=== PATIENT | female | born 1960 | race Caucasian/White ===

== ENCOUNTER 2018-08-16 07:10 | Emergency (ER) | payer MEDICAID, SELFPAY ==
[2018-08-16 07:16] VITALS: BP 141/80; PULSE 85; RESP 14; TEMP 36.6; O2SAT 95
--- NOTE | 2018-08-16 07:31 | W.ED.GENAD ---
Discharge Plan Disposition Patient Disposition: HOME Condition: Good Discharge Details Chief Complaint: GenMedical Clinical Impression: Bug bite with infection Primary Care Provider: Carol Barrett ED Provider: Bernardo Mock Meds and New Rx's Prescriptions: New cephalexin 500 mg tablet 500 mg PO TID Qty: 20 RF: 0 Discharge Instructions Additional Instructions: Antibiotic as prescribed. Motrin or Tylenol as needed for discomfort or fever. Follow-up with primary care in 1 week as planned. Return to ED for increasing pain swelling, high fever, worsening headaches, other concerns. Medical Decision Making These appear to be infected bug bites at this point. No fluctuance or evidence of abscess at this point in time. We will start patient on Keflex 500 mg p.o. 3 times daily for 1 week. She has a scheduled follow-up appointment with primary care in 1 week. She can be evaluated at that time for resolution of symptoms. Return to ED for fever, worsening lesions, neurologic changes, other concerns. HPI General Mode of arrival: ambulatory. Date/Time Provider Initiated Documentation: 08/16/18 07:22. Limitations to Documentation: no limitations. Information obtained by: patient and RN notes reviewed. HPI Narrative: Patient presents to ED for evaluation of bug bites behind the right ear and along the right occipital hairline. Patient reports original bug bites were about a week ago. These ones are now painful and swollen. They are not itchy. She is not sure what actually bit her but assumes given their distribution either mosquito or black flies. She states that they never really itched. She has not been digging at them. However, a couple of them have become hard, tender, swollen. She does not feel ill otherwise. Denies fevers, chills, myalgias. Reports that the two behind her right ear drained the other day. No further drainage since then. Related Data Home Medications Medication Instructions Recorded Confirmed cephalexin 500 mg PO TID #20 tab 08/16/18 Previous Rx's Medication Instructions Recorded cephalexin 500 mg PO TID #20 tab 08/16/18 Allergies Allergy/AdvReac Type Severity Reaction Status Date / Time Sulfa (Sulfonamide Allergy Intermediate Skin Rash Unverified 04/15/18 09:55 Antibiotics) General Stated Complaint: GenMedical FLORINA: 4 Review of Systems Constitutional Denies chills, Denies fever(s), Denies headache(s) and Denies malaise ENT Denies headache(s) Musculoskeletal Denies myalgias and Denies arthralgias Neurologic Denies headache(s) [facility] Medical History Heart block (Chronic 10/07/13) Pacemaker (Chronic 09/11/13) Type 2 diabetes mellitus, uncontrolled (Chronic) Hypothyroidism (Chronic) Surgical History Pacemaker (~09/2013) Family History Mother Diabetes Heart disease Hyperlipidemia Father No problems noted. Sister No problems noted. Brother No problems noted. maternal/paternal grandparents No problems noted. Son No problems noted. Son No problems noted. Son No problems noted. Son No problems noted. Social History Smoking/Tobacco Use Status: Current-Occasional Tobacco Type: cigarettes Alcohol Intake: never Drug use: Never Substance use type: does not use Do you feel safe in your relationship?: Yes Exam Const General: cooperative, comfortable and no acute distress Orientation: alert and oriented x3 HENPA Head: normocephalic, atraumatic and other (areas of tender, indurated, erythematous lesions along hairline/behind ear) Ears: external ears normal Face and sinus: normal facial exam Neck Neck: full ROM, supple and no lymphadenopathy noted Neuro General: alert, oriented x3, no focal motor deficits and CN's II-XI intact bilaterally Cognition: normal cognition Speech: speech normal Gait: normal gait Course Vital Signs Temperature 97.9 F 08/16/18 07:16 Pulse 85 08/16/18 07:16 Respiratory Rate 14 08/16/18 07:16 Blood Pressure 141/80 H 08/16/18 07:16 Pulse Oximetry 95 08/16/18 07:16 Temperature 97.9 F 08/16/18 07:16 Temperature Source Oral 08/16/18 07:16 Pulse 85 08/16/18 07:16 Respiratory Rate 14 08/16/18 07:16 Respiratory Effort Non-Labored 08/16/18 07:22 Respiratory Depth Normal 08/16/18 07:22 Respiratory Pattern Normal 08/16/18 07:22 Blood Pressure 141/80 H 08/16/18 07:16 Pulse Oximetry 95 08/16/18 07:16 Oxygen Delivery Method Room Air 08/16/18 07:16 Oxygen Flow Rate 0 08/16/18 07:16
--- NOTE | 2018-08-16 07:39 | ED.GENADUL_ITS ---
Discharge Plan Disposition Patient Disposition: HOME Condition: Good Discharge Details Chief Complaint: GenMedical Clinical Impression: Bug bite with infection Primary Care Provider: Carol Barrett ED Provider: Bernardo Mock Meds and New Rx's Prescriptions: New cephalexin 500 mg tablet 500 mg PO TID Qty: 20 RF: 0 Discharge Instructions Additional Instructions: Antibiotic as prescribed. Motrin or Tylenol as needed for discomfort or fever. Follow-up with primary care in 1 week as planned. Return to ED for increasing pain swelling, high fever, worsening headaches, other concerns. Medical Decision Making These appear to be infected bug bites at this point. No fluctuance or evidence of abscess at this point in time. We will start patient on Keflex 500 mg p.o. 3 times daily for 1 week. She has a scheduled follow-up appointment with primary care in 1 week. She can be evaluated at that time for resolution of symptoms. Return to ED for fever, worsening lesions, neurologic changes, other concerns. HPI General Mode of arrival: ambulatory . Date/Time Provider Initiated Documentation: 08/16/18 07:22 . Limitations to Documentation: no limitations . Information obtained by: patient and RN notes reviewed . HPI Narrative: Patient presents to ED for evaluation of bug bites behind the right ear and along the right occipital hairline. Patient reports original bug bites were about a week ago. These ones are now painful and swollen. They are not itchy. She is not sure what actually bit her but assumes given their distribution either mosquito or black flies. She states that they never really itched. She has not been digging at them. However, a couple of them have become hard, tender, swollen. She does not feel ill otherwise. Denies fevers, chills, myalgias. Reports that the two behind her right ear drained the other day. No further drainage since then. Related Data Home Medications Medication Instructions Recorded Confirmed cephalexin 500 mg PO TID #20 tab 08/16/18 Previous Rx's Medication Instructions Recorded cephalexin 500 mg PO TID #20 tab 08/16/18 Allergies Allergy/AdvReac Type Severity Reaction Status Date / Time Sulfa (Sulfonamide Allergy Intermediate Skin Rash Unverified 04/15/18 09:55 Antibiotics) General Stated Complaint: GenMedical FLORINA: 4 Review of Systems Constitutional Denies chills, Denies fever(s), Denies headache(s) and Denies malaise ENT Denies headache(s) Musculoskeletal Denies myalgias and Denies arthralgias Neurologic Denies headache(s) [facility] Medical History Heart block (Chronic 10/07/13) Pacemaker (Chronic 09/11/13) Type 2 diabetes mellitus, uncontrolled (Chronic) Hypothyroidism (Chronic) Surgical History Pacemaker (~09/2013) Family History Mother Diabetes Heart disease Hyperlipidemia Father No problems noted. Sister No problems noted. Brother No problems noted. maternal/paternal grandparents No problems noted. Son No problems noted. Son No problems noted. Son No problems noted. Son No problems noted. Social History Smoking/Tobacco Use Status: Current-Occasional Tobacco Type: cigarettes Alcohol Intake: never Drug use: Never Substance use type: does not use Do you feel safe in your relationship?: Yes Exam Const General: cooperative, comfortable and no acute distress Orientation: alert and oriented x3 HENPR Head: normocephalic, atraumatic and other (areas of tender, indurated, erythematous lesions along hairline/behind ear) Ears: external ears normal Face and sinus: normal facial exam Neck Neck: full ROM, supple and no lymphadenopathy noted Neuro General: alert, oriented x3, no focal motor deficits and CN's II-XI intact bilaterally Cognition: normal cognition Speech: speech normal Gait: normal gait Course Vital Signs Temperature 97.9 F 08/16/18 07:16 Pulse 85 08/16/18 07:16 Respiratory Rate 14 08/16/18 07:16 Blood Pressure 141/80 H 08/16/18 07:16 Pulse Oximetry 95 08/16/18 07:16 Temperature 97.9 F 08/16/18 07:16 Temperature Source Oral 08/16/18 07:16 Pulse 85 08/16/18 07:16 Respiratory Rate 14 08/16/18 07:16 Respiratory Effort Non-Labored 08/16/18 07:22 Respiratory Depth Normal 08/16/18 07:22 Respiratory Pattern Normal 08/16/18 07:22 Blood Pressure 141/80 H 08/16/18 07:16 Pulse Oximetry 95 08/16/18 07:16 Oxygen Delivery Method Room Air 08/16/18 07:16 Oxygen Flow Rate 0 08/16/18 07:16
[2018-08-16] MEDS: Cephalexin 500 MG CAP PO (07:41)
== END 2018-08-16 07:43 | disposition home or self-care (01) ==
PROVIDERS: Emergency Provider Emergency Medicine; PCP Internal Medicine
DX: S00.86XA Insect bite (nonvenomous) of other part of head, initial encounter (principal); W57.XXXA Bitten or stung by nonvenomous insect and other nonvenomous arthropods, initial encounter
CPT/HCPCS: 99283

== ENCOUNTER 2018-09-11 09:25 | Outpatient (CLI) | payer MEDICAID, SELFPAY ==
[2018-09-11 10:32] LABS: HCT 43.9 % (36.0-46.0); HGB 14.9 g/dL (12.0-15.5); Mean Corp. HGB Concentration 33.9 g/dL (32.0-36.0); Mean Corpuscular Hemoglobin 28.2 pg (27.0-33.0); Mean Platelet Volume 9.3 fL (8.0-11.0); Platelet Count 199 x1000/uL (130-400); RBC 5.29 m/cumm (4.00-5.20); RBC Distribution Width 13.1 % (11.7-14.6)
[2018-09-11 11:27] LABS: BUN 8 mg/dL (7-18); CREATININE 0.61 mg/dL (0.55-1.02); Calcium 9.1 mg/dL (8.5-10.1); Calculated LDL 129 mg/dL; Chloride 103 mmol/L (98-107); Cholesterol 197 mg/dL (50-200); Glucose 141 mg/dL (70-100); HDL Cholesterol 44 mg/dL (40-60); Potassium 4.6 mmol/L (3.5-5.1); Sodium 138 mmol/L (136-145); Triglyceride 121 mg/dL (30-150)
== END 2018-09-11 09:45 ==
PROVIDERS: PCP Nurse Practitioner Family; Visit Provider Nurse Practitioner Family
DX: I10 Essential (primary) hypertension (principal); E11.9 Type 2 diabetes mellitus without complications; Z00.00 Encounter for general adult medical examination without abnormal findings; F32.9 Major depressive disorder, single episode, unspecified
CPT/HCPCS: 36415; 80048; 80061; 83721; 85027

== ENCOUNTER 2018-11-10 00:59 | Outpatient (CLI) | payer MEDICAID, SELFPAY ==
--- NOTE | 2018-11-10 12:42 | DI.MAMMO_ITS ---
EXAM: MG MAMMO SCREENING CLINICAL HISTORY: SCREENING Z12.31. TECHNIQUE: Bilateral full field digital CC and MLO mammographic images were obtained with 3D tomosyn thesis and utilizing computer aided detection (CAD). COMPARISON: Priors available for comparison. FINDINGS: Masses/Architectural Distortion: None seen. Microcalcifications: No suspicious pleomorphic-type are seen. Breast Density - Category A - Almost entirely fatty IMPRESSION: 1. No significant interval change with no specific features of malignancy noted. 2. Unless there is more urgent need, screening mammography is recommended, as per [employer] guidelines. ACR BI-RAD Category- 1 Negative A negative radiographic report should not delay biopsy if a dominant or clinically suspicious mass is present. Up to ten percent of cancers are not identified on mammography. A negative report may reinforce clinical impression. Adenosis and dense breasts may obscure an underlying neoplasm. False positive reports average 6 to 10%.
== END 2018-11-10 01:19 ==
PROVIDERS: PCP Nurse Practitioner Family; Visit Provider Nurse Practitioner Family
DX: Z12.31 Encounter for screening mammogram for malignant neoplasm of breast (principal)
CPT/HCPCS: 77063; 77067

== ENCOUNTER 2019-12-01 00:13 | Outpatient (CLI) | payer MEDICAID, SELFPAY ==
--- NOTE | 2019-12-01 | DI.MAMMO_ITS ---
EXAM: MAMMO SCREENING CLINICAL HISTORY: SCREENING,Z12.31 TECHNIQUE: Mammograms were interpreted according to the usual protocol including computer analysis w [employer] CAD system, tomosynthesis and C-view imaging. COMPARISON: 2010 through 2018 FINDINGS: The breasts are composed of mainly fatty density , Breast Density category A. A pacemaker is again noted overlying the left pectoral muscle. No suspicious masses or suspicious microcalcifications are seen. No skin thickening or abnormal axillary lymph nodes are seen. There has been no significant change from prior exams. IMPRESSION: BI-RADS Category 1, Negative mammogram Yearly screening mammography is recommended. Breast Density - Category A, fatty density. A negative radiographic report should not delay biopsy if a dominant or clinically suspicious mass is present. Up to ten percent of cancers are not identified on mammography. A negative report may reinforce clinical impression. Adenosis and dense breasts may obscure an underlying neoplasm. False positive reports average 6 to 10%. Patient will receive a letter notifying them of these results.
== END 2019-12-01 00:33 ==
PROVIDERS: PCP Nurse Practitioner Family; Visit Provider Nurse Practitioner Family
DX: Z12.31 Encounter for screening mammogram for malignant neoplasm of breast (principal); Z95.0 Presence of cardiac pacemaker
CPT/HCPCS: 77063; 77067

== ENCOUNTER 2020-06-15 09:57 | Outpatient (REF) | payer MEDICAID, SELFPAY ==
[2020-06-15 13:50] LABS: ALT 144 U/L (14-59); AST 99 U/L (15-37); Anion Gap 11.2 mmol/L (3-11); BUN 13 mg/dL (7-18); CO2 26.8 mmol/L (21.0-32.0); CREATININE 0.7 mg/dL (0.55-1.02); Calcium 9.6 mg/dL (8.5-10.1); Chloride 102 mmol/L (98-107); Glucose 126 mg/dL (74-106); Potassium 4.5 mmol/L (3.5-5.1); Sodium 140 mmol/L (136-145)
[2020-06-15 14:08] LABS: Calculated LDL 53 mg/dL (<100); Cholesterol 122 mg/dL (<200); HDL Cholesterol 51 mg/dL (40-60); Triglyceride 93 mg/dL (<150)
== END 2020-06-15 09:58 | disposition home or self-care (01) ==
LOC: NCHCN 09:57
PROVIDERS: PCP Nurse Practitioner Family; Visit Provider Nurse Practitioner Family
DX: E11.9 Type 2 diabetes mellitus without complications (principal)
CPT/HCPCS: 80048; 80061; 84450; 84460

== ENCOUNTER 2020-06-22 15:38 | Outpatient (REF) | payer MEDICAID, SELFPAY ==
[2020-06-22 22:08] LABS: Iron 86 ug/dL (50-170); Total Iron Binding Capacity 349 ug/dL (250-450); Transferrin Sat 25 % (15-50)
[2020-06-24 09:37] LABS: HBs Antibody, Quant <3.1 mIU/mL (See Note); Hepatitis B Surface Ab Negative (See Note)
[2020-06-24 10:11] LABS: Hepatitis C Ab w Rflx HCV PCR Negative (Negative)
== END 2020-06-22 15:39 | disposition home or self-care (01) ==
LOC: NCHCN 15:38
PROVIDERS: PCP Nurse Practitioner Family; Visit Provider Nurse Practitioner Family
DX: R94.5 Abnormal results of liver function studies (principal); E11.9 Type 2 diabetes mellitus without complications
CPT/HCPCS: 86706; 86803; 83540; 83550

== ENCOUNTER 2020-07-01 04:13 | Outpatient (CLI) | payer MEDICAID, SELFPAY ==
--- NOTE | 2020-07-01 | DI.US_ITS ---
Exam(s) US ABDOMEN EXAM: US ABDOMEN INDICATION: ELEVATED LFT'S,R94.5 COMPARISON: US RIGHT EXTREMITY US from 01/12/2011 TECHNIQUE: Ultrasound abdomen performed using standard protocol FINDINGS: Abdominal ultrasound was performed according to the usual protocol. There appears to be mild hepatomegaly. Mildly echogenic appearance of the liver presumably represent s hepatic steatosis.. No focal hepatic lesion seen. There is no evidence of cholelithiasis or biliary dilatation. No gallbladder wall thickening or peric holecystic fluid collection. Pancreas appears intact as visualized. Spleen is unremarkable in appearance with no focal lesion. Kidneys are normal in size and shape. No renal mass, hydronephrosis, or nephrolithiasis. Multiple sm all simple cysts of the left kidney are noted. Abdominal aorta and IVC are of normal diameter. IMPRESSION: Mild hepatomegaly and hepatic steatosis. Otherwise unremarkable examination.
== END 2020-07-01 04:33 ==
PROVIDERS: PCP Nurse Practitioner Family; Visit Provider Nurse Practitioner Family
DX: R94.5 Abnormal results of liver function studies (principal); K76.0 Fatty (change of) liver, not elsewhere classified
CPT/HCPCS: 76700

== ENCOUNTER 2021-01-27 02:09 | Outpatient (CLI) | payer MEDICAID, SELFPAY ==
--- NOTE | 2021-01-27 13:52 | DI.US_ITS ---
APPROVED REPORT EXAM: Comprehensive 2D, Doppler, and color-flow Echocardiogram Patient Location: [facility] [employer] Salesperson: Tere Carias RDCS (AE) Indications: Heart Murmur Other Information Study Quality: Adequate. Technically limited study due to body habitus. Conclusion Normal left ventricular wall thickness and chamber size. Estimated ejection fraction is 55 to 60% Wa ll motion is normal Normal right ventricular size and systolic function Both atria are normal in size Pacemaker wire noted in the right heart Aortic valve is trileaflet and very mildly sclerotic without stenosis or regurgitation There is no additional structural or hemodynamically significant valvular disease Wall motion Left Ventricle The left ventricle is normal size. The left ventricular systolic function is normal. The left ventric ular ejection fraction is within the normal range. There is normal left ventricular wall thickness. T here is normal LV segmental wall motion. There is no ventricular septal defect visualized. LVEF is 55 %. Right Ventricle The right ventricle is normal size. The right ventricular systolic function is normal. The RVSP is 15 .6mmHg. Pacemaker lead is present in the right ventricle. Atria The left atrium size is normal. The right atrium size is normal. The interatrial septum is intact wit h no evidence for an atrial septal defect. Aortic Valve The aortic valve is very mildly sclerotic. Aortic valve is trileaflet. No hemodynamically significant valvular aortic stenosis. No aortic regurgitation is present. Mitral Valve The mitral valve is normal in structure. No evidence of mitral valve stenosis. Trace mitral regurgita tion. Tricuspid Valve The tricuspid valve is normal in structure. There is no tricuspid valve stenosis. Trace tricuspid reg urgitation. Pulmonic Valve The pulmonary valve is normal in structure. There is no pulmonic valvular stenosis. There is no pulmo sriram valvular regurgitation. Great Vessels The aortic root is normal in size. The ascending aorta is normal in size. Aortic arch is normal in ca liber. IVC is normal in size and collapses >50% with inspiration. Pericardium There is no pericardial effusion. 2D Dimensions IVSD d PLAX 0.81 cm F: 0.6-1.0 LV Vol A2C d MOD 48.0 mL LVPW d PLAX 0.88 cm F: 0.6 - 1.0 LV Vol A4C d MOD 80.1 mL LVID d PLAX 4.27 cm F: 3.8 - 5.2 LA vol/ BSA A4C s A-L 18.4 mL/m2 LVDs 3.00 cm F: 2.2 - 3.5 LA Area A4C s MOD 13.09 cm2 Ao Root d 2.07 cm F: 2.7 - 3.3 LV EF A4C MOD 55.7 % RA Area A4C 13.14 cm2 LV EF A2C MOD 46.6 % RA Vol/ BSA A4C s A-L 20.7 mL/m2 LV EF Biplane MOD 51.7 % Ao Asc Diam d 3.15 cm F: 2.3 - 3.1 SV 33.13 mL LV EF Teichholz 56.3 % SV Index 19.26 mL/m2 LVEF (Moralez's) 51.74 % F: 54 - 74 LV Volume 50.63 mL F: 46 - 106 LV Volume Index 29.43 mL/m2 F: 29 - 61 LV Vol Biplane MOD 64.0 mL FS 29.15 % M-Mode TAPSE 1.90 cm (M/F) >1.7 LV Diastology MV E' medial 0.066 (>0.07 m/s) E/A Ratio 0.8 LV E/e MED 13.30 (<14) MV E Vmax 0.88 (0.4-1.3 m/s) MV E' lateral 0.075 (>0.1 m/s) MV A Vmax 1.15 (0.4-1.3 m/s) LV E/e LAT 11.70 (<14) MV E/A Ratio 0.75 MV E/E' medial 13.33 MV E/E' lateral 11.74 Aortic Valve LVOT Area 2.88 cm2 AoV Area Vmax 1.57 cm2 LVOT Vmax 1.24 m/s AoV Area/ BSA (Vmax) 0.91 cm2/m2 LVOT Mean Naeem. 0.87 m/s LUANNE Mean Naeem. 1.62 cm2 LVOT Peak Grad 6.2 mmHg LUANNE Mean Naeem. Index 0.94 cm2/m2 LVOT Mean Grad 3.5 mmHg LVOT VTI 0.253 m LVOT Diam s 1.90 cm AoV Vmax 2.29 m/s Velocity Ratio 0.54 AoV Mean Naeem. 1.56 m/s AoV Peak Grad 20.9 mmHg LVOT SV 73.04 mL AoV Mean Grad 11.0 mmHg AoV VTI 0.382 m AoV Area VTI 1.91 cm2 AoV Area/ BSA (VTI) 1.11 cm/m2 Mitral Valve MV DT 307 (160-240 msec) MV PHT 89 msec MV Area PHT 2.47 cm2 MV VTI 0.356 m MV Area VTI 2.05 (4.0-6.0 cm2) Pulmonary Valve PV Vmax 1.23 (0.5-1.5 m/s) RVOT Peak Gr. 4.16 mmHg PV Peak Grad 6.0 mmHg RVOT Mean Gr. 2.05 mmHg PV Mean Grad 3.1 mmHg RVOT VTI 0.190 m PV VTI 0.255 m RVOT Vmax 1.02 m/s Tricuspid Valve TR Peak Grad 12.5 mmHg TR Vmax 1.77 m/s RA Pressure 3.00 mmHg RVSP (TR) 15.6 mmHg
== END 2021-01-27 02:29 ==
PROVIDERS: PCP Nurse Practitioner Family; Visit Provider Nurse Practitioner Family
DX: R01.1 Cardiac murmur, unspecified (principal); Z95.0 Presence of cardiac pacemaker; I35.8 Other nonrheumatic aortic valve disorders
CPT/HCPCS: 93306

== ENCOUNTER 2021-03-24 13:33 | Outpatient (REF) | payer MEDICAID, SELFPAY ==
[2021-03-24 17:14] LABS: ALT 70 U/L (14-59); AST 43 U/L (15-37); Anion Gap 7.7 mmol/L (3-11); BUN 9 mg/dL (7-18); CO2 26.3 mmol/L (21.0-32.0); CREATININE 0.6 mg/dL (0.55-1.02); Calcium 8.9 mg/dL (8.5-10.1); Chloride 106 mmol/L (98-107); Glucose 122 mg/dL (74-106); Potassium 4.1 mmol/L (3.5-5.1); Sodium 140 mmol/L (136-145)
[2021-03-24 19:29] LABS: HCT 43.1 % (36.0-46.0); HGB 14.1 g/dL (11.2-15.7); MCH 29.1 pg (27.0-33.0); MCHC 32.7 % (32.0-36.0); MCV 88.9 fL (80-95); MPV 10.5 fL (8.0-11.0); Platelet Count 185 10^3/uL (130-400); RBC 4.85 10^6/uL (3.93-5.22); RDW 12.4 % (11.7-14.6); RDW-SD 40.9 fL; WBC 8.95 10^3/uL (4.4-10.8)
== END 2021-03-24 13:34 | disposition home or self-care (01) ==
LOC: NCHCN 13:33
PROVIDERS: PCP Nurse Practitioner Family; Visit Provider Nurse Practitioner Family
DX: I10 Essential (primary) hypertension (principal); E11.9 Type 2 diabetes mellitus without complications; R94.5 Abnormal results of liver function studies
CPT/HCPCS: 80048; 85027; 84450; 84460

== ENCOUNTER 2021-09-05 03:20 | Outpatient (CLI) | payer MEDICAID, SELFPAY ==
[2021-09-05 12:09] LABS: Source Nasal/Nares
[2021-09-05 16:22] LABS: COVID-19 PCR Negative (Negative)
== END 2021-09-05 03:21 | disposition home or self-care (01) ==
LOC: LBO 03:21
PROVIDERS: PCP Nurse Practitioner Family; Visit Provider Student in an Organized Health Care Education/Training Program
DX: Z20.822 Contact with and (suspected) exposure to COVID-19 (principal); Z01.818 Encounter for other preprocedural examination
CPT/HCPCS: 87635

== ENCOUNTER 2021-09-07 08:46 | Day surgery (SDC) | payer MEDICAID, SELFPAY ==
[2021-09-07] VITALS (9 sets, daily range): BP systolic 114–176; BP diastolic 55–83; PULSE 73–82; RESP 18–34; TEMP 36–36.6; O2SAT 92–100; BMI 31.2
--- NOTE | 2021-09-07 08:13 | W.ANESPRE ---
General Info Date of Service Date Performed: 09/07/21 Height: 5 ft Weight: 72.575 kg Body Mass Index (BMI): 31.2 Surgical Procedure: Operation Date: 09/07/21 11:40 Proposed Procedure Side Surgeon p Shoulder Manipulation Under Anesthesia Chaim Flores MD Meds Allergies and Home Medications Allergies Allergy/AdvReac Type Severity Reaction Status Date / Time Sulfa (Sulfonamide Allergy Intermediate Skin Rash Verified 09/07/21 09:15 Antibiotics) Home Medication Medication Instructions Recorded albuterol sulfate 90 mcg/actuation 2 puff inhalation Q6H PRN 11/07/18 aerosol inhaler (Ventolin HFA) sitagliptin 100 mg tablet (Januvia) 100 mg PO DAILY 04/15/19 atorvastatin 40 mg tablet 40 mg PO DAILY 05/18/20 fluticasone propionate 110 1 puff inhalation BID 07/04/21 mcg/actuation HFA aerosol inhaler (Flovent HFA) lisinopril 10 mg tablet 10 mg PO DAILY 07/04/21 metformin 500 mg tablet 500 mg PO BID 07/04/21 Current Visit Medications: Current Medications Generic Name Dose Route Start Last Admin Trade Name Freq PRN Reason Stop Dose Admin Ringer's Solution 1,000 mls @ 30 mls/hr 09/07/21 06:00 IV 10/06/21 23:59 INFUSION [facility] IV Miscellaneous Supplies 1 each 09/07/21 06:00 Iv Access IV 10/06/21 23:59 DIRECTED ROSY Naproxen 250 - 500 mg 09/07/21 07:23 Naproxen 500 Mg Tab PO BID PRN PRN Oxycodone HCl 5 - 10 mg 09/07/21 07:23 Oxycodone 5 Mg Tab PO Q4H PRN PRN Sodium Chloride 0 ml 09/07/21 06:00 Normal Saline Flush 10 Ml Syr IV 10/06/21 23:59 PRN PRN Sodium Chloride 0 ml 09/07/21 06:00 Normal Saline 10 Ml Vial IJ 10/06/21 23:59 DIRECTED PRN Sterile Water 0 ml 09/07/21 06:00 Water,Injection,Sterile 10 Ml Vial IJ 10/06/21 23:59 DIRECTED PRN PFSH Active Problems Active Problems: Problem Status Onset Code Adhesive capsulitis of right shoulder M75.01 Steatosis, liver K76.0 Elevated LFTs R79.89 Heart murmur R01.1 No-show for appointment Z53.29 Mixed incontinence N39.46 Depression F32.9 Lumbar pain M54.5 Medical History Medical History (Updated 09/07/21 @ 07:24 by Chaim Flores MD) Bursitis of right shoulder COPD (chronic obstructive pulmonary disease) Diabetes A) Diagnosed 09/19/13 admission Dyspnea on exertion Heart block AV second degree medtronic dual lead pacemaker Hypertension Hypothyroidism a) diagnosed 09/19/13 admission Obesity (10/07/13) Psoriasis Right rotator cuff tendonitis Tobacco abuse Type 2 diabetes mellitus, uncontrolled Urge incontinence Surgical History Surgical History History of Surgical Procedure a. Pregnancies: 4, Para 4 with four children. Pacemaker (~09/2013) Tobacco Smoking/Tobacco Use Status: Current-Occasional Tobacco Type: cigarettes Smoking cigarettes per day: 10 Years smoked: 25 Counseling given: patient declined Alcohol Alcohol Intake: never Substance Use Substance use: Never Substance use type: does not use Prental History History 4 Para 4 Hx # Term Pregnancies Multiple births Hx # Pregnancies Ectopic pregnancies AB induced Hx Number of Living Children AB spontaneous Vital Signs and Lab Results Lab Results Blood Type / Crossmatch: No Data to Display Complete Blood Count: No Data to Display Complete Metabolic Panel: No Data to Display Liver Function Panel: No Data to Display Coagulation Panel: No Data to Display Cardiac Panel: No Data to Display Arterial Blood Gas: No Data to Display Venous Blood Gas: No Data to Display Pancreas Panel: No Data to Display Thyroid Panel: No Data to Display Infectious Disease: Coronavirus (COVID-19)(PCR) Negative (Negative) 09/05/21 09:58 Coronavirus 2019 Source Nasal/Nares 09/05/21 09:58 Blood Cultures: No Data to Display Toxicology Panel: No Data to Display Imaging and Studies Imaging and Studies Study information below may be from another EMR and interpreted by another provider. Please see original notes in EMR for more complete details. Echocardiogram Summary: Conclusion Normal left ventricular wall thickness and chamber size. Estimated ejection fraction is 55 to 60% Wall motion is normal Normal right ventricular size and systolic function Both atria are normal in size Pacemaker wire noted in the right heart Aortic valve is trileaflet and very mildly sclerotic without stenosis or regurgitation There is no additional structural or hemodynamically significant valvular disease Anesthesia Assessment and Plan Anesthesia History Personal History: No History of Anesthesia Complications Family History: No Family History of Anesthesia Complications Exercise Tolerance Exercise Tolerance: Metabolic Equivalents>4 Pertinent Negatives Pertinent Negatives: No Symptoms of GERD and No History of CVA/TIA Cardiac & Pulmonary Exam Cardiac Exam: Normal S1/S2 Heart Sounds Pulmonary Exam: Clear Bilateral Breath Sounds Implantable Cardiac Device Does patient have a Pacemaker or an ICD?: Yes Device Briquette Machine Operator:: Perfect Earthtronic Dual lead Adapta [id number] Reason for Placement:: 2nd degree HB Date of Last Device Interrogation:: 06/14/21 Airway Exam Known Difficult Airway: No Mallampati Class: 2 Mouth Opening: Normal (> 3cm) Thyromental Distance: Greater than 3 cm Neck Range of Motion: Full ROM Neck Circumference: Normal Teeth Condition: Generalized Poor Dentition and Loose or Chipped (Patient describes two right molars (1 upper and 1 lower) and one lower left molar being sharp. Many missing teeth. ) ASA Classification ASA Score: ASA 2 Emergency Case?: No NPO Status NPO Status: NPO Clears >2 hours, Solids >8 hours Anesthesia Plan Resuscitation Status: Full Code Anesthesia Technique: General Anesthesia Airway Planned: Natural Airway Pain Management: Surgeon and patient request nerve block Monitors Used: Standard Monitors Preoperative Comments:: PPM: recently interrogated.
[2021-09-07] MEDS: Lactated Ringers 1,000 ML 30 ML IV (09:33)
--- NOTE | 2021-09-07 10:00 | W.PM.OP ---
Operative Note Operative Note DATE OF PROCEDURE: 09/07/21 PRE-OP DIAGNOSIS: Right shoulder adhesive capsulitis POST-OP DIAGNOSIS: same PROCEDURE: Right shoulder manipulation under anesthesia, CPT# 65390 SURGEON: Chaim Flores ANESTHESIA TYPE: General LMA/ETT and Primary Nerve Block Refer to Anesthesia Record COMPLICATIONS: None Patient was transported to: PACU Patient's condition: stable Indications: Please see complete medical record for details. Procedure Description: In the operating room, general anesthesia was induced. The patient was positioned supine on the stretcher. All bony prominences were well-padded. Preoperative antibiotics were omitted. The correct patient, procedure, and side of the procedure were all verified prior to beginning. The patient's right shoulder range of motion was assessed in about 15 degrees external rotation 90 degrees forward elevation while under anesthesia with rather stiff endpoints. Using a short lever arm and steady guided pressure, the shoulder was manipulated in all directions alternating initially through forward elevation, abduction, and external rotation with readily palpable release of adhesions restoring excellent range of motion. Terminal motion was compared against the contralateral side and additional stretching done in all directions until full range of motion was restored. While the patient was still under anesthesia waking up various positions were reinforced especially external rotation forward elevation and abduction. There was no instability or significant mechanical symptoms post?manipulation. The patient awoke from anesthesia without complication and was transferred to the recovery room in a stable condition.
--- NOTE | 2021-09-07 11:21 | W.ANESNERVE ---
Nerve Block Single Injection Procedure Date and Time Date Performed: 09/07/21 Procedure Start: : Location Where Procedure Performed Procedure Location: Day Surgery Unit Reason Performed: Postoperative Analgesia Requesting Provider: Chaim Flores Timeout Performed Timeout Performed: Yes Monitoring Used ECG, Blood Pressure, SpO2 and See EMR for corresponding vital signs Sterility Sterility: Hand Hygiene, Surgical Cap, Surgical Mask, Sterile Gloves and Chlorhexidine Sedation Given During Procedure Sedation Given (Indicate Dose Given): Versed IV Dose:: 2mg Patient Mental Status Patient Mental Status: Sedate with meaningful communication Nerve Block 1st Nerve Block: Laterality: Right Block Type: Supraclavicular Needle / Catheter Used: 100mm SonoPlex II Local Anesthetic Bolus (Indicate Dose Given): Lidocaine used for local infiltration of skin, Injected in 3-5ml increments after negative blood aspiration and Bupivacaine 0.5% Dose:: 20 mL Additives (Indicate Dose Given): Precedex Dose:: 70mcg Ultrasound: Sterile probe cover and gel used Ultrasound Image Saved?: Yes Nerve Stimulator: Not Used Paresthesia: None Post Procedure Pain score (0-10): 0 Procedure Tolerated: No Complications and Patient tolerated well Procedure Outcome: Successful Performed By: Rosamaria Herring Supervised By: Jose Lema
--- NOTE | 2021-09-07 12:11 | PDOC.DSDIS_ITS ---
Discharge Plan Disposition Patient Disposition: HOME Condition: Stable Discharge Details Reason For Visit: Right shoulder stiffness Attending Provider: Chaim Flores Primary Care Provider: Anna Bonds Home Meds and New Rx's Prescriptions: New naproxen 250 mg tablet 250 - 500 mg PO BID PRNQty: 40 0RF Rx Instructions: take with a meal oxycodone 5 mg tablet 5 - 10 mg PO Q4H MDD 30 mg PRN (Reason: moderate to severe pain) Qty: 12 0RF Continued Januvia 100 mg tablet 100 mg PO DAILY atorvastatin 40 mg tablet 40 mg PO DAILY albuterol sulfate [Ventolin HFA] 90 mcg/actuation HFA aerosol inhaler 2 puff IH Q6H PRN fluticasone propionate [Flovent HFA] 110 mcg/actuation HFA aerosol inhaler 1 puff inhalation BID lisinopril 10 mg tablet 10 mg PO DAILY metformin 500 mg tablet 500 mg PO BID Discharge Instructions Additional Instructions: Surgery: Right shoulder manipulation under anesthesia Activity: Light gentle use of the shoulder and right upper extremity as soon as ready. Gently stretch shoulder in all directions every day. Resume physical therapy tomorrow as previously arranged. You may return to [employer] work as soon as you feel ready sometime in the next 1-2 weeks. Prescriptions: Naproxen 250 mg take 1-2 every 12 hours with a meal as needed for moderate pain Oxycodone 5 mg take 1-2 every 4-6 hours as needed for severe pain You may use qmsc-bca-pnzxapi Tylenol (acetaminophen) as needed for mild pain. These pain medications may be taken all at once or in different combinations as needed. Also, recommend Colace (docusate) as a stool softener as surgery and pain medicine cause constipation. You may try etad-jsf-kehqscn diphenhydramine (Benadryl) 25-50 mg nightly as a sleep aid Dressings: None Follow-up: 10-[address] Flores. Let us know right away if you develop any redness, drainage, fevers, chest pain, or trouble breathing. Do not drink alcohol or drive for at least 24 hours after anesthesia. Please call the office during business hours with any questions or concerns. Discharge Orders Discharge Orders: Discharge Order (Routine); Ordered 09/07/21 Ordered By: Chaim Flores DS: Diagnosis Discharge Diagnosis (1) Adhesive capsulitis of right shoulder: Status: Acute
--- NOTE | 2021-09-07 12:31 | W.ANESPOSTOP ---
Postoperative Evaluation Date, Time and Location Date Performed: 09/07/21 Time Performed: 14:21 Patient Location: Day Surgery Unit Vital Signs Most Recent Imported Vital Signs: Most Recent Vital Signs Temp Pulse Resp BP Pulse Ox 36.4 C L 74 24 122/77 93 09/07/21 12:18 09/07/21 12:18 09/07/21 12:18 09/07/21 12:18 09/07/21 12:18 Pain Score Most Recent Pain Score: Most Recent Pain Score Pain Level 0 09/07/21 12:18 Assessment Mental Status: Awake (Alert & Oriented to Patient Baseline) Airway and Respiratory Function: Patent airway with normal (patient baseline) respiratory exam Cardiovascular Function: Hemodynamically Stable Hydration Status: Adequately Hydrated Nausea & Vomiting: No Nausea or Vomiting Pain: Pt. Denies Any Pain Peripheral Nerve Block: Regional nerve block not resolved at time of post operative discharge Postoperative Comments:: Patient seen earlier. All questions answered. Block set up appropriately.
== END 2021-09-07 13:15 | disposition home or self-care (01) ==
PROVIDERS: PCP Nurse Practitioner Family; Visit Provider Student in an Organized Health Care Education/Training Program
PROC: (CPT 23700; principal; 2021-09-07 11:30)
DX: M75.01 Adhesive capsulitis of right shoulder (principal); E11.65 Type 2 diabetes mellitus with hyperglycemia; J44.9 Chronic obstructive pulmonary disease, unspecified; I10 Essential (primary) hypertension; E78.5 Hyperlipidemia, unspecified; K76.0 Fatty (change of) liver, not elsewhere classified
CPT/HCPCS: 23700; 76942; 97110; 97140; 97530; J2250; J2704

== ENCOUNTER 2022-06-13 15:26 | Outpatient (REF) | payer MEDICAID, SELFPAY ==
--- NOTE | 2022-06-13 14:45 | PAPFT_PTH ---
PATIENT: Mady Medellin LOC: [facility]#:[id number] AGE/SX: 62/F ROOM: RE06/13/[address]: Anna Bonds : 1960 BED: DIS: 06/13/2022 SPEC #: [id number] RECD: 06/14/22 13:07 STATUS: LORRAINE JONES #: [id number] DAVID: 06/13/22 14:[address]: Anna Bonds DEPT: [facility] Cytology RECD BY: Cheryl Adams Tissues: 1 - CX/ENDOCX FOR PAP SMEARS Procedures: PAP THIN PREP/UVM Screening HPV DNA PROBE Comments: [id number]
[2022-06-13 22:11] LABS: HCT 44.7 % (36.0-46.0); HGB 14.7 g/dL (11.2-15.7); MCH 28.7 pg (27.0-33.0); MCHC 32.9 % (32.0-36.0); MCV 87 fL (80-95); MPV 10.9 fL (8.0-11.0); Platelet Count 211 10^3/uL (130-400); RBC 5.13 10^6/uL (3.93-5.22); RDW 12.4 % (11.7-14.6); RDW-SD 39.8 fL; WBC 11.34 10^3/uL (4.4-10.8)
[2022-06-13 22:26] LABS: ALT 99 U/L (14-59); AST 59 U/L (15-37); Alkaline Phosphatase 102 U/L (46-116); BUN 17 mg/dL (7-18); Bilirubin, Total 0.4 mg/dL (0.2-1.0); CREATININE 0.8 mg/dL (0.55-1.02); Calcium 9.4 mg/dL (8.5-10.1); Chloride 103 mmol/L (98-107); Estimated GFR 83.26 (mL/min/1.73m2); Glucose 125 mg/dL (74-106); Potassium 4.9 mmol/L (3.5-5.1); Sodium 140 mmol/L (136-145); Total Protein 7.9 g/dL (6.4-8.2)
== END 2022-06-13 15:27 | disposition home or self-care (01) ==
LOC: NCHCN 15:26
PROVIDERS: PCP Nurse Practitioner Family; Visit Provider Nurse Practitioner Family
DX: Z13.0 Encounter for screening for diseases of the blood and blood-forming organs and certain disorders involving the immune mechanism (principal); Z13.228 Encounter for screening for other metabolic disorders; Z12.4 Encounter for screening for malignant neoplasm of cervix; Z01.419 Encounter for gynecological examination (general) (routine) without abnormal findings; Z11.51 Encounter for screening for human papillomavirus (HPV)
CPT/HCPCS: 80053; 85027; 88142; 87624

== ENCOUNTER 2023-05-10 13:33 | Outpatient (REF) | payer MEDICAID, SELFPAY ==
[2023-05-10 21:30] LABS: Bilirubin Negative (Negative); Blood Negative (Negative); Clarity Clear (Clear); Glucose Negative (Negative); Ketones Negative (Negative); Leukocyte Esterase Trace (Negative); Nitrite Negative (Negative); Urobilinogen 0.2 mg/dL (Up to 0.2)
[2023-05-10 21:51] LABS: Bacteria Rare HPF (Negative); Crystals Negative HPF (Negative); Epithelial Cells Rare HPF (Negative); Mucus Negative (Negative); RBC Negative HPF (0-2)
[2023-05-10 21:52] LABS: C & S Indicated? Yes; Casts Negative LPF (Negative)
== END 2023-05-10 13:34 | disposition home or self-care (01) ==
LOC: NCHCN 13:33
PROVIDERS: PCP Nurse Practitioner Family; Visit Provider Nurse Practitioner Family
DX: R35.0 Frequency of micturition (principal)
CPT/HCPCS: 87077; 81003; 81015; 87086; 87186

== ENCOUNTER 2023-12-06 17:12 | Outpatient (REF) | payer MEDICAID, SELFPAY ==
--- OUTSIDE RECORDS SUMMARY | 2023-12-06 17:14 | XMS_ITS | Encounter Summary ---
Author Organization [facility] Address [address] [place] [address] Care Team Providers Care Agile Project Manager Name Role Phone Unavailable Primary Care Provider Unavailabl e Encounter Details Date Type Department Care Team (Late st Contact Info) Description 06/22/2010 8:24 EDT - 06/22/2010 8:25 EDT Hospital Encounter [address] [address] Najma Valladares, DEVIN [address] [place] [id number] Discharge Disposition: Home or Self Care Social History Tobacco Use Types Packs/Day Years Used Date Smoking Tobacco: Never Assessed Sex and Gender Information Value Date Recorded Sex Assigned at Not on file Gender Identity Not on file Sexual Orientation Not on file documented as of this encounter Discharge Disposition Disposition Code Departure Means Destination Home or Self Care documented in this encounter Plan of Treatment Not on file documented as of this encounter Visit Diagnoses Not on filedocumented in this encounter
--- OUTSIDE RECORDS SUMMARY | 2023-12-06 17:14 | XMS_ITS | Clinical Summary ---
Author Organization [facility] Address [facility] [place] [address] Care Team Providers Care Advertiser Name Role Phone Anna Bonds APRN Primary Care Provider [phone] Allergies Active Allergy Reactions Criticality Noted Date Comments Penicillins 05/15/2010 Sulfa (Sulfonamide Antibiotics) Rash High 08/12 Sulfur Medium 09/21/2022 Medications Medication Sig Dispensed Refills Start Date End Date Status atorvastatin (Lipitor) 40 mg Tablet Take 40 mg by mouth daily. Active SITagliptin (Januvia) 100 mg Tablet Take 100 mg by mouth daily. Active albuteroL 90 mcg/actuation HFA Aerosol Inhaler Inhale 2 puffs into the lungs every 4 hours as needed for Wheezing. Use with spacer Active fluticasone propionate (Flovent HFA) 110 mcg/actuation HFA Aerosol Inhaler Inhale 1 puff into the lungs 2 times daily. Active metFORMIN (Glucophage) 500 mg Tablet Take 1,000 mg by mouth 2 times daily (with meals). Take 1 tablet in am and 2 tablets at night. 07/25/2021 Active aspirin 81 mg chewable tablet Take 81 mg by mouth daily. Active naproxen (Naprosyn) 250 mg tablet Take 250 mg by mouth 2 times daily (with meals). 09/07/2021 Active lisinopriL (Zestril) 10 mg tablet Take 10 mg by mouth daily. Active oxybutynin (Ditropan-XL) 15 mg ER 24 hr tablet Take 1 tablet by mouth Daily at Noon. 02/12/2023 Active nitrofurantoin (Macrobid) 100 mg capsule Take 1 capsule by mouth 2 times daily. 6 capsule 03/15/2023 Active Additional Information Patient not taking.Reported on 06/14/2023 Active Problems Problem Noted Date Diagnosed Date UTI (urinary tract infection) 03/15/2023 Heart block AV second degree 02/24/2023 Elevated LFTs 02/24/2023 Dyspnea on exertion 02/24/2023 Depression 02/24/2023 COPD (chronic obstructive pulmonary disease) Bursitis of right shoulder 02/24/2023 Bradycardia 02/24/2023 Adhesive capsulitis of right shoulder 02/24/2023 Heart murmur 02/24/2023 Hypertension 02/24/2023 Hypothyroidism 02/24/2023 Lumbar pain 02/24/2023 Mixed incontinence 02/24/2023 Psoriasis 02/24/2023 Right rotator cuff tendonitis 02/24/2023 Steatosis, liver 02/24/2023 Diabetes 10/24/2021 Onychomycosis 10/24/2021 Onychocryptosis 10/24/2021 Onychauxis 10/24/2021 Obesity 10/07/2013 Tobacco abuse 10/07/2013 Pacemaker 09/11/2013 Encounters Date Type Department Care Team Description 10/07/2023 10:00 AM EDT - 10/07/2023 11:59 PM EDT Hospital Encounter Non-In[place] [address] Discharge Disposition: Home from Last 3 Months Family History Medical History Relation Comments Type 1 Diabetes Maternal Grandfather passed at a ge 57 heart attack Heart Disease Maternal Grandmother Hypertension Maternal Grandmother Type 2 Diabetes Maternal Grandmother Heart Disease Mother Relation Status Comments Maternal Grandfather Maternal Grandmother Mother Social History Tobacco Use Types Packs/Day Years Used Date Smoking Tobacco: Every Day Cigarettes 0.3 21 Smokeless Tobacco: Never Tobacco Cessation:Ready to Q uit: Not Asked; Counseling Given: Not Answered Comments:A couple packs a week. Alcohol Use Standard Drinks/Week Comments Never 0 (1 standard drink = 0.6 oz pur e alcohol) DH IPV Inpatient Questions Answer Date Recorded Does Anyone Try to Keep You From Having Contact with Others or Doing Things Outside Your Home? no 03/15/2023 Feels Threatened by Someone no 03/2023 Feels Unsafe at Home or Work/School no 03/15/2023 Physical Signs of Abuse Present no 03/15/2023 Sex and Gender Information Value Date Recorded Sex Assigned at Female 06/14/2023 1:27 PM EDT Gender Identity Female 06/14/2023 1:27 PM EDT Sexual Orientation Straight 06/14/2023 1: 27 PM EDT Last Filed Vital Signs Vital Sign Reading Time Taken Comments Blood Pressure 122/70 06/14/2023 1:52 PM EDT Pulse 100 06/14/2023 1:52 PM EDT Temperature 36.9 ??C (98.4 ??F) 03/15/2023 4:17 PM ES T Respiratory Rate 15 03/15/2023 4:17 PM EST Oxygen Saturation 97% 06/14/2023 1:52 PM EDT Inhaled Oxygen Concentration - - Weight 65.3 kg (144 lb) 06/14/2023 1:52 PM EDT Height 152.4 cm (5') 06/14/2023 1:52 PM EDT Body Mass Index 28.12 06/14/2023 1:52 PM EDT Plan of Treatment Upcoming Encounters Date Type Department Care Team (Late st Contact Info) Description 01/05/2024 10:00 AM EST Hospital Encounter Non-In[place] [address] Arrived Health Maintenance Due Date Last Done Comments CT Colonography 1960 Colonoscopy 1960 Colorectal Cancer Screening 1960 FIT DNA 1960 FIT 1960 Sigmoidoscopy (10 year) with FIT yearly 1960 Sigmoidoscopy 1960 Pneumococcal Vaccine: At-Ris k 5-64yrs (1 of 2 - PCV) 1966 DM Opthalmology Exam 1970 DM Urine Microalbumin yearly 1970 HIV screen 1978 Hepatitis C Screening 1978 Tetanus/Diphtheria/Pertussis Vaccines (1 - Tdap) 1979 HPV test 1990 PAP Smear 1990 Breast Cancer Share Decision Needed 2000 Zoster vaccine (1 of 2) 2010 Advance Directive 2015 DM Hemoglobin A1c 6 month 09/13/2023 03/15/2023 Covid-19 Vaccine ( season) 2023 Influenza (Flu) vaccine (1 o f 1 - Influenza standard series) 10/13/2023 Breast Cancer screening 10/26/2023 10/25/2021 DM Creatinine yearly 05/23/2024 05/24/2023, 03/15/2023, 03/14/2023 Medical Devices Implanted Type Area Grinder Set Up Operator Universal Device Identifier Shelf Expiration Date Model / Serial / Lot Mdt 5076-52 Lead- 4 Implanted:Qty : 1 on 09/22/2013 Lead Heart Medtronic - [id number] / [id number] / Description:RA Lead See Pacemaker for MR Status: Humberto Escalante RT(R)(CT)(MR)(ARRT), MRI Safety Technologist, 04/04/2021 Maged [id number] Lead- 4 Implanted:Qty : 1 on 09/22/2013 Lead Heart Medtronic - [id number] / [id number] / Description:RV Lead See Pacemaker for MR Status: Humberto CAPELLAN(R)(CT)(MR)(ARRT), MRI Safety Technologist, 04/04/2021 Mdt: [id number]: [id number]/ 18/2023 Implanted: by Kathy Avelar MD (Quantity not on file) Pacemaker Chest Wall Medtronic - [id number] / [id number] / Explanted Type Area Grinder Set Up Operator Universal Device Identifier Shelf Expiration Date Model / Serial / Lot Mdt Adapta [id number]/12/20 14 Implanted:Qty: 1 on 09/22/2013 Explanted:09/11 by Kathy Avelar MD (Quantity not on file) Pacemaker Chest Wall [employer] [id number] / [id number] / Description:The above implan t (ADDR01) is considered MR UNSAFE and therefore cannot be scanned here at [facility] Humberto CAPELLAN(R)(CT)(MR)(ARRT), MRI Safety Technologist, 04/04/2021 Procedures Procedure Name Priority Date/Time Associated Diagnosis Comments CREATININE Routine 05/24/2023 8:06 AM EDT Pelvic pain syndrome HEMOGLOBIN A1C STAT 03/15/2023 2:40 AM EST MAMMO SCREENING CAD AND ROSANA BILATERAL Routine 10/25/2021 2:10 PM EDT Visit for screening mammogram from Last 3 Months or Most Recently Relevant to Health Maintenance Results * (ABNORMAL) Creatinine (05/24/2023 8:06 AM EDT) Creatinine 0.61(L) 0.70 - 1.20 mg/dL [facility] Est Glomerular Filtration Rate 100 >=60 mL/min/1. 73 m?? [facility] Comment: This patient's estimated GFR was calculated using the 2020 CKD-EPI equation. The estimated GFR can vary from the measured GFR by up to 30% in the absence of rapidly changing kidney function. Assessment of the estimated GFR is not appropriate when creatinine concentrations are rapidly changing. For clinical situations in which a more precise estimate of GFR is necessary, consider alternative methods of GFR estimation such as a 24-hour urine creatinine clearance. Assignment of CKD stage 1-5 for patients with an eGFR near the transition point between stages may be based on clinical assessment of muscle mass and symptoms in addition to eGFR. Blood 05/24/2023 8:06 AM EDT 05/24/2023 8:23 AM EDT Narrative Resulting Agency Comment Spec In Lab Anna Bonds APRN CHEMISTRY ORDERABLES [facility] [address] [place] [address] * (ABNORMAL) Hemoglobin A1c (03/15/2023 2:40 AM EST) Hemoglobin A1c 6.2(H) 4.3 - 5.6 % [facility] Comment: Reference Range: 4.3 - 5.6% 5.7 - 6.4% - Increased Risk of Developing Diabetes Mellitus >= 6.5% - Consistent with diagnosis of Diabetes Mellitus In the absence of hyperglycemia (i.e. plasma glucose > 200 mg/dL) or classic symptoms of hyperglycemia a repeat measurement of HbA1c should be performed on a separate sample to confirm the diagnosis. Diagnosis and Classification of Diabetes Mellitus, Diabetes Care 2013; 36: Suppl. 1, V16-33 Estimated Average Glucose 130 mg/dL [facility] Blood 03/15/2023 2:40 AM EST 03/15/2023 2:46 AM EST Narrative Resulting Agency Comment Spec In Lab Tj Barboza MD CHEMISTRY ORDERABLES [facility] [address] [place] [address] * Mammo Screening Cad and Rosana Bilateral (10/25/2021 2:10 PM EDT) Anatomical Region Laterality Modality Breast Bilateral Mammography Narrative 10/26/2021 9:17 AM EDT BILATERAL MAMMOGRAPHY REASON FOR EXAM: Screening TECHNIQUE: CC and MLO views were obtained of each breast using standard 2-D mammography as well as 3-D tomosynthesis. Computer aided detection was used. This is compared with prior images. FINDINGS: There are scattered areas of fibroglandular density. There are no suspicious microcalcifications, masses, or areas of distortion. The pattern is stable. CONCLUSION: No mammographic evidence of malignancy. RECOMMENDATION: Regular screening mammograms starting between age 40 and 50 reduces the risk of from breast cancer. All screening tests have both risks and benefits. These risks and benefits should be assessed for each individual patient through discussion with their provider to determine their preferred breast cancer screening schedule. Women should report any breast changes to a health care provider right away. Some women, because of their family history, a genetic tendency, or other factors, should be screened with annual breast MRI as well as with mammograms. (The number of women who fall into this category is very small). Patients and health care providers should discuss each patient? s history to decide if earlier screening and/or breast MRI are appropriate. Screening should continue as long as a woman is in good health and is expected to live 10 years or longer. Screening mammography may not detect 10-15% of breast cancers. A result letter has been sent to this patient by the [facility]. BIRADS CATEGORY 1: NEGATIVE Electronically signed by: Linh Garcia MD Anna Bonds APRN IMG MAMMO ORDERABLES from Last 3 Months or Most Recently Relevant to Health Maintenance Advance Directives * Attempt Cardiopulmonary Resuscitation - Inpatient (Latest Code Status on File) Date Activated Date Inactivated Comments 03/15/2023 1:05 AM 03/15/2023 9:12 PM Question Answer Comments Code Status decision made by: Patient Care Teams Advertiser Relationship Specialty Start Date End Date Anna Bonds APRN [address] [place] [address] PCP - General Family Medicine 11/21/18
--- OUTSIDE RECORDS SUMMARY | 2023-12-06 17:14 | XMS_ITS | Referral Summary ---
Author Organization [facility] Address [address] [place] [address] Care Team Providers Care Consulting Practice Director Name Role Phone Unavailable Primary Care Provider Unavailabl e Social History Tobacco Use Types Packs/Day Years Used Date Smoking Tobacco: Never Assessed Sex and Gender Information Value Date Recorded Sex Assigned at Not on file Gender Identity Not on file Sexual Orientation Not on file Plan of Treatment Not on file Procedures Procedure Name Priority Date/Time Associated Diagnosis Comments HEPATITIS C AB W REFLEX TO HCV RNA BY PCR Routine 06/22/2020 13:05 EDT from Last 3 Months or Most Recently Relevant to Health Maintenance Results * HEPATITIS C AB W REFLEX TO HCV RNA BY PCR (06/22/2020 13:05 EDT) Hep C Antibody Negative Negative 06/24/2020 10:05 EDT [facility] Blood VENOUS BLOOD / Unknown 06/22/2020 13:05 EDT 06/23/2020 15:54 EDT Provider Outr Resulting Lab CHEMISTRY & BLOOD GAS ORDERABLES [facility] [address] [place] [address] from Last 3 Months or Most Recently Relevant to Health Maintenance
--- OUTSIDE RECORDS SUMMARY | 2023-12-06 17:14 | XMS_ITS | Encounter Summary ---
[facility] [place] [address] Care Team Providers Care Machine Brush Maker Name Role Phone Anna Bonds APRN Primary Care Provider [phone] Encounter Details Date Type Department Care Team (Latest Contact Info) Description 05/24/2023 9:25 AM EDT Laboratory Appointment Laboratory at [facility] [place] [id number] Pelvic pain syndrome Social History Tobacco Use Types Packs/Day Years Used Date Smoking Tobacco: Every Day Cigarettes 0.3 21 Smokeless Tobacco: Never Comments:A couple packs a we ek. Alcohol Use Standard Drinks/Week Comments Never 0 [...] Orientation Straight 06/14/2023 1: 27 PM EDT documented as of this encounter Plan of Treatment Upcoming Encounters Date Type Department Care Team (Late st Contact Info) Description 01/05/2024 10:00 AM EST Hospital Encounter Non[place] [phone] Arrived documented as of this encounter Procedures Procedure Name Priority Date/Time Associated Diagnosis Comments CREATININE Routine 05/24/2023 8:06 AM EDT Pelvic pain syndrome documented in this encounter Results * (ABNORMAL) Creatinine (05/24/2023 8:06 AM EDT) Creatinine 0.61(L) 0.70 - 1.20 mg/dL [facility] Est Glomerular Filtration Rate 100 >=60 mL/min/1. 73 m?? [facility] Comment: This patient's estimated GFR [...] In Lab Anna Bonds APRN CHEMISTRY ORDERABLES [facility] [address] [place] [address] documented in this encounter Visit Diagnoses Diagnosis Pelvic pain syndrome Pelvic congestion syndrome documented in this encounter Care Teams Machine Brush Maker Relationship Specialty Start Date End Date Anna Bonds APRN [address] [place] [address] PCP - General Family Medicine 11/21/18 documented as of this encounter
--- OUTSIDE RECORDS SUMMARY | 2023-12-06 17:14 | XMS_ITS | Encounter Summary ---
Author Organization [facility] Address [address] [place] [address] Care Team Providers Care Percussion Welding Machine Operator Name Role Phone Unavailable Primary Care Provider Unavailabl e Encounter Details Date Type Department Care Team (Late st Contact Info) Description 06/22/2010 Results Only [facility] Non-Invasive Cardiology - [facility] [address], [place] [address] Najma Valladares, DEVIN [address] [place] [address] Social History Tobacco Use Types Packs/Day Years Used Date Smoking Tobacco: Never Assessed Sex and Gender Information Value Date Recorded Sex Assigned at Not on file Gender Identity Not on file Sexual Orientation Not on file documented as of this encounter Plan of Treatment Not on file documented as of this encounter Procedures Procedure Name Priority Date/Time Associated Diagnosis Comments PAP TEST- RESULT ONLY Routine 06/22/2010 0:00 EDT documented in this encounter Results * PAP TEST- RESULT ONLY (06/22/2010 0:00 EDT) Pathology Report: CYTOPATHOLOGY REPORT ? Reports generated via electronic interface contain original data; ? however they are lacking the format of the original report. ? Caution should be taken when reading/interpreti ng unformatted reports. ? Name: ? SISI MARTINES ? Accession #: ? [id number] ? : ? 1960 (Age: 50) ??F ?Collect Date: ? 06/22/2010 ? Location: ? [facility] ? Receive Date: ? 06/27/2010 ? Provider: ?NAJMA BELTRAN ? Copy to: ? Specimen/Source: ?Pap Test, Endocervix, ThinPrep Imaging System with ? manual evaluation ? Last Menstrual Period: ? Menstrual/Pregnanc y Status: ? Post Menopausal ? Other: ? Additional clinical information: A0 ? SPECIMEN ADEQUACY ? Satisfactory for Evaluation ? - transformation zone component present ? GENERAL CATEGORIZATION ? Negative for Intraepithelial Lesion or Malignancy ? Document reviewed and electronically signed by: ? Carol Garrett, SCT(ASCP) ? Report Date: ??07/03/2010 10:19 ? End of Report ? DEJA DELA CRUZ 06/22/2010 06/27/2010 Najma BELTRAN PATHOLOGY ORDERABLES [facility] [address] [place] [address] documented in this encounter Visit Diagnoses Not on filedocumented in this encounter
--- OUTSIDE RECORDS SUMMARY | 2023-12-06 17:14 | XMS_ITS | Encounter Summary ---
Author Organization [facility] [place] [place] [address] Care Team Providers Care Pari Mutuel Ticket Seller Name Role Phone Anna Bonds APRN Primary Care Provider [phone] Encounter Details Date Type Department Care Team (Latest Contact Info) Description 05/24/2023 Travel Social History Tobacco Use Types Packs/Day Years [...] AM EST Hospital Encounter Non-[place] [address] Arrived documented as of this encounter Visit Diagnoses Not on filedocumented in this encounter Care Teams Pari Mutuel Ticket Seller Relationship Specialty Start Date End Date Anna Bonds APRN [address] [place] [address] PCP - General Family Medicine 11/21/18 documented as of this encounter
--- OUTSIDE RECORDS SUMMARY | 2023-12-06 17:14 | XMS_ITS | Clinical Summary ---
Author Organization [facility] Address [address] [place] [address] Care Team Providers Care Transportation Supervisor Name Role Phone Unavailable Primary Care Provider Unavailabl e Social History Tobacco Use Types Packs/Day Years Used Date Smoking Tobacco: Never Assessed Sex and Gender Information Value Date Recorded Sex Assigned at Not on file Gender Identity Not on file Sexual Orientation Not on file Plan of Treatment Health Maintenance Due Date Last Done Comments RSV Immunization ( o r 60+ Years) (1 - 1-dose 60+ series) 2020 COVID-19 Vaccine (2022-24 season) 2022 Hepatitis C Screen Completed 06/22/2020 Procedures Procedure Name Priority Date/Time Associated Diagnosis Comments HEPATITIS C AB W REFLEX TO HCV RNA BY PCR Routine 06/22/2020 13:05 EDT from Last 3 Months or Most Recently Relevant to Health Maintenance Results * HEPATITIS C AB W REFLEX TO HCV RNA BY PCR (06/22/2020 13:05 EDT) Hep C Antibody Negative Negative 06/24/2020 10:05 EDT [facility] Blood VENOUS BLOOD / Unknown 06/22/2020 13:05 EDT 06/23/2020 15:54 EDT Provider Outr Resulting Lab CHEMISTRY & BLOOD GAS ORDERABLES [facility] [address] [place] [address] from Last 3 Months or Most Recently Relevant to Health Maintenance
--- OUTSIDE RECORDS SUMMARY | 2023-12-06 17:14 | XMS_ITS | Encounter Summary ---
Author Organization [facility] [place] [address] Care Team Providers Care Phlebotomist Supervisor/Instructor Name Role Phone Anna Bonds APRN Primary Care Provider [phone] Encounter Details Date Type Department Care Team (Latest Contact Info) Description 07/09/2023 10:00 AM EDT - 07/09/2023 11:59 PM EDT Hospital Encounter [place] [phone] Discharge Disposition: Home Social History Tobacco Use Types Packs/Day Years [...] PM EDT documented as of this encounter Medications at Time of Discharge Medication Sig Dispensed Refills Start Date End Date nitrofurantoin (Macrobid) 100 mg capsule Take 1 capsule by mouth 2 times daily. 6 capsule 03/15/2023 naproxen (Naprosyn) 250 mg tablet Take 250 mg by mouth 2 times daily (with meals). 09/07/2021 lisinopriL (Zestril) 10 mg tablet Take 10 mg by mouth daily. oxybutynin (Ditropan-XL) 15 mg ER 24 hr tablet Take 1 tablet by mouth Daily at Noon. 02/12/2023 aspirin 81 mg chewable tablet Take 81 mg by mouth daily. metFORMIN (Glucophage) 500 mg Tablet Take 1,000 mg by mouth 2 times daily (with meals). Take 1 tablet in am and 2 tablets at night. 07/25/2021 fluticasone propionate (Flovent HFA) 110 mcg/actuation HFA Aerosol Inhaler Inhale 1 puff into the lungs 2 times daily. atorvastatin (Lipitor) 40 mg Tablet Take 40 mg by mouth daily. SITagliptin (Januvia) 100 mg Tablet Take 100 mg by mouth daily. albuteroL 90 mcg/actuation HFA Aerosol Inhaler Inhale 2 puffs into the lungs every 4 hours as needed for Wheezing. Use with spacer documented as of this encounter Plan of Treatment Upcoming Encounters Date Type Department Care Team (Late st Contact Info) Description 01/05/2024 10:00 AM [facility] Hospital Encounter [place] [address] Arrived documented as of this encounter Procedures Procedure Name Priority Date/Time Associated Diagnosis Comments PRO PM INTERROGATION REMOTE UP TO 90 DAYS Routine 05/11/2023 8:46 AM EDT documented in this encounter Results * Cardiac Device Check - Remote (05/11/2023 8:46 AM EDT) Anatomical Region Laterality Modality Other 05/11/2023 8:46 AM EDT Taz Galan MD IMPLANTABLE CARDIAC DEVICE documented in this encounter Visit Diagnoses Not on filedocumented in this encounter Care Teams Phlebotomist Supervisor/Instructor Relationship Specialty Start Date End Date Anna Bonds APRN [address] [place] [address] PCP - General Family Medicine 11/21/18 documented as of this encounter
--- OUTSIDE RECORDS SUMMARY | 2023-12-06 17:14 | XMS_ITS | Encounter Summary ---
Author Organization [facility] [place] [address] Care Team Providers Care Knife Grinder Name Role Phone Anna Bonds APRN Primary Care Provider [phone] Encounter Details Date Type Department Care Team (Latest Contact Info) Description 10/07/2023 10:00 AM EDT - 10/07/2023 11:59 PM EDT Hospital Encounter [place] [id number] Discharge Disposition: Home Social History Tobacco Use [...] st Contact Info) Description 01/05/2024 10:00 AM [facility] Hospital Encounter [place] [address] Arrived documented as of this encounter Procedures Procedure Name Priority Date/Time Associated Diagnosis Comments PRO PM INTERROGATION REMOTE UP TO 90 DAYS Routine 08/18/2023 9:37 PM EDT documented in this encounter Results * Cardiac Device Check - Remote (08/18/2023 9:37 PM EDT) Anatomical Region Laterality Modality Other 08/18/2023 9:37 PM EDT Taz Galan MD IMPLANTABLE CARDIAC DEVICE documented in this encounter Visit Diagnoses Not on filedocumented in this encounter Care Teams Knife Grinder Relationship Specialty Start Date End Date Anna Bonds APRN [address] [place] [address] PCP - General Family Medicine 11/21/18 documented as of this encounter
--- OUTSIDE RECORDS SUMMARY | 2023-12-06 17:14 | XMS_ITS | Encounter Summary ---
Author Organization [facility] Address [address] [place] [address] Care Team Providers Care Air Twist Operator Name Role Phone Unavailable Primary Care Provider Unavailabl e Encounter Details Date Type Department Care Team (Late st Contact Info) Description 04/20/2005 Results Only [facility] - Maple conversion [address] [place] [address] Karen Mejia MD [address] [place] [address] [place] [address] Social History Tobacco Use Types Packs/Day Years Used Date Smoking Tobacco: Never Assessed Sex and Gender Information Value Date Recorded Sex Assigned at Not on file Gender Identity Not on file Sexual Orientation Not on file documented as of this encounter Plan of Treatment Not on file documented as of this encounter Procedures Procedure Name Priority Date/Time Associated Diagnosis Comments SURGICAL PATHOLOGY Routine 04/20/2005 0:00 EST documented in this encounter Results * SURGICAL PATHOLOGY (04/20/2005 0:00 EST) Pathology Report: SURGICAL PATHOLOGY REPORT Reports generated via electronic interface contain original data; however they are lacking the format of the original report. Caution should be taken when reading/interpreti ng unformatted reports. Name: ? SISI MARTINES ? Accession #: ? [id number] ? : ? 1960 (Age: 45) ??F ? Collect Date: ? 04/20/2005 ? Location: ? [facility] ? Receive Date: ? 04/21/2005 ? Provider: KAREN MEJIA MD Copy to: ? Final Pathologic Diagnosis: ? Endometrium, biopsy: 1. ?Disordered proliferative endometrium. ? - No cytologic atypia identified. Document reviewed and electronically signed by: CANDY TOLBERT MD Report ??Date: 04/25/2005 08:40 By the signature above, the attending physician certifies that he/she has personally conducted a gross and/or microscopic examination of the described specimens and rendered or confirmed the above diagnosis. Specimen(s) Received: ? Endometrial bx Clinical History: ? PMB Gross Description: ? Received in formalin labelled Pond and endometrium are 1.5 x 1.0 x 0.3 cm of multiple mejía-brown hemorrhagic slightly mucoid soft tissue fragments. ??The specimen is entirely submitted in one cassette following filtration. ??(Salo Sheehan)/[facility] End of Report [facility] 04/20/2005 04/21/2005 8:3 2 EST Karen Mejia MD PATHOLOGY ORDERABLES [facility] [address] [place] [address] documented in this encounter Visit Diagnoses Not on filedocumented in this encounter
--- OUTSIDE RECORDS SUMMARY | 2023-12-06 17:14 | XMS_ITS | Encounter Summary ---
Author Organization [facility] Address [facility] [place] [address] Care Team Providers Care Deportation Officer Name Role Phone Anna Bonds APRN Primary Care Provider Reason for Visit * Reason Comments Pelvic Pain * Consultation (Routine) - Closed Specialty Diagnoses / Procedures Referred By Contac t Referred To Contact Obstetrics and Gynecology Diagnoses Pelvic and perineal pain Anna Bonds APRN [address] [place] [address] [facility] [address] [place] [address] Referral ID Status Reason Start Date Expiration Date V isits Requested Visits Authorized [id number] Closed Consult, Test & Treat 05/15/2023 05/14/2024 1 1 Encounter Details Date Type Department Care Team (Late st Contact Info) Description 06/14/2023 2:00 PM EDT Office Visit [facility] [address] [place] [address] Jeyson Salinas MD [facility] [address] [facility] [address] Acute pelvic pain, female; OAB (overactive bladder) Social History Tobacco Use Types Packs/Day Years [...] PM EDT documented as of this encounter Last Filed Vital Signs Vital Sign Reading Time Taken Comments Blood Pressure 122/70 06/14/2023 1:52 PM EDT Pulse 100 06/14/2023 1:52 PM EDT Temperature - - Respiratory Rate - - Oxygen Saturation 97% 06/14/2023 1:52 PM EDT Inhaled Oxygen Concentration - - Weight 65.3 kg (144 lb) 06/14/2023 1:52 PM EDT Height 152.4 cm (5') 06/14/2023 1:52 PM EDT Body Mass Index 28.12 06/14/2023 1:52 PM EDT documented in this encounter Progress Notes * Jeyson Salinas MD - 06/14/2023 2:00 PM EDT Chief Complaint: Chief Complaint Patient presents with Pelvic Pain Subjective: HPI: Mady Medellin is a 63 y.o. No obstetric history on file. female presenting to the [facility] with the following concerns. Referral for pelvic and perineal pain Patient had abdominal pain in 03/[address] that showed appendicitis, cystitis and ascending pyelitis She was admitted to surgery and treated with IV antibiotics. Her symptoms completely resolved Repeat CT scan on 05/24/2023showed complete resolution of all three issues above and showed normal pelvic organs. Today the patient's only symptoms are chronic leaking of urine and OAB sx's. ROS: Review of Systems No LMP recorded. Patient is postmenopausal. Pertinent Past medical and surgical history: Patient Active Problem List Diagnosis Code Diabetes E11.9 Pacemaker Z95.0 Onychomycosis B35.1 Onychocryptosis L60.0 Onychauxis L60.2 Heart block AV second degree I44.1 Elevated LFTs R79.89 Dyspnea on exertion R06.09 Depression F32.A COPD (chronic obstructive pulmonary disease) J44.9 Bursitis of right shoulder M75.51 Bradycardia R00.1 Adhesive capsulitis of right shoulder M75.01 Heart murmur R01.1 Hypertension I10 Hypothyroidism E03.9 Lumbar pain M54.50 Mixed incontinence N39.46 Obesity E66.9 Psoriasis L40.9 Right rotator cuff tendonitis M75.81 Steatosis, liver K76.0 Tobacco abuse Z72.0 UTI (urinary tract infection) N39.0 Past Medical History: Diagnosis Date Abnormal weight loss COPD (chronic obstructive pulmonary disease) onset - 10/24/18 Dysuria Heart murmur Hepatomegaly History of UTI Hypertension Increased frequency of urination Major depression Obesity Pacemaker Pain in female pelvis Referral of patient pelvic pain - [facility] Steatosis of liver Type 2 diabetes mellitus Urgency of urination Urinary incontinence No past surgical history on file. Current Outpatient Medications on File Prior to Visit Medication Sig Dispense Refill naproxen (Naprosyn) 250 mg tablet Take 250 mg by mouth 2 times daily (with meals). lisinopriL (Zestril) 10 mg tablet Take 10 mg by mouth daily. oxybutynin (Ditropan-XL) 15 mg ER 24 hr tablet Take 1 tablet by mouth Daily at Noon. metFORMIN (Glucophage) 500 mg Tablet Take 1,000 mg by mouth 2 times daily (with meals). Take 1 tablet in am and 2 tablets at night. atorvastatin (Lipitor) 40 mg Tablet Take 40 mg by mouth daily. SITagliptin (Januvia) 100 mg Tablet Take 100 mg by mouth daily. albuteroL 90 mcg/actuation HFA Aerosol Inhaler Inhale 2 puffs into the lungs every 4 hours as needed for Wheezing. Use with spacer nitrofurantoin (Macrobid) 100 mg capsule Take 1 capsule by mouth 2 times daily. (Patient not taking: Reported on 06/14/2023) 6 capsule 0 aspirin 81 mg chewable tablet Take 81 mg by mouth daily. fluticasone propionate (Flovent HFA) 110 mcg/actuation HFA Aerosol Inhaler Inhale 1 puff into the lungs 2 times daily. No current facility-administered medications on file prior to visit. Allergies Allergen Reactions Sulfa (Sulfonamide Antibiotics) Rash Sulfur Penicillins Objective: VS: BP 122/70 Pulse 100 Ht 152.4 cm (5') Wt 65.3 kg (144 lb) SpO2 97% BMI 28.12 kg/m?? Physical Exam Abdomen: soft and NT External genitalia: normal Vagina: pale with good support and no lesions or discharge Cervix: normal appearance without lesions, discharge or CMT Uterus: normal size, mid position, smooth, mobile, NT Adnexa: NT without masses bilaterally Assessment and Plan: Mady Medellin is a 63 y.o. No obstetric history on file. female with the following issues: Mady was seen today for pelvic pain. Diagnoses and all orders for this visit: Acute pelvic pain, female Comments: Resolved after treatment for appendicitis and cystitis and pyelonephritis OAB (overactive bladder) A/P: This is a 63-year-old woman 4 para 4-0-0-4 with a history of appendicitis, cystitis, and left pyelitis diagnosed on 03/14/2023. She was admitted to the hospital on the surgical service andwas treated with IV antibiotics. She has had complete resolution of the symptoms that triggered this evaluation. She had a repeat CT scan on 05/24/2023. This CAT scan showed complete resolution of allof the finding from 03/14/2023. It also showed normal pelvic organs. She presented to her primary care provider reporting increased frequency of urination and pressure with urination. UA at the time was negative. Her oxybutynin was increased to 15 g daily. She reports that this did not improve her. She denies any pelvic pain, abnormal vaginal discharge, vaginal bleeding, or bowel symptoms. She had a normal pelvic examination today. We reviewed both of her CAT scan reports together today as well as the images. I have advised that if she continues to have poor response to her oxybutynin she should consider seeing a urologist or urogynecologist for further evaluation and treatment. FOLLOW UP: Return if symptoms worsen or fail to improve. There are no Patient Instructions on file for this visit. Jeyson Salinas MD 06/14/23 2:47 PM documented in this encounter Plan of Treatment Upcoming Encounters Date Type Department Care Team (Late st Contact Info) Description 01/05/2024 10:00 AM EST Hospital Encounter Non-Invasive [place] [address] Arrived documented as of this encounter Visit Diagnoses Diagnosis Acute pelvic pain, female Unspecified symptom associated with female genital organs OAB (overactive bladder) Hypertonicity of bladder documented in this encounter Care Teams Deportation Officer Relationship Specialty Start Date End Date Anna Bonds APRN [address] [place] [address] PCP - General Family Medicine 11/21/18 documented as of this encounter
--- OUTSIDE RECORDS SUMMARY | 2023-12-06 17:14 | XMS_ITS | Encounter Summary ---
Author Organization [facility] Address [address] [place] [address] Care Team Providers Care Online Communications Manager Name Role Phone Unavailable Primary Care Provider Unavailabl e Encounter Details Date Type Department Care Team (Late st Contact Info) Description 01/21/2017 Results Only [facility] [phone] Carol Phillips MD [address] [place] [address] Social History Tobacco Use Types Packs/Day Years [...] Diagnosis Comments PAP TEST- RESULT ONLY Routine 01/21/2017 0:00 EST documented in this encounter Results * PAP TEST- RESULT ONLY (01/21/2017 0:00 EST) Pathology Report: CYTOPATHOLOGY REPORT Reports generated via electronic interface contain original data; however they are lacking the format of the original report. Caution should be taken when reading/interpreti ng unformatted reports. Name: ? SISI MARTINES ? Accession #: ? [id number] ? : ? 1960 (Age: 56) ??F ?Collect Date: ? 01/21/2017 ? Location: ? [facility] ? Receive Date: ? 01/22/2017 ? Provider: CAROL PHILLIPS MD Copy to: ? Final Report SPECIMEN ADEQUACY ? Satisfactory for Evaluation - transformation zone component present - scant squamous epithelial component secondary to excessive blood GENERAL CATEGORIZATION ? Negative for Intraepithelial Lesion or Malignancy EDUCATIONAL NOTES/RECOMMENDATI ONS ? An additional slide was prepared and evaluated. Menstrual/Pregnanc y Status: ??Post Menopausal Treatment History: Miscellaneous treatment: Endo BX 04/11/2004 Specimen/Source: ??Pap Test, Cervix, ThinPrep Imaging System with manual evaluation Document reviewed and electronically signed by: ? Linh Glaser, [facility](ASCP) ? Report ??Date: 02/01/2017 08:19 HPV with Pap Test ? Date Ordered: ? 02/01/2017 ? Status: ?? Signed Out ?Date Complete: ? 02/05/2017 ? By: ??System Interface ? Date Reported: ? 02/05/2017 ? Interpretation RESULT: Negative for HPV. No E6 or E7 mRNA is detected from HPV types 16,18,31,33,35, 39,45,51,52,56,58, 59,66, and 68 by pleat taper mediated amplification. Comments Document reviewed and electronically signed by: ? System Interface ? Report date: 02/05/2017 By the signature above, the attending physician certifies that he/she has personally conducted a gross and/or microscopic examination of the described specimens and rendered or confirmed the above diagnosis. End of Report [facility] 01/21/2017 01/22/2017 Carol Phillips MD PATHOLOGY ORDER JORDANA [facility] [address] [place] [address] documented in this encounter Visit Diagnoses Not on filedocumented in this encounter
--- OUTSIDE RECORDS SUMMARY | 2023-12-06 17:14 | XMS_ITS | Encounter Summary ---
Author Organization [facility] Address [address] [place] [address] Care Team Providers Care Electric Track Switch Maintainer Name Role Phone Unavailable Primary Care Provider Unavailabl e Encounter Details Date Type Department Care Team (Late st Contact Info) Description 09/12/2007 Before PRISM Converted Visit (Maple) [facility] - Maple conversion [address] [place] [address] Maxi Leon NP [address] [place], [place] [id number] Social History Tobacco Use Types Packs/Day Years Used Date Smoking Tobacco: Never Assessed Sex and Gender Information Value Date Recorded Sex Assigned at Not on file Gender Identity Not on file Sexual Orientation Not on file documented as of this encounter Plan of Treatment Not on file documented as of this encounter Procedures Procedure Name Priority Date/Time Associated Diagnosis Comments CYTOPATHOLOGY Routine 09/12/2007 0:00 EDT documented in this encounter Results * CYTOPATHOLOGY (09/12/2007 0:00 EDT) Pathology Report: CYTOPATHOLOGY REPORT ? Reports generated via electronic interface contain original data; ? however they are lacking the format of the original report. ? Caution should be taken when reading/interpreti ng unformatted reports. ? Name: ? CONRAD, SISI M ? Accession #: ? [id number] ? : ? 1960 (Age: 47) ??F ?Collect Date: ? 09/12/2007 ? Location: ? [facility] ? Receive Date: ? 09/16/2007 ? Provider: ?MAXI HALLLAAMANDA FIREWALL ADMINISTRATOR ? Copy to: ? Specimen/Source: ?ThinPrep Pap Test, Cervix/Endocervix, processed on Cytyc ThinPrep Imaging System, with manual evaluation ? Last Menstrual Period: ? Menstrual/Pregnanc y Status: ? Post Menopausal ? Other: ? HPVA - HPV testing requested if ASC-US on the current ThinPrep Pap test. ? SPECIMEN ADEQUACY ? Satisfactory for Evaluation ? - transformation zone component present ? GENERAL CATEGORIZATION ? Negative for Intraepithelial Lesion or Malignancy ? Document reviewed and electronically signed by: ? Lacey Newton, [place](ASCP) ? Report Date: ??09/17/2007 13:35 ? End of Report ? [facility] 09/12/2007 09/16/2007 Maxi Leon NP PATHOLOGY [facility] [address] [place] [address] documented in this encounter Visit Diagnoses Not on filedocumented in this encounter
--- OUTSIDE RECORDS SUMMARY | 2023-12-06 17:14 | XMS_ITS | Encounter Summary ---
Author Organization [facility] Address [address] [place] [address] Care Team Providers Care Yard Coupler Name Role Phone Unavailable Primary Care Provider Unavailabl e Encounter Details Date Type Department Care Team (Late st Contact Info) Description 04/30/2008 Before PRISM Converted Visit (Maple) [facility] - Maple conversion [address] [place] [address] Karen Mejia MD [address] [place] [address] [place] [address] Social History Tobacco Use Types Packs/Day Years Used Date Smoking Tobacco: Never Assessed Sex and Gender Information Value Date Recorded Sex Assigned at Not on file Gender Identity Not on file Sexual Orientation Not on file documented as of this encounter Plan of Treatment Not on file documented as of this encounter Procedures Procedure Name Priority Date/Time Associated Diagnosis Comments SURGICAL PATHOLOGY Routine 04/30/2008 0:00 EDT documented in this encounter Results * SURGICAL PATHOLOGY (04/30/2008 0:00 EDT) Pathology Report: SURGICAL PATHOLOGY REPORT ? Reports generated via electronic interface contain original data; ? however they are lacking the format of the original report. ? Caution should be taken when reading/interpreti ng unformatted reports. ? Name: ? CELIAD, SISI Oro ? Accession #: ? [id number] ? : ? 1960 (Age: 48) ??F ? Collect Date: ? 04/30/2008 ? Location: ? [facility] ? Receive Date: ? 05/01/2008 ? Provider: KAREN MEJIA MD ? Copy to: MOLLIE D CHAMBERLAIN CROP DUSTER HELPER ? Final Pathologic Diagnosis: ? Endometrium, biopsy: ? 1. ?Superficial strips of inactive to weakly proliferative endometrium ?? with tubal metaplasia. ? 2. ? Fragments of benign endocervical tissue. ? Document reviewed and electronically signed by: ? Amina Strong MD ? Report ??Date: 05/05/2008 15:39 ? By the signature above, the attending physician certifies that he/she has ? personally conducted a gross and/or microscopic examination of the described ? specimens and rendered or confirmed the above diagnosis. ? Specimen(s) Received: ? Endometrial bx ? Clinical History: ? LMP 4 years ago then had a period lasting 5 days. ??LMP 02/19/09. ? Gross Description: ? Received in formalin labelled Pond, Sisi and endometrial bx are ?? 1.0 x 1.0 x 0.3 cm of red-brown, hemorrhagic, mucinous material. ??The specimen ?? is entirely submitted in one cassette following filtration. ? (Salo Sheehan)/lgk ? End of Report ? [facility] 04/30/2008 05/01/2008 8:4 9 EDT Karen Mejia MD PATHOLOGY ORDERABLES [facility] [address] [place] [address] documented in this encounter Visit Diagnoses Not on filedocumented in this encounter
--- OUTSIDE RECORDS SUMMARY | 2023-12-06 17:14 | XMS_ITS | Encounter Summary ---
Author Organization [facility] Address [address] [place] [address] Care Team Providers Care Elementary Assistant Teacher Name Role Phone Unavailable Primary Care Provider Unavailabl e Encounter Details Date Type Department Care Team (Latest Contact Info) Description 06/15/2022 Lab Requisition [facility] Pathology & Laboratory Medicine - [facility] [address] [place] [address] Anna Bonds FNP [address] [place] [address] [address] [place] [phone] Encounter for general adult medical examination without abnormal findings; Encounter for gynecological examination (general) (routine) without abnormal findings; Encounter for screening for malignant neoplasm of cervix Social History Tobacco Use Types Packs/Day Years Used Date Smoking Tobacco: Never Assessed Sex and Gender Information Value Date Recorded Sex Assigned at Not on file Gender Identity Not on file Sexual Orientation Not on file documented as of this encounter Plan of Treatment Not on file documented as of this encounter Procedures Procedure Name Priority Date/Time Associated Diagnosis Comments PAP TEST Today 06/13/2022 14:45 EDT Encounter for general adult medical examination without abnormal findings Encounter for gynecological examination (general) (routine) without abnormal findings Encounter for screening for malignant neoplasm of cervix HPV DNA DETECTION WITH GENOTYPING, PCR Today 06/13/2022 14:45 EDT Encounter for general adult medical examination without abnormal findings Encounter for gynecological examination (general) (routine) without abnormal findings Encounter for screening for malignant neoplasm of cervix documented in this encounter Results * HUMAN PAPILLOMAVIRUS (HPV) DETECTION-HIGH RISK TYPES (06/13/2022 14:45 EDT) HPV other High Risk types, PCR Negative Negative 06/26/2022 15:42 EDT [facility] Comment:No E6 or E7 mRNA is detected from HPV types 16,18,31,33,35,39,45,51,52,56,58,59,66, and 68 by aircraft assembler mediated amplification. Papanicolaou smear specimen (specimen) CERVIX UTERI STRUCTURE / Unknown 06/13/2022 14:45 EDT 06/25/2022 13:02 EDT Anna Bonds GEOPHYSICAL OBSERVER MICROBIOLOGY - GENER AL ORDERABLES [facility] [address] [place] [address] * PAP TEST (06/13/2022 14:45 EDT) Specimens A. Cervix and/or Endocervix , ThinPrep Imaging System with Manual Evaluation 06/26/2022 15:42 T [facility] Specimen Adequacy Satisfactory for Evaluation - transformation zone component present Scant due to excessive blood 06/26/2022 15:42 [facility] General Categorization Negative for intraepithelial lesion or malignancy 06/26/2022 15:42 [facility] Attestation . 06/26/2022 15:42 [facility] at 1542 Clinical History SEE BELOW 06/27/19 23 15:42 [facility] HPV The result for the Human Papillomavirus (HPV) Detection-High Risk Types is Negative. No E6 or E7 mRNA is detected from HPV types 16,18,31,33,35,39 ,45,51,52,56,58,5 9,66, and 68 by aircraft assembler mediated amplification.Gisele ting was performed on specimen [id number] and was resulted on 06/26/2022 1542 EDT by REYES, LAB INSTRUMENT RESULTS IN 06/26/2022 15:42 T [facility] Performing Lab [facility] 06/26/2022 15:42 EDT [facility] Scanned Images 06/26/2022 15:42 EDT [facility] Papanicolaou smear specimen (specimen) CERVIX UTERI STRUCTURE / Unknown 06/13/2022 14:45 EDT 06/15/2022 14:17 EDT Anna Bonds GEOPHYSICAL OBSERVER PATHOLOGY ORDERABLES Performing Organization Address City/State/[facility] Co de Phone Number [facility] [address] [place] [address] documented in this encounter Visit Diagnoses Diagnosis Encounter for general adult medical examination without abnormal findings Unspecified general medical examination Encounter for gynecological examination (general) (routine) without abnormal findings Encounter for screening for malignant neoplasm of cervix Screening for malignant neoplasm of the cervix documented in this encounter
--- OUTSIDE RECORDS SUMMARY | 2023-12-06 17:14 | XMS_ITS | Encounter Summary ---
Author Organization [facility] [place] [place] [address] Care Team Providers Care Ocean Export Coordinator Name Role Phone Anna Bonds APRN Primary Care Provider [phone] Encounter Details Date Type Department Care Team (Latest Contact Info) Description 06/14/2023 Travel Social History Tobacco Use Types Packs/Day [...] AM EST Hospital Encounter [place] [address] Arrived documented as of this encounter Visit Diagnoses Not on filedocumented in this encounter Care Teams Ocean Export Coordinator Relationship Specialty Start Date End Date Anna Bonds APRN [address] [place] [address] PCP - General Family Medicine 11/21/18 documented as of this encounter
--- OUTSIDE RECORDS SUMMARY | 2023-12-06 17:14 | XMS_ITS | Encounter Summary ---
Author Organization [facility] Address [address] [place] [address] Care Team Providers Care Day Light Relief Operator Name Role Phone Unavailable Primary Care Provider Unavailabl e Encounter Details Date Type Department Care Team (Late st Contact Info) Description 06/23/2020 Lab Requisition [facility] Pathology & Laboratory Medicine - [facility] [address] [place] [address] Outr Resulting Lab, Provider Social History Tobacco Use Types Packs/Day Years [...] RNA BY PCR Routine 06/22/2020 13:05 EDT HEPATITIS B SURFACE ANTIBODY Routine 06/22/2020 13:05 EDT documented in this encounter Results * HEPATITIS B SURFACE ANTIBODY (06/22/2020 13:05 EDT) Hep B Surface Ab, Quantitative <3.1 See Note mIU/mL 06/24/2020 9:[address] [facility] Comment: Reference Range for Hep B Surface Ab, Quant: Positive: >= 10.0 mIU/mL Negative: ??< 10.0 mIU/mL Patient is presumed to not be immune to infection with Hepatitis B Virus. Hep B Surface Ab, Qualitative Negative See Note 06/24/2020 9:[address] [facility] Comment: Reference Range for Hep B Surface Ab, Qual: Unvaccinated: ??Negative Vaccinated: ??Positive Blood VENOUS BLOOD / Unknown 06/22/2020 13:05 EDT 06/23/2020 15:54 EDT Provider Outr Resulting Lab CHEMISTRY & BLOOD GAS ORDERABLES Performing Organization Address [facility]/ZIP Co de Phone Number [facility] [address] [place] [address] * HEPATITIS C AB W REFLEX TO HCV RNA BY PCR (06/22/2020 13:05 EDT) Hep C Antibody Negative Negative 06/24/2020 10:[address] [facility] Blood VENOUS BLOOD / Unknown 06/22/2020 13:05 EDT 06/23/2020 15:54 EDT Provider Outr Resulting Lab CHEMISTRY & BLOOD GAS ORDERABLES Performing Organization Address City/[facility]/ZIP Co de Phone Number [facility] [address] [place] [address] documented in this encounter Visit Diagnoses Not on filedocumented in this encounter
--- OUTSIDE RECORDS SUMMARY | 2023-12-06 17:14 | XMS_ITS | Encounter Summary ---
[facility] [place] [address] Care Team Providers Care Communication Equipment Mechanic Name Role Phone Anna Bonds APRN Primary Care Provider [phone] Encounter Details Date Type Department Care Team (Late st Contact Info) Description 06/18/[address] [facility] [place] [address] Shu Ching, [facility] Social History Tobacco Use Types Packs/Day Years [...] AM EST Hospital Encounter [place] [address] Arrived documented as of this encounter Visit Diagnoses Not on filedocumented in this encounter Care Teams Communication Equipment Mechanic Relationship Specialty Start Date End Date Anna Bonds APRN [address] [place] [address] PCP - General Family Medicine 11/21/18 documented as of this encounter
--- OUTSIDE RECORDS SUMMARY | 2023-12-06 17:15 | XMS_ITS | Encounter Summary ---
Author Organization [facility] Address [facility] [place] [address] Care Team Providers Care Pick Up Attendant Name Role Phone Anna Bonds APRN Primary Care Provider [phone] Encounter Details Date Type Department Care Team (Latest Contact Info) Description 03/14/2023 12:58 AM EST - 03/14/2023 6:13 PM [facility] Hospital Encounter Ambulance Service at [address] [phone] Jailene Lawrence MD [facility] [place] [address] Discharge Disposition: Home Social History Tobacco Use Types Packs/Day Years Used Date Smoking Tobacco: Every Day Cigarettes 0.3 21 Smokeless Tobacco: Never Comments:A couple packs a we ek. Alcohol Use Standard Drinks/Week Comments Never 0 (1 standard drink = 0.6 oz pur e alcohol) IPV Inpatient Questions Answer Date Recorded Does [...] st Contact Info) Description 01/05/2024 10:00 AM [facility] Hospital Encounter Non-[place] [address] Arrived documented as of this encounter Visit Diagnoses Not on filedocumented in this encounter Care Teams Pick Up Attendant Relationship Specialty Start Date End Date Anna Bonds APRN [address] [place] [address] PCP - General Family Medicine 11/21/18 documented as of this encounter
--- OUTSIDE RECORDS SUMMARY | 2023-12-06 17:15 | XMS_ITS | Encounter Summary ---
Author Organization [facility] [place] [address] Care Team Providers Care Senior Partner Name Role Phone Anna Bonds APRN Primary Care Provider [phone] Encounter Details Date Type Department Care Team (Latest Contact Info) Description 03/15/2023 Travel Social History Tobacco Use Types Packs/Day [...] AM EST Hospital Encounter Non-Invasive [place] [address] Arrived documented as of this encounter Visit Diagnoses Not on filedocumented in this encounter Care Teams Senior Partner Relationship Specialty Start Date End Date Anna Bonds APRN [address] [place] [address] PCP - General Family Medicine 11/21/18 documented as of this encounter
--- OUTSIDE RECORDS SUMMARY | 2023-12-06 17:15 | XMS_ITS | Encounter Summary ---
[facility] [place] [address] Care Team Providers Care Sewer Pipe Layer Name Role Phone Anna Bonds APRN Primary Care Provider Encounter Details Date Type Department Care Team (Latest Contact Info) Description 02/24/2023 Travel Social History Tobacco Use Types Packs/Day Years Used Date Smoking Tobacco: Every Day Cigarettes 0.3 21 Smokeless Tobacco: Never Comments:A couple packs a we ek. Alcohol Use Standard Drinks/Week Comments Never 0 (1 standard drink = 0.6 oz pur e alcohol) Sex and Gender Information Value Date Recorded Sex Assigned at Female 06/14/2023 1:27 PM EDT Gender Identity Female 06/14/2023 1:27 PM EDT Sexual Orientation Straight 06/14/2023 1: 27 PM EDT documented as of this encounter Plan of Treatment Upcoming Encounters Date Type Department Care Team (Late st Contact Info) Description 01/05/2024 10:00 AM EST Hospital Encounter Non-Invasive [place] [address] Arrived documented as of this encounter Visit Diagnoses Not on filedocumented in this encounter Additional Health Concerns Infection Onset Date Last Indicated Resolved Time Rule Out COVID-19 02/24/2023 02/24/2023 02/24/2023 8:32 PM EST INFLUENZA 02/24/2023 02/24/2023 03/06/2023 8:10 PM EST documented as of this encounter Care Teams Sewer Pipe Layer Relationship Specialty Start Date End Date Anna Bonds APRN [address] [place] [address] PCP - General Family Medicine 11/21/18 documented as of this encounter
--- OUTSIDE RECORDS SUMMARY | 2023-12-06 17:15 | XMS_ITS | Encounter Summary ---
Author Organization [facility] [place] [address] Care Team Providers Care Pega Developer Name Role Phone Anna Bonds APRN Primary Care Provider [phone] Encounter Details Date Type Department Care Team (Latest Contact Info) Description 01/29/2022 Travel Social History Tobacco Use Types Packs/Day Years Used Date Smoking Tobacco: Every Day Smokeless Tobacco: Never Sex and Gender Information Value Date Recorded Sex Assigned at Female 06/14/2023 1:27 PM EDT Gender Identity Female 06/14/2023 1:27 PM EDT Sexual Orientation Straight 06/14/2023 1: 27 PM EDT documented as of this encounter Plan of Treatment Upcoming Encounters Date Type Department Care Team (Late st Contact Info) Description 01/05/2024 10:00 AM EST Hospital Encounter Non-[place] [address] Arrived documented as of this encounter Visit Diagnoses Not on filedocumented in this encounter Care Teams Pega Developer Relationship Specialty Start Date End Date Anna Bonds APRN [address] [place] [address] PCP - General Family Medicine 11/21/18 documented as of this encounter
--- OUTSIDE RECORDS SUMMARY | 2023-12-06 17:15 | XMS_ITS | Encounter Summary ---
Author Organization [facility] [place] [address] Care Team Providers Care High School Coordinator Name Role Phone Anna Bonds APRN Primary Care Provider [phone] Encounter Details Date Type Department Care Team (Latest Contact Info) Description 05/24/2023 7:00 AM EDT - 05/24/2023 8:34 AM EDT Hospital Encounter Radiology Cat Scan at [facility] [place] [address] Anna Bonds APRN [address] [place], [place] [id number] Discharge Disposition: Home Social History Tobacco Use [...] st Contact Info) Description 01/05/2024 10:00 AM [facility] Hospital Encounter Non[place] [phone] Arrived documented as of this encounter Visit Diagnoses Not on filedocumented in this encounter Care Teams High School Coordinator Relationship Specialty Start Date End Date Anna Bonds APRN [address] [place] [address] PCP - General Family Medicine 11/21/18 documented as of this encounter
--- OUTSIDE RECORDS SUMMARY | 2023-12-06 17:15 | XMS_ITS | Encounter Summary ---
Author Organization [facility] Address [facility] [place] [address] Care Team Providers Care Computerized Mill Mill Recorder Name Role Phone Anna Bonds APRN Primary Care Provider [phone] Reason for Referral * Diagnostic Test (Routine) - Closed Specialty Diagnoses / Procedures Referred By Contac t Referred To Contact Cardiology Diagnoses Pacemaker CHB (complete heart block) Procedures Echocardiogram Transthoracic Deniz Woods PA [facility] [place] [address] [facility] [place] [address] Referral ID Status Reason Start Date Expiration Date V isits Requested Visits Authorized [id number] Closed Specialty Service Requested 09/21/2022 09/21/2023 1 1 Encounter Details Date Type Department Care Team (Late st Contact Info) Description 09/21/2022 2:00 PM EDT Office Visit Cardiology at [address] [address] Bindu Vang RN Pacemaker; CHB (complete heart block) Social History Tobacco Use Types Packs/Day Years Used Date Smoking Tobacco: Every Day Cigarettes 1 21 Smokeless Tobacco: Never Sex and Gender Information Value Date Recorded Sex Assigned at Female 06/14/2023 1:27 PM EDT Gender Identity Female 06/14/2023 1:27 PM EDT Sexual Orientation Straight 06/14/2023 1: 27 PM EDT documented as of this encounter Last Filed Vital Signs Vital Sign Reading Time Taken Comments Blood Pressure 134/66 09/21/2022 1:51 PM EDT Pulse 65 09/21/2022 1:51 PM EDT Temperature - - Respiratory Rate - - Oxygen Saturation 99% 09/21/2022 1:51 PM EDT Inhaled Oxygen Concentration - - Weight 70.8 kg (156 lb) 09/21/2022 1:51 PM EDT Height 152.4 cm (5') 09/21/2022 1:51 PM EDT Body Mass Index 30.47 09/21/2022 1:51 PM EDT documented in this encounter Patient Instructions * Patient Instructions* Deniz Woods PA - 09/21/2022 2:00 PM EDT Procedure Information 1. You will be scheduled for a pacemaker generator replacement procedure on Wednesday September 28, 2022.You will need to arrive at 7 AM. Please check in at the Same Day Program at [facility] (park in parking garage and enter through garage entrace on level 4 into the main building and proceed staightahead down the long open corridor and you will run into 4W). 2. Please do not eat or drink anything after midnight the night prior to your procedure. 3. You may take your morning medications with just a sip of water. Please make the following changes to your medications: - HOLD LISINOPRIL AND METFORMIN IN THE AM OF PROCEDURE 4. Please use HIBICLENS soap the night before and the morning of the surgery. 5. If you need to change the date or time of your surgery or you become ill, please call schedulingat [phone]. documented in this encounter Progress Notes * Bindu Vang RN - 09/21/2022 2:00 PM EDT Images from the original note were not included. Clinical Electrophysiology Device Change Evaluation Sisi Oro Lacie [id number] 09/21/2022 History: 62 yr old female with hx of CHB s/p Medtronic dual lead pacemaker implant 09/22/2013 by at [facility]. She is pacemaker dependent. RV pacing threshold is historically elevated at 2.25V @ 0.4ms. MD Galan followed pt at [facility]. Moved to [place] in 2021 and currently being followed by [facility] Device clinic. Difficulty setting up remote monitoring. Last seen in clinic 02/01. Presents today for Device evaluation. Found to have hit ALY 05/14/2022. Unable to test/unable to program. MD Avelar notified and requested workup for generator change for next week. NICKY Woods evaluated for generator change. Scheduled for 09/28/22 with GA. Patient is an active smoker and reports having high anxiety. Pre procedure teaching completed today. Patient Active Problem List Diagnosis DM type 2 with diabetic peripheral neuropathy Pacemaker Onychomycosis Onychocryptosis Onychauxis Current Outpatient Medications on File Prior to Visit Medication Sig Dispense Refill oxybutynin (Ditropan-XL) 10 mg ER 24 hr tablet Take 10 mg by mouth daily. Indications: overactive bladder metFORMIN (Glucophage) 500 mg Tablet Take 1 tablet in am and 2 tablets at night. fluticasone propionate (Flovent HFA) 110 mcg/actuation HFA Aerosol Inhaler Inhale 1 puff into the lungs 2 times daily. atorvastatin (Lipitor) 40 mg Tablet Take 40 mg by mouth daily. SITagliptin (Januvia) 100 mg Tablet Take 100 mg by mouth daily. lisinopriL (Zestril) 5 mg Tablet Take 10 mg by mouth daily. albuteroL 90 mcg/actuation HFA Aerosol Inhaler Inhale 2 puffs into the lungs every 4 hours as needed for Wheezing. Use with spacer No current facility-administered medications on file prior to visit. Allergies Allergen Reactions Sulfur Penicillins Review of Systems Constitutional: Negative for fever, weight loss and chills. Respiratory: Negative for cough, shortness of breath and chest discomfort. Gastrointestinal: Negative for abdominal discomfort, vomiting and nausea. Psychiatric/Behavioral: Positive for physiological symptoms of anxiety. Cardiovascular: Negative for palpitations, syncope and leg edema. Social History Socioeconomic History Marital status: Spouse name: Not on file Number of children: Not on file Years of education: Not on file Highest education level: Not on file Occupational History Not on file Tobacco Use Smoking status: Every Day Packs/day: 1.00 Years: 21.00 Pack years: 21.00 Types: Cigarettes Smokeless tobacco: Never Vaping Use Vaping Use: Never used Substance and Sexual Activity Alcohol use: Not on file Drug use: Not on file Sexual activity: Not on file Other Topics Concern Not on file Social History Narrative Not on file Social Determinants of Health Financial Resource Strain: Not on file Food Insecurity: Not on file Transportation Needs: Not on file Physical Activity: Not on file Housing Stability: Not on file Vitals: Patient Vitals for the past 24 hrs: Pulse BP SpO2 09/21/22 1351 65 134/66 99 % Physical Exam: Physical Exam Constitutional: She appears healthy. No distress. Pulmonary/Chest: Effort normal. She has no rales. She has scattered wheezes. Musculoskeletal: General: No edema. Neurological: She is alert and oriented to person, place, and time. Skin: Skin is warm and dry. No rash noted. Device Interrogation: Data Pacemaker Model: Adapta ADDR01 [id number] Implanted: 09/22/13 4:23 PM Atrial Lead: Medtronic [id number] Implanted: 09/22/13 Ventricular Lead: Medtronic [id number] Implanted: 09/22/13 Alerts ALY 05/14/22 Diagnostics Pacing Mode: VVI @ 65bpm Presenting EGMs: unable to test or program Atrial Episodes: none Ventricular Episodes: one HR episode at 213bmp lasted 6 seconds on 02/02/22 Ventricular Pacin% Battery and Leads Voltage: 2.45V Status: ALY Magnet Rate: 65bpm Charge Time: ---sec Impedances (ohms) Sensing (mV) Thresholds HV RA RV LV RA RV LV RA RV LV --- --- 739 --- --- 2.8 --- ---V @ ----ms ---V @ ---ms ---V @ ---ms Comments: - Pocket incision is well healed without signs or symptoms of infection - Device is programmed to VVI 65 secondary to ALY - Programming changes None - Follow up: Generator change scheduled for 09/28. Patient understands to be NPO after midnight on next week. Sedation evaluation: Mallampati class: IV: none of the structures can be seen ASA: 3: Patient with severe systemic disease Assessment and Plan: 62 yo female hx of CHB s/p Medtronic dual lead pacemaker implant 09/22/[address] Dinero at [facility]. She is pacemaker dependent. RV pacing threshold is historically elevated at 2.25V @ 0.4ms. She triggered ALY on 05/14/2022 and has preferred not to be remotely monitored and has been non-compliant with follow- up. She has severe anxiety and claustrophobia and likely some degree of COPD (wheezing, active smoker). Recommend quit smoking and offered support (declined). We discussed setting a goal of quitting which she will try to adhere (stop smoking at time of generator change). Plan: 1. Schedule for left-sided pacemaker device replacement. 2. Antibiotic therapy: Vancomycin 3. Sedation: General 4. Anticoagulation plan: N/A 5. Temporary pacing: Pacemaker dependent 6. Medication instructions: See below 7. Patient instructions as below 8. Benefits and risks of device replacement discussed, including but not limited to infection requiring explantation of all hardware, bleeding requiring blood transfusion, damage to any existing leads, hemothorax, pneumothorax requiring chest tube placement, vascular or myocardial damage/perforation requiring endovascular or surgical repair, tamponade, lead dislodgment, DVT requiring coumadin anticoagulation, device recall, post-device syncope and the possible need for an early surgical revision. Post-procedure limitations were discussed with the patient. The patient's questions were answeredand written consent was obtained. Patient Instructions Procedure Information 1. You will be scheduled for a pacemaker generator replacement procedure on Wednesday September 28, 2022.You will need to arrive at 7 AM. Please check in at the Same Day Program at [facility] (park in parking garage and enter through garage entrace on level 4 into the main building and proceed staightahead down the long open corridor and you will run into 4W). 2. Please do not eat or drink anything after midnight the night prior to your procedure. 3. You may take your morning medications with just a sip of water. Please make the following changes to your medications: - HOLD LISINOPRIL AND METFORMIN IN THE AM OF PROCEDURE 4. Please use HIBICLENS soap the night before and the morning of the surgery. 5. If you need to change the date or time of your surgery or you become ill, please call schedulingat [phone]. BABAR Bagley PA-C Attending MD: Rosio 09/21/2022 documented in this encounter Plan of Treatment Upcoming Encounters Date Type Department Care Team (Late st Contact Info) Description 01/05/2024 10:00 AM EST Hospital Encounter [place] [address] Arrived documented as of this encounter Results * ECHO COMPLETE (09/26/2022 2:53 PM EDT) EF 60 HEARTLAB SYSTEM Anatomical Region Laterality Modality Cardiac Other 09/26/2022 11:1 3 AM EDT Narrative 09/26/2022 3:28 PM EDT ? Echocardiogram Report Name: SISI MEDELLIN ? Study Date: 09/26/2022 11:13 AMBP: 136/107 mmHg ? Patient Location: 4A : 1960 ? Height: 152 cm ? Account: [id number] Age: 62 yrs ? Weight: 71 kg Gender: Female ?BSA: 1.7 m2 Ordering Physician: KATHY AVELAR Referring Physician: DENIZ WOODS Performed By: DAVIDE Hewitt RCS Reason For Study: Pacemaker; Complete heart block Exam Location: [facility]. Interpretation Summary 1. The left ventricle is normal in size and function. The LVEF is 60% by visual estimation. There is abnormal septal motion due to ventricular pacing. 2. The right ventricle appears normal in size with mildly reduced appearing function. 3. There is no hemodynamically significant valve disease. 4. No prior study available for comparison. See body of report for complete findings. Procedure Complete-[id number]. Satisfactory quality. There is a pacemaker rhythm. Left Ventricle Left ventricle is of normal size. Wall thickness is normal. There is no ventricular septal defect. Left ventricular systolic function is normal. Left ventricular ejection fraction is estimated visually at 60%. There is abnormal septal motion associated with pacemaker activity. Right Ventricle There is a CIED lead in the right ventricle. Right ventricular systolic function is mildly decreased. Left Atrium The left atrium is probably normal. There is no evidence for a patent foramen ovale. Right Atrium The right atrium is normal. A pacemaker lead is present in the right atrium. Aortic Valve The aortic valve is not well visualized. The aortic valve is probably trileaflet. There is no aortic stenosis. There is no aortic regurgitation. Mitral Valve The mitral valve is structurally normal. There is no mitral stenosis. There is trace mitral regurgitation. Tricuspid Valve The tricuspid valve is structurally normal. There is no tricuspid stenosis. There is trace tricuspid regurgitation. Pulmonic Valve The pulmonic valve appears to be structurally normal. There is no valvular pulmonic stenosis. There is trace pulmonic valve regurgitation. Venous Inferior vena cava is normal in size. Inferior vena cava collapse greater than 50% with respiration. Pericardium/Pleural There is no pericardial effusion. Hemodynamics The peak right ventricular systolic pressure is 22.0 mmHg . The estimated right atrial pressure is 3mmHg. Unable to assess diastolic function. ? 2D Measurements ? Volumes ?IVSd: 1.1 cm ? RA A4Cs_phl: 12.5 cm2 ?LVIDd: 4.2 cm ?LVPWd: 0.75 cm ? SV(LVOT): 70.7 ml ?LV mass(C)d: 122.8 grams ? SI(LVOT): 42.1 ml/m2 ?LV mass(C)dI: 73.2 grams/m2 ?Ao root diam: 2.6 cm ?Ao root diam index: 1.6 ?asc Aorta Diam: 3.2 cm ?LVOT diam: 1.8 cm ?TAPSE_phl: 1.3 cm Doppler TR max stephanie: 217.8 cm/sec RVSP(TR): 22.0 mmHg LV V1 VTI: 27.1 cm Ao V2 VTI: 44.6 cm Ao Max: 235.2 cm/sec Ao valve max: 22.2 mmHg Ao valve mean: 11.5 mmHg LUANNE(I,D): 1.6 cm2 Dimensionless index Aov: 0.61 I ?WMSI = 1.00 ? % Normal = 100 ?Segments ??Size X - Cannot ?2 - ?4 - ?1-2 ? small Interpret ?1 - Normal ?? Hypokinetic 3 - Akinetic Dyskinetic ?? 3-5 ? moderate 5 - ? 6-14 ?large Aneurysmal ?15-16 ?? diffuse Procedure Note Serena Perkins MD - 09/26/2022 Echocardiogram Report Name: SISI MEDELLIN Study Date: 1:13 AMBP: 136/107 mmHg Patient Location: : 1960 Height: 152 cm Account: [id number] Age: 62 yrs Weight: 71 kg Gender: Female BSA: 1.7 m2 Ordering Physician: KATHY AVELAR Referring Physician: DENIZ WOODS Performed By: Ilda Giordano [facility], [facility] Reason For Study: Pacemaker; Complete heart block Exam Location: [facility]. Interpretation Summary 1. The left ventricle is normal in size and function. The LVEF is 60% byvisual estimation. There is abnormal septal motion due to ventricular pacing. 2. The right ventricle appears normal in size with mildly reducedappearing function. 3. There is no hemodynamically significant valve disease. 4. No prior study available for comparison. See body of report forcomplete findings. Procedure Complete-[id number]. Satisfactory quality. There is a pacemaker rhythm. Left Ventricle Left ventricle is of normal size. Wall thickness is normal. There is no ventricular septal defect. Left ventricular systolic function is normal.Left ventricular ejection fraction is estimated visually at 60%. There isabnormal septal motion associated with pacemaker activity. Right Ventricle There is a CIED lead in the right ventricle. Right ventricular systolicfunction is mildly decreased. Left Atrium The left atrium is probably normal. There is no evidence for a patentforamen ovale. Right Atrium The right atrium is normal. A pacemaker lead is present in the rightatrium. Aortic Valve The aortic valve is not well visualized. The aortic valve is probablytrileaflet. There is no aortic stenosis. There is no aortic regurgitation. Mitral Valve The mitral valve is structurally normal. There is no mitral stenosis.There is trace mitral regurgitation. Tricuspid Valve The tricuspid valve is structurally normal. There is no tricuspidstenosis. There is trace tricuspid regurgitation. Pulmonic Valve The pulmonic valve appears to be structurally normal. There is novalvular pulmonic stenosis. There is trace pulmonic valve regurgitation. Venous Inferior vena cava is normal in size. Inferior vena cava collapse greaterthan 50% with respiration. Pericardium/Pleural There is no pericardial effusion. Hemodynamics The peak right ventricular systolic pressure is 22.0 mmHg . The estimatedright atrial pressure is 3mmHg. Unable to assess diastolic function. 2D Measurements Volumes IVSd: 1.1 cm RA A4Cs_phl: 12.5cm2 LVIDd: 4.2 cm LVPWd: 0.75 cm SV(LVOT): 70.7ml LV mass(C)d: 122.8 grams SI(LVOT): 42.1ml/m2 LV mass(C)dI: 73.2 grams/m2 Ao root diam: 2.6 cm Ao root diam index: 1.6 asc Aorta Diam: 3.2 cm LVOT diam: 1.8 cm TAPSE_phl: 1.3 cm Doppler TR max stephanie: 217.8 cm/sec RVSP(TR): 22.0 mmHg LV V1 VTI: 27.1 cm Ao V2 VTI: 44.6 cm Ao Max: 235.2 cm/sec Ao valve max: 22.2 mmHg Ao valve mean: 11.5 mmHg LUANNE(I,D): 1.6 cm2 Dimensionless index Aov: 0.61 I WMSI = 1.00 % Normal = 100 SegmentsSize X - Cannot 2 - 4 - 1-2small Interpret 1 - Normal Hypokinetic 3 - Akinetic Dyskinetic 3-5moderate 5 - 6-14large Aneurysmal 15-16diffuse Kathy Avelar MD ECHO ORDERABLES documented in this encounter Visit Diagnoses Diagnosis Pacemaker Cardiac pacemaker in situ CHB (complete heart block) Atrioventricular block, complete Pacemaker Cardiac pacemaker in situ CHB (complete heart block) Atrioventricular block, complete documented in this encounter Care Teams Computerized Mill Mill Recorder Relationship Specialty Start Date End Date Anna Bonds APRN [address] [place] [address] PCP - General Family Medicine 11/21/18 documented as of this encounter
--- OUTSIDE RECORDS SUMMARY | 2023-12-06 17:15 | XMS_ITS | Encounter Summary ---
Author [facility] [place] [address] Care Team Providers Care Loss Prevention Consultant Name Role Phone Anna Bonds APRN Primary Care Provider [phone] Encounter Details Date Type Department Care Team (Latest Contact Info) Description 01/10/2023 10:00 AM EST - 01/10/2023 11:59 PM [facility] Hospital Encounter Non-[place] [id number] Discharge Disposition: Home Social History Tobacco Use [...] Sig Dispensed Refills Start Date End Date naproxen (Naprosyn) 250 mg tablet Take 250 mg by mouth 2 times daily (with meals). 09/07/2021 aspirin 81 mg chewable tablet Take 81 [...] as needed for Wheezing. Use with spacer oxybutynin (Ditropan-XL) 10 mg ER 24 hr tabletIndications:bladde r hyperactivity Take 10 mg by mouth daily. Indications: overactive bladder 02/24/2023 lisinopriL (Zestril) 5 mg Tablet Take 5 mg by mouth daily. 02/24/2023 documented as of this encounter Plan of Treatment Upcoming Encounters Date Type Department Care Team (Late st Contact Info) Description 01/05/2024 10:00 AM [facility] Hospital Encounter Non-[place] [address] Arrived documented as of this encounter Procedures Procedure Name Priority Date/Time Associated Diagnosis Comments PRO PM INTERROGATION REMOTE UP TO 90 DAYS Routine 11/13/2022 4:09 AM EDT documented in this encounter Results * Cardiac Device Check - Remote (11/13/2022 4:09 AM EDT) Anatomical Region Laterality Modality Other 11/13/2022 4:09 AM EDT Tyrese Rivas MD IMPLANTABLE CARDIAC DEVICE documented in this encounter Visit Diagnoses Not on filedocumented in this encounter Care Teams Loss Prevention Consultant Relationship Specialty Start Date End Date Anna Bonds APRN [address] [place] [address] PCP - General Family Medicine 11/21/18 documented as of this encounter
--- OUTSIDE RECORDS SUMMARY | 2023-12-06 17:15 | XMS_ITS | Encounter Summary ---
Author Organization [facility] [place] [address] Care Team Providers Care Slice Plug Cutter Operator Helper Name Role Phone Anna Bonds APRN Primary Care Provider [phone] Encounter Details Date Type Department Care Team (Latest Contact Info) Description 01/02/2023 Travel Social History Tobacco Use Types Packs/Day [...] st Contact Info) Description 01/05/2024 10:00 AM [facility] Hospital Encounter [place] [address] Arrived documented as of this encounter Visit Diagnoses Not on filedocumented in this encounter Care Teams Slice Plug Cutter Operator Helper Relationship Specialty Start Date End Date Anna Bonds APRN [address] [place] [address] PCP - General Family Medicine 11/21/18 documented as of this encounter
--- OUTSIDE RECORDS SUMMARY | 2023-12-06 17:15 | XMS_ITS | Encounter Summary ---
Author Organization [facility] [address] Care Team Providers Care Die Maker Electronic Name Role Phone Anna Bonds APRN Primary Care Provider [phone] Encounter Details Date Type Department Care Team (Latest Contact Info) Description 03/14/2023 Travel Social History Tobacco Use Types Packs/Day [...] AM EST Hospital Encounter Non-Invasive [place] [address] Arrived documented as of this encounter Visit Diagnoses Not on filedocumented in this encounter Care Teams Die Maker Electronic Relationship Specialty Start Date End Date Anna Bonds APRN [address] [place] [address] PCP - General Family Medicine 11/21/18 documented as of this encounter
--- OUTSIDE RECORDS SUMMARY | 2023-12-06 17:15 | XMS_ITS | Encounter Summary ---
Author Organization Formerly [facility], 1928–1983 Address [facility] [place] [address] Care Team Providers Care Forest Pathology Teacher Name Role Phone Vamshi Anna ELISE Primary Care Provider [phone] Reason for Visit * Reason Comments Cough Encounter Details Date Type Department Care Team ([facility] Contact Info) Description 02/24/2023 7:44 PM EST - 02/24/2023 8:44 PM EST Emergency Emergency Services at [address] [address] Miguelina Barrera MD [address] [place] [address] [place] [address] Influenza A Discharge Disposition: Home Social History Tobacco Use [...] Sign Reading Time Taken Comments Blood Pressure 163/81 02/24/2023 7:48 PM EST Pulse 99 02/24/2023 8:09 PM EST Temperature 37 ??C (98.6 ??F) 02/24/2023 7:48 PM EST Respiratory Rate 18 02/24/2023 8:09 PM EST Oxygen Saturation 97% 02/24/2023 8:09 PM EST Inhaled Oxygen Concentration - - Weight 68 kg (150 lb) 02/24/2023 7:48 PM EST Height - - Body Mass Index 29.29 10/09/2022 10:10 AM EDT documented in this encounter Discharge Instructions * Discharge Instructions* Miguelina Barrera MD - 02/24/2023 8:35 PM EST You have influenza. You received your first dose of Tamiflu in the emergency department. You shouldtake it twice a day for 5 days. I sent a prescription to [facility] pharmacy. For cough, you should use your albuterol inhaler with spacer 2 puffs every 4 hours as needed. I also recommend tea with lots of honey and sleeping propped up on pillows. Please call your primary care provider tomorrow to set up an appointment later this week for re-evaluation. Return to the emergency department if you have chest pain, trouble breathing, you pass out, or any other concerns. documented in this encounter Medications at Time of Discharge [...] as needed for Wheezing. Use with spacer oseltamivir (Tamiflu) 75 mg capsule Take 1 capsule by mouth 2 times daily for 5 days. 10 capsule 02/24/2023 03/01/2023 documented as of this encounter ED Notes * Miguelina Barrera MD - 02/24/2023 7:49 PM EST ED Attending Note HPI: Mady Medellin is a 62 y.o. female with history of COPD, smoking, pacemaker, who presents to the Emergency Department with cough. She felt fine yesterday. Last night she developed a cough. It is much worse when lying down. Sometimes she has coughing spells where she feels like she might vomit at the end, but she has not vomited. She has decreased appetite and fatigue. She has no nausea or vomiting. She has no peripheral edema. She has no episodes of chest pain. She has no dyspnea at all unless she is actively having a coughing fit. She has no sick contacts. Because her coughing is worse lying down she has been sleeping propped up last night. This is quite helpful. She did try her albuterol inhaler at home about 5 hours ago and did not think it helped much. She does not have a spacer anddoes not know how to use it. She has never had a COPD exacerbation. She smokes less than half a pack of cigarettes per day. She has had 4 COVID vaccines. She also had COVID in November 2022. This does not feel like COVID. She took a COVID antigen test earlier today that was negative. ROS as per HPI Vitals: ED Triage Vitals [02/24/231947] BP: 163/81 Heart Rate: 94 Resp: 18 Temp: 37 ??C (98.6 ??F) Temp src: Oral SpO2: 94 % O2 Device: RA Physical Exam Vitals and nursing note reviewed. Constitutional: General: She is not in acute distress. Appearance: Normal appearance. She is well-developed. She is not diaphoretic. HENT: Head: Normocephalic and atraumatic. Right Ear: External ear normal. Left Ear: External ear normal. Nose: Nose normal. No congestion or rhinorrhea. Mouth/Throat: Mouth: Mucous membranes are moist. Pharynx: Oropharynx is clear. No oropharyngeal exudate or posterior oropharyngeal erythema. Eyes: General: No scleral icterus. Extraocular Movements: Extraocular movements intact. Conjunctiva/sclera: Conjunctivae normal. Pupils: Pupils are equal, round, and reactive to light. Neck: Vascular: No JVD. Cardiovascular: Rate and Rhythm: Normal rate and regular rhythm. Pulses: Normal pulses. Heart sounds: Murmur (systolic at LUSB) heard. No friction rub. No gallop. Pulmonary: Effort: Pulmonary effort is normal. No respiratory distress. Breath sounds: Normal breath sounds. No stridor. No wheezing, rhonchi or rales. Comments: No cough or wheezing even with deep inspiration Chest: Chest wall: No tenderness. Abdominal: General: There is no distension. Palpations: Abdomen is soft. Tenderness: There is no abdominal tenderness. There is no guarding or rebound. Musculoskeletal: General: No tenderness. Normal range of motion. Cervical back: Normal range of motion and neck supple. No rigidity. Right lower leg: No edema. Left lower leg: No edema. Lymphadenopathy: Cervical: No cervical adenopathy. Skin: General: Skin is warm and dry. Capillary Refill: Capillary refill takes less than 2 seconds. Findings: No rash. Neurological: Mental Status: She is alert and oriented to person, place, and time. Cranial Nerves: No cranial nerve deficit. Coordination: Coordination normal. Psychiatric: Mood and Affect: Mood normal. Assessment and Plan: 62 y.o. female with history of smoking, COPD, pacemaker, diabetes, presents to the emergency department with less than 24 hours of cough with near posttussive emesis. She also has generalized fatigueand decreased appetite. Her exam is significant for normal heart rate, normal pulse ox, normal respiratory rate, and no wheezing. She also has no peripheral edema. She did have 1 coughing fit shortlyafter I left the room. This is not consistent with CHF, pulmonary embolism, aortic dissection, esophageal perforation. She is most consistent with her viral upper respiratory infection with cough leatha person with reactive airways. Given she has no wheezing at rest, normal pulse ox, I did not ordera chest x-ray and I would not treat this like a COPD exacerbation with systemic steroids. I will have respiratory administer albuterol inhaler with spacer and teaching. I will also test her for influenza and COVID as she would be a candidate for Tamiflu or Paxlovid. ED Course: I have reviewed labs and imaging, images and available reports, and they are significant for: No orders to display ED Course as of 02/24/232039 Sun Feb 24, 20232018 Heart Rate: 99 Increased after albuterol, as expected. 2032 Influenza A PCR(!): Detected Given she is less than 24 hours into this illness, has multiple comorbidities, I will start her on Tamiflu. 2038 She is feeling a little better after the albuterol inhaler. On reexamination she has no wheezing. I reviewed her diagnosis of influenza and a prescription for Tamiflu. She will be discharged home. Did this case involve critical care? No The visit findings, diagnosis, and care plan were discussed with the patient. The diagnosis and care plans discussions were outlined in the discharge instructions. The patient expressed understanding of the details of the visit, the return precautions and that she should return to the ER at any time for worsening symptoms, new symptoms, or other concerns. she agrees with thefollow- up plan. Discharge instructions: You have influenza. You received your first dose of Tamiflu in the emergency department. You shouldtake it twice a day for 5 days. I sent a prescription to [facility] pharmacy. For cough, you should use your albuterol inhaler with spacer 2 puffs every 4 hours as needed. I also recommend tea with lots of honey and sleeping propped up on pillows. Please call your primary care provider tomorrow to set up an appointment later this week for re-evaluation. Return to the emergency department if you have chest pain, trouble breathing, you pass out, or any other concerns. Miguelina Barrera MD 02/24/232039 documented in this encounter Miscellaneous Notes * ED Triage - Jailene Butts RN - 02/24/2023 7:53 PM EST Pt presents to the ED with c./o cough that started last night. Pt states that her cough is non-productive, but she does feel phlegm in the back of her throat. Pt has not tried any OTC medications, but has taken her inhalers. Pt still smoking, but has not today. Pt CAOx3. Pt denies any LAMBERT, chest pain, or shortness of breath Denies N&V. Able to converse in full sentences. Skin pink, warm, and dry. Cough noted. Ambulating without assistance. HPI (Adult) Stated Reason for Visit: Cough that started last night, non productive. History Obtained From: patient Precipitating Event(s): unknown Onset of Symptoms: sudden Duration (Days): 1 documented in this encounter Plan of Treatment Upcoming Encounters Date Type Department Care Team (Late st Contact Info) Description 01/05/2024 10:00 AM EST Hospital Encounter [place] [address] Arrived documented as of this encounter Procedures Procedure Name Priority Date/Time Associated Diagnosis Comments RAPID INFLUENZA A/B AND COVID-19 BY PCR (APD/[facility]/NL/CGP) STAT 02/24/2023 7:58 PM EST documented in this encounter Results * (ABNORMAL) Rapid Influenza A/B and COVID-19 by PCR (APD/[facility]/NLH/CGP) (02/24/2023 7:58 PM EST) Influenza A PCR Detected(A) Not Detected [facility] Influenza B PCR Not Detected Not Detected [facility] SARS-CoV-2 PCR Not Detected Not Detected [facility] Comment: Testing for SARS-CoV-2 (Severe acute respiratory syndrome coronavirus 2) to aid in the diagnosis of COVID-19 is performed using the Robin SARS-CoV-2 and Influenza A/B assay on the Hannah test system ([employer]) as authorized by the FDA-issued Emergency Use Authorization (EUA). ??This assay is intended for in vitro Diagnostic (IVD) use with nasopharyngeal swabs collected from individuals with clinical signs and symptoms of respiratory viral infection. The assay is performed based on the instructions for use and additional guidance provided by the FDA. Testing is performed in laboratories within the [facility], certified under the Clinical Laboratory Improvement Amendments of 1988 (CLIA), 42 U.S.C. section 263a, to perform high-complexity tests. Assay performance has been verified according to clinical laboratory regulatory requirements. The test result for SARS-CoV-2 provided above should be interpreted in combination with clinical observations, patient history and epidemiological information. Assay performance characteristics have not been evaluated for asymptomatic patients. A result of Not Detected indicates that the viral RNA target is not present but does not preclude SARS-CoV-2 infection. False negative results may occur if a specimen is improperly collected, transported or handled; if amplification inhibitors are present; or if inadequate numbers of viral particles are present in the specimen. A result of Detected suggests a current or recent infection and the patient is presumed to be infected. Positive and negative predictive values for this test are highly dependent on disease prevalence. ??A result of Invalid indicates the inability to conclusively determine the presence or absence of SARS-CoV-2 or Influenza RNA in the sample which can be due to a variety of factors. ??Recollection is recommended in the case of an invalid result. CDC COVID-19 criteria for testing on human specimens and clinical management guidance information are available at the CDC COVID-19 webpage under Information for Healthcare Professionals (https://www.cdc.gov/coronavirus/2019-ncov/hcp/index.html). Additional information about this and other EUA tests can be found in provider and patient fact sheets at the following FDA website: https://www.fda.gov/medical-devices/teeehvfwrsk-nqmootv-1632-atgnq-46-mypbsbztq- use-a tgllpkfeuqmrk-kiwutvq-ievfouq/lxlri-yfrwrphdjxe-qpdk Resp PCR Source [employer] [facility] Nasopharyngeal Swab 02/24/19 7:58 PM EST 02/24/2023 8:09 PM EST Comment:Symptoms->Fever / Re spiratory Symptoms Narrative Resulting Agency Comment Spec In Lab Miguelina Barrera MD MICROBIOLOGY - GENER AL ORDERABLES [facility] [address] [place] [address] documented in this encounter Visit Diagnoses Diagnosis Influenza A Influenza with other respiratory manifestations documented in this encounter Administered Medications Inactive Administered Medications - up to 3 most recent administrations Medication Order MAR Action Action Date Dose Rate Site albuteroL 90 mcg/actuation inhaler 2 puff 2 puff, Inhalation, ONCE, 1 dose, On 02/24/23 at 2000, With spacer, STAT, Is there a contraindication to the patient receiving this medication as a nebulizer? Yes Given 02/24/2023 8:09 PM EST 2 puffs oseltamivir (Tamiflu) capsule 75 mg 75 mg, Oral, ONCE, 1 dose, On 02/24/23 at 2036, STAT, Indication for (Active or Suspected): Pneumonia (Community) Given 02/24/2023 8:41 PM EST 75 mg documented in this encounter Active and Recently Administered Medications Times are shown in EST. Scheduled Medication Order 02/22/2023 02/23/2023 02/24/2023 albuteroL 90 mcg/actuation inhaler 2 puff (COMPLETED) 2 puff, Inhalation, ONCE, 1 dose, On 02/24/23 at 2000, With spacer, STAT, Is there a contraindication to the patient receiving this medication as a nebulizer? Yes 2008 (Given - Provid er: RT Steph) oseltamivir (Tamiflu) capsule 75 mg (COMPLETED) 75 mg, Oral, ONCE, 1 dose, On 02/24/23 at 2036, STAT, Indication for (Active or Suspected): Pneumonia (Community) 2040 (Given - Provid er: Jailene Quinonez RN) documented in this encounter Additional Health Concerns Infection Onset Date Last Indicated Resolved Time Rule Out COVID-19 02/24/2023 02/24/2023 02/24/2023 8:32 PM EST INFLUENZA 02/24/2023 02/24/2023 03/06/2023 8:10 PM EST documented as of this encounter Care Teams Forest Pathology Teacher Relationship Specialty Start Date End Date Anna Bonds APRN [address] [place] [address] PCP - General Family Medicine 11/21/18 documented as of this encounter
--- OUTSIDE RECORDS SUMMARY | 2023-12-06 17:15 | XMS_ITS | Encounter Summary ---
Author Organization [facility] [place] [address] Care Team Providers Care Curator Name Role Phone Anna Bonds APRN Primary Care Provider [phone] Encounter Details Date Type Department Care Team (Late st Contact Info) Description 01/29/2022 9:30 AM EST Office Visit Cardiology at [address] [phone] Katerin Yo RN Pacemaker Social History Tobacco Use Types Packs/Day Years Used Date Smoking Tobacco: Every Day Smokeless Tobacco: Never Sex and Gender Information Value Date Recorded Sex Assigned at Female 06/14/2023 1:27 PM EDT Gender Identity Female 06/14/2023 1:27 PM EDT Sexual Orientation Straight 06/14/2023 1: 27 PM EDT documented as of this encounter Last Filed Vital Signs Vital Sign Reading Time Taken Comments Blood Pressure 158/86 01/29/2022 9:35 AM EST Pulse 80 01/29/2022 9:35 AM EST Temperature - - Respiratory Rate - - Oxygen Saturation 98% 01/29/2022 9:35 AM EST Inhaled Oxygen Concentration - - Weight 71.1 kg (156 lb 12.8 oz) 01/29/2022 9:35 AM EST Height 152.4 cm (5') 01/29/2022 9:35 AM EST Body Mass Index 30.62 01/29/2022 9:35 AM EST documented in this encounter Progress Notes * Katerin Yo RN - 01/29/2022 9:30 AM EST Images from the original note were not included. Clinical Electrophysiology Device Service Note Mady Medellin is a 61 y.o. female who presents today for a pacemaker programming evaluation, sheis transferring [facility] after moving to [place], [place]. She has beeen [employer], but is willing to do remote monitoring. She will be enrolled in [employer] and mailed a 23120. PCP: Anna Bonds APRN Final Parameters at implant: Settings: Underlying rhythm: SR with high grade AV block and V escape in 30's Presenting: /CHAIN PERSON Atrial Lead: P wave: 4-5.6 mV Impedance: 501 ohms Threshold: 1.0V@0.4 ms Ventricular Lead: R wave: 8-11.20 mV Impedance: 814 ohms Threshold: 1.75V@0.4 ms Since 06/14/21 Heart rate histograms: reasonable distribution Pacing percentages: AP 0.3 %; CHAIN PERSON 100 % Mode switch episodes: 2 >>for <0.1% burden no atrial events VHR: none Battery voltage: 2.67V/4,449 ohms est 10 months remaining Wound assessment: Well approximated and healed left subclavicular pocket with no signs of erosion Reprogramming: Iterative changes to assess device function Plan: Remote monitor being mailed. monitor being mailed RTC in 6 mos. Provider: Katerin Yo RN Attending: Dr Rivas documented in this encounter Plan of Treatment Upcoming Encounters Date Type Department Care Team (Late st Contact Info) Description 01/05/2024 10:00 AM EST Hospital Encounter Non-Invasive [place] [address] Arrived documented as of this encounter Visit Diagnoses Diagnosis Pacemaker Cardiac pacemaker in situ documented in this encounter Care Teams Curator Relationship Specialty Start Date End Date Anna Bonds APRN [address] [place] [address] PCP - General Family Medicine 11/21/18 documented as of this encounter
--- OUTSIDE RECORDS SUMMARY | 2023-12-06 17:15 | XMS_ITS | Encounter Summary ---
Author Organization [facility] Address [facility] [place] [place] [address] Care Team Providers Care Granular Operator Name Role Phone Vamshi Anna ARIK Primary Care Provider [phone] Encounter Details Date Type Department Care Team (Late st Contact Info) Description 05/15/2023 [place] [phone] Xiomara Joiner MD [facility] [place] [address] Social History Tobacco Use Types Packs/Day Years [...] AM EST Hospital Encounter Non-[place] [address] Arrived documented as of this encounter Visit Diagnoses Not on filedocumented in this encounter Care Teams Granular Operator Relationship Specialty Start Date End Date Anna Bonds APRN [address] [place] [address] PCP - General Family Medicine 11/21/18 documented as of this encounter
--- OUTSIDE RECORDS SUMMARY | 2023-12-06 17:15 | XMS_ITS | Encounter Summary ---
Author Organization [facility] [place] [address] Care Team Providers Care Dural Mechanic Name Role Phone Anna Bonds APRN Primary Care Provider [phone] Encounter Details Date Type Department Care Team (Latest Contact Info) Description 10/09/2022 Travel Social History Tobacco Use Types Packs/Day [...] st Contact Info) Description 01/05/2024 10:00 AM [facility] Hospital Encounter Non[place] [address] Arrived documented as of this encounter Visit Diagnoses Not on filedocumented in this encounter Care Teams Dural Mechanic Relationship Specialty Start Date End Date Anna Bonds APRN [address] [place] [address] PCP - General Family Medicine 11/21/18 documented as of this encounter
--- OUTSIDE RECORDS SUMMARY | 2023-12-06 17:15 | XMS_ITS | Encounter Summary ---
Author Organization [facility] Address [facility] [place] [place] [address] Care Team Providers Care Contract Implementation Analyst Name Role Phone Anna Bonds APRN Primary Care Provider [phone] Reason for Referral * Diagnostic Test (Routine) - Closed Specialty Diagnoses / Procedures Referred By Contac t Referred To Contact Cardiology Diagnoses Pacemaker CHB (complete heart block) Procedures Echocardiogram Transthoracic Deniz Woods PA [facility] [place] [address] [facility] [place] [address] Referral ID Status Reason Start Date Expiration Date V isits Requested Visits Authorized [id number] Closed Specialty Service Requested 09/21/2022 09/21/2023 1 1 Reason for Visit * Diagnostic Test (Routine) - Closed Specialty Diagnoses / Procedures Referred By Contac t Referred To Contact Cardiology Diagnoses Pacemaker CHB (complete heart block) Procedures Echocardiogram Transthoracic Deniz Woods PA [facility] [place] [address] [facility] [place] [address] Referral ID Status Reason Start Date Expiration Date V isits Requested Visits Authorized [id number] Closed Specialty Service Requested 09/21/2022 09/21/2023 1 1 Encounter Details Date Type Department Care Team (Latest Contact Info) Description 09/26/2022 10:44 AM EDT - 09/26/2022 11:59 PM EDT Hospital Encounter Non-Invasive Cardiology Lab [facility] [place] [address] Kathy Avelar MD [facility] [place] [address] Pacemaker; CHB (complete heart block) Discharge Disposition: Home Social History Tobacco Use [...] mouth 2 times daily (with meals). 09/07/2021 metFORMIN (Glucophage) 500 mg Tablet Take 1,000 [...] AM EST Hospital Encounter Non-[place] [address] Arrived documented as of this encounter Procedures Procedure Name Priority Date/Time Associated Diagnosis Comments ECHO COMPLETE Routine 09/26/2022 2:53 PM EDT Pacemaker CHB (complete heart block) documented in this encounter Results * ECHO COMPLETE (09/26/2022 2:53 PM EDT) EF 60 HEARTZuu Onlnine SYSTEM Anatomical Region Laterality Modality Cardiac Other 09/26/2022 11:1 3 AM EDT Narrative 09/26/2022 3:28 PM EDT ? Echocardiogram Report Name: SISI MARTINES ? Study Date: 09/26/2022 11:13 AMBP: 136/107 mmHg ? Patient Location: 4A : 1960 ? Height: 152 cm ? Account: [id number] Age: 62 yrs ? Weight: 71 kg Gender: Female ?BSA: 1.7 m2 Ordering Physician: KATHY AVELAR Referring Physician: DENIZ WOODS Performed By: DAVIDE Hewitt RCS Reason For Study: Pacemaker; Complete heart block Exam Location: [facility]. Interpretation Summary 1. The left ventricle is [...] body of report for complete findings. Procedure [id number]. Satisfactory quality. There is a pacemaker rhythm. [...] MD - 09/26/2022 Echocardiogram Report Name: SISI MARTINES Study Date: :13 AMBP: 136/107 mmHg Patient Location: : 1960 Height: 152 cm Account: [id number] Age: 62 yrs Weight: 71 kg Gender: Female BSA: 1.7 m2 Ordering Physician: KATHY AVELAR Referring Physician: DENIZ WOODS Performed By: DAVIDE Hewitt RCS Reason For Study: Pacemaker; Complete heart block Exam Location: [facility]. Interpretation Summary 1. The left ventricle is normal in size and function. The LVEF is 60% byvisual estimation. There is abnormal septal motion due to ventricular pacing. 2. The right ventricle appears normal in size with mildly reducedappearing function. 3. There is no hemodynamically significant valve disease. 4. No prior study available for comparison. See body of report forcomplete findings. Procedure [id number]. Satisfactory quality. There is a pacemaker rhythm. [...] complete documented in this encounter Care Teams Contract Implementation Analyst Relationship Specialty Start Date End Date Anna Bonds APRN [address] [place] [address] PCP - General Family Medicine 11/21/18 documented as of this encounter
--- OUTSIDE RECORDS SUMMARY | 2023-12-06 17:15 | XMS_ITS | Encounter Summary ---
Author Organization [facility] Address [facility] [place] [address] Care Team Providers Care Industrial Real Estate Agent Name Role Phone Anna Bonds APRN Primary Care Provider [phone] Reason for Visit * Reason Onset Date Comments Post Procedure Call 10/03/2022 Encounter Details Date Type Department Care Team (Late st Contact Info) Description 10/03/2022 Notes Only Cardiology at [address] [address] Giuliana Ramos, RN Post Procedure Call Social History Tobacco Use Types Packs/Day Years Used Date Smoking Tobacco: Every Day Cigarettes 1 21 Smokeless Tobacco: Never Alcohol Use Standard Drinks/Week Comments Never 0 (1 standard drink = 0.6 oz pur e alcohol) Sex and Gender Information Value Date Recorded Sex Assigned at Female 06/14/2023 1:27 PM EDT Gender Identity Female 06/14/2023 1:27 PM EDT Sexual Orientation Straight 06/14/2023 1: 27 PM EDT documented as of this encounter Progress Notes * Giuliana Ramos, RN - 10/03/2022 9:13 AM EDTSummary: Post Procedure Call: Generator replacement EP RN Post-Procedure Note: Date of Follow Up Call: 10/03/2022 Spoke With: Patient Unavailable Type: Not Available Procedure Type (choose all that apply): Device Generator Replacement Performing MD: Rosio Date of Procedure: 09/28/2022 Date of Discharge: 09/28/2022 Follow Up EP Visit Scheduled?: Yes Date of EP Visit: 10/08/2022 Intra or Post Procedure Event: Did any Intra or Post Procedure Events Occur?: No Medications at Hospital Discharge: Aspirin: No P2Y12 Inhibitor: No Other Antiplatelet: No Warfarin: No DOAC: No Other Anticoagulant: No Beta Nallely (any): No Digoxin: No Diltiazem/Verapamil: No Amiodarone: No Dofetilide: No Dronedarone: No Flecainide: No Propafenone: No Sotalol: No PPI: No Other Antiarrhythmic: No Assessment: Free Text Note: Follow Up Instruction: Wound Care: -Wound will heal in approx 7-10 days.It may be tender, it may appear slightly red and bumpy and there may -be dry, crusty scabbing. These are all normal. -Inspect the wound for signs of infection which can be drainage, swelling, warmth or increased painor redness. - Do not scratch or rub the wound or apply any creams, lotions or ointments on the wound until it is completely healed. - You may cover the wound with gauze if it rubs on clothing and causes you discomfort. - Avoid direct water pressure on the wound - continue this for 7 - 10 days. Do not submerge wound for 14 days - Do not scrub or wash would if Dermabond is used - You may remove your dressing on: Arm Restrictions: - Do not raise your elbow on the operated side above the shoulder for 6 weeks - Do not lift greater than 7 pounds (equal to a gallon of milk) on the operated side for 6 weeks. - Do not fully extend this arm in any direction away from the torso for 6 weeks - You may use your arm on the operated side, but do not make extreme movement (such as stretching or reaching for a heavy object) for 6 weeks - No driving for maximum of 1 week documented in this encounter Plan of Treatment Upcoming Encounters Date Type Department Care Team (Late st Contact Info) Description 01/05/2024 10:00 AM [facility] Hospital Encounter Non-Invasive [place] [address] Arrived documented as of this encounter Visit Diagnoses Not on filedocumented in this encounter Care Teams Industrial Real Estate Agent Relationship Specialty Start Date End Date Anna Bonds APRN [address] [place] [address] PCP - General Family Medicine 11/21/18 documented as of this encounter
--- OUTSIDE RECORDS SUMMARY | 2023-12-06 17:15 | XMS_ITS | Encounter Summary ---
Author Organization [facility] Address [facility] [place] [address] Care Team Providers Care Auto Body Shop Manager Name Role Phone Anna Bonds APRN Primary Care Provider [phone] Encounter Details Date Type Department Care Team (Late st Contact Info) Description 09/24/2022 Orders [place] [address] Deniz Woods PA [facility] [place] [address] Pacemaker generator end of life (Primary Dx); CHB (complete heart block); Pacemaker Social History Tobacco Use Types Packs/Day [...] AM EST Hospital Encounter Non-[place]vasive [place] [address] Arrived documented as of this encounter Visit Diagnoses Diagnosis Pacemaker generator end of life- Primary Fitting and adjustment of cardiac pacemaker CHB (complete heart block) Atrioventricular block, complete Pacemaker Cardiac pacemaker in situ documented in this encounter Care Teams Auto Body Shop Manager Relationship Specialty Start Date End Date Anna Bonds APRN [address] [place] [address] PCP - General Family Medicine 11/21/18 documented as of this encounter
--- OUTSIDE RECORDS SUMMARY | 2023-12-06 17:15 | XMS_ITS | Encounter Summary ---
Author Organization [facility] [place] [address] Care Team Providers Care Engraving Operator Name Role Phone Anna Bonds APRN Primary Care Provider [phone] Encounter Details Date Type Department Care Team (Latest Contact Info) Description 02/01/2022 Travel Social History Tobacco Use Types Packs/Day [...] AM EST Hospital Encounter Non-Invasive [place] [address] Arrived documented as of this encounter Visit Diagnoses Not on filedocumented in this encounter Care Teams Engraving Operator Relationship Specialty Start Date End Date Anna Bonds APRN [address] [place] [address] PCP - General Family Medicine 11/21/18 documented as of this encounter
--- OUTSIDE RECORDS SUMMARY | 2023-12-06 17:15 | XMS_ITS | Encounter Summary ---
Author Organization [facility] Address [facility] [place] [address] Care Team Providers Care Health And Physical Education Teacher Name Role Phone Anna Bonds APRN Primary Care Provider [phone] Reason for Visit * Reason Comments Hospital Transfer Abdominal Pain * Auth/Cert (Routine) Specialty Diagnoses / Procedures Referred By Contac t Referred To Contact Diagnoses UTI (urinary tract infection) ruptured appy Procedures EMERGENCY IPI TO EMERGENCY OBSVO Tj Barboza MD [facility] [place] [address] [facility] Referral ID Status Reason Start Date Expiration Date Visits Re quested Visits Authorized [id number] 1 1 Encounter Details Date Type Department Care Team (Late st Contact Info) Description 03/15/2023 12:14 AM EST - 03/15/2023 7:00 PM EST Emergency Surgical Unit Level 3 [place] [id number] Jossie Melara MD [facility] [place] [address] Tj Barboza MD [facility] [place] [address] Appendicitis, unspecified appendicitis type Discharge Disposition: Home Social History Tobacco Use [...] Sign Reading Time Taken Comments Blood Pressure 152/78 03/15/2023 4:17 PM EST Pulse 77 03/15/2023 12:22 AM EST Temperature 36.9 ??C (98.4 ??F) 03/15/2023 4:17 PM ES T Respiratory Rate 15 03/15/2023 4:17 PM EST Oxygen Saturation 97% 03/15/2023 4:17 PM EST Inhaled Oxygen Concentration - - Weight 70.3 kg (155 lb) 03/15/2023 12:22 AM EST Height 152.4 cm (5') 03/15/2023 12:22 AM EST Body Mass Index 30.27 03/15/2023 12:22 AM EST documented in this encounter Discharge Summaries * Horace Acosta MD - 03/15/2023 2:42 PM EST Acute Care Surgery Discharge Summary Patient Name: Mady Medellin Patient Age: 63 y.o. : 1960 Attending Physician: Tj Barboza MD Date of Admission: 03/15/2023 Date of Discharge: ID: 63 y.o.yo pt admitted on 03/15/2023 for abdominal pain with questionable acute appendicitis. Other In-hospital Issues: - Acute cystitis - Acute Pain Secondary Diagnosis: No past medical history on file. Allergies: Allergies Allergen Reactions Sulfa (Sulfonamide Antibiotics) Rash Sulfur Penicillins Operations/Procedures: HPI: Obtained from Dr. Aadms on 03/14/23 Mady Medellin is a 63 y.o. female with history significant for DM2, COPD, hypertension, hyperlipidemia, and complete heart block s/p pacemaker implant in 2013 who presents with abdominal pain. General surgery was consulted given concern for appendicitis on imaging. However, her clinical exam is not consistent with appendicitis. She has no pain on deep palpation of the right lower quadrant and reports left-sided pain and urinary symptoms. This may represent a gastroenteritis. She also does have a urinary tract infection which may account for the leukocytosis. She is hemodynamically stable with a benign abdominal exam, so we will plan to treat with antibiotics and monitor at this time. Hospital Course: She was admitted to ACS for observation, IV Zosyn, and pain control. She had a benign abdominal exam as detailed above and remained noninfectious throughout her course. On HD2 she was given a regulardiet, which she tolerated well. We discussed that her imaging findings were likely not related to acute appendicitis but she did have evidence of acute cystitis on UA and CT imaging. She otherwise had tolerable levels of pain control and was ambulatory and voiding spontaneously. At this time, she was deemed amenable for discharge with the following plan. Plan: - follow up with PCP recommended within 1-2 weeks - no follow up with ACS recommended - transitioned to PO Macrobid 100mg BID for 3 day course Active issues to be addressed at discharge: acute cystitis Incidental Radiographic Findings: None Pending Lab Data at Discharge: none Pertinent Lab Data: Recent Labs 03/15/23 0240 03/14/23 1840 WBC 10.4* 14.2* HGB 12.3 13.9 HCT 36.1 42.5 PLATELET 152 172 Recent Labs 03/15/23 0240 03/14/23 1840 NA 141 138 K 3.8 4.0 CL 105 101 CO2 24 23 BUN 11 11 CREATININE 0.73 0.70 GLUCOSE 124 146 CALCIUM 8.6 9.4 MAGNESIUM 0.61* -- PHOS 3.2 -- Microbiology Data: Microbiology Results (last 7 days) No results found for the last 168 hours. Pertinent Imaging: No results found for this visit on 03/15/23. (insert name of study/date/findings/impression) Discharge Physical Examination: Vital Signs: Last value Range last 24hrs Temperature Temp: 36.4 ??C (97.5 ??F) Temp: [36.4 ??C (97.5 ??F)-36.8 ??C (98.2 ??F)] Heart Rate Heart Rate: 77 Heart Rate: [77] Blood Pressure BP: 157/78 BP: (129-157)/(63-90) Respiratory Rate Resp: 16 Resp: [16-18] SpO2 SpO2: 97 % SpO2: [95 %-98 %] Physical Exam: General: alert, no acute distress Cardiac: Regular rate Pulmonary: no increased work of breathing on room air Abdominal: soft, non distended, minimally tender to palpation in the LLQ, no pain on deep palpationin the RLQ Neuro: grossly intact, follows commands, AAO x3. Extremities: Warm and well-perfused Current Medications: The following medications have been prescribed for you. If you notice any adverse reactions to yourmedications, please contact your primary care physician immediately or go to the nearest Emergency Department. Your Medications New Medications Dose Details nitrofurantoin 100 mg capsule Commonly known as: Macrobid Take 1 capsule by mouth 2 times daily. 100 mg Quantity: 6 capsule Refills: 0 Continued medications, unchanged Dose Details albuteroL 90 mcg/actuation HFA Aerosol Inhaler Inhale 2 puffs into the lungs every 4 hours as needed for Wheezing. Use with spacer 2 puff Refills: 0 aspirin 81 mg chewable tablet Take 81 mg by mouth daily. 81 mg Refills: 0 atorvastatin 40 mg tablet Commonly known as: Lipitor Take 40 mg by mouth daily. 40 mg Refills: 0 Flovent HFA 110 mcg/actuation HFA Aerosol Inhaler Inhale 1 puff into the lungs 2 times daily. Generic drug: fluticasone propionate 1 puff Refills: 0 lisinopriL 10 mg tablet Commonly known as: Zestril Take 10 mg by mouth daily. 10 mg Refills: 0 metFORMIN 500 mg tablet Commonly known as: Glucophage Take 1,000 mg by mouth 2 times daily (with meals). Take 1 tablet in am and 2 tablets at night. 1,000 mg Refills: 0 naproxen 250 mg tablet Commonly known as: Naprosyn Take 250 mg by mouth 2 times daily (with meals). 250 mg Refills: 0 oxybutynin 15 mg ER 24 hr tablet Commonly known as: Ditropan-XL Take 1 tablet by mouth Daily at Noon. 1 tablet Refills: 0 SITagliptin phosphate 100 mg tablet Commonly known as: Devyn Take 100 mg by mouth daily. 100 mg Refills: 0 Disposition: home Scheduled Appointments: The following appointments have been scheduled on your behalf: No future appointments. Outpatient Services/Studies: No discharge procedures on file. Special Instructions Given to Patient at Discharge:. An After Visit Summary was printed and given to the patient. Patient Instructions Discharge Instructions You were were admitted and treated for the following diagnosis: Abdominal Pain and acute cystitis CALL YOUR PHYSICIAN IF: You have a fever greater than 101F You have diarrhea or vomiting for >24 hours, or stop having bowel movements and passing flatus You have worsening pain, not controlled with your pain medication. You develop redness, swelling, or new drainage from your wounds Follow up: No future appointments. Driving Restrictions: - No driving if you are too sore to enter or exit your vehicle comfortably, or if you are too sore to easily check your blind spot. No driving while using prescription pain medications Activities: - Discuss return to work or school with your provide at your follow up appointment in the trauma clinic. - Increase your activity slowly. If it hurts don't do it, but try again the following day. - You may tire easily, so frequent naps may be necessary.. - Talk with your doctor about when you can return to work or school. - You may take a shower but have someone nearby in case you need help. Diet: Eat a well-balanced diet. Fresh fruits, vegetables and fiber-containing foods are recommended. Thiswill assist in wound healing. Recommendations: - Take it easy for two weeks. Remember, If it hurts, don't do it. - Take several slow, short walks each day for the first two weeks, and gradually increase your distance. We recommend at least 4 times a day. Comfort: - Some soreness can be expected. - Take your pain medication as needed and prescribed. - Taper use of pain medication as pain lessens. Follow up appointments: - There is no recommended follow up with Acute Care Surgery, however you may call to arrange followup as needed. - You are recommended to follow up with your PCP within 1-2 weeks of discharge to review your hospitalization. Your care was managed by the Trauma and Acute Care Surgery Team at [facility]. If you have any questions or concerns, please feel free to contact us. Provider Contact Information: General Surgery: [facility] (after business hours): Primary Care Physician: Anna Bonds APRN General Instructions None Your care was managed by the Trauma and Acute Care Surgery Team at [facility]. If you have any questions or concerns, please feel free to contact us. Provider Contact Information: General Surgery Scheduling: Nurses line for questions: [facility] (after business hours): CC: Anna Bonds APRN [facility] Radha Balderas APRN Signed: Horace Acosta MD Department of Surgery 03/15/2023 Acute Care Surgery Pager [phone] documented in this encounter Discharge Instructions * Patient Instructions* Horace Acosta MD - 03/15/2023 2:40 PM EST Discharge Instructions You were were admitted and treated for the following diagnosis: Abdominal Pain and acute cystitis CALL YOUR PHYSICIAN IF: You have a fever greater than 101F You have diarrhea or vomiting for >24 hours, or stop having bowel movements and passing flatus You have worsening pain, not controlled with your pain medication. You develop redness, swelling, or new drainage from your wounds Follow up: No future appointments. Driving Restrictions: - No driving if you are too sore to enter or exit your vehicle comfortably, or if you are too sore to easily check your blind spot. No driving while using prescription pain medications Activities: - Discuss return to work or school with your provide at your follow up appointment in the trauma clinic. - Increase your activity slowly. If it hurts don't do it, but try again the following day. - You may tire easily, so frequent naps may be necessary.. - Talk with your doctor about when you can return to work or school. - You may take a shower but have someone nearby in case you need help. Diet: Eat a well-balanced diet. Fresh fruits, vegetables and fiber-containing foods are recommended. Thiswill assist in wound healing. Recommendations: - Take it easy for two weeks. Remember, If it hurts, don't do it. - Take several slow, short walks each day for the first two weeks, and gradually increase your distance. We recommend at least 4 times a day. Comfort: - Some soreness can be expected. - Take your pain medication as needed and prescribed. - Taper use of pain medication as pain lessens. Follow up appointments: - There is no recommended follow up with Acute Care Surgery, however you may call to arrange followup as needed. - You are recommended to follow up with your PCP within 1-2 weeks of discharge to review your hospitalization. Your care was managed by the Trauma and Acute Care Surgery Team at [facility]. If you have any questions or concerns, please feel free to contact us. Provider Contact Information: General Surgery: [facility] (after business hours): Primary Care Physician: Anna Bonds APRN documented in this encounter Medications at Time [...] with spacer documented as of this encounter Progress Notes * Will Olivera RN - 03/15/2023 7:00 PM EST VSS, A-Ox4,denies SOB, denies any pain, ambulates independently, on RA. Lungs diminished with inspiroty wheeze, heart regular, bowel sound normative, skin intact. Pt can make needs known, D/C at 1900, D/C instruction given, safety ensured * Horace Acosta MD - 03/15/2023 2:41 PM EST ID/MECHANISM OF INJURY: Mady Medellin is a 63 y.o. female s/p Admission for abdominal pain with CT imaging questionable for acute appendicitis. OR CASE INFORMATION: FOLLOW-UP NEEDED: Does pt need to f-u with surgeon or HYDRAULIC [employer]ER BLASTING (please indicate reason if attending provider): None How soon should ACS f/u be? None Does patient need imaging prior to ACS f/u? None Are CT/MRI Safety questions complete (if needed)? No Does patient have keisha/sutures? What do they have? When should they be removed? What service is responsible? None Does patient need labs with TACS f/u? No Follow-up with other services? No Advise of Service and needs. Imaging orders entered: No Radiology Safety questions done for MRI/CT? No New or current ostomy? Ostomy nurse shared visit No Mobility concerns: Fully ambulatory Wound vac (requires 60min clinic visit) No On vent? If Yes - Needs to have someone from facility and supplies. No On Dialysis: No (SCHEDULE?) INCIDENTAL FINDINGS Incidental Findings (yes/no): No OPIOID CONSENT/NARCOTIC AGREEMENTS Current Month Narcotic Consent? No Isolation No Isolation D/c to: Home If Rehab - Rehab Name: PCP Name: ARIK Goldman MD 03/15/2023 documented in this encounter H&P Notes * Tray Adams MD - 03/15/2023 1:06 AM EST [facility] Department of Surgery Admission History and Physical HPI: Mady Medellin is a 63 y.o. female with medical history significant for DM2, COPD, hypertension, hyperlipidemia, and complete heart block s/p pacemaker implant in 2013 who presents with abdominal pain. She reports that she started having mild abdominal pain on the left side earlier today. 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 She states that she often has diarrhea which she attributes to metformin, and had multiple episodes of diarrhea today. She denies any nausea and has tolerated some p.o. intake. She also reports urinary symptoms including urgency and frequency. She reported to [facility] ED for evaluation of the symptoms this evening. Workup to this point has been notable for a leukocytosis of 14.2, urinalysis consistent with a UTI, and CT findings consistent with acute cystitis with concern for appendicitis on imaging. She was transferred to [facility] for further evaluation. PMH: No past medical history on file. PSH: No past surgical history on file. HOME MEDICATIONS: Current Facility-Administered Medications on File Prior to Encounter Medication Dose Route Frequency Provider Last Rate Last Admin [COMPLETED] ketorolac (Toradol) (15 mg/mL) injection 15 mg 15 mg Intravenous Once Rory Whyte MD 15 mg at 03/14/23 185 [COMPLETED] ondansetron (pf) (Zofran) (2 mg/mL) injection 4 mg 4 mg Intravenous Once Rory Whyte MD 4 mg at 03/14/23 184 [COMPLETED] sodium chloride 0.9% 500 mL IV bolus Intravenous Once Rory Whyte MD Stopped at03/14/231952 [COMPLETED] cefTRIAXone (Rocephin) 2 g vial attach to sodium chloride 0.9% 50 mL Mini-Bag Plus 2 g Intravenous Once Rory Whyte MD Stopped at 03/14/231941 [COMPLETED] iohexoL (Omnipaque) (350 mg/mL) solution 0-200 mL 0-200 mL Intravenous Once PRN Gerard Reyes MD 80 mL at 03/14/231935 [COMPLETED] piperacillin-tazobactam (Zosyn) 4.5 g vial attach to sodium chloride 0.9% 100 mL Mini-Bag Plus 4.5 g Intravenous Once Rory Whyte MD Stopped at 03/14/23 4489 Current Outpatient Medications on File Prior to Encounter Medication Sig Dispense Refill naproxen (Naprosyn) 250 mg tablet Take 250 mg by mouth 2 times daily (with meals). lisinopriL (Zestril) 10 mg tablet Take 10 mg by mouth daily. oxybutynin (Ditropan-XL) 15 mg ER 24 hr tablet Take 1 tablet by mouth Daily at Noon. aspirin 81 mg chewable tablet Take 81 [...] as needed for Wheezing. Use with spacer ALLERGIES: Allergies Allergen Reactions Sulfa (Sulfonamide Antibiotics) Rash Sulfur Penicillins FAMILY HISTORY: non-contributory in any family member SOCIAL HISTORY: Social History Socioeconomic History Marital status: Spouse name: Not on file Number of children: Not on file Years of education: Not on file Highest education level: Not on file Occupational History Not on file Tobacco Use Smoking status: Every Day Packs/day: 0.25 Years: 21.00 Additional pack years: 0.00 Total pack years: 5.25 Types: Cigarettes Smokeless tobacco: Never Tobacco comments: A couple packs a week. Vaping Use Vaping Use: Never used Substance and Sexual Activity Alcohol use: Never Drug use: Not Currently Sexual activity: Not on file Other Topics Concern Not on file Social History Narrative Not on file Social Determinants of Health Financial Resource Strain: Not on file Food Insecurity: Not on file Transportation Needs: Not on file Physical Activity: Not on file Intimate Partner Violence: Not on file Housing Stability: Not on file ROS: As stated above, otherwise 10 systems negative Pertinent items are noted in HPI. PHYSICAL EXAM Temp: [36.8 ??C (98.2 ??F)] Heart Rate: [77] Resp: [18] BP: (150-155)/(74-90) SpO2: [95 %-96 %] Heart Rate from SpO2: [71 bpm-74 bpm] General: alert, no acute distress Cardiac: Regular rate Pulmonary: no increased work of breathing on room air Abdominal: soft, non distended, minimally tender to palpation in the LLQ, no pain on deep palpationin the RLQ Neuro: grossly intact, follows commands, AAO x3. Extremities: Warm and well-perfused LABORATORY DATA Recent Labs 03/14/23 1840 WBC 14.2* HGB 13.9 PLATELET 172 NA 138 K 4.0 CL 101 CO2 23 BUN 11 CREATININE 0.70 GLUCOSE 146 LFT's No results found for: ALKPHOS, AST, ALBUMIN, BILIDIR, BILITOT, ALT, PROT Coags No results found for: INR, PT, PTT IMAGING: CT A/P 1. Acute cystitis with associated acute left ascending pyelitis. 2. Focal inflammation in the right lower quadrant involving the terminal ileum cecum and base of the appendix, with small loculated pericecal collection, suspicious for a ruptured base of the appendix with small abscess and associated reactive terminal ileitis. 3. Diffuse hepatic steatosis with morphologic changes suggestive of hepatic cirrhosis. IMPRESSION: Mady Medellin is a 63 y.o. female with history significant for DM2, COPD, hypertension, hyperlipidemia, and complete heart block s/p pacemaker implant in 2013 who presents with abdominal pain. General surgery was consulted given concern for appendicitis on imaging. However, her clinical exam is not consistent with appendicitis. She has no pain on deep palpation of the right lower quadrant and reports left-sided pain and urinary symptoms. This may represent a gastroenteritis. She also does have a urinary tract infection which may account for the leukocytosis. She is hemodynamically stable with a benign abdominal exam, so we will plan to treat with antibiotics and monitor at this time. PLAN: - Admit to general surgery, Dr. Barboza attending - Clear Liquid - Zosyn - SSI - IVF: LR @ 100ml/hr - Pain control: tylenol - DVT ppx: lovenox ppx - Dispo: floor status Tray Adams MD 03/15/2023 1:06 AM Associated attestation - Tj Barboza MD - 03/15/2023 3:13 AM EST I have seen the patient in person and reviewed the above history and I agree with the details as written. The assessment and plan were formulated in discussion with me and I agree with them as documented. Pt was complaining of left lower abdominal pain with diarrhea. Denies fevers, chills, N/V. Workup at a referring hospital revealed WBC 14.2, UTI by UA, and CT concerning for cystitis and appendicitiswith possible perforation. However, pt denies any pain in RLQ. On exam, no tenderness to deep palpation. She was initially started on abx for UTI/cystitis, and then broadened due to possible perforated appendicitis. Given pt's history and physical exam, there is low suspicion for appendicitis. Planadmit for observation, cont abx. OK for clears. If worsening pain, possible diagnostic laparoscopy. Tj Barboza MD documented in this encounter ED Notes * Xiomara Dia RN - 03/15/2023 9:10 AM EST Transport via bed to [facility]. * Xiomara Dia RN - 03/15/2023 8:57 AM EST Report to Pascual RN. * Xiomara Dia RN - 03/15/2023 8:46 AM EST Attempted to call report, but the phone was not answered. ED banquet bartender aware. * Xiomara Dia RN - 03/15/2023 8:25 AM EST Secure chat note sent to receiving RN to please call ED for report. * Xiomara Dia RN - 03/15/2023 8:15 AM EST Attempted to call report, but noone answered the phone. * Xiomara Dia RN - 03/15/2023 7:32 AM EST No s/s disstress. Respirations even and unlabored. Pending hospital bed. * Xiomara Dia RN - 03/15/2023 6:55 AM EST Care assumed. * Jossie Melara MD - 03/15/2023 12:22 AM EST Brief Attending Note I cared for the patient with the resident physician. Please see his/her/their note associated with the encounter, for more details. I have reviewed all diagnostic studies personally including labs, imaging studies and EKGs. Please see ED course below for details. Assessment/plan: Medical Decision Making: Briefly, Mady Medellin is a 63 y.o. female who presents with appendicitis ED Course: ED Course as of 03/15/23 0141 SatMar 15, 2023 0022 63 F transferred [facility] proven ruptured appendicitis. Zosyn at 20:51 and ceftriaxone given prior to arrival. WBC 14.2 at outside hospital. Last ate over 12 hours ago. 0023 On my independent exam, patient is resting comfortably, has a soft expiratory wheezes in all lung ackerman, has a nontender nonperitoneal abdomen. 0023 Surgery consulted 0126 Admitted to gen surg 0139 MDM: Patient presents with [facility] that is concerning for ruptured appendicitis. Here, her abdominalexam is benign and so have some concern that with the perforation and she might have a falsely reassuring exam at this time. However, she is hemodynamically stable, antibiotics were given prior to arrival, and she had a mild leukocytosis. General surgery was consulted and patient was admitted to their service for further management. Home medications were ordered by surgery team. 1. Appendicitis, unspecified appendicitis type Dispo: Admit Jossie Melara MD 03/15/23 0141 * Lalitha Martell DO - 03/15/2023 12:22 AM EST ED RESIDENT NOTE Patient: Mady Medellin Age (): 63 y.o. (1960) SUBJECTIVE HPI: Mady Medellin is a 63 y.o. female with PMH DM, pacemaker, and COPD who presented to the ED for abdominal pain. Patient was a transfer from OSH after she initially presented for left lower quadrantabdominal pain and flank pain. She had CT findings concerning for ruptured appendicitis with possible abscess. She was transferred for general surgery evaluation. Received ceftriaxone and Zosyn. Lastdose 2251. Upon arrival patient denies any acute complaints. She is pain-free and without any nausea. ROS as per HPI. Past Medical and Surgical Histories, Social History, Medications, Allergies were reviewed in the chart. Pt was seen under the supervision of an attending physician. OBJECTIVE Vital Signs: BP: 150/74, Heart Rate: 77, Temp: 36.8 ??C (98.2 ??F), Temp src: Oral, Resp: 18, Height: 152.4 cm (5'), Weight: 70.3 kg (155 lb), SpO2: 95 %, O2 Device: RA, BMI (Calculated): 30.27 Physical Exam Cardiovascular: Rate and Rhythm: Normal rate and regular rhythm. Pulses: Normal pulses. Pulmonary: Comments: Diminished breath sounds throughout with scattered wheezing Abdominal: General: Abdomen is flat. Bowel sounds are normal. Palpations: Abdomen is soft. Skin: General: Skin is warm. Capillary Refill: Capillary refill takes less than 2 seconds. Neurological: Mental Status: She is alert. ASSESSMENT & PLAN MDM: This is a 63-year-old female presenting as a hospital transfer for general surgery evaluation after CT findings confirmed perforated appendicitis. Initial vitals stable. Patient received antibiotics, and does not need repeat dosing at this time given last dose 22:51. Abdominal exam benign. Diminished breath sounds throughout with scattered wheezing. 95% on room air. We will make sure to kamar nue patient's at home inhalers for her known COPD. Patient evaluated by general surgery team. They will admit to their service for continued monitoring and IV antibiotics. The visit findings, diagnosis, and care plan were discussed with the patient. Lalitha Martell D.O. Emergency Medicine Resident, PGY-2 03/15/23 1:59 AM Lalitha Martell DO Resident 03/15/23 0202 Associated attestation - Jossie Melara MD - 03/15/2023 8:37 PM EST ED ATTENDING ATTESTATION NOTE The patient was seen in conjunction with the resident physician. I have independently performed thekey portions of the history and physical exam. I have reviewed the diagnostic studies including labs, imaging studies and EKGs. I have discussed the details of the case with the resident and agree with the assessment and plan as described in the resident note unless noted below or in my separate note. * Ivanna Haider RN - 03/14/2023 11:05 PM EST [facility]ending [facility] Reason for Transfer: Report: Presented to [facility]SH ED with LLQ pain that radiates to the flank. Patient also presented with urinary symptoms that included frequency, dysuria. Urine was grossly infected and initial diagnosis was cystitis. CT Abd/Pelvis: Ruptured Appendicitis Labs: WBC =14.2 Electrolytes okay per report Kidney function okay report Allergies: Sulfa, PCN Treatment: Toradol + Zofran 500 cc bolus fluid Rocephin IV 2 gm 4.5 gm Zosyn Vital Signs: Pulse: 83, NSR B/P: 143/76 Resp: appears comfortable per report SPO2: high 90's O2 LPM: 0 GCS: 15 BGL: none reported Temp: afebrile Transporting Service: Time of Departure: ETA: documented in this encounter Miscellaneous Notes * Initial Assessments - Tana Garcia RN - 03/15/2023 2:42 PM EST Office of Care Management Initial Assessment Medical record reviewed. Plan of care and patient status discussed with direct care Registered Nurse and/or Care Team in multidisciplinary rounds. Reason for Hospitalization: I have been having abdominal pain Last COVID test: Lab Results Component Value Date [id number] Not Detected 02/24/2023 Present on Admission: UTI (urinary tract infection) Hospitalizations Within the Past 30 Days: 03/14 and 02/24 ED admissions. Patient receiving hospital care under Inpatient status. Admission order reviewed. Health/Prescription Coverage: Primary Insurance: [place] Payor[place] / Plan: [place] PRIMARY CARE PL[place] / Product Type: *No Product type* / Secondary Insurance: N/A ; Prescription Coverage: Preferred Pharmacy: [facility] [address] [place] [address] Advance Care Planning: Attempt Cardiopulmonary Resuscitation - Inpatient <no information> - Current Functional Ability: Functional Status Prior to Admission: Home Environment: . . Accessibility Concerns: . Current DME: [address] [place] [facility] [id number] Social & Family Supports: All names listed below confirmed with patient as current and correct Extended Emergency Contact Information Primary Emergency Contact: Neel Medellin Mobile Relation: Child Secondary Emergency Contact: Alma Delia Medellin Mobile Relation: Son/Eicdtjal-mo-qvc Current Care Provided by: Transportation: Transportation Anticipated: Assessment: Patient with no apparent RNCM/SW needs at this time. No housing, transportation, insurance, resources concerns identified at this time. Supports in place to achieve a safe post-hospital transition. No identified barriers to accessing necessary care and/or follow-up after discharge. Plan: Patient to d/c to home via private car when medically ready. Registered Nurse Battery Plate Remover / Aquatic Facility Manager will continue to follow patient???s progress and remain available if situation changes for coordination of care, psychosocial support and/or discharge planning. Office of Care Management Tana Garcia RN-[facility] Surgery Nurse Director Clinical Data , Pager [phone] * ED Triage - Nanda Stone RN - 03/15/2023 12:20 AM EST BIBEMS for transfer from OSH for surgical consult for a ruptured appendix. Pt reports increased diarrhea, urinary frequency, and dysuria. Pt presented with LLQ abdominal and flank pain. Pt currently reporting 0/10 pain and no pain on palpation. Pt alert and oriented, VSS, NAD, respirations even and unlabored. HPI (Adult) Stated Reason for Visit: [facility] for surgical consult for appy History Obtained From: EMS Associated Signs/Symptoms: abdominal pain, nausea, cough, vomiting, weakness documented in this encounter Plan of Treatment Upcoming Encounters Date Type Department Care Team (Late st Contact Info) Description 01/05/2024 10:00 AM EST Hospital Encounter [place] [id number] Arrived documented as of this encounter Procedures Procedure Name Priority Date/Time Associated Diagnosis Comments POCT GLUCOSE Routine 03/15/2023 4:16 PM EST POCT GLUCOSE Routine 03/15/2023 12:03 PM EST POCT GLUCOSE Routine 03/15/2023 9:56 AM EST HEMOGRAM STAT 03/15/2023 2:40 AM EST PHOSPHORUS STAT 03/15/2023 2:40 AM EST MAGNESIUM STAT 03/15/2023 2:40 AM EST HEMOGLOBIN A1C STAT 03/15/2023 2:40 AM EST BASIC METABOLIC PANEL STAT 03/15/2023 2:40 AM EST POCT GLUCOSE Routine 03/15/2023 2:32 AM EST documented in this encounter Results * POCT Glucose (03/15/2023 4:16 PM EST) Glucose, POC 139 65 - 199 mg/dL [facility] Comment: Supplemental ranges: <140 mg/dL before meals <180 mg/dL all other times of the day Blood 03/15/2023 4:16 PM EST 03/15/2023 4:16 PM EST Tj Barboza MD POINT OF CARE TEST O KATIUSKA Performing Organization Address [facility] Phone Number [facility] [place] [address] * POCT Glucose (03/15/2023 12:03 PM EST) Glucose, POC 129 65 - 199 mg/dL [facility] Comment: Supplemental ranges: <140 mg/dL before meals <180 mg/dL all other times of the day Blood 03/15/2023 12:0 3 PM EST 03/15/2023 12:03 PM EST Tj Barboza MD POINT OF CARE TEST O KATIUSKA Performing Organization Address [facility] de Phone Number [facility] [place] [address] * POCT Glucose (03/15/2023 9:56 AM EST) Glucose, POC 123 65 - 199 mg/dL [facility] Comment: Supplemental ranges: <140 mg/dL before meals <180 mg/dL all other times of the day Blood 03/15/2023 9:56 AM EST 03/15/2023 9:56 AM EST Tj Barboza MD POINT OF CARE TEST O RDERADAVIDA Performing Organization Address [facility]/State/ZIP Co de Phone Number [facility] [place] [address] * Phosphorus (03/15/2023 2:40 AM EST) Phosphorus 3.2 2.5 - 4.5 mg/dL [facility] Blood 03/15/2023 2:40 AM EST 03/15/2023 2:46 AM EST Narrative Resulting Agency Comment Spec In Lab Jossie Melara MD CHEMISTRY ORDERABLE S Performing Organization Address [facility] Co de Phone Number [facility] [place] [address] * (ABNORMAL) Magnesium (03/15/2023 2:40 AM EST) Magnesium 0.61(L) 0.69 - 1.07 mmol/L [facility] Blood 03/15/2023 2:40 AM EST 03/15/2023 2:46 AM EST Narrative Resulting Agency Comment Spec In Lab Jossie Melara MD CHEMISTRY ORDERABLE S Performing Organization Address [facility] Co de Phone Number [facility] [place] [address] * Basic Metabolic Panel (non-fasting) (03/15/2023 2:40 AM EST) Glucose 124 65 - 199 mg/dL [facility] Comment:Diabetes: >=200 mg/d L plus symptoms Blood Urea Nitrogen 11 8 - 18 mg/dL [facility] Creatinine 0.73 0.70 - 1.20 mg/dL [facility] Sodium 141 135 - 145 mmol/L [facility] Potassium 3.8 3.5 - 5.0 mmol/L [facility] Comment: Please note: ??Patients with WBC >100,000 may have falsely elevated Potassium levels. ??For accurate Potassium quantification in these patients send serum separator tube (gold top) for subsequent determinations. ??Contact the Clinical Chemistry Laboratory if there are any questions. Chloride 105 98 - 107 mmol/L [facility] Carbon Dioxide 24 22 - 31 mmol/L [facility] Anion Gap 12 5 - 15 mmol/L [facility] Calcium 8.6 8.5 - 10.5 mg/dL [facility] Est Glomerular Filtration Rate 92 >=60 mL/min/1. 73 m?? [facility] Comment: This patient's estimated GFR was calculated [...] and symptoms in addition to eGFR. Blood 03/15/2023 2:40 AM EST 03/15/2023 2:46 AM EST Narrative Resulting Agency Comment Spec In Lab Jossie Melara MD CHEMISTRY ORDERABLE S Performing Organization Address City/State/[facility] Co de Phone Number [facility] [place] [address] * (ABNORMAL) Hemogram (03/15/2023 2:40 AM EST) White Blood Cell 10.4(H) 4.0 - 9.5 x10(3)/mc L [facility] Red Blood Cell 4.23 4.00 - 5.21 x10(6)/mc L [facility] Hemoglobin 12.3 11.7 - 15.5 g/dL [facility] Hematocrit 36.1 35.7 - 45.8 % [facility] Mean Cell Volume 85.3 82.6 - 94.4 fL [facility] Mean Cell Hemoglobin 29.1 27.1 - 32.0 pg [facility] Mean Cell Hemoglobin Concentration 34.1 31.7 - 35.0 g/dL [facility] Platelet 152 145 - 357 x10(3)/mc L [facility] RDW Standard Deviation 39.1 37.0 - 46.0 fL [facility] RDW coefficient of variation 12.6 11.5 - 14.1 % [facility] Mean Platelet Volume 9.9 7.6 - 12.9 fL [facility] NRBC% auto 0.0 % [facility] NRBC Absolute 0.000 0.000 - 0.000 x10(3)/mc L [facility] Blood 03/15/2023 2:40 AM EST 03/15/2023 2:46 AM EST Narrative Resulting Agency Comment Spec In Lab Jossie Melara MD HEMATOLOGY ORDERABL ES Performing Organization Address [facility] de Phone Number [facility] [place] [address] * (ABNORMAL) Hemoglobin A1c (03/15/2023 2:40 AM EST) Hemoglobin A1c 6.2(H) 4.3 - 5.6 % [facility] Comment: Reference Range: 4.3 - 5.6% [...] Mellitus, Diabetes Care 2013; 36: Suppl. 1, T20-18 Estimated Average Glucose 130 mg/dL [facility] Blood 03/15/2023 2:40 AM EST 03/15/2023 2:46 AM EST Narrative Resulting Agency Comment Spec In Lab Tj Barboza MD CHEMISTRY ORDERABLES Performing Organization Address [facility] Co de Phone Number [facility] [place] [address] * POCT Glucose (03/15/2023 2:32 AM EST) Glucose, POC 121 65 - 199 mg/dL [facility] Comment: Supplemental ranges: <140 mg/dL before meals <180 mg/dL all other times of the day Blood 03/15/2023 2:32 AM EST 03/15/2023 2:32 AM EST Tj Barboza MD POINT OF CARE TEST O RDERABLES [facility] [address] [place] [address] documented in this encounter Visit Diagnoses Diagnosis UTI (urinary tract infection)- Primary Urinary tract infection, site not specified Appendicitis, unspecified appendicitis type documented in this encounter Admitting Diagnoses Diagnosis UTI (urinary tract infection) Urinary tract infection, site not specified documented in this encounter Administered Medications Inactive Administered Medications - up to 3 most recent administrations Medication Order MAR Action Action Date Dose Rate Site acetaminophen (Tylenol) tablet 975 mg 975 mg, Oral, EVERY 6 HOURS SCHEDULED, First dose on Sat03/15/23 at 0113, Until Discontinued, Should be used concomitantly if other analgesics are ordered. Maximum dose of acetaminophen is 4,000 mg from all sources in 24 hours., Routine Given 03/15/2023 6:23 PM EST 975 mg Given 03/15/2023 1:27 PM EST 975 mg aspirin chewable tablet 81 mg 81 mg, Oral, DAILY, First dose on Sat03/15/23 at 0900, Until Discontinued, Routine Given 03/15/2023 9:00 AM EST 81 mg atorvastatin (Lipitor) tablet 40 mg 40 mg, Oral, DAILY, First dose on Sat03/15/23 at 1700, Until Discontinued, Routine Given 03/15/2023 4:18 PM EST 40 mg dextrose 10% infusion 250 mL, at 1,000 mL/hr, Intravenous, EVERY 15 MIN PRN, Starting on Sat03/15/23 at 0111, Until Sat03/15/23 at 2107, For BG 50-70 mg/dL: Oral treatment preferred: If able to drink, give 120 mL juice or regular (not diet) soda OR if NPO, give 15 gram glucose 40% oral gel massaged into buccal mucosa OR if unconscious or uncooperative, give 25 gram (250 mL) dextrose 10% IV over 15 minutes per protocol OR, if no IV access, 1 mg glucagon IM. For BG less than 50 mg/dL: Oral treatment preferred: If able to drink, give 240 mL juice or regular (not diet) soda OR if NPO, give 30 gram glucose 40% oral gel massaged in buccal mucosa OR if unconscious or uncooperative, give 25 gram (250 mL) dextrose 10% IV over 15 minutes per protocol OR, if no IV access, 1 mg glucagon IM. Recheck BG in 15 minutes. May repeat juice/soda, gel, dextrose or glucagon once per episode. Notify provider if hypoglycemia does not resolve after two treatments. Providers should consider the following: administering longer-acting treatments for the duration of active insulin or hypoglycemia agent for persistent hypoglycemia and re-evaluating active insulin orders before administering the next dose. glucagon (Glucagen) (1 mg/mL) injection solution 1 mg 1 mg, Intramuscular, EVERY 15 MIN PRN, Starting on Sat03/15/23 at 0111, Until Sat03/15/23 at 2106, Low blood sugar, For BG 50-70 mg/dL: Oral treatment preferred: If able to drink, give 120 mL juice or regular (not diet) soda OR if NPO, give 15 gram glucose 40% oral gel massaged into buccal mucosa OR if unconscious or uncooperative, give 25 gram (250 mL) dextrose 10% IV over 15 minutes per protocol OR, if no IV access, 1 mg glucagon IM. For BG less than 50 mg/dL: Oral treatment preferred: If able to drink, give 240 mL juice or regular (not diet) soda OR if NPO, give 30 gram glucose 40% oral gel massaged in buccal mucosa OR if unconscious or uncooperative, give 25 gram (250 mL) dextrose 10% IV over 15 minutes per protocol OR, if no IV access, 1 mg glucagon IM. Recheck BG in 15 minutes. May repeat juice/soda, gel, dextrose or glucagon once per episode. Notify provider if hypoglycemia does not resolve after two treatments. Providers should consider the following: administering longer-acting treatments for the duration of active insulin or hypoglycemia agent for persistent hypoglycemia and re-evaluating active insulin orders before administering the next dose. , Routine glucose (Glutose) 40% oral geL 15-30 g of glucose, Buccal, EVERY 15 MIN PRN, Starting on Sat03/15/23 at 0111, Until Sat03/15/23 at 2107, Low blood sugar, For BG 50-70 mg/dL: Oral treatment preferred: If able to drink, give 120 mL juice or regular (not diet) soda OR if NPO, give 15 gram glucose 40% oral gel massaged into buccal mucosa OR if unconscious or uncooperative, give 25 gram (250 mL) dextrose 10% IV over 15 minutes per protocol OR, if no IV access, 1 mg glucagon IM. For BG less than 50 mg/dL: Oral treatment preferred: If able to drink, give 240 mL juice or regular (not diet) soda OR if NPO, give 30 gram glucose 40% oral gel massaged in buccal mucosa OR if unconscious or uncooperative, give 25 gram (250 mL) dextrose 10% IV over 15 minutes per protocol OR, if no IV access, 1 mg glucagon IM. Recheck BG in 15 minutes. May repeat juice/soda, gel, dextrose or glucagon once per episode. Notify provider if hypoglycemia does not resolve after two treatments. Providers should consider the following: administering longer-acting treatments for the duration of active insulin or hypoglycemia agent for persistent hypoglycemia and re-evaluating active insulin orders before administering the next dose. 1 tube of Glutose-15 contains 15 grams of glucose (net weight of tube = 37.5 grams.), Routine insulin lispro (HumaLOG;Admelog) (100 unit/mL) subcutaneous injection vial 0-8 Units 0-8 Units, Subcutaneous, 3 TIMES DAILY WITH MEALS, First dose on Sat03/15/23 at 0800, Until Discontinued, MEAL ASSOCIATED Give 1 unit for every 10 grams carbohydrate. Hold if not eating or if BG less than 70 mg/dL. , Routine Given 03/15/2023 6:24 PM EST 2 Units Given 03/15/2023 1:32 PM EST 1 Units insulin lispro (HumaLOG;Admelog) (100 unit/mL) subcutaneous injection vial 1-4 Units 1-4 Units, Subcutaneous, 3 TIMES DAILY BEFORE MEALS, First dose on Sat03/15/23 at 0730, Until Discontinued, CORRECTION BOLUS [1-4 Units] Sensitive Sliding Scale (BG in mg/dL): Correction factor 40 (1 unit of insulin is expected to drop the glucose 40 mg/dL) ?? BG 160 - 200 Give 1 unit BG 201 - 240 Give 2 units BG 241 - 280 Give 3 units and recheck BG in 2 hours. BG greater than 280, give 4 units and recheck BG in 2 hours. - If recheck BG is LESS than 280, give no insulin and resume schedule - If recheck BG is GREATER than or EQUAL to 280, give 4 units and repeat BG in 2 hours & call for new insulin orders. DO NOT hold if NPO, unless specifically told to do so. ?? Per Inpatient Subcutaneous Insulin Policy, recheck a BG of greater than 240 mg/dL in 2 hours., Routine lactated ringers infusion 100 mL/hr, Intravenous, CONTINUOUS, Starting on Sat03/15/23 at 0102, Until Sat03/15/23 at 1105 New Bag 03/15/2023 10:25 AM EST 100 mL/hr 100 mL/hr New Bag 03/15/2023 2:36 AM EST 100 mL/hr 100 mL/hr magnesium oxide (Mag-Ox) tablet 400 mg 400 mg, Oral, 2 TIMES DAILY, 2 doses, First dose on Sat03/15/23 at 0900, Last dose on Sat03/15/23 at 2100, Routine Given 03/15/2023 10:22 AM EST 400 mg ondansetron (pf) (Zofran) (2 mg/mL) injection 4 mg 4 mg, Intravenous, EVERY 8 HOURS PRN, Starting on Sat03/15/23 at 0111, Until Sat03/15/23 at 2107, Nausea, If multiple antiemetics are ordered, use ondansetron first, prochlorperazine second, and metoclopramide third. PO Preferred. If patient unable to take PO, may give IV if ordered. May repeat times one in 30 minutes if ineffective. Maximum daily dose = 24 mg/24 hours ondansetron (Zofran) tablet 4 mg 4 mg, Oral, EVERY 8 HOURS PRN, Starting on Sat03/15/23 at 0111, Until Sat03/15/23 at 2107, Nausea, Vomiting, If multiple antiemetics are ordered, use ondansetron first, prochlorperazine second, and metoclopramide third. PO Preferred. If patient unable to take PO, may give IV if ordered. May repeat times one in 45 minutes if ineffective. Maximum daily dose = 24 mg/24 hours, Routine piperacillin-tazobactam (Zosyn) 3.375 g vial attach to sodium chloride 0.9% 50 mL Mini-Bag Plus 3.375 g, Intravenous, EVERY 8 HOURS, First dose (after last modification) on Sat03/15/23 at 0600, Until Discontinued, Administer over 4 Hours, Warning Vesicant/Irritant Medication Do not administer or Y-site with lactated ringers., Indication for (Active or Suspected): GI/Intra-abdominal New Bag 03/15/2023 2:35 PM EST 3.375 g 12.5 mL/hr New Bag 03/15/2023 6:10 AM EST 3.375 g 12.5 mL/hr sodium chloride 0.9 % (flush) (BD PosiFlush Normal Saline 0.9) flush 5 mL 5 mL, Intravenous, 2 TIMES DAILY, First dose on Sat03/15/23 at 0113, Until Discontinued, Recovery (Recovery-Hospital Unit), Routine Given 03/15/2023 2:36 AM EST 5 mLs documented in this encounter Active and Recently Administered Medications Times are shown in EST. Scheduled Medication Order 03/13/2023 03/14/2023 03/15/2023 acetaminophen (Tylenol) tablet 975 mg 975 mg, Oral, EVERY 6 HOURS SCHEDULED, First dose on Sat03/15/23 at 0113, Until Discontinued, Should be used concomitantly if other analgesics are ordered. Maximum dose of acetaminophen is 4,000 mg from all sources in 24 hours., Routine 0113 (Hold - Provide r: Nanda Stone RN - Reason: Patient/family refused)0600 (Not Given - Provider: Nanda Stone RN - Reason: Patient/family refused)1327 (Given - Provider: Kirti Forte)1823 (Given - Provider: Kirti Forte) aspirin chewable tablet 81 mg 81 mg, Oral, DAILY, First dose on Sat03/15/23 at 0900, Until Discontinued, Routine 0900 (Given - Provid er: Will Olivera RN) atorvastatin (Lipitor) tablet 40 mg 40 mg, Oral, DAILY, First dose on Sat03/15/23 at 1700, Until Discontinued, Routine 1618 (Given - Provid er: Kirti Forte) enoxaparin (Lovenox) (40 mg/0.4 mL) subcutaneous injection 40 mg 40 mg, Subcutaneous, NIGHTLY, First dose on Sat03/15/23 at 2100, Until Discontinued, Routine insulin lispro (HumaLOG;Admelog) (100 unit/mL) subcutaneous injection vial 0-8 Units 0-8 Units, Subcutaneous, 3 TIMES DAILY WITH MEALS, First dose on Sat03/15/23 at 0800, Until Discontinued, MEAL ASSOCIATED Give 1 unit for every 10 grams carbohydrate. Hold if not eating or if BG less than 70 mg/dL. , Routine 0800 (Not Given - Pr ovider: Xiomara Dia RN - Reason: See comment - Comment: Clears)1332 (Given - Provider: Kirti Forte)1824 (Given - Provider: Kirti Forte) insulin lispro (HumaLOG;Admelog) (100 unit/mL) subcutaneous injection vial 1-4 Units(Linked Group 1) 1-4 Units, Subcutaneous, 3 TIMES DAILY BEFORE MEALS, First dose on Sat03/15/23 at 0730, Until Discontinued, CORRECTION BOLUS [1-4 Units] Sensitive Sliding Scale (BG in mg/dL): Correction factor 40 (1 unit of insulin is expected to drop the glucose 40 mg/dL) ?? BG 160 - 200 Give 1 unit BG 201 - 240 Give 2 units BG 241 - 280 Give 3 units and recheck BG in 2 hours. BG greater than 280, give 4 units and recheck BG in 2 hours. - If recheck BG is LESS than 280, give no insulin and resume schedule - If recheck BG is GREATER than or EQUAL to 280, give 4 units and repeat BG in 2 hours & call for new insulin orders. DO NOT hold if NPO, unless specifically told to do so. ?? Per Inpatient Subcutaneous Insulin Policy, recheck a BG of greater than 240 mg/dL in 2 hours., Routine 0730 (Not Given - Pr ovider: Xiomara Dia RN - Reason: See comment - Comment: clears)1130 (Not Given - Provider: Will Olivera RN - Reason: Order parameters not met)1630 (Not Given - Provider: Kirti Forte - Reason: Order parameters not met) magnesium oxide (Mag-Ox) tablet 400 mg 400 mg, Oral, 2 TIMES DAILY, 2 doses, First dose on Sat03/15/23 at 0900, Last dose on Sat03/15/23 at 2100, Routine 1022 (Given - Provid er: Kirti Forte) piperacillin-tazobactam (Zosyn) 3.375 g vial attach to sodium chloride 0.9% 50 mL Mini-Bag Plus 3.375 g, Intravenous, EVERY 8 HOURS, First dose (after last modification) on Sat03/15/23 at 0600, Until Discontinued, Administer over 4 Hours, Warning Vesicant/Irritant Medication Do not administer or Y-site with lactated ringers., Indication for (Active or Suspected): GI/Intra-abdominal 0610 (New Bag - Prov ider: Nanda Stone RN)1010 (Stopped - Provider: Will Olivera RN)1435 (New Bag - Provider: Kirti Forte)1835 (Stopped - Provider: Will Olivera RN) sodium chloride 0.9 % (flush) (BD PosiFlush Normal Saline 0.9) flush 5 mL 5 mL, Intravenous, 2 TIMES DAILY, First dose on Sat03/15/23 at 0113, Until Discontinued, Recovery (Recovery-Hospital Unit), Routine 0236 (Given - Provid er: Nanda Stone RN)0900 (Not Given - Provider: Xiomara Dia RN - Reason: See comment - Comment: continuous gtt) Continuous Medication Order 03/13/2023 03/14/2023 03/15/2023 lactated ringers infusion (CANCELED) 100 mL/hr, Intravenous, CONTINUOUS, Starting on Sat03/15/23 at 0102, Until Sat03/15/23 at 1105 0236 (New Bag - Prov ider: Nanda Stone RN)1025 (New Bag - Provider: Kirti Forte)1105 (Stopped - Provider: Will Olivera RN) PRN Medication Order 03/13/2023 03/14/2023 03/15/2023 albuteroL (Proventil, Ventolin) (2.5 mg/3 mL) (0.083 %) nebulizer solution 2.5 mg 2.5 mg, Nebulization, EVERY 4 HOURS PRN, Starting on Sat03/15/23 at 0111, Until Sat03/15/23 at 2107, Shortness of Breath, Wheezing, Routine dextrose 10% infusion(Linked Group 2) 250 mL, at 1,000 mL/hr, Intravenous, EVERY 15 MIN PRN, Starting on Sat03/15/23 at 0111, Until Sat03/15/23 at 2107, For BG 50-70 mg/dL: Oral treatment preferred: If able to drink, give 120 mL juice or regular (not diet) soda OR if NPO, give 15 gram glucose 40% oral gel massaged into buccal mucosa OR if unconscious or uncooperative, give 25 gram (250 mL) dextrose 10% IV over 15 minutes per protocol OR, if no IV access, 1 mg glucagon IM. For BG less than 50 mg/dL: Oral treatment preferred: If able to drink, give 240 mL juice or regular (not diet) soda OR if NPO, give 30 gram glucose 40% oral gel massaged in buccal mucosa OR if unconscious or uncooperative, give 25 gram (250 mL) dextrose 10% IV over 15 minutes per protocol OR, if no IV access, 1 mg glucagon IM. Recheck BG in 15 minutes. May repeat juice/soda, gel, dextrose or glucagon once per episode. Notify provider if hypoglycemia does not resolve after two treatments. Providers should consider the following: administering longer-acting treatments for the duration of active insulin or hypoglycemia agent for persistent hypoglycemia and re-evaluating active insulin orders before administering the next dose. glucagon (Glucagen) (1 mg/mL) injection solution 1 mg(Linked Group 2) 1 mg, Intramuscular, EVERY 15 MIN PRN, Starting on Sat03/15/23 at 0111, Until Sat03/15/23 at 2107, Low blood sugar, For BG 50-70 mg/dL: Oral treatment preferred: If able to drink, give 120 mL juice or regular (not diet) soda OR if NPO, give 15 gram glucose 40% oral gel massaged into buccal mucosa OR if unconscious or uncooperative, give 25 gram (250 mL) dextrose 10% IV over 15 minutes per protocol OR, if no IV access, 1 mg glucagon IM. For BG less than 50 mg/dL: Oral treatment preferred: If able to drink, give 240 mL juice or regular (not diet) soda OR if NPO, give 30 gram glucose 40% oral gel massaged in buccal mucosa OR if unconscious or uncooperative, give 25 gram (250 mL) dextrose 10% IV over 15 minutes per protocol OR, if no IV access, 1 mg glucagon IM. Recheck BG in 15 minutes. May repeat juice/soda, gel, dextrose or glucagon once per episode. Notify provider if hypoglycemia does not resolve after two treatments. Providers should consider the following: administering longer-acting treatments for the duration of active insulin or hypoglycemia agent for persistent hypoglycemia and re-evaluating active insulin orders before administering the next dose. , Routine glucose (Glutose) 40% oral geL(Linked Group 2) 15-30 g of glucose, Buccal, EVERY 15 MIN PRN, Starting on Sat03/15/23 at 0111, Until Sat03/15/23 at 2106, Low blood sugar, For BG 50-70 mg/dL: Oral treatment preferred: If able to drink, give 120 mL juice or regular (not diet) soda OR if NPO, give 15 gram glucose 40% oral gel massaged into buccal mucosa OR if unconscious or uncooperative, give 25 gram (250 mL) dextrose 10% IV over 15 minutes per protocol OR, if no IV access, 1 mg glucagon IM. For BG less than 50 mg/dL: Oral treatment preferred: If able to drink, give 240 mL juice or regular (not diet) soda OR if NPO, give 30 gram glucose 40% oral gel massaged in buccal mucosa OR if unconscious or uncooperative, give 25 gram (250 mL) dextrose 10% IV over 15 minutes per protocol OR, if no IV access, 1 mg glucagon IM. Recheck BG in 15 minutes. May repeat juice/soda, gel, dextrose or glucagon once per episode. Notify provider if hypoglycemia does not resolve after two treatments. Providers should consider the following: administering longer-acting treatments for the duration of active insulin or hypoglycemia agent for persistent hypoglycemia and re-evaluating active insulin orders before administering the next dose. 1 tube of Glutose-15 contains 15 grams of glucose (net weight of tube = 37.5 grams.), Routine lidocaine (Xylocaine) 1% (10 mg/mL) injection 3 mg 3 mg (0.3 mL), Subcutaneous, ONCE PRN, 1 dose, Starting on Sat03/15/23 at 0111, Until Sat03/15/23 at 2106, for discomfort with PIV insertion, Recovery (Recovery-Hospital Unit), Routine naloxone (Narcan) (0.4 mg/mL) injection 0.2 mg 0.2 mg, Intravenous, EVERY 1 MIN PRN, 10 doses, Starting on Sat03/15/23 at 011, Until Sat03/15/23 at 2106, Opioid Reversal, If respiratory rate less than 6 OR the patient is unable to arouse OR SpO2 is declining, Give for respiratory rate of less than or equal to 6 and patient is heavily sedated or unarousable. May repeat every 60 seconds to increase respiratory rate. DO NOT exceed 2 mg total dose., Recovery (Recovery-Hospital Unit), Routine ondansetron (pf) (Zofran) (2 mg/mL) injection 4 mg(Linked Group 3) 4 mg, Intravenous, EVERY 8 HOURS PRN, Starting on Sat03/15/23 at 011, Until Sat03/15/23 at 2106, Nausea, If multiple antiemetics are ordered, use ondansetron first, prochlorperazine second, and metoclopramide third. PO Preferred. If patient unable to take PO, may give IV if ordered. May repeat times one in 30 minutes if ineffective. Maximum daily dose = 24 mg/24 hours ondansetron (Zofran) tablet 4 mg(Linked Group 3) 4 mg, Oral, EVERY 8 HOURS PRN, Starting on Sat03/15/23 at 011, Until Sat03/15/23 at 2106, Nausea, Vomiting, If multiple antiemetics are ordered, use ondansetron first, prochlorperazine second, and metoclopramide third. PO Preferred. If patient unable to take PO, may give IV if ordered. May repeat times one in 45 minutes if ineffective. Maximum daily dose = 24 mg/24 hours, Routine sodium chloride 0.9 % (flush) (BD PosiFlush Normal Saline 0.9) flush 5-20 mL 5-20 mL, Intravenous, EVERY 1 MIN PRN, Starting on Sat03/15/23 at 011, Until Sat03/15/23 at 2106, flush, Flush pertains to all indwelling lines. Flush per protocol found in the job aid using the link provided on this medication record., Recovery (Recovery-Hospital Unit), Routine Linked Groups Order Group 1: POCT Fingerstick Glucose (CANCELED) Routine, 4 TIMES DAILY BEFORE MEALS & AT BEDTIME, First occurrence on Sat03/15/23 at 0700, Until Specified, Consider choosing FOUR TIMES A DAY BEFORE MEALS AND AT BEDTIME as frequency for: Patients who have good hypoglycemia awareness: -Patients who are eating meals during the day and sleeping at night -Patients who are otherwise stable And insulin lispro (HumaLOG;Admelog) (100 unit/mL) subcutaneous injection vial 1-4 UnitsJump to med 1-4 Units, Subcutaneous, 3 TIMES DAILY BEFORE MEALS, First dose on Sat03/15/23 at 0730, Until Discontinued, CORRECTION BOLUS [1-4 Units] Sensitive Sliding Scale (BG in mg/dL): Correction factor 40 (1 unit of insulin is expected to drop the glucose 40 mg/dL) ?? BG 160 - 200 Give 1 unit BG 201 - 240 Give 2 units BG 241 - 280 Give 3 units and recheck BG in 2 hours. BG greater than 280, give 4 units and recheck BG in 2 hours. - If recheck BG is LESS than 280, give no insulin and resume schedule - If recheck BG is GREATER than or EQUAL to 280, give 4 units and repeat BG in 2 hours & call for new insulin orders. DO NOT hold if NPO, unless specifically told to do so. ?? Per Inpatient Subcutaneous Insulin Policy, recheck a BG of greater than 240 mg/dL in 2 hours., Routine Group 2: glucose (Glutose) 40% oral geLJump to med 15-30 g of glucose, Buccal, EVERY 15 MIN PRN, Starting on Sat03/15/23 at 0111, Until Sat03/15/23 at 2107, Low blood sugar, For BG 50-70 mg/dL: Oral treatment preferred: If able to drink, give 120 mL juice or regular (not diet) soda OR if NPO, give 15 gram glucose 40% oral gel massaged into buccal mucosa OR if unconscious or uncooperative, give 25 gram (250 mL) dextrose 10% IV over 15 minutes per protocol OR, if no IV access, 1 mg glucagon IM. For BG less than 50 mg/dL: Oral treatment preferred: If able to drink, give 240 mL juice or regular (not diet) soda OR if NPO, give 30 gram glucose 40% oral gel massaged in buccal mucosa OR if unconscious or uncooperative, give 25 gram (250 mL) dextrose 10% IV over 15 minutes per protocol OR, if no IV access, 1 mg glucagon IM. Recheck BG in 15 minutes. May repeat juice/soda, gel, dextrose or glucagon once per episode. Notify provider if hypoglycemia does not resolve after two treatments. Providers should consider the following: administering longer-acting treatments for the duration of active insulin or hypoglycemia agent for persistent hypoglycemia and re-evaluating active insulin orders before administering the next dose. 1 tube of Glutose-15 contains 15 grams of glucose (net weight of tube = 37.5 grams.), Routine Or dextrose 10% infusionJump to med 250 mL, at 1,000 mL/hr, Intravenous, EVERY 15 MIN PRN, Starting on Sat03/15/23 at 0111, Until Sat03/15/23 at 2106, For BG 50-70 mg/dL: Oral treatment preferred: If able to drink, give 120 mL juice or regular (not diet) soda OR if NPO, give 15 gram glucose 40% oral gel massaged into buccal mucosa OR if unconscious or uncooperative, give 25 gram (250 mL) dextrose 10% IV over 15 minutes per protocol OR, if no IV access, 1 mg glucagon IM. For BG less than 50 mg/dL: Oral treatment preferred: If able to drink, give 240 mL juice or regular (not diet) soda OR if NPO, give 30 gram glucose 40% oral gel massaged in buccal mucosa OR if unconscious or uncooperative, give 25 gram (250 mL) dextrose 10% IV over 15 minutes per protocol OR, if no IV access, 1 mg glucagon IM. Recheck BG in 15 minutes. May repeat juice/soda, gel, dextrose or glucagon once per episode. Notify provider if hypoglycemia does not resolve after two treatments. Providers should consider the following: administering longer-acting treatments for the duration of active insulin or hypoglycemia agent for persistent hypoglycemia and re-evaluating active insulin orders before administering the next dose. Or glucagon (Glucagen) (1 mg/mL) injection solution 1 mgJump to med 1 mg, Intramuscular, EVERY 15 MIN PRN, Starting on Sat03/15/23 at 0111, Until Sat03/15/23 at 2107, Low blood sugar, For BG 50-70 mg/dL: Oral treatment preferred: If able to drink, give 120 mL juice or regular (not diet) soda OR if NPO, give 15 gram glucose 40% oral gel massaged into buccal mucosa OR if unconscious or uncooperative, give 25 gram (250 mL) dextrose 10% IV over 15 minutes per protocol OR, if no IV access, 1 mg glucagon IM. For BG less than 50 mg/dL: Oral treatment preferred: If able to drink, give 240 mL juice or regular (not diet) soda OR if NPO, give 30 gram glucose 40% oral gel massaged in buccal mucosa OR if unconscious or uncooperative, give 25 gram (250 mL) dextrose 10% IV over 15 minutes per protocol OR, if no IV access, 1 mg glucagon IM. Recheck BG in 15 minutes. May repeat juice/soda, gel, dextrose or glucagon once per episode. Notify provider if hypoglycemia does not resolve after two treatments. Providers should consider the following: administering longer-acting treatments for the duration of active insulin or hypoglycemia agent for persistent hypoglycemia and re-evaluating active insulin orders before administering the next dose. , Routine Group 3: ondansetron (Zofran) tablet 4 mgJump to med 4 mg, Oral, EVERY 8 HOURS PRN, Starting on Sat03/15/23 at 0111, Until Sat03/15/23 at 2107, Nausea, Vomiting, If multiple antiemetics are ordered, use ondansetron first, prochlorperazine second, and metoclopramide third. PO Preferred. If patient unable to take PO, may give IV if ordered. May repeat times one in 45 minutes if ineffective. Maximum daily dose = 24 mg/24 hours, Routine Or ondansetron (pf) (Zofran) (2 mg/mL) injection 4 mgJump to med 4 mg, Intravenous, EVERY 8 HOURS PRN, Starting on Sat03/15/23 at 0111, Until Sat03/15/23 at 2107, Nausea, If multiple antiemetics are ordered, use ondansetron first, prochlorperazine second, and metoclopramide third. PO Preferred. If patient unable to take PO, may give IV if ordered. May repeat times one in 30 minutes if ineffective. Maximum daily dose = 24 mg/24 hours documented in this encounter Care Teams Health And Physical Education Teacher Relationship Specialty Start Date End Date Anna Bonds APRN [address] [place] [address] PCP - General Family Medicine 11/21/18 documented as of this encounter
--- OUTSIDE RECORDS SUMMARY | 2023-12-06 17:15 | XMS_ITS | Encounter Summary ---
Author Organization [facility] Address [facility] [place] [address] Care Team Providers Care Cone Picker Name Role Phone Anna Bonds APRN Primary Care Provider Encounter Details Date Type Department Care Team (Latest Contact Info) Description 05/15/2023 Transcribe Orders Laboratory at [facility] [address] [place] [id number] Anna Bonds APRN [address] [place] [address] Pelvic pain syndrome Social History Tobacco Use [...] AM EST Hospital Encounter [place] [id number] Arrived documented as of this encounter Results * (ABNORMAL) Creatinine (05/24/2023 8:06 AM EDT) Creatinine 0.61(L) 0.70 - 1.20 mg/dL PENDING SALE TO [facility] Est Glomerular Filtration Rate 100 >=60 mL/min/1. 73 m?? PENDING SALE TO [facility] Comment: This patient's estimated GFR [...] In Lab Anna Bonds APRN CHEMISTRY ORDERABLES PENDING SALE TO [facility] [address] [place] [address] documented in this encounter Visit Diagnoses Diagnosis Pelvic pain syndrome Pelvic congestion syndrome documented in this encounter Care Teams Cone Picker Relationship Specialty Start Date End Date Anna Bonds APRN [address] [place] [address] PCP - General Family Medicine 11/21/18 documented as of this encounter
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
--- OUTSIDE RECORDS SUMMARY | 2023-12-06 17:15 | XMS_ITS | Encounter Summary ---
Author Organization [place] [address] Care Team Providers Care [employer] Name Role Phone Anna Bonds APRN Primary Care Provider [phone] Encounter Details Date Type Department Care Team (Late st Contact Info) Description 05/15/2023 [facility] [place] [address] Shu Ching, [facility] Social History Tobacco Use Types Packs/Day Years [...] AM EST Hospital Encounter Non-Invasive [place] [address] Arrived documented as of this encounter Visit Diagnoses Not on filedocumented in this encounter Care Teams [employer] Relationship Specialty Start Date End Date Anna Bonds APRN [address] [place] [address] PCP - General Family Medicine 11/21/18 documented as of this encounter
--- OUTSIDE RECORDS SUMMARY | 2023-12-06 17:15 | XMS_ITS | Encounter Summary ---
Author Organization [facility] Address [facility] [place] [address] Care Team Providers Care Shoe Dyer Name Role Phone Anna Bonds APRN Primary Care Provider [phone] Reason for Referral * Diagnostic Test (Routine) - Closed Specialty Diagnoses / Procedures Referred By Contac t Referred To Contact Radiology Diagnoses Pain in pelvis Pelvic and perineal pain Procedures CT Abdomen & Pelvis w Contrast CT Abdomen & Pelvis wwo Contrast (Generic) Anna Bonds APRN [address] [place] [address] [facility] Rad [address] Scan [address] [place] [address] Referral ID Status Reason Start Date Expiration Date V isits Requested Visits Authorized [id number] Closed Specialty Service Requested 05/15/2023 11/13/2024 1 1 Reason for Visit * Diagnostic Test (Routine) - Closed Specialty Diagnoses / Procedures Referred By Contac t Referred To Contact Radiology Diagnoses Pain in pelvis Pelvic and perineal pain Procedures CT Abdomen & Pelvis w Contrast CT Abdomen & Pelvis wwo Contrast (Generic) Anna Bonds APRN [address] [place] [address] [facility] Rad [address] Scan [address] [place] [address] Referral ID Status Reason Start Date Expiration Date V isits Requested Visits Authorized [id number] Closed Specialty Service Requested 05/15/2023 11/13/2024 1 1 Encounter Details Date Type Department Care Team (Latest Contact Info) Description 05/24/2023 8:35 AM EDT - 05/24/2023 11:59 PM EDT Hospital Encounter Radiology Cat Scan at [facility] [place] [place] [address] Anna Bonds APRN [address] [place] [address] Pain in pelvis; Pelvic and perineal pain Discharge Disposition: Home Social History Tobacco Use [...] st Contact Info) Description 01/05/2024 10:00 AM [facility] Hospital Encounter Non[place] [address] Arrived documented as of this encounter Procedures Procedure Name Priority Date/Time Associated Diagnosis Comments CT ABDOMEN AND PELVIS W CONTRAST Routine 05/24/2023 9:13 AM EDT Pain in pelvis Pelvic and perineal pain documented in this encounter Results * CT Abdomen & Pelvis w Contrast (05/24/2023 9:13 AM EDT) Anatomical Region Laterality Modality Abdomen, Pelvis Computed Tomogra phy Impressions 05/24/2023 11:02 AM EDT 1. ??Acute cystitis with associated acute left ascending pyelitis. 2. ??Focal inflammation in the right lower quadrant involving the terminal ileum cecum and base of the appendix, with small loculated pericecal collection, suspicious for a ruptured base of the appendix with small abscess and associated reactive terminal ileitis. 3. ??Diffuse hepatic steatosis with morphologic changes suggestive of hepatic cirrhosis. FINDINGS: Lower chest: Partially included cardiac leads created prominent artifacts. No pleural or pericardial effusion. Unchanged cardiac contour. No lung opacities. Liver: Unchanged focal enlargement of LEFT lobe with macronodular changes. No focal hepatic mass. No collateral vessels seen. Bile ducts: Nondilated. Gallbladder: No calcified gallstones. Normal caliber wall. Pancreas: Normal attenuation without ductal dilatation. Spleen: Normal. Adrenals: Normal. Kidneys: Symmetric nephrogram. No collecting system dilatation or filling defects. Bilateral small renal hypodensities. LEFT kidney-largest hypodensity is in posterior upper pole, 13 mm maximal dimension and 4 HU . The previously described ascending pyelitis has completely resolved. No perinephric or periureteral stranding, RIGHT kidney-largest hypodensity is in upper lobe, 11 mm maximal measurement and 16 HU. . Urinary Bladder: Distended bladder without stone or mass.. Previously reported wall thickening and inflammation/cystitis is completely resolved. Vasculature: No abdominal aortic aneurysm. Patent mesenteric vessels. Lymph Nodes: No enlarged lymph nodes. Bowel: Nondilated, no wall thickening. Enteric contrast reaches the distal ileum. Stomach-distended stomach. No wall thickening or filling defect. Duodenum- normal course and caliber. Small bowel- no dilatation Colon- ??complete resolution of inflammatory changes around the cecum, terminal ileum and appendix. Small to moderate stool burden in colon. Peritoneum and retroperitoneum: No free fluid or loculated fluid collection. No pneumoperitoneum. No mesenteric inflammation. The previously described free air and small amount of loculated peritoneal fluid are completely resolved. Abdominal wall: Unchanged small fat-containing umbilical hernia. Reproductive organs: Uterus and adnexal structures identified. Osseous structures: No vertebral body height loss. No subluxation. IMPRESSION: 1. ??Complete resolution of cystitis and LEFT ascending pyelitis 2. ??Complete resolution of inflammation around cecum, appendix and typhlitis . 3. ??No dilated bowel loops or intestinal obstruction. 4. ??Complete resolution of previously described small amount of peritoneal fluid collection and free air. Thank you for letting us participate in the care of this patient. ??If you are a health care provider and have any questions regarding this report, please contact the number below. ??For patients who have questions please contact the health care director rn that requested your imaging first. ? Electronically signed by: Archana Brown MD, [facility] ([phone]), at 05/24/2023 11:02 AM Narrative 05/24/2023 11:02 AM EDT EXAMINATION: CT ABDOMEN AND PELVIS W CONTRAST CLINICAL HISTORY: pelvic and perineal pain R10.2, Pelvic and perineal pain - R10.2, Pelvic and perineal pain TECHNIQUE: Helical CT of the abdomen and pelvis following the intravenous administration of intravenous contrast, Omnipaque 350. Oral contrast: ??was administered. COMPARISON STUDY: March 2023. Procedure Note Archana Brown MD - 05/24/2023 EXAMINATION: CT ABDOMEN AND PELVIS W CONTRAST CLINICAL HISTORY: pelvic and perineal pain R10.2, Pelvic and perineal pain - R10.2, Pelvic and perineal pain TECHNIQUE: Helical CT of the abdomen and pelvis following theintravenous administration of intravenous contrast, Omnipaque 350. Oral contrast: was administered. COMPARISON STUDY: March 2023. IMPRESSION 1. Acute cystitis with associated acute left ascending pyelitis. 2. Focal inflammation in the right lower quadrant involving the terminalileum cecum and base of the appendix, with small loculated pericecalcollection, suspicious for a ruptured base of the appendix with small abscess andassociated reactive terminal ileitis. 3. Diffuse hepatic steatosis with morphologic changes suggestive ofhepatic cirrhosis. FINDINGS: Lower chest: Partially included cardiac leads created prominent artifacts.No pleural or pericardial effusion. Unchanged cardiac contour. No lungopacities. Liver: Unchanged focal enlargement of LEFT lobe with macronodular changes.No focal hepatic mass. No collateral vessels seen. Bile ducts: Nondilated. Gallbladder: No calcified gallstones. Normal caliber wall. Pancreas: Normal attenuation without ductal dilatation. Spleen: Normal. Adrenals: Normal. Kidneys: Symmetric nephrogram. No collecting system dilatation orfilling defects. Bilateral small renal hypodensities. LEFT kidney-largest hypodensity is in posterior upper pole, 13 mmmaximal dimension and 4 HU . The previously described ascending pyelitis hascompletely resolved. No perinephric or periureteral stranding, RIGHT kidney-largest hypodensity is in upper lobe, 11 mm maximalmeasurement and 16 HU. . Urinary Bladder: Distended bladder without stone or mass.. Previouslyreported wall thickening and inflammation/cystitis is completely resolved. Vasculature: No abdominal aortic aneurysm. Patent mesenteric vessels. Lymph Nodes: No enlarged lymph nodes. Bowel: Nondilated, no wall thickening. Enteric contrast reaches thedistal ileum. Stomach-distended stomach. No wall thickening or filling defect. Duodenum- normal course and caliber. Small bowel- no dilatation Colon- complete resolution of inflammatory changes around the cecum,terminal ileum and appendix. Small to moderate stool burden in colon. Peritoneum and retroperitoneum: No free fluid or loculated fluidcollection. No pneumoperitoneum. No mesenteric inflammation. The previously describedfree air and small amount of loculated peritoneal fluid are completely resolved. Abdominal wall: Unchanged small fat-containing umbilical hernia. Reproductive organs: Uterus and adnexal structures identified. Osseous structures: No vertebral body height loss. No subluxation. IMPRESSION: 1. Complete resolution of cystitis and LEFT ascending pyelitis 2. Complete resolution of inflammation around cecum, appendix andtyphlitis . 3. No dilated bowel loops or intestinal obstruction. 4. Complete resolution of previously described small amount of peritonealfluid collection and free air. Thank you for letting us participate in the care of this patient. If youare a health care provider and have any questions regarding this report,please contact the number below. For patients who have questions please contactthe health care director rn that requested your imaging first. Electronically signed by: Archana Brown MD, [facility]([phone]), at 05/24/2023 11:02 AM Anna Bonds APRN [facility] CT ORDERABLES documented in this encounter Visit Diagnoses Diagnosis Pain in pelvis Pelvic and perineal pain Unspecified symptom associated with female genital organs documented in this encounter Administered Medications Inactive Administered Medications - up to 3 most recent administrations Medication Order MAR Action Action Date Dose Rate Site iohexoL (Omnipaque) (350 mg/mL) solution 0-200 mL 0-200 mL, Intravenous, ONCE PRN, 1 dose, Starting on Sat05/24/23 at 0914, Until Sat05/24/23 at 0915, Per Protocol, Warning Vesicant/Irritant Medication , Radiology Contrast, Routine Given 05/24/2023 9:15 AM EDT 100 mLs iohexoL (Omnipaque) (350 mg/mL) solution 0-50 mL 0-50 mL, Oral, ONCE PRN, 1 dose, Starting on Sat05/24/23 at 0914, Until Sat05/24/23 at 0914, Per Protocol, Warning Vesicant/Irritant Medication , Radiology Contrast, Routine Given 05/24/2023 9:14 AM EDT 50 mLs documented in this encounter Care Teams Shoe Dyer Relationship Specialty Start Date End Date Anna Bonds APRN [address] [place] [address] PCP - General Family Medicine 11/21/18 documented as of this encounter
--- OUTSIDE RECORDS SUMMARY | 2023-12-06 17:15 | XMS_ITS | Encounter Summary ---
Author Organization [facility] [place] [address] Care Team Providers Care Inspector Outside Production Name Role Phone Anna Bonds APRN Primary Care Provider [phone] Encounter Details Date Type Department Care Team (Latest Contact Info) Description 09/26/2022 Travel Social History Tobacco Use Types Packs/Day [...] st Contact Info) Description 01/05/2024 10:00 AM [facility] Hospital Encounter Non-[place] [address] Arrived documented as of this encounter Visit Diagnoses Not on filedocumented in this encounter Care Teams Inspector Outside Production Relationship Specialty Start Date End Date Anna Bonds APRN [address] [place] [address] PCP - General Family Medicine 11/21/18 documented as of this encounter
--- OUTSIDE RECORDS SUMMARY | 2023-12-06 17:15 | XMS_ITS | Encounter Summary ---
[place] [address] Care Team Providers Care Purler Name Role Phone August Bonds APRN Primary Care Provider [phone] Reason for Referral * Diagnostic Test (Routine) - Closed Specialty Diagnoses / Procedures Referred By Contac Referred To Contact Radiology Diagnoses Nonspecific abnormal results of liver function study Steatosis of liver Hepatomegaly Procedures US Abdomen Limited August Bonsd APRN [address] [place] [address] [facility] [place] [address] Referral ID Status Reason Start Date Expiration Date V isits Requested Visits Authorized [id number] Closed Specialty Service Requested 12/17/2022 06/16/2024 1 1 Reason for Visit * Diagnostic Test (Routine) - Closed Specialty Diagnoses / Procedures Referred By Contac Referred To Contact Radiology Diagnoses Nonspecific abnormal results of liver function study Steatosis of liver Hepatomegaly Procedures US Abdomen Limited August Bonds APRN [address] [place] [address] [facility] [place] [address] Referral ID Status Reason Start Date Expiration Date V isits Requested Visits Authorized [id number] Closed Specialty Service Requested 12/17/2022 06/16/2024 1 1 Encounter Details Date Type Department Care Team (Latest Contact Info) Description 01/02/2023 10:12 AM EST - 01/02/2023 11:59 PM EST Hospital [place] [address] August Bonds APRN [address] [place] [address] Nonspecific abnormal results of liver function study; Steatosis of liver; Hepatomegaly Discharge Disposition: Home Social History Tobacco Use [...] AM EST Hospital Encounter Non-Invasive [place]iology [place] [address] Arrived documented as of this encounter Procedures Procedure Name Priority Date/Time Associated Diagnosis Comments US ABDOMEN LIMITED Routine 01/02/2023 10 :30 AM EST Nonspecific abnormal results of liver function study Steatosis of liver Hepatomegaly documented in this encounter Results * US Abdomen Limited (01/02/2023 10:30 AM EST) Anatomical Region Laterality Modality Abdomen Ultrasound 01/02/2023 10:1 4 AM EST Impressions 01/02/2023 1:26 PM EST 1. ??Hepatic steatosis with borderline hepatomegaly. 2. ??No sonographically evident focal lesion. 3. ??Normal gallbladder. 4. ??No biliary ductal dilatation. I have personally reviewed the image(s) and the resident's interpretation and agree with the findings, Pam Oro MD at 01/02/2023 1:19 PM Thank you for letting us participate in the care of this patient. If you are a health care provider and have any questions regarding this report, please contact the number above. For patients who have questions, please contact the health hourly caregiver that requested your imaging first. ?Pam Oro, Staff Physician Electronically Signed Final Report ?? 01/02/2023 01:25 pm Narrative 01/02/2023 1:26 PM EST Abdominal ? (Signed Final 01/02/2023 01:25 pm) PATIENT INFO: ID #: ? [id number] ?: ??60 (62 yrs)(F) Name: ? SISI MARTINES ? Visit Date: 01/02/2023 10:14 am PERFORMED BY: Attending: ?Shorty NICHOLS, [facility] Resident: ? Farshad NICHOLS, Jerel Performed By: ? Ora Palma RDMS Referred By: ?AUGUST BONDS Location: ? [place] SERVICE(S) PROVIDED: UABDLIM - Abdominal Limited Survey Single ? [id number] Organ or Quadrant - [id number] INDICATIONS: ELEVATED LIVER FUNCTION TESTS; LIVER STEATOSIS; HEPATOMEGALY. COMPARISON: No prior studies for comparison. ------ LIVER: ------ Right Lobe Length: ?? 18.4 ?? cm Echogenicity/Echotexture: ?? Increased echogenicity Portal Veins: ?Hepatopetal Comment: ?No focal lesion seen. GALLBLADDER: Cholelithiasis: ?No stones visualized Wall Thickness: ?1.7 mm Focal Tenderness: ?Negative sonographic Noel's sign BILIARY TRACT: Intrahepatic Ducts: ?? Normal Extrahepatic Ducts: ?? Normal Common Duct Size: ? 3.4 ? mm --------- PANCREAS: --------- Head: ?Limited visualization due to ?Size: ?overlying bowel Tail: ?Not visualized due to overlying ? Size: ?bowel Body: ?Limited visualization due to ?Size: ?overlying bowel RIGHT KIDNEY: Size (cm) ?L: ??11.7 Cortical Thickness: ?Normal Cortical Echogenicity: ?? Normal Hydronephrosis: ?No sonographic evidence ------ AORTA: ------ Comment: ?Not visualized due to overlying bowel. ---- IVC: ---- Normal in caliber where visualized. FLUID COLLECTIONS: No ascites seen in the imaged RUQ and RLQ. Procedure Note Pam Oro MD - 01/02/2023 Abdominal (Signed Final 01/02/2023 01:25 pm) PATIENT INFO: ID #: [id number] : 60 (62 yrs)(F) Name: SISI MARTINES Visit Date: 01/02/2023 10:14 am PERFORMED BY: Attending: Pam Oro MD Resident: Jerel Yen MD Performed By: Ora Palma RDMS Referred By: AUGUST BONDS Location: [place] SERVICE(S) PROVIDED: UABDLIM - Abdominal Limited Survey Single 19955 Organ or Quadrant - [id number] INDICATIONS: ELEVATED LIVER FUNCTION TESTS; LIVER STEATOSIS; HEPATOMEGALY. COMPARISON: No prior studies for comparison. ------ LIVER: ------ Right Lobe Length: 18.4 cm Echogenicity/Echotexture: Increased echogenicity Portal Veins: Hepatopetal Comment: No focal lesion seen. GALLBLADDER: Cholelithiasis: No stones visualized Wall Thickness: 1.7 mm Focal Tenderness: Negative sonographic Noel's sign BILIARY TRACT: Intrahepatic Ducts: Normal Extrahepatic Ducts: Normal Common Duct Size: 3.4 mm --------- PANCREAS: --------- Head: Limited visualization due to Size: overlying bowel Tail: Not visualized due to overlying Size: bowel Body: Limited visualization due to Size: overlying bowel RIGHT KIDNEY: Size (cm) L: 11.7 Cortical Thickness: Normal Cortical Echogenicity: Normal Hydronephrosis: No sonographic evidence ------ AORTA: ------ Comment: Not visualized due to overlying bowel. ---- IVC: ---- Normal in caliber where visualized. FLUID COLLECTIONS: No ascites seen in the imaged RUQ and RLQ. IMPRESSION 1. Hepatic steatosis with borderline hepatomegaly. 2. No sonographically evident focal lesion. 3. Normal gallbladder. 4. No biliary ductal dilatation. I have personally reviewed the image(s) and the resident's interpretation and agree with the findings, Pam Oro MD at 01/02/2023 1:19 PM Thank you for letting us participate in the care of this patient. If you are a health care provider and have any questions regarding this report, please contact the number above. For patients who have questions, please contact the health hourly caregiver that requested your imaging first. Pam Oro, Staff Physician Electronically Signed Final Report 01/02/2023 01:25 pm August Bonds APRN IMG US GEN ORDERABLE S documented in this encounter Visit Diagnoses Diagnosis Nonspecific abnormal results of liver function study Steatosis of liver Other chronic nonalcoholic liver disease Hepatomegaly documented in this encounter Care Teams Purler Relationship Specialty Start Date End Date August Bonds APRN [address] [place] [address] PCP - General Family Medicine 11/21/18 documented as of this encounter
--- OUTSIDE RECORDS SUMMARY | 2023-12-06 17:15 | XMS_ITS | Encounter Summary ---
Author Organization [facility] [place] [address] Care Team Providers Care Tank Tester Name Role Phone Anna Bonds APRN Primary Care Provider [phone] Encounter Details Date Type Department Care Team (Latest Contact Info) Description 04/10/2023 10:00 AM EST - 04/10/2023 11:59 PM [facility] Hospital Encounter Non-[place] [address] Discharge Disposition: Home Social History Tobacco Use [...] CARE CENTER Hospital Encounter Non-In[place] [address] Arrived documented as of this encounter Visit Diagnoses Not on filedocumented in this encounter Care Teams Tank Tester Relationship Specialty Start Date End Date Anna Bonds APRN [address] [place] [address] PCP - General Family Medicine 11/21/18 documented as of this encounter
--- OUTSIDE RECORDS SUMMARY | 2023-12-06 17:15 | XMS_ITS | Encounter Summary ---
[place] [address] Care Team Providers Care Watch Parts Inspector Name Role Phone Anna Bonds APRN Primary Care Provider [phone] Reason for Visit * Reason Onset Date Comments Pre Procedure Call 09/24/2022 Encounter Details Date Type Department Care Team (Late st Contact Info) Description 09/24/2022 Telephone Cardiology at [address] [phone] Giuliana Ramos, RN Pre Procedure Call Social History Tobacco Use Types Packs/Day Years Used Date Smoking Tobacco: Every Day Cigarettes 1 21 Smokeless Tobacco: Never Sex and Gender Information Value Date Recorded Sex Assigned at Female 06/14/2023 1:27 PM EDT Gender Identity Female 06/14/2023 1:27 PM EDT Sexual Orientation Straight 06/14/2023 1: 27 PM EDT documented as of this encounter Miscellaneous Notes * Telephone Encounter - Giuliana Ramos RN - 09/24/2022 9:23 AM EDTSummary: Pre Procedure Call: Generator replacement EP [employer] COORDINATION CHECKLIST Patient Name: Mady Medellin Patient Performing Surveillance Systems Analyst: Kathy Avelar Referring Provider: Deniz Woods Date of Procedure: 09/28/22 Arrival Time/ Case Time: 7:00 am / 8:30 am Check In Location: Tool Adjuster Desk 4W Date Patient was Called: 09/24/22 Procedure: Generator replacement Company: [employer] Type: DC PCM Orders: Yes Lab Orders: Yes Anesthesia: GA Discharge Plan/Disposition: SAME DAY DISCHARGE Med Instructions: ARMINDA - hold lisinopril the AM of procedure Anticoag Type: N/A DM: Yes Instructions for DM medications: Hold Januvia & metformin the AM of procedure Imaging: echo on 09/26 HIBICLENS?: Yes Contrast Allergy: N/A ABX allergy: Penicillins Coming from an assisted living facility?: No Any recent S/S of infection (fevers, on oral ABX)?: No Other Instructions: Clear liquids (water, apple juice, mouna gogo) OK up until 2 hrs prior to procedure, nothing to eatafter midnight on day of procedure.Same Day will call 09/27. Will be going home same day , understands that they will need pizza driver on day of discharge documented in this encounter Plan of Treatment Upcoming Encounters Date Type Department Care Team (Late st Contact Info) Description 01/05/2024 10:00 AM [facility] Hospital Encounter Non-Invasive [place] [address] Arrived documented as of this encounter Visit Diagnoses Not on filedocumented in this encounter Care Teams Watch Parts Inspector Relationship Specialty Start Date End Date Anna Bonds APRN [address] [place] [address] PCP - General Family Medicine 11/21/18 documented as of this encounter
--- OUTSIDE RECORDS SUMMARY | 2023-12-06 17:15 | XMS_ITS | Encounter Summary ---
Author Organization [facility] [place] [address] Care Team Providers Care Germination Worker Name Role Phone Anna Bonds APRN Primary Care Provider [phone] Encounter Details Date Type Department Care Team (Latest Contact Info) Description 12/25/2021 Travel Social History Tobacco Use Types Packs/Day [...] AM EST Hospital Encounter Non-Invasive [place] [address] Arrived documented as of this encounter Visit Diagnoses Not on filedocumented in this encounter Care Teams Germination Worker Relationship Specialty Start Date End Date Anna Bonds APRN [address] [place] [address] PCP - General Family Medicine 11/21/18 documented as of this encounter
--- OUTSIDE RECORDS SUMMARY | 2023-12-06 17:15 | XMS_ITS | Encounter Summary ---
Author Organization [facility] [place] [address] Care Team Providers Care Analytics Associate Name Role Phone Anna Bonds APRN Primary Care Provider [phone] Encounter Details Date Type Department Care Team (Latest Contact Info) Description 09/21/2022 Travel Social History Tobacco Use Types Packs/Day [...] st Contact Info) Description 01/05/2024 10:00 AM [facility] Hospital Encounter Non-Invasive [place] [address] Arrived documented as of this encounter Visit Diagnoses Not on filedocumented in this encounter Care Teams Analytics Associate Relationship Specialty Start Date End Date Anna Bonds APRN [address] [place] [address] PCP - General Family Medicine 11/21/18 documented as of this encounter
--- OUTSIDE RECORDS SUMMARY | 2023-12-06 17:15 | XMS_ITS | Encounter Summary ---
Author Organization [facility] [place] [address] Care Team Providers Care Door Framer Name Role Phone Anna Bonds APRN Primary Care Provider [phone] Reason for Visit * Auth/Cert (Routine) Specialty Diagnoses / Procedures Referred By Contac t Referred To Contact Diagnoses CHB (complete heart block) [I44.2]Pacemaker [Z95.0]Pacemaker generator end of life [Z45.010] Procedures PRO REMOVAL PACER PLSE GEN W RPLMT PACER PLSE GEN DUAL LEAD ELECTROPHYSIOLOGY PROCEDURE REMOVAL PPM GENERATOR W REPL PPM GEN; DUAL LEAD (WRVU 5.52) Kathy Avelar MD [facility] [place] [address] [facility] Referral ID Status Reason Start Date Expiration Date Visits Re quested Visits Authorized [id number] 1 1 Encounter Details Date Type Department Care Team (Late st Contact Info) Description 09/28/2022 8:30 AM EDT - 09/28/2022 10:00 AM EDT Surgery [place] [id number] Kathy Avelar MD [facility] [place] [address] ELECTROPHYSIOLOGY PROCEDURE Social History Tobacco Use Types Packs/Day Years Used Date Smoking Tobacco: Every Day Cigarettes 1 21 Smokeless Tobacco: Never Tobacco Cessation:Ready to Q uit: Not Asked; Counseling Given: Not Answered Alcohol Use Standard Drinks/Week Comments Never 0 (1 standard drink = 0.6 oz pur e alcohol) Sex and Gender Information Value Date Recorded Sex Assigned at Female 06/14/2023 1:27 PM EDT Gender Identity Female 06/14/2023 1:27 PM EDT Sexual Orientation Straight 06/14/2023 1: 27 PM EDT documented as of this encounter Last Filed Vital Signs Vital Sign Reading Time Taken Comments Blood Pressure 134/74 09/28/2022 10:00 AM EDT Pulse 64 09/28/2022 10:00 AM EDT Temperature 36.5 ??C (97.7 ??F) 09/28/2022 7:36 AM ED T Respiratory Rate 20 09/28/2022 10:00 AM EDT Oxygen Saturation 96% 09/28/2022 10:00 AM EDT Inhaled Oxygen Concentration - - Weight 69.9 kg (154 lb) 09/28/2022 7:36 AM EDT Height 152.4 cm (5') 09/28/2022 7:36 AM EDT Body Mass Index 30.08 09/28/2022 7:36 AM EDT documented in this encounter Discharge Summaries * Aubrey Correa MD - 09/28/2022 10:38 AM EDT Cardiac Electrophysiology Discharge Summary Patient Name: Mady Medellin Patient Age: 62 y.o. Language: Romansh Race: White Ethnicity: Not nor Admit date: 09/28/2022 Discharge date and time: 09/28/22 Attending Physician: Kathy Avelar MD Discharge Physician: Kathy Avelar MD Follow-up Recommendations for Providers: - s/p uneventful pacemaker generator exchange - No changes to medications - See provider instructions for wound care management Inpatient Provider Contact Information: Cardiac Electrophysiology - Weekends and holidays call [phone]; ask for digital imaging technician handyperson. Discharge Diagnoses (Hospital Problems) and Secondary Diagnoses (Chronic Problems): There are no hospital problems to display for this patient. Active Non-Hospital Problems Diagnosis DM type 2 with diabetic peripheral neuropathy Pacemaker Onychomycosis Onychocryptosis Onychauxis Operations/Major Procedures: Operations: Procedure(s): ELECTROPHYSIOLOGY PROCEDURE REMOVAL PPM GENERATOR W REPL PPM GEN; DUAL LEAD (WRVU 5.52) History of Presentation: 62 yr old left-handed female with hx of complete heart block s/p left sided Medtronic dual lead pacemaker implant 09/22/[address] Dinero at [facility]. Her device reached ALY in May and she presents today for routine generator exchange. There is no new or unexplained shortness of breath or chest dis comfort, syncope or presyncope, fever, cough or cold symptoms. Despite being dominant hand ipsilateral to device, this has not posed issues. Despite 100% RV pacing, no indication for device upgrade at this time given normal echocardiogram. Medical comorbid conditions include the following: #Type 2 diabetes mellitus with reasonable control (A1c 7%) #Current smoker with a history of emphysema. #Metabolic syndrome Metformin and lisinopril on hold this morning as requested by scheduling team. Hospital Course: Underwent uneventful generator exchange as planned. See procedural note for details. Vital Signs at Discharge: BP: 130/70, Heart Rate: 67, Temp: 36.5 ??C (97.7 ??F), Resp: 20, BMI (Calculated): 30.07 Height: 152.4 cm (5') (09/28/22 0736) Weight: 69.9 kg (154 lb) (09/28/22 0736) Functional and Cognitive Status: Stable Admission Diagnoses: CHB (complete heart block) [I44.2]Pacemaker [Z95.0]Pacemaker generator end of life [Z45.010] Discharge Diagnoses: CHB (complete heart block) [I44.2]Pacemaker [Z95.0]Pacemaker generator end of life [Z45.010] Discharge Exam: This is a same day discharge. Discharge Conditions/Prognosis: good Discharge to: home Updated Allergies/ADRs: Allergies Allergen Reactions Sulfur Penicillins Immunizations Given this Hospitalization: There is no immunization history on file for this patient. Discharge Medications: Your Medications Continued medications, unchanged Dose Details albuteroL 90 mcg/actuation HFA Aerosol Inhaler Inhale 2 puffs into the lungs every 4 hours as needed for Wheezing. Use with spacer 2 puff Refills: 0 atorvastatin 40 mg tablet Commonly known as: Lipitor Take 40 mg by mouth daily. 40 mg Refills: 0 Flovent HFA 110 mcg/actuation HFA Aerosol Inhaler Inhale 1 puff into the lungs 2 times daily. Generic drug: fluticasone propionate 1 puff Refills: 0 lisinopriL 5 mg tablet Commonly known as: Zestril Take 10 mg by mouth daily. 10 mg Refills: 0 metFORMIN 500 mg tablet Commonly known as: Glucophage Take 1 tablet in am and 2 tablets at night. Refills: 0 oxybutynin 10 mg ER 24 hr tablet Commonly known as: Ditropan-XL Take 10 mg by mouth daily. Indications: overactive bladder 10 mg Refills: 0 SITagliptin phosphate 100 mg tablet Commonly known as: Januvia Take 100 mg by mouth daily. 100 mg Refills: 0 Smoking Status at Discharge: Social History Tobacco Use Smoking Status Every Day Packs/day: 1.00 Years: 21.00 Pack years: 21.00 Types: Cigarettes Smokeless Tobacco Never Instructions Given to Patient at Discharge: Patient Instructions FINAL ICD/PACEMAKER RECOMMENDATIONS: 1. Standard post implant discharge instructions (see below): 2. Medications as listed above. You may use ice packs over the incision. Make sure to use a cloth winder (such as a towel) in between the ice pack and the bare skin and that it stays DRY. 3. Follow up in pacemaker clinic in 10 days for a wound check and device check. DEVICE CLINIC 1. You will be scheduled for a ~10 day wound check in the Device Clinic for: ?? Incision check ?? Device interrogation ?? Review of remote follow up and set up of home monitor 2. Your device will be checked every 3 months (either in clinic or by remote). 3. Prior to discharge, you will be given a home monitor so that your device can send clinical data to the device clinic nurses. If you are unable to set this up at home prior to your wound check, we will review this at the time of your appointment NOTE: The device data we review from your home monitor is comparable to an in- office appointment. Therefore, your insurance company will be billed for review of your data. Depending on your coverage,you may be responsible for a portion of his charge. We recommend that you contact your insurance carrier for more details about your particular coverage. WOUND CARE FOR YOUR INCISION: Your wound will usually heal in 7-10 days. Your wound may be tender, it may appear slightly red andbumpy and there may be dry, crusty scabbing. These are all normal. How to Care for your Incision: - Either you or someone with you needs to look at the wound every day. - Report any signs of infection immediately: Drainage Swelling Warmth Increased pain Fevers/chills - Call if you are concerned about infection or the edges of the wound separate - A needle should not be put into the wound area because this can damage the device. You may need to remind your healthcare provider of this concern - There are sutures inside the incision that will dissolve on their own - Do not scratch or rub the wound - Do not apply creams, lotions, or ointments to the incision until is completely healed. - You may cover the wound with gauze if it rubs on clothing and causes discomfort - Protect your wound from injury until the skin has had sufficient time to heal - Do not shower for 48 hours after implant - While in the shower, turn your back to the water nozzle so you avoid direct water pressure on thewound. Continue this for 7-10 days. - After 48 hours, you may wash the wound gently with soap and water (unless there is DermaBond on the incision - see below) - Do not submerge the incision (bathtubs, hot tubs, or swimming) for at least two weeks Your incision has been covered with a Mepilex dressing. - This dressing will stay on for 7 days. - If the edges pull up substantially or fluid gets underneath the Mepilex dressing, remove it sooner - Once removed, you may notice some grayish discoloration. This is normal. Your incision has been closed with: SteriStrips - These are thin adhesive strips placed over your incision to help it heal. - Leave them in place until they fall off (approximately 10-14 days) - Do not scratch, rub, or pick at them. This may pull at your incision before it is completely healed, which can increase the risk of infection. CALL IMMEDIATELY: If you develop chest pain, shortness of breath, bleeding, discharge from the incision, opening of the incision and/or fever/temperature >100 degrees F. The office scheduling phone number is [phone]. General Instructions None Discharge References/Attachments None documented in this encounter Discharge Instructions * Patient Instructions* Aubrey Correa MD - 09/28/2022 10:38 AM EDT FINAL ICD/PACEMAKER RECOMMENDATIONS: 1. Standard post implant discharge instructions (see below): 2. Medications as listed above. You may use ice packs over the incision. Make sure to use a cloth winder (such as a towel) in between the ice pack and the bare skin and that it stays DRY. 3. Follow up in pacemaker clinic in 10 days for a wound check and device check. DEVICE CLINIC 1. You will be scheduled for a ~10 day wound check in the Device Clinic for: ?? Incision check ?? Device interrogation ?? Review of remote follow up and set up of home monitor 2. Your device will be checked every 3 months (either in clinic or by remote). 3. Prior to discharge, you will be given a home monitor so that your device can send clinical data to the device clinic nurses. If you are unable to set this up at home prior to your wound check, we will review this at the time of your appointment NOTE: The device data we review from your home monitor is comparable to an in- office appointment. Therefore, your insurance company will be billed for review of your data. Depending on your coverage,you may be responsible for a portion of his charge. We recommend that you contact your insurance carrier for more details about your particular coverage. WOUND CARE FOR YOUR INCISION: Your wound will usually heal in 7-10 days. Your wound may be tender, it may appear slightly red andbumpy and there may be dry, crusty scabbing. These are all normal. How to Care for your Incision: - Either you or someone with you needs to look at the wound every day. - Report any signs of infection immediately: Drainage Swelling Warmth Increased pain Fevers/chills - Call if you are concerned about infection or the edges of the wound separate - A needle should not be put into the wound area because this can damage the device. You may need to remind your healthcare provider of this concern - There are sutures inside the incision that will dissolve on their own - Do not scratch or rub the wound - Do not apply creams, lotions, or ointments to the incision until is completely healed. - You may cover the wound with gauze if it rubs on clothing and causes discomfort - Protect your wound from injury until the skin has had sufficient time to heal - Do not shower for 48 hours after implant - While in the shower, turn your back to the water nozzle so you avoid direct water pressure on thewound. Continue this for 7-10 days. - After 48 hours, you may wash the wound gently with soap and water (unless there is DermaBond on the incision - see below) - Do not submerge the incision (bathtubs, hot tubs, or swimming) for at least two weeks Your incision has been covered with a Mepilex dressing. - This dressing will stay on for 7 days. - If the edges pull up substantially or fluid gets underneath the Mepilex dressing, remove it sooner - Once removed, you may notice some grayish discoloration. This is normal. Your incision has been closed with: SteriStrips - These are thin adhesive strips placed over your incision to help it heal. - Leave them in place until they fall off (approximately 10-14 days) - Do not scratch, rub, or pick at them. This may pull at your incision before it is completely healed, which can increase the risk of infection. CALL IMMEDIATELY: If you develop chest pain, shortness of breath, bleeding, discharge from the incision, opening of the incision and/or fever/temperature >100 degrees F. The office scheduling phone number is [phone]. documented in this encounter Medications at Time [...] daily. 02/24/2023 documented as of this encounter Progress Notes * Elissa Ramos RN - 09/28/2022 11:10 AM EDT IV removed, site benign. My assessment remains unchanged from my previous assessment. No complaintsof chest pain or SOB. Discussed pain management. Patient has all belongings and has received discharge summary. Summary reviewed with pt and daughter in law, all questions answered. Patient encouraged to call with any further questions or concerns. Patient discharged to home with daughter in law. Pt demonstrated ability to ambulate to bathroom prior to d/c. VSS. Tolerated PO intake. documented in this encounter H&P Notes * Aubrey Correa MD - 09/28/2022 7:35 AM EDT EP PRE-PROCEDURE H&P Referring Provider: NICKY Sexton Attending Provider: Kathy Avelar MD Planned Procedure: Left sided pacemaker generator exchange Anesthesia: Moderate conscious sedation will be used. No prior issues with sedation. Mallampati Class I ASA Class II Anticoagulation status: Not on chronic anticoagulation Post-op Plan: Discharge home Interval history: 62 yr old left-handed female with hx of complete heart block s/p left sided Medtronic dual lead pacemaker implant 09/22/[address] Dinero at [facility]. Her device reached ALY in May and she presents today for routine generator exchange. There is no new or unexplained shortness of breath or chest dis comfort, syncope or presyncope, fever, cough or cold symptoms. Despite being dominant hand ipsilateral to device, this has not posed issues. Despite 100% RV pacing, no indication for device upgrade at this time given normal echocardiogram. Medical comorbid conditions include the following: #Type 2 diabetes mellitus with reasonable control (A1c 7%) #Current smoker with a history of emphysema. #Metabolic syndrome Metformin and lisinopril on hold this morning as requested by scheduling team. Device interrogation: Data Pacemaker Model: Adapta [id number] Implanted: 09/22/13 4:23 PM Atrial Lead: Medtronic [id number] Implanted: 09/22/13 Ventricular Lead: Medtronic [id number] Implanted: 09/22/13 Alerts ALY 05/14/22 Diagnostics Pacing Mode: VVI @ 65bpm Presenting EGMs: unable to test or program Atrial Episodes: none Ventricular Episodes: one HR episode at 213bmp lasted 6 seconds on 02/02/22 Ventricular Pacin% Echo September 2022 1. The left ventricle is normal in size and function. The LVEF is 60% by visual estimation. There is abnormal septal motion due to ventricular pacing. 2. The right ventricle appears normal in size with mildly reduced appearing function. 3. There is no hemodynamically significant valve disease. 4. No prior study available for comparison. See body of report for complete findings. Physical Exam: Well appearing with no acute symptoms Normal jugular venous pulse Moist mucosae without lesions Regular S1/S2 with no murmur Left subclavicular fossa housing generator which is well situated with well healed scar. Lungs are clear throughout Palpable femoral pulses bilaterally No peripheral edema, no open wounds or ulcers No current facility-administered medications on file prior to encounter. Current Outpatient Medications on File Prior to Encounter Medication Sig Dispense Refill oxybutynin (Ditropan-XL) 10 [...] needed for Wheezing. Use with spacer No results found for: WBC, HGB, HCT, MCV, PLATELET No results found for: MAGNESIUM Background and rationale for the procedure: The risks and benefits of the proposed procedure were reviewed in detail and she would like to proceed. documented in this encounter Plan of Treatment Upcoming Encounters Date Type Department Care Team (Late st Contact Info) Description 01/05/2024 10:00 AM EST Hospital Encounter Non[place] [address] Arrived Scheduled Orders Name Type Priority Associated Diagnoses Orde r Schedule REMOVAL PPM GENERATOR W REPL PPM GEN; DUAL LEAD Procedures Routine CHB (complete heart block) Pacemaker Pacemaker generator end of life One Time for 1 Occurrences starting 09/24/2022 until 09/24/2022 documented as of this encounter Procedures Procedure Name Priority Date/Time Associated Diagnosis Comments ELECTROPHYSIOLOGY PROCEDURE Routine 09/28/2022 8:35 AM EDT CHB (complete heart block) Pacemaker Pacemaker generator end of life HEMOGRAM STAT 09/28/2022 8:20 AM EDT DIFFERENTIAL, AUTOMATED STAT 09/29/19 8:20 AM EDT CBC (WITH DIFF) STAT 09/28/2022 8:20 AM EDT POCT GLUCOSE Routine 09/28/2022 7:40 AM EDT documented in this encounter Results * ELECTROPHYSIOLOGY PROCEDURE (09/28/2022 8:35 AM EDT) Anatomical Region Laterality Modality Other Narrative 10/26/2022 9:24 AM EDT Images from the original result were not included. Pacemaker Generator Change Patient: Mady Medellin Indications: Battery depletion Operators: ??Kathy Avelar MD Fellow: Aubrey Correa MD Procedure: ??The patient was brought to the Electrophysiology Lab in the fasting state and continuous electrocardiographic monitoring was instituted. ??Moderate sedation was performed with incremental doses of midazolam and fentanyl. The left subclavicular fossa was prepped and draped in the usual sterile fashion and a 2:3 mixture of 2% lidocaine and 0.5% bupivicaine was instilled for local anesthesia and postoperative analgesia. An incision was made over the old scar, and the dissection was carried down to the level of the old pocket using sharp and blunt dissection using electrocautery, carefully avoiding the old leads. The old pulse generator was removed, and the electrodes disconnected. ??The previously implanted electrodes were intact (where visible). The pocket was copiously irrigated with antibiotic impregnated saline. The leads were attached to a new pulse generator, which was placed in the old pocket. Remote interrogation confirmed favorable electrical parameters on both leads. The wound was closed with three layers of absorbable sutures. Steri-strips were applied to the incision and covered with Mepilex. Newly implanted pulse generator: NORIS PAT DR MRI #[id number] Retained and used hardware (09/22/13): RA: Medtronic 5076-52 cm Serial #[id number] 2.8 / 398 / 0.75V@0.4ms RV: Medtronic 4074-58 cm Serial #[id number] -- / 627 / 1.5V@1.0ms Hardware removed (09/22/13): Medtronic Adapta [id number] Final device settings: Mode: DDDR Lower rate limit: 60 Upper tracking rate: 130 Antibiotic: Vancomycin, sedation period 8:33-9:35 am, no sedation medicines administered Fluoroscopy time: 0 I, Kathy Avelar MD, was present throughout the procedure as the cloth dye range operator. Kathy Avelar MD EP PROCEDURE ORDERAB LES * (ABNORMAL) Differential, Automated (09/28/2022 8:20 AM EDT) Neutrophil % 56.4 % [facility] Neutrophil Absolute 5.37 1.70 - 6.10 x10(3)/mc L [facility] Lymph % 34.7 % [facility] Lymphocytes Abs 3.3(H) 0.9 - 3.2 x10(3)/mc L [facility] Monocyte % 6.8 % [facility] ITAL [facility] Monocyte Abs 0.6 0.3 - 0.9 x10(3)/[facility] LAB[facility] Eos % 1.5 % [facility] Eosinophils Abs 0.1 0.0 - 0.4 x10(3)/[facility] LABORATORY Basophil % 0.5 % [facility] ITAL [facility]OR[facility] Baso Absolute 0.0 0.0 - 0.1 x10(3)/[facility] LABORATORY Immature Gran % 0.10 % [facility] Comment: Immature granulocytes(IG's)percentage and absolute count will include metamyelocytes, myelocytes, and promyelocytes. Blood smears from CBCs yielding IG's will be scanned manually for concordance. If this scan disagrees with the automated IG or if promyelocytes are noted, a manual differential will be performed. Immature Gran Absolute 0.01 0.00 - 0.04 x10(3)/[facility] LAB[facility]ORY Blood 09/28/2022 8:20 AM EDT 09/28/2022 8:26 AM EDT Narrative Resulting Agency Comment Spec In Lab Deniz [facility] HEMATOLOGY ORDERABLE S Performing Organization Address City/State/[facility] Co de Phone Number [facility] [place] [address] * Hemogram (09/28/2022 8:20 AM EDT) White Blood Cell 9.5 4.0 - 9.5 x10(3)/[facility] LABORATORY Red Blood Cell 4.54 4.00 - 5.21 x10(6)/[facility] LABORATORY Hemoglobin 13.3 11.7 - 15.5 g/dL [facility] Hematocrit 39.2 35.7 - 45.8 % [facility] Mean Cell Volume 86.3 82.6 - 94.4 fL [facility] Mean Cell Hemoglobin 29.3 27.1 - 32.0 pg [facility] Mean Cell Hemoglobin Concentration 33.9 31.7 - 35.0 g/dL [facility] Platelet 153 145 - 357 x10(3)/[facility] LABORATORY RDW Standard Deviation 40.1 37.0 - 46.0 fL [facility] RDW coefficient of variation 12.8 11.5 - 14.1 % [facility] Mean Platelet Volume 10.0 7.6 - 12.9 fL [facility] NRBC% auto 0.0 % [facility] ITAL LABORATORY NRBC Absolute 0.000 0.000 - 0.000 x10(3)/mcL [facility] Blood 09/28/2022 8:20 AM EDT 09/28/2022 8:26 AM EDT Narrative Resulting Agency Comment Spec In Lab Deniz SAUNDERS HEMATOLOGY ORDERABLE S Performing Organization Address City/[facility]/ZIP Co de Phone Number [facility] [place] [address] * POCT Glucose (09/28/2022 7:40 AM EDT) Glucose, POC 145 65 - 199 mg/dL [facility] Comment: Supplemental ranges: <140 mg/dL before meals <180 mg/dL all other times of the day Blood 09/28/2022 7:40 AM EDT 09/28/2022 7:40 AM EDT Kathy Avelar MD POINT OF CARE TEST O RDERABLES Performing Organization Address [facility] Co de Phone Number [facility] [place] [address] documented in this encounter Visit Diagnoses Diagnosis CHB (complete heart block) Atrioventricular block, complete Pacemaker Cardiac pacemaker in situ Pacemaker generator end of life Fitting and adjustment of cardiac pacemaker CHB (complete heart block) Atrioventricular block, complete Pacemaker Cardiac pacemaker in situ Pacemaker generator end of life Fitting and adjustment of cardiac pacemaker documented in this encounter Administered Medications Inactive Administered Medications - up to 3 most recent administrations Medication Order MAR Action Action Date Dose Rate Site acetaminophen (Tylenol) tablet 1,000 mg 1,000 mg, Oral, ONCE, 1 dose, On Sat09/28/22 at 0815, Administer with a SIP of water only. Maximum dose of acetaminophen is 4,000 mg from all sources in 24 hours., Day of Surgery (Day of Procedure), Routine Given 09/28/2022 8:25 AM EDT 1,000 mg sodium chloride 0.9% infusion 1,000 mL, at 100 mL/hr, Intravenous, CONTINUOUS, Starting on Sat09/28/22 at 0815, Until Sat09/28/22 at 1311 vancomycin (Vancocin) 1 gram in sodium chloride 0.9% 250 mL infusion 1 g, Intravenous, at 250 mL/hr, ONCE, 1 dose, On Sat09/28/22 at 0815, Redose every 8 hours if CrCl is greater than 50. Redose every 16 hours if CrCl is between 20-50., Day of Surgery (Day of Procedure), Routine, Indication for (Active or Suspected): Prophylaxis New Bag 09/28/2022 8:25 AM EDT 1 g 250 mL/hr vancomycin (Vancocin) injection 1,000 mg 1,000 mg (1 g), Topical (Top), ONCE, 1 dose, On Sat09/28/22 at 0915, Warning Vesicant/Irritant Medication , EP (Intra-Procedure), Routine, Indication for (Active or Suspected): Prophylaxis Given 09/28/2022 8:59 AM EDT 1,000 mg documented in this encounter Active and Recently Administered Medications Times are shown in EDT. Scheduled Medication Order 09/26/2022 09/27/2022 09/28/2022 acetaminophen (Tylenol) tablet 1,000 mg (COMPLETED) 1,000 mg, Oral, ONCE, 1 dose, On Sat09/28/22 at 0815, Administer with a SIP of water only. Maximum dose of acetaminophen is 4,000 mg from all sources in 24 hours., Day of Surgery (Day of Procedure), Routine 08 (Given - Provid er: Johnna Lux RN) vancomycin (Vancocin) 1 gram in sodium chloride 0.9% 250 mL infusion (COMPLETED) 1 g, Intravenous, at 250 mL/hr, ONCE, 1 dose, On Sat09/28/22 at 0815, Redose every 8 hours if CrCl is greater than 50. Redose every 16 hours if CrCl is between 20-50., Day of Surgery (Day of Procedure), Routine, Indication for (Active or Suspected): Prophylaxis 08 (New Bag - Prov ider: Johnna Lux RN)924 (Due: Stopped - Provider: Johnna Lux RN) vancomycin (Vancocin) injection 1,000 mg (COMPLETED) 1,000 mg (1 g), Topical (Top), ONCE, 1 dose, On Sat09/28/22 at 0915, Warning Vesicant/Irritant Medication , EP (Intra-Procedure), Routine, Indication for (Active or Suspected): Prophylaxis 0859 (Given - Provid er: Laurie Kelley RN) Continuous Medication Order 09/26/2022 09/27/2022 09/28/2022 lactated ringers infusion (CANCELED) 1,000 mL, at 100 mL/hr, Intravenous, CONTINUOUS, Starting on Sat09/28/22 at 0815, Until Sat09/28/22 at 1109, Day of Surgery (Day of Procedure) 0837 (New Bag - Prov ider: Elisa Saldana MD)0915 (Anesthesia Volume Adjustment - Provider: Adonis Campbell CRNA) sodium chloride 0.9% infusion 1,000 mL, at 100 mL/hr, Intravenous, CONTINUOUS, Starting on Sat09/28/22 at 0815, Until Sat09/28/22 at 1311 0815 (Due) No Frequency Medication Order 09/26/2022 09/27/2022 09/28/2022 fentaNYL (PF) (Sublimaze) 50 mcg/mL injection 1 dose, Starting on Sat09/28/22 at 0824, Until Sat09/28/22 at 1311, MIESHA KAPLAN (DYE COLORIST FORMULATOR): cabinet override 0830 (Due) documented in this encounter Care Teams Door Framer Relationship Specialty Start Date End Date Anna Bonds APRN [address] [place] [address] PCP - General Family Medicine 11/21/18 documented as of this encounter
--- OUTSIDE RECORDS SUMMARY | 2023-12-06 17:15 | XMS_ITS | Encounter Summary ---
[place] [address] Care Team Providers Care Creel Selector Name Role Phone Anna Bonds APRN Primary Care Provider [phone] Reason for Referral * Diagnostic Test (Routine) - Closed Specialty Diagnoses / Procedures Referred By Contac t Referred To Contact Radiology Diagnoses Nicotine dependence with nicotine-induced disorder, unspecified nicotine product type Procedures CT Chest Screening Lung Cancer Anna Bonds APRN [address] [place] [address] [facility] [place] [address] Referral ID Status Reason Start Date Expiration Date V isits Requested Visits Authorized [id number] Closed Specialty Service Requested 10/20/2021 04/20/2023 1 1 Reason for Visit * Diagnostic Test (Routine) - Closed Specialty Diagnoses / Procedures Referred By Contac t Referred To Contact Radiology Diagnoses Nicotine dependence with nicotine-induced disorder, unspecified nicotine product type Procedures CT Chest Screening Lung Cancer Anna Bonds APRN [address] [place] [address] [facility] [place] [address] Referral ID Status Reason Start Date Expiration Date V isits Requested Visits Authorized [id number] Closed Specialty Service Requested 10/20/2021 04/20/2023 1 1 Encounter Details Date Type Department Care Team (Latest Contact Info) Description 12/25/2021 3:45 PM EST - 12/25/2021 11:59 PM EST Hospital [place] [id number] Anna Bonds APRN [address] [place] [address] Nicotine dependence with nicotine-induced disorder, unspecified nicotine product type Discharge Disposition: Home Social History Tobacco [...] as needed for Wheezing. Use with spacer lisinopriL (Zestril) 5 mg Tablet Take 5 mg by mouth daily. 02/24/2023 documented as of this encounter Plan of Treatment Upcoming Encounters Date Type Department Care Team (Late st Contact Info) Description 01/05/2024 10:00 AM EST Hospital Encounter Non-Invasive [place] [address] Arrived documented as of this encounter Procedures Procedure Name Priority Date/Time Associated Diagnosis Comments CT CHEST SCREENING LUNG CANCER Routine 12/25/2021 3:54 PM EST Nicotine dependence with nicotine-induced disorder, unspecified nicotine product type documented in this encounter Results * CT Chest Screening Lung Cancer (12/25/2021 3:54 PM EST) Anatomical Region Laterality Modality Computed Tomogra phy Impressions 12/31/2021 2:59 PM EST Lung-RADS 1 (Negative) RECOMMENDATION: Return to CT screening in one year Thank you for letting us participate in the care of this patient. ??If you are a health care provider and have any questions regarding this report, please contact the number below. ??For patients who have questions please contact the health healthcare prof that requested your imaging first. ? Electronically signed by: Rosana Martinez MD, [facility] ([phone]), at 12/31/2021 2:59 PM Narrative 12/31/2021 2:59 PM EST EXAMINATION: CT CHEST SCREENING LUNG CANCER CLINICAL HISTORY: Asymptomatic but at high risk for lung cancer TECHNIQUE: Noncontrast, low-dose chest CT (LDCT) per [facility] lung cancer screening protocol. COMPARISON: None FINDINGS: Lung-RADS Lung screening specific: None Potentially significant incidental findings: None Other incidental findings: Left-sided pulse generator with right atrial and right ventricular lead. Incidentally noted accessory rib at the right apex. Moderate coronary artery atherosclerotic calcification. Procedure Note Rosana Davis MD - 12/31/2021 EXAMINATION: CT CHEST SCREENING LUNG CANCER CLINICAL HISTORY: Asymptomatic but at high risk for lung cancer TECHNIQUE: Noncontrast, low-dose chest CT (LDCT) per [facility] lung cancerscreening protocol. COMPARISON: None FINDINGS: Lung-RADS Lung screening specific: None Potentially significant incidental findings: None Other incidental findings: Left-sided pulse generator with right atrial and right ventricular lead. Incidentally noted accessory rib at the right apex. Moderate coronary artery atherosclerotic calcification. IMPRESSION Lung-RADS 1 (Negative) RECOMMENDATION: Return to CT screening in one year Thank you for letting us participate in the care of this patient. If youare a health care provider and have any questions regarding this report,please contact the number below. For patients who have questions please contactthe health healthcare prof that requested your imaging first. Electronically signed by: Rosana Martinez MD, [facility] ([phone]), at 12/31/2021 2:59 PM Anna Bonds APRN IMVive[facility] CT ORDERABLES documented in this encounter Visit Diagnoses Diagnosis Nicotine dependence with nicotine-induced disorder, unspecified nicotine product type documented in this encounter Care Teams Creel Selector Relationship Specialty Start Date End Date Anna Bonds APRN [address] [place] [address] PCP - General Family Medicine 11/21/18 documented as of this encounter
--- OUTSIDE RECORDS SUMMARY | 2023-12-06 17:15 | XMS_ITS | Encounter Summary ---
Author Organization [facility] Address [facility] [place] [address] Care Team Providers Care Softball Umpire Name Role Phone Anna Bonds APRN Primary Care Provider [phone] Reason for Visit * Auth/Cert (Routine) Specialty Diagnoses / Procedures Referred By Contac t Referred To Contact Diagnoses CHB (complete heart block) [I44.2]Pacemaker [Z95.0]Pacemaker generator end of life [Z45.010] Procedures PRO REMOVAL PACER PLSE GEN W RPLMT PACER PLSE GEN DUAL LEAD ELECTROPHYSIOLOGY PROCEDURE REMOVAL PPM GENERATOR W REPL PPM GEN; DUAL LEAD (WRVU 5.52) Kathy Avelar MD [facility] [place] [address] [facility] Referral ID Status Reason Start Date Expiration Date Visits Re quested Visits Authorized [id number] 1 1 Encounter Details Date Type Department Care Team (Latest Contact Info) Description 09/28/2022 7:13 AM EDT - 09/28/2022 11:11 AM EDT Hospital Encounter [place] [phone] Kathy Avelar MD [facility] [place] [address] CHB (complete heart block); Pacemaker; Pacemaker generator end of life Discharge Disposition: Home Social History Tobacco Use [...] Sign Reading Time Taken Comments Blood Pressure 132/67 09/28/2022 10:30 AM EDT Pulse 68 09/28/2022 10:35 AM EDT Temperature 36.5 ??C (97.7 ??F) 09/28/2022 7:36 AM ED T Respiratory Rate 18 09/28/2022 10:35 AM EDT Oxygen Saturation 95% 09/28/2022 10:35 AM EDT Inhaled Oxygen Concentration - - Weight 69.9 kg (154 lb) 09/28/2022 7:36 AM EDT Height 152.4 cm (5') 09/28/2022 7:36 AM EDT Body Mass Index 30.08 09/28/2022 7:36 AM EDT documented in this encounter Discharge Summaries * Aubrey Correa MD - 09/28/2022 10:38 AM EDT Cardiac Electrophysiology Discharge Summary Patient Name: Mady Medellin Patient Age: 62 y.o. Language: Faroese Race: White Ethnicity: Not nor Admit date: 09/28/2022 Discharge date and time: 09/28/22 Attending Physician: Kathy Avelar MD Discharge Physician: Kathy Avelar MD Follow-up Recommendations for Providers: - s/p uneventful pacemaker generator exchange - No changes to medications - See provider instructions for wound care management Inpatient Provider Contact Information: Cardiac Electrophysiology - Weekends and holidays call [phone]; ask for manager nicu street commissioner. Discharge Diagnoses (Hospital Problems) and Secondary Diagnoses [...] pacemaker implant 09/22/[address] Dinero at [facility]. Her device reached [facility] in May and she presents today for [...] incision. Make sure to use a cloth baler (such as a towel) in between the [...] F. The office scheduling phone number is [phone]. General Instructions None Discharge References/Attachments None documented in this encounter Discharge Instructions * Patient Instructions* Aubrey Correa MD - 09/28/2022 10:38 AM EDT FINAL ICD/PACEMAKER RECOMMENDATIONS: 1. Standard post implant discharge instructions (see below): 2. Medications as listed above. You may use ice packs over the incision. Make sure to use a cloth baler (such as a towel) in between the [...] F. The office scheduling phone number is [phone]. documented in this encounter Medications at Time [...] pacemaker implant 09/22/[address] Dinero at [facility]. Her device reached [facility] in May and [...] Device interrogation: Data Pacemaker Model: Adapta [id number] Implanted: 09/22/13 4:23 PM Atrial Lead: Medtronic [id number] Implanted: 09/22/13 Ventricular Lead: Medtronic [id number] Implanted: 09/22/13 Alerts [facility] 05/14/22 Diagnostics Pacing [...] AM EST Hospital Encounter Non-[place] [address] Arrived Scheduled Orders Name Type [...] implanted pulse generator: NORIS PAT DR MRI #[id number] Retained and used hardware (09/22/13): RA: Medtronic 5076-52 cm Serial #[id number] 2.8 / 398 / 0.75V@0.4ms RV: Medtronic 4074-58 cm Serial #[id number] -- / 627 / 1.5V@1.0ms Hardware removed (09/22/13): Medtronic Adapta [id number] Final device settings: Mode: DDDR Lower rate limit: 60 Upper tracking rate: 130 Antibiotic: Vancomycin, sedation period 8:33-9:35 am, no sedation medicines administered Fluoroscopy time: 0 I, Kathy Avelar MD, was present throughout the procedure as the bulking machine operator. Kathy Avelar MD EP PROCEDURE ORDERAB LES * (ABNORMAL) Differential, Automated (09/28/2022 8:20 AM EDT) Neutrophil % 56.4 % [facility] Neutrophil Absolute 5.37 1.70 - 6.10 x10(3)/mc L [facility] Lymph % 34.7 % [facility] Lymphocytes Abs 3.3(H) 0.9 - 3.2 x10(3)/[facility] Monocyte % 6.8 % [facility] Monocyte Abs 0.6 0.3 - 0.9 x10(3)/[facility] Eos % 1.5 % [facility] Eosinophils Abs 0.1 0.0 - 0.4 x10(3)/[facility] Basophil % 0.5 % [facility] Baso Absolute 0.0 0.0 - 0.1 x10(3)/[facility] Immature Gran % 0.10 % [facility] Comment: Immature granulocytes(IG's)percentage and absolute count will include metamyelocytes, myelocytes, and promyelocytes. Blood smears from CBCs yielding IG's will be scanned manually for concordance. If this scan disagrees with the automated IG or if promyelocytes are noted, a manual differential will be performed. Immature Gran Absolute 0.01 0.00 - 0.04 x10(3)/[facility] Blood 09/28/2022 8:20 AM EDT 09/28/2022 8:26 AM EDT Narrative Resulting Agency Comment Spec In Lab [facility] ORDERABLE S [facility] [place] [address] * Hemogram (09/28/2022 8:20 AM EDT) White Blood Cell 9.5 4.0 - 9.5 x10(3)/[facility] LABORATORY Red Blood Cell 4.54 4.00 - 5.21 x10(6)/[facility] Hemoglobin 13.3 11.7 - 15.5 g/dL [facility] Hematocrit 39.2 35.7 - 45.8 % [facility] Mean Cell Volume 86.3 82.6 - 94.4 fL [facility] Mean Cell Hemoglobin 29.3 27.1 - 32.0 pg [facility] Mean Cell Hemoglobin Concentration 33.9 31.7 - 35.0 g/dL [facility] Platelet 153 145 - 357 x10(3)/[facility] LAB[facility] RDW Standard Deviation 40.1 37.0 - 46.0 fL [facility] RDW coefficient of variation 12.8 11.5 - 14.1 % [facility] Mean Platelet Volume 10.0 7.6 - 12.9 fL [facility] NRBC% auto 0.0 % [facility] NRBC Absolute 0.000 0.000 - 0.000 x10(3)/[facility] Blood 09/28/2022 8:20 AM EDT 09/28/2022 8:26 AM EDT Narrative Resulting Agency Comment Spec In Lab Deniz [facility] ORDERABLE S Performing Organization Address City/[facility]/ZIP Co de Phone Number [facility] [place] [address] * POCT Glucose (09/28/2022 7:40 AM EDT) Glucose, POC 145 65 - 199 mg/dL [facility] Comment: Supplemental ranges: <140 mg/dL before meals <180 mg/dL all other times of the day Blood 09/28/2022 7:40 AM EDT 09/28/2022 7:40 AM EDT Kathy Avelar MD POINT OF CARE TEST O RDERABLES Performing Organization Address City/[facility]/ZIP Co de Phone Number [facility] [place] [address] documented in this encounter Visit Diagnoses Diagnosis [...] Day of Surgery (Day of Procedure), Routine 0825 (Given - Provid er: Johnna Lux RN) [...] (New Bag - Prov ider: Johnna Lux RN)0925 (Due: Stopped - Provider: Johnna Lux RN) [...] 0824, Until Sat09/28/22 at 1311, MIESHA KAPLAN (REBECCA): cabinet override 0830 (Due) documented in this encounter Care Teams Softball Umpire Relationship Specialty Start Date End Date Anna Bonds APRN [address] [place] [address] PCP - General Family Medicine 11/21/18 documented as of this encounter
--- OUTSIDE RECORDS SUMMARY | 2023-12-06 17:15 | XMS_ITS | Encounter Summary ---
Author Organization Formerly [facility], Later [facility] Address [facility] [place] [address] Care Team Providers Care Cobbler Mckay Name Role Phone Anna Bonds APRN Primary Care Provider [phone] Reason for Visit * Auth/Cert (Routine) Specialty Diagnoses / Procedures Referred By Contac t Referred To Contact Diagnoses CHB (complete heart block) [I44.2]Pacemaker [Z95.0]Pacemaker generator end of life [Z45.010] Procedures PRO REMOVAL PACER PLSE GEN W RPLMT PACER PLSE GEN DUAL LEAD ELECTROPHYSIOLOGY PROCEDURE REMOVAL PPM GENERATOR W REPL PPM GEN; DUAL LEAD (WRVU 5.52) Kathy Avelar MD [facility] [place] [address] [facility] Referral ID Status Reason Start Date Expiration Date Visits Re quested Visits Authorized [id number] 1 1 Encounter Details Date Type Department Care Team (Late st Contact Info) Description 09/28/2022 8:36 AM EDT Anesthesia Event [place] [address] Elisa Saldana MD [facility] [place] [address] Anesthesia Record Procedure Summary Procedure Name Responsible Anesthesiologist Anesthesia Start Time Anesthesia Stop Time ELECTROPHYSIOLOGY PROCEDURE (Left) Elisa Saldana MD 09/28/22 0836 09/28/22 0945 Events Date Time Event Comment 09/28/2022 0553 0836 Start 0837 AN Verify 0837 An Start Data 0839 Anesthesia Ready 0852 Quick Note Local by cardio logy 0853 Procedure Start 0904 Handoff Intra-procedure anesthesia care was transferred after review of the patient's history, current anesthetic/surgical status and procedural plan, anticipated issues and expected post-operative course (including disposition.) Jovani Jimenez, REBECCA 0932 an stop data 0945 Stop 1449 an brennon now Meds Name Total fentaNYL 25 mcg IV Lidocaine 40 mg Propofol 100 mg Propofol INF 199.22 mg lactated ringers infusion 500 mL * Agents Name O2 Air N2O O2 Auxiliary Flowmeter 2 * Blood No blood administrations on file. Lines, Drains, and Airways Type Details Placement Removal Incision 09/28/22; 0900; Left ; chest; horizontal 09/28/22 0900 by Laurie Kelley RN (RETIRED) Peripheral IV Line - Single Lumen 09/28/22; metacarpal vein (top of hand), right; 09/28/22; 1109 09/28/22 0000 by Ora Langley RN 09/28/22 1109 by Elissa Ramos RN documented in this encounter Social History Tobacco Use Types Packs/Day Years [...] PM EDT documented as of this encounter OR Notes * Anesthesia Postprocedure Evaluation - Elisa Saldana MD - 09/28/2022 9:51 AM EDT Department of Anesthesiology Post-procedure Note Patient: Mday Medellin Procedure Summary Date: 09/28/22 Room / Location: EP B-LAB ROOM 4 / [facility] EP LABS Anesthesia Start: 836 Anesthesia Stop: Procedures: ELECTROPHYSIOLOGY PROCEDURE (Left) REMOVAL PPM GENERATOR W REPL PPM GEN; DUAL LEAD (WRVU 5.52) (Left: Chest) Diagnosis: CHB (complete heart block) Pacemaker Pacemaker generator end of life (CHB (complete heart block) [I44.2]Pacemaker [Z95.0]Pacemaker generator end of life [Z45.010]) Providers: Kathy Avelar MD Responsible Provider: Elisa Saldana MD Anesthesia Type: general ASA Status: 3 All Anesthesia Providers: Anesthesiologist: Elisa Saldana MD RADIOGRAPHER TECHNOLOGIST: Adonis Campbell CRNA; Jovani Jimenez CRNA Vitals Value Taken Time BP 123/66 09/28/22 0946 Temp Pulse 67 09/28/22 0949 Resp 16 09/28/22 0949 SpO2 96 % 09/28/22 0949 Pain Level 0 09/28/22 0942 Vitals shown include unvalidated device data. Patient Location: PACU/[facility] Level of Consciousness: Awake and Alert Pain Management: Satisfactory Analgesia PONV: None Cardiovascular Status: At Baseline and Hemodynamically Stable Respiratory Status: Supplemental O2 (NC or FM) and Stable Respiratory Status Postoperative Fluid Status: Intravascular EUvolemia Possible Anesthetic Complications: NONE apparent at time of evaluation Final Primary Anesthesia Type: MAC (The anesthetic type performed was the same as planned.) Comments: * Anesthesia Preprocedure Evaluation - Elisa Saldana MD - 09/27/2022 2:32 PM EDT Pre-Anesthesia Evaluation for: Mady Medellin a 62 y.o. female. Procedure(s): ELECTROPHYSIOLOGY PROCEDURE REMOVAL PPM GENERATOR W REPL PPM GEN; DUAL LEAD (WRVU 5.52) Patient Active Problem List Diagnosis Date Noted ??? DM type 2 with diabetic peripheral neuropathy 10/24/2021 ??? Pacemaker 10/24/2021 ??? Onychomycosis 10/24/2021 ??? Onychocryptosis 10/24/2021 ??? 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 No past surgical history on file. Social History Tobacco Use ??? Smoking status: Every Day Packs/day: 1.00 Years: 21.00 Pack years: 21.00 Types: Cigarettes ??? Smokeless tobacco: Never Substance Use Topics ??? Alcohol use: Not on file Social History Substance and Sexual Activity Drug Use Not on file Allergies Allergen Reactions ??? Sulfur ??? Penicillins Medications: MAR and/or home medications have been reviewed. Physical Exam: Preprocedure Vitals Current as of 09/27/22 1432 No BP, pulse, respiration, SpO2, or temperature recorded. Height: Weight: BMI: IBW: Airway Assessment: Mallampati: II TM distance: >3 FB Neck ROM: full Cardiovascular Assessment: Rhythm: regular Pulmonary Assessment: unlabored breathing Dental Assessment: (+) upper dentures Misc Assessment: IV access: Peripheral line Last Filed Perioperative Cognitive Screening None Anesthesia Plan: ASA 3 general, with a(n) intravenous induction 62 y.o.female with complete heart block s/p Medtronic dual lead pacemaker implant in 2013. She is pacemaker dependent. Device has hit ALY. Here for generator replacement. MEDICAL HISTORY is also significant for - ongoing smoking tobacco use, 21 pk yrs - DMII with peripheral neuropathy - frozen shoulder ANESTHESIA HISTORY: - Past sedation for pacemaker placement and shoulder dislocation reduction, without significant complications - Airway: no prior records TTE: 1. The left ventricle is normal in size and function. The LVEF is 60% by visual estimation. There is abnormal septal motion due to ventricular pacing. 2. The right ventricle appears normal in size with mildly reduced appearing function. 3. There is no hemodynamically significant valve disease. BP Readings from Last 3 Encounters: 09/21/22 : 134/66 01/29/22 : 158/86 ANESTHETIC PLAN - Monitored anesthesia care with increasing depth of sedation and airway support as needed up to GAwith ETT - ASA recommended monitors and working venous access Region - Intrathoracic Cardiac Informed Consent: Anesthetic plan and risks discussed with patient. Use of blood products discussed with patient who consented to blood products. Anesthesia Screening documented in this encounter Plan of Treatment Upcoming Encounters Date Type Department Care Team (Late st Contact Info) Description 01/05/2024 10:00 AM EST Hospital Encounter [place] [address] Arrived documented as of this encounter Visit Diagnoses Not on filedocumented in this encounter Administered Medications Inactive Administered Medications - up to 3 most recent administrations Medication Order MAR Action Action Date Dose Rate Site fentaNYL (pf) (50 mcg/mL) multi-dose injection Intravenous, PRN, Starting on Sat09/28/22 at 0842, Until Sat09/28/22 at 1448, Anesthesia Intra-op, Routine Given 09/28/2022 8:42 AM EDT 25 mcg lactated ringers infusion 1,000 mL, at 100 mL/hr, Intravenous, CONTINUOUS, Starting on Sat09/28/22 at 0815, Until Sat09/28/22 at 1109, Day of Surgery (Day of Procedure) New Bag 09/28/2022 8:37 AM EDT lidocaine (pf) (Xylocaine) (20 mg/mL) 2% injection syringe Intravenous, PRN, Starting on Sat09/28/22 at 0852, Until Sat09/28/22 at 1448, Anesthesia Intra-op, Routine Given 09/28/2022 8:52 AM EDT 40 mg propofoL (Diprivan) (10 mg/mL) infusion Intravenous, CONTINUOUS PRN, Starting on Sat09/28/22 at 0846, Until Sat09/28/22 at 1448, Anesthesia Intra-op, Routine New Bag 09/28/2022 8:46 AM EDT 75 mcg/kg/min 31.455 mL/hr propofoL (Diprivan) 10 mg/mL bolus injection (Anesthesia) Intravenous, PRN, Starting on Sat09/28/22 at 0846, Until Sat09/28/22 at 1448, Anesthesia Intra-op Given 09/28/2022 9:12 AM EDT 20 mg Given 09/28/2022 9:00 AM EDT 20 mg Given 09/28/2022 8:50 AM EDT 40 mg documented in this encounter Care Teams Cobbler Mckay Relationship Specialty Start Date End Date Anna Bonds APRN [address] [place] [address] PCP - General Family Medicine 11/21/18 documented as of this encounter
--- OUTSIDE RECORDS SUMMARY | 2023-12-06 17:15 | XMS_ITS | Encounter Summary ---
Author Organization [facility] Address [facility] [place] [address] Care Team Providers Care Blood Bank Manager Name Role Phone Vamshi Anna ELISE Primary Care Provider [phone] Reason for Visit * Reason Comments Abdominal Pain Encounter Details Date Type Department Care Team (Late st Contact Info) Description 03/14/2023 6:14 PM EST - 03/14/2023 11:57 PM EST Emergency Emergency Services at [address] [id number] Rory Whyte MD [facility] [place] [address] Appendicitis, unspecified appendicitis type Discharge Disposition: Another HCF/Not Defined Social History Tobacco Use Types Packs/Day Years [...] Sign Reading Time Taken Comments Blood Pressure 124/66 03/14/2023 11:30 PM EST Pulse 77 03/14/2023 11:30 PM EST Temperature 37 ??C (98.6 ??F) 03/14/2023 6:09 PM EST Respiratory Rate 16 03/14/2023 11:30 PM EST Oxygen Saturation 94% 03/14/2023 11:30 PM EST Inhaled Oxygen Concentration - - Weight 70.3 kg (155 lb) 03/14/2023 6:09 PM EST Height 152.4 cm (5') 03/14/2023 6:09 PM EST Body Mass Index 30.27 03/14/2023 6:09 PM EST documented in this encounter Medications at Time [...] with spacer documented as of this encounter ED Notes * Tammie Gaston RN - 03/14/2023 11:56 PM EST Patient transported to [facility] ED via [facility] Patient in stable condition at time of departure. Report given to BABAR Goncalves at [facility] prior to transfer. * Tammie Gaston RN - 03/14/2023 10:08 PM EST Pt up to bathroom. * Tammie aGston RN - 03/14/2023 8:59 PM EST Report received from off-going RN. Care assumed at this time. * Sasha Fagan RN - 03/14/2023 8:51 PM EST Patient resting with eyes closed, denies needs at this time. Call elena within reach. Awaiting CT result. * Sasha Fagan RN - 03/14/2023 7:17 PM EST Patient off unit for CT * Rory Whyte MD - 03/14/2023 6:29 PM EST ED Attending Note HPI: Mady Medellin is a 63 y.o. female with a history of diabetes, pacemaker, COPD, recent hospitalization for influenza who presents to the Emergency Department approximately 1 day history of left lower quadrant abdominal and flank pain. Patient notes she was in general her otherwise normal state ofhealth until this morning when she developed several episodes of diarrhea without evidence of hematochezia or melena. She has symptoms similar to this not infrequently secondary to her metformin. Today it was associated with predominantly left lower quadrant flank pain. She is also noted urinary reyes quency without yao dysuria or hematuria. Pain is radiated to her left flank. Denies any fevers orchills. She has had some nausea but no associated vomiting. No new chest pain or shortness of breath. She has a cough that is been persistent since her influenza admission and is otherwise unchanged.She did attempt treatment with OTC urinary medication without improvement in symptoms. ROS as per HPI Vitals: ED Triage Vitals [03/14/23 1809] BP: 170/83 Heart Rate: 77 Resp: 18 Temp: 37 ??C (98.6 ??F) Temp src: Temporal SpO2: 99 % O2 Device: RA O2 Flow Rate (L/min): n/a Physical Exam Vitals and nursing note reviewed. Constitutional: General: She is not in acute distress. Appearance: She is well-developed. She is not diaphoretic. HENT: Head: Normocephalic and atraumatic. Eyes: Conjunctiva/sclera: Conjunctivae normal. Cardiovascular: Rate and Rhythm: Normal rate and regular rhythm. Heart sounds: Normal heart sounds. Pulmonary: Effort: Pulmonary effort is normal. No respiratory distress. Breath sounds: Normal breath sounds. No wheezing or rales. Abdominal: General: Bowel sounds are normal. There is no distension. Palpations: Abdomen is soft. Comments: Mild tenderness to left lower quadrant without rebound, guarding or other peritoneal signs. Positive CVA tenderness bilaterally left greater than right. Musculoskeletal: Cervical back: Neck supple. Skin: General: Skin is warm and dry. Neurological: Mental Status: She is alert and oriented to person, place, and time. Cranial Nerves: No cranial nerve deficit. ED Course: Labs Reviewed URINALYSIS WITH REFLEX CULTURE - Abnormal; Notable for the following components: Result Value Protein UA 100 (*) pH UA 8.5 (*) Blood UA Large (*) Ketones UA 15 (*) Nitrite UA Positive (*) Leukocytes UA Moderate (*) All other components within normal limits URINALYSIS MICROSCOPIC EXAM - Abnormal; Notable for the following components: RBC UA 20 (*) WBC UA >182 (*) WBCs Clumping Few (*) Bacteria UA Moderate (*) All other components within normal limits HEMOGRAM - Abnormal; Notable for the following components: WBC 14.2 (*) All other components within normal limits DIFFERENTIAL, AUTOMATED - Abnormal; Notable for the following components: Neutr Abs (ANC) 10.86 (*) All other components within normal limits URINE CULTURE CBC (WITH DIFF) BASIC METABOLIC PANEL (NON-FASTING) BLUE TUBE HOLD GOLD TUBE HOLD No orders to display Assessment and Plan: 63 y.o. female with left lower quadrant abdominal pain as well as diarrhea and urinary frequency. Primary considerations include diverticulitis versus UTI versus less likely nephrolithiasis or other intra-abdominal infection. Patient was initially treated with Toradol, IV fluids and Zofran for symptomatic management. Patient was initially hypertensive but otherwise hemodynamically stable throughout her time in the emergency department. Blood pressure normalized after treatment as noted above. Patient had some mild discomfort after treatment but was otherwise clinically well-appearing throughout remainder of my time with her in the emergency department. Initial UA concerning for UTI as well as ketones suggestive of dehydration. She was started on antibiotics with ceftriaxone. CBC notable for leukocytosis to 14, less consistent with a simple cystitis. BMP all within normal limits. CT notable for expected urinary tract infection findings however discussed imaging with the attending radiologist to was concerned that initial read for terminal ileitis was more consistent with a ruptured appendicitis with possible abscess and surrounding reactive changes. Discussed the case with the general surgery service at [facility] who accepted patient in transfer for further evaluation. Antibiotics were broadened with Zosyn. She continued to be clinically well-appearing. Due to surge status in the emergency department, care was signed out to the oncoming team pending formal timing of transfer. Please see their notes for further clinical course and disposition. Rory Whyte MD 03/14/232149 * Sasha Fagan RN - 03/14/2023 6:15 PM EST Patient placed in gown, given warm blanket. Call elena within reach. documented in this encounter Miscellaneous Notes * ED Triage - Sasha Fagan RN - 03/14/2023 6:10 PM EST Patient presents with pain in LLQ of abdomen that radiates to left flank area. Patient reports urinary frequency and states that urine stream is a trickle. Patient reports one episode of vomiting after work today. HPI (Adult) Stated Reason for Visit: Patient presents with pain in LLQ that radiates to left flank area since this morning. History Obtained From: patient Precipitating Event(s): nonadherence with prescribed medical treatment Duration (Days): 1 documented in this encounter Plan of Treatment Upcoming Encounters Date Type Department Care Team (Late st Contact Info) Description 01/05/2024 10:00 AM EST Hospital Encounter Non-[place] [phone] Arrived documented as of this encounter Procedures Procedure Name Priority Date/Time Associated Diagnosis Comments CT ABDOMEN AND PELVIS W CONTRAST STAT 03/14/2023 7:36 PM EST HEMOGRAM STAT 03/14/2023 6:40 PM EST DIFFERENTIAL, AUTOMATED STAT 03/14/2023 6:40 PM EST GOLD TUBE HOLD STAT 03/14/2023 6:40 PM EST BLUE TUBE HOLD STAT 03/14/2023 6:40 PM EST CBC (WITH DIFF) STAT 03/14/2023 6:40 PM EST BASIC METABOLIC PANEL STAT 03/14/2023 6:40 PM EST URINALYSIS MICROSCOPIC EXAM STAT 03/14/2023 6:32 PM EST URINALYSIS WITH REFLEX CULTURE STAT 03/14/2023 6:32 PM EST URINE CULTURE STAT 03/14/2023 6:32 PM EST documented in this encounter Results * CT Abdomen & Pelvis w Contrast (03/14/2023 7:36 PM EST) Anatomical Region Laterality Modality Abdomen, Pelvis Computed Tomogra phy Impressions 03/14/2023 9:17 PM EST 1. ??Acute cystitis with associated acute left ascending pyelitis. 2. ??Focal inflammation in the right lower quadrant involving the terminal ileum cecum and base of the appendix, with small loculated pericecal collection, suspicious for a ruptured base of the appendix with small abscess and associated reactive terminal ileitis. 3. ??Diffuse hepatic steatosis with morphologic changes suggestive of hepatic cirrhosis. This represents a change from the preliminary report. Changes and final impression discussed with Dr. Whyte by Dr. Mg at 2115 hrs on 03/14/2023. I have personally reviewed the image(s) and the resident's interpretation and agree with the findings, Lyndsay Mg MD at 03/14/2023 9:17 PM Thank you for letting us participate in the care of this patient. ??If you are a health care provider and have any questions regarding this report, please contact the number below. ??For patients who have questions please contact the health childcare teacher that requested your imaging first. ? Narrative 03/14/2023 9:17 PM EST EXAMINATION: CT ABDOMEN AND PELVIS W CONTRAST CLINICAL HISTORY: Abdominal abscess/infection suspected; llq abdominal and flank pain TECHNIQUE: Helical CT of the abdomen and pelvis following the intravenous administration of contrast. 80 mL of Omnipaque 350. COMPARISON: Abdominal ultrasound, January 02, 2023 FINDINGS: Lower chest: Partially imaged cardiac leads. Liver: Hepatic steatosis. Enlarged left hepatic lobe and micronodular contour, suggests hepatic cirrhosis. Bile ducts: Not dilated. Gallbladder: No calcified gallstones. No pericholecystic inflammation Pancreas: Mild fatty infiltration. No duct dilation. No peripancreatic inflammation. Spleen: Normal. Adrenals: Normal. Kidneys: Normal right renal enhancement. Right upper pole exophytic and additional sub-5 mm lower pole hypodensities, incompletely characterized but likely renal cysts. No hydronephrosis or hydroureter. Mild left renal edema with slightly delayed left nephrogram. Left pelviectasis with parapelvic enhancement with periureteral enhancement and fluid extending to the urinary bladder. No left renal or obstructing ureteral calculi. Urinary bladder: Minimally distended. Mucosal hyperenhancement and wall thickening with perivesicular stranding. Vasculature: No significant findings. Lymph Nodes: No lymphadenopathy. Bowel: Stomach and small bowel bowel are grossly normal with exception of ill-defined mucosal enhancement of the terminal ileum. There is focal inflammation and evidence of a small focal abscess at the cecum, with surrounding mesenteric stranding and trace fluid. No loculated collection appears to be at the base of the appendix, with findings suspicious for complications of a contained ruptured appendix with abscess. The mid and distal appendix appears normal. Grossly normal appearance of the rest of the large bowel with moderate fecal load. Peritoneum: No free air. Trace left parapelvic and periureteral fluid, an additional right lower quadrant mesenteric stranding with fluid. Small rim-enhancing loculated fluid collection adjacent to the cecum best seen on coronal images measuring approximately 2.7 x 1.4 cm. Collection appears to be at the base of the appendix, suspicious for a contained ruptured appendix with abscess. Abdominal wall: Small fat-containing umbilical hernia. Reproductive organs: Normal. Osseous structures: No acute osseous findings. Procedure Note Lyndsay Mg MD - 03/14/2023 EXAMINATION: CT ABDOMEN AND PELVIS W CONTRAST CLINICAL HISTORY: Abdominal abscess/infection suspected; llq abdominal andflank pain TECHNIQUE: Helical CT of the abdomen and pelvis following theintravenous administration of contrast. 80 mL of Omnipaque 350. COMPARISON: Abdominal ultrasound, January 02, 2023 FINDINGS: Lower chest: Partially imaged cardiac leads. Liver: Hepatic steatosis. Enlarged left hepatic lobe and micronodularcontour, suggests hepatic cirrhosis. Bile ducts: Not dilated. Gallbladder: No calcified gallstones. No pericholecystic inflammation Pancreas: Mild fatty infiltration. No duct dilation. No peripancreatic inflammation. Spleen: Normal. Adrenals: Normal. Kidneys: Normal right renal enhancement. Right upper pole exophytic and additional sub-5 mm lower pole hypodensities, incompletely characterizedbut likely renal cysts. No hydronephrosis or hydroureter. Mild left renal edema with slightly delayed left nephrogram. Leftpelviectasis with parapelvic enhancement with periureteral enhancement and fluidextending to the urinary bladder. No left renal or obstructing ureteral calculi. Urinary bladder: Minimally distended. Mucosal hyperenhancement and wall thickening with perivesicular stranding. Vasculature: No significant findings. Lymph Nodes: No lymphadenopathy. Bowel: Stomach and small bowel bowel are grossly normal with exceptionof ill-defined mucosal enhancement of the terminal ileum. There is focal inflammation and evidence of a small focal abscess at the cecum, with surrounding mesenteric stranding and trace fluid. No loculatedcollection appears to be at the base of the appendix, with findings suspicious for complications of a contained ruptured appendix with abscess. The mid anddistal appendix appears normal. Grossly normal appearance of the rest of thelarge bowel with moderate fecal load. Peritoneum: No free air. Trace left parapelvic and periureteral fluid,an additional right lower quadrant mesenteric stranding with fluid. Small rim-enhancing loculated fluid collection adjacent to the cecum best seenon coronal images measuring approximately 2.7 x 1.4 cm. Collection appears latoya at the base of the appendix, suspicious for a contained ruptured appendixwith abscess. Abdominal wall: Small fat-containing umbilical hernia. Reproductive organs: Normal. Osseous structures: No acute osseous findings. IMPRESSION 1. Acute cystitis with associated acute left ascending pyelitis. 2. Focal inflammation in the right lower quadrant involving the terminalileum cecum and base of the appendix, with small loculated pericecalcollection, suspicious for a ruptured base of the appendix with small abscess andassociated reactive terminal ileitis. 3. Diffuse hepatic steatosis with morphologic changes suggestive ofhepatic cirrhosis. This represents a change from the preliminary report. Changes and final impression discussed with Dr. Whyte by Dr. Mg [id number] hrs on 03/14/2023. I have personally reviewed the image(s) and the resident's interpretationand agree with the findings, Lyndsay Mg MD at 03/14/2023 9:17 PM Thank you for letting us participate in the care of this patient. If youare a health care provider and have any questions regarding this report,please contact the number below. For patients who have questions please contactthe health childcare teacher that requested your imaging first. Rory Whyte MD IMG CT ORDERABLES * Gold Tube HOLD (03/14/2023 6:40 PM EST) Gold Hold Sample in lab. [facility] Blood Venous Draw / Unknown 03/14/2023 6:40 PM EST 03/14/2023 6:54 PM EST Rory Whyte MD CHEMISTRY ORDERABLE S Performing Organization Address [facility]/ZIP Co de Phone Number [facility] [address] [phone] * Blue Tube HOLD (03/14/2023 6:40 PM EST) Blue Hold Sample in lab. [facility] Blood Venous Draw / Unknown 03/14/2023 6:40 PM EST 03/14/2023 6:55 PM EST Rory Whyte MD HEMATOLOGY ORDERABL ES Performing Organization Address [facility]/ZIP Co de Phone Number [facility] [address] [place] [address] * (ABNORMAL) Differential, Automated (03/14/2023 6:40 PM EST) Neutrophil % 76.7 % [facility] Neutrophil Absolute 10.86(H) 1.70 - 6.10 x10(3)/mc L [facility] Lymph % 16.2 % [facility] Lymphocytes Abs 2.3 0.9 - 3.2 x10(3)/mc L [facility] Monocyte % 6.1 % [facility] Monocyte Abs 0.9 0.3 - 0.9 x10(3)/mc L [facility] Eos % 0.6 % [facility] Eosinophils Abs 0.1 0.0 - 0.4 x10(3)/mc L [facility] Basophil % 0.2 % [facility] Baso Absolute 0.0 0.0 - 0.1 x10(3)/mc L [facility] Immature Gran % 0.20 % [facility] Comment: Immature granulocytes(IG's)percentage and absolute count will include metamyelocytes, myelocytes, and promyelocytes. Blood smears from CBCs yielding IG's will be scanned manually for concordance. If this scan disagrees with the automated IG or if promyelocytes are noted, a manual differential will be performed. Immature Gran Absolute 0.03 0.00 - 0.04 x10(3)/mc L [facility] Blood 03/14/2023 6:40 PM EST 03/14/2023 6:45 PM EST Narrative Resulting Agency Comment Spec In Lab Rory Whyte MD HEMATOLOGY ORDERABL ES [facility] [address] [place] [address] * (ABNORMAL) Hemogram (03/14/2023 6:40 PM EST) White Blood Cell 14.2(H) 4.0 - 9.5 x10(3)/mc L [facility] Red Blood Cell 4.99 4.00 - 5.21 x10(6)/mc L [facility] Hemoglobin 13.9 11.7 - 15.5 g/dL [facility] Hematocrit 42.5 35.7 - 45.8 % [facility] Mean Cell Volume 85.2 82.6 - 94.4 fL [facility] Mean Cell Hemoglobin 27.9 27.1 - 32.0 pg [facility] Mean Cell Hemoglobin Concentration 32.7 31.7 - 35.0 g/dL [facility] Platelet 172 145 - 357 x10(3)/mc L [facility] RDW Standard Deviation 39.0 37.0 - 46.0 fL [facility] RDW coefficient of variation 12.5 11.5 - 14.1 % [facility] Mean Platelet Volume 9.3 7.6 - 12.9 fL [facility] Blood 03/14/2023 6:40 PM EST 03/14/2023 6:45 PM EST Narrative Resulting Agency Comment Spec In Lab Rory Whyte MD HEMATOLOGY ORDERABL ES Performing Organization Address [facility] Co de Phone Number [facility] [address] [place] [address] * Basic Metabolic Panel (non-fasting) (03/14/2023 6:40 PM EST) Glucose 146 65 - 199 mg/dL [facility] Comment:Diabetes: >=200 mg/d L plus symptoms Blood Urea Nitrogen 11 8 - 18 mg/dL [facility] Creatinine 0.70 0.70 - 1.20 mg/dL [facility] Sodium 138 135 - 145 mmol/L [facility] Potassium 4.0 3.5 - 5.0 mmol/L [facility] Comment: Please note: ??Patients with WBC >100,000 may have falsely elevated Potassium levels. ??For accurate Potassium quantification in these patients send serum separator tube (gold top) for subsequent determinations. ??Contact the Clinical Chemistry Laboratory if there are any questions. Chloride 101 98 - 107 mmol/L [facility] Carbon Dioxide 23 22 - 31 mmol/L [facility] Anion Gap 14 5 - 15 mmol/L [facility] Calcium 9.4 8.5 - 10.5 mg/dL [facility] Est Glomerular Filtration Rate 97 >=60 mL/min/1.7 3 m?? [facility] Comment: This patient's estimated GFR [...] and symptoms in addition to eGFR. Blood 03/14/2023 6:40 PM EST 03/14/2023 6:45 PM EST Narrative Resulting Agency Comment Spec In Lab Rory Whyte MD CHEMISTRY ORDERABLE S Performing Organization Address [facility] Co de Phone Number [facility] [address] [place] [address] * (ABNORMAL) Urine culture (03/14/2023 6:32 PM EST) Urine Culture Greater than 100,000 cfu/ml Escherichia coli(A) [facility] Organism Escherichia coli(A) [facility] Clean Catch Urine 03/14/2023 6:32 PM EST 03/14/2023 9:58 PM EST Narrative Resulting Agency Comment Spec In Lab Organism Antibiotic Method Susceptibility Escherichia coli Amikacin VITEK 2 METHOD Sensitive Escherichia coli Ampicillin + Sulbactam VITEK 2 METHOD Sensitive Escherichia coli Aztreonam VITEK 2 METHOD Sensitive Escherichia coli Cefazolin VITEK 2 METHOD Sensitive Escherichia coli Cefepime VITEK 2 METHOD <=1: Sensitive Escherichia coli Ceftazidime VITEK 2 METHOD <=1: Sensitive Escherichia coli Ceftriaxone VITEK 2 METHOD Sensitive Escherichia coli Ertapenem VITEK 2 METHOD Sensitive Escherichia coli Gentamicin VITEK 2 METHOD Sensitive Escherichia coli Levofloxacin VITEK 2 METHOD Sensitive Comment: Levofloxacin and Ciprofloxacin may not adequately treat infections in critically ill patients even when isolates test susceptible in the laboratory. Contact Infectious Disease before using in critically ill patients. Escherichia coli Meropenem VITEK 2 METHOD <=0.25: Sensitive Escherichia coli Nitrofurantoin VITEK 2 METHOD Sensitive Escherichia coli Piperacillin/Tazobactam VITEK 2 METHO D <=4: Sensitive Escherichia coli Tetracycline VITEK 2 METHOD Sensitive Escherichia coli Tobramycin VITEK 2 METHOD Sensitive Escherichia coli Trimethoprim/Sulfa VITEK 2 METHOD Sensitive Rory Whyte MD MICROBIOLOGY - [facility] ORDERABLES [facility] [place] [address] * (ABNORMAL) Urinalysis Microscopic Exam (03/14/2023 6:32 PM EST) RBC, Urine 20(H) 0 - 4 /HPF [facility] WBC, Urine >182(H) 0 - 5 /HPF [facility] WBC Clumps, Urine Few(A) None /HPF [facility] Bacteria, Urine Moderate( A) None /HPF [facility] Squamous Epithelial Cells Raw Data, Urine 4 <=4 /HPF [facility] Transitional Epithelial Cells, Urine 1 <=1 /HPF [facility] Clean Catch Urine 03/14/2023 6:32 PM EST 03/14/2023 6:38 PM EST Narrative Resulting Agency Comment Spec In Lab Rory Whyte MD URINE ORDERABLES Performing Organization Address [facility] de Phone Number [facility] [address] [place] [address] * (ABNORMAL) Urinalysis with reflex Culture (03/14/2023 6:32 PM EST) Glucose, Urine Dipstick Negative Negative mg/dL [facility] Protein, Urine Dipstick 100(A) Negative mg/dL [facility] Bilirubin, Urine Dipstick Negative Negative mg/dL [facility] Comment: Clinical correlation required for positive Urine Bilirubin results as false positive may occur with some drugs and drug related products. If a false positive is suspected a serum total bilirubin should be considered if clinically indicated. Urobilinogen, Urine Dipstick Normal Normal mg/dL [facility] pH, Urn (dipstick) 8.5(H) 5.0 - 8.0 [facility] Blood, Urine Dipstick Large(A) Negative mg/dL [facility] Ketone, Urine Dipstick 15(A) Negative mg/dL [facility] Nitrite, Urine Dipstick Positive(A) Negative [facility] Leukocytes, Urine Dipstick Moderate(A) Negative [facility] Appearance, Urine Dipstick Clear Clear [facility] Specific [place] Urine Automated 1.020 1.006 - 1.030 [facility] Color, Urine Dipstick Yellow [facility] Reflex to Culture Yes [facility] Clean Catch Urine 03/14/2023 6:32 PM EST 03/14/2023 6:38 PM EST Narrative Resulting Agency Comment Spec In Lab Rory Whyte MD URINE ORDERABLES Performing Organization Address [facility] Co de Phone Number [facility] [address] [place] [address] documented in this encounter Visit Diagnoses Diagnosis Appendicitis, unspecified appendicitis type documented in this encounter Administered Medications Inactive Administered Medications - up to 3 most recent administrations Medication Order MAR Action Action Date Dose Rate Site cefTRIAXone (Rocephin) 2 g vial attach to sodium chloride 0.9% 50 mL Mini-Bag Plus 2 g, Intravenous, ONCE, 1 dose, On Lilia 03/14/23 at 1902, Administer over 30 Minutes, Indication for (Active or Suspected): Urinary Tract/Pyelonephritis New Bag 03/14/2023 7:12 PM EST 2 g 100 mL/hr iohexoL (Omnipaque) (350 mg/mL) solution 0-200 mL 0-200 mL, Intravenous, ONCE PRN, 1 dose, Starting on Lilia 03/14/23 at 1936, Until Lilia 03/14/23 at 1936, Per Protocol, Warning Vesicant/Irritant Medication , Radiology Contrast, Routine Given 03/14/2023 7:36 PM EST 80 mLs ketorolac (Toradol) (15 mg/mL) injection 15 mg 15 mg, Intravenous, ONCE, 1 dose, On Lilia 03/14/23 at 1831, STAT Given 03/14/2023 6:50 PM EST 15 mg ondansetron (pf) (Zofran) (2 mg/mL) injection 4 mg 4 mg, Intravenous, ONCE, 1 dose, On Lilia 03/14/23 at 1831, STAT Given 03/14/2023 6:48 PM EST 4 mg piperacillin-tazobactam (Zosyn) 4.5 g vial attach to sodium chloride 0.9% 100 mL Mini-Bag Plus 4.5 g, Intravenous, ONCE, 1 dose, On Lilia 03/14/23 at 2140, Administer over 0.5 Hours, Warning Vesicant/Irritant Medication Do not administer or Y-site with lactated ringers., Indication for (Active or Suspected): GI/Intra-abdominal New Bag 03/14/2023 10:21 PM EST 4.5 g 200 mL/hr sodium chloride 0.9% 500 mL IV bolus Intravenous, ONCE, 1 dose, On Lilia 03/14/23 at 1831 New Bag 03/14/2023 6:46 PM EST documented in this encounter Active and Recently Administered Medications Times are shown in EST. Scheduled Medication Order 03/12/2023 03/13/2023 03/14/2023 cefTRIAXone (Rocephin) 2 g vial attach to sodium chloride 0.9% 50 mL Mini-Bag Plus (COMPLETED) 2 g, Intravenous, ONCE, 1 dose, On Lilia 03/14/23 at 1902, Administer over 30 Minutes, Indication for (Active or Suspected): Urinary Tract/Pyelonephritis 191 (New Bag - Prov ider: Sasha Fagan RN)194 (Stopped - Provider: Sasha Fagan RN - Comment: 50 ml infusion completed) ketorolac (Toradol) (15 mg/mL) injection 15 mg (COMPLETED) 15 mg, Intravenous, ONCE, 1 dose, On Lilia 24 at 1831, STAT 1850 (Given - Provid er: Sasha Fagan RN) ondansetron (pf) (Zofran) (2 mg/mL) injection 4 mg (COMPLETED) 4 mg, Intravenous, ONCE, 1 dose, On Lilia 24 at 1831, STAT 1848 (Given - Provid er: Sasha Fagan RN) piperacillin-tazobactam (Zosyn) 4.5 g vial attach to sodium chloride 0.9% 100 mL Mini-Bag Plus (COMPLETED) 4.5 g, Intravenous, ONCE, 1 dose, On Lilia 03/14/23 at 2140, Administer over 0.5 Hours, Warning Vesicant/Irritant Medication Do not administer or Y-site with lactated ringers., Indication for (Active or Suspected): GI/Intra-abdominal 2220 (New Bag - Prov ider: Tammie Gaston RN)225 (Stopped - Provider: Tammie Gaston RN) sodium chloride 0.9% 500 mL IV bolus (COMPLETED) Intravenous, ONCE, 1 dose, On Lilia 24 at 1831 1846 (New Bag - Prov ider: Sasha Fagan RN)1953 (Stopped - Provider: Sasha Fagan RN - Comment: 500 ml bolus completed) PRN Medication Order 03/12/2023 03/13/2023 03/14/2023 iohexoL (Omnipaque) (350 mg/mL) solution 0-200 mL (COMPLETED) 0-200 mL, Intravenous, ONCE PRN, 1 dose, Starting on Lilia 03/14/23 at 1936, Until Lilia 03/14/23 at 1936, Per Protocol, Warning Vesicant/Irritant Medication , Radiology Contrast, Routine 1935 (Given - Provid er: Deniz Valero) documented in this encounter Care Teams Blood Bank Manager Relationship Specialty Start Date End Date Anna Bonds APRN [address] [place] [address] PCP - General Family Medicine 11/21/18 documented as of this encounter
--- OUTSIDE RECORDS SUMMARY | 2023-12-06 17:15 | XMS_ITS | Encounter Summary ---
Author Organization [facility] Address [facility] [place] [address] Care Team Providers Care Supervisor Plasma Name Role Phone Anna Bonds APRN Primary Care Provider [phone] Reason for Visit * Consultation (Routine) - Closed Specialty Diagnoses / Procedures Referred By Contac t Referred To Contact Dermatology Diagnoses Skin lesion Anna Bonds APRN [address] [place] [address] [facility] [address] [place] [address] Referral ID Status Reason Start Date Expiration Date V isits Requested Visits Authorized [id number] Closed Consult, Test & Treat PCP Updated and/or Approved 10/26/2021 10/26/2022 12 12 Encounter Details Date Type Department Care Team (Late st Contact Info) Description 02/01/2022 10:00 AM EST Office Visit Dermatology at [facility] [address] [place] [address] Aden Turner MD [facility] [place] [address] [place] (actinic keratosis) Social History Tobacco Use Types Packs/Day Years Used Date Smoking Tobacco: Every Day Smokeless Tobacco: Never Sex and Gender Information Value Date Recorded Sex Assigned at Female 06/14/2023 1:27 PM EDT Gender Identity Female 06/14/2023 1:27 PM EDT Sexual Orientation Straight 06/14/2023 1: 27 PM EDT documented as of this encounter Progress Notes * Aden Turner MD - 02/01/2022 10:00 AM EST Images from the original note were not included. DEPARTMENT OF DERMATOLOGY Medical Dermatology Clinic Note Provider: Aden Turner MD Patient's preferred name Lizette Preferred contact method for results [x]Phone []myD-H []Letter Detailed phone message OK? Yes Are there any other people with whom we may discuss your care? Magi Medellin Past Medical History Date, location, treatment Melanoma N Dysplastic nevi N SCC N BCC N AKs N Other relevant past medical history N Family History Details Melanoma N NMSC N Other relevant family history N Social History Occupation: [employer] Pre-Procedure Questions Details Allergy to lidocaine, epinephrine, Dermabond, chlorhexidine, or adhesives N Bleeding disorder or blood thinners N Implanted devices (Pacemaker, defibrillator, deep brain stimulator, cochlear implant) Pacemaker History of Present Illness: Mady Medellin is a 61 y.o. Patient is referred to the clinic at the request of Anna Bonds for a concerning spot on the right cheek, present for about a year, it was larger, about the size of a dime, now it is smaller, it was crusty previously, not symptomatic Review of Systems: General: Feeling well. Skin: No other skin concerns. Medications: Reviewed in eD-H Allergies: Reviewed in eD-H Skin Examination: Focused skin examination of the face was normal with the exception of the findings below. Assessment/Plan # Actinic keratosis - Ill-defined gritty papule(s) on the right cheek x 1 - Explained etiology, natural history and premalignant potential of these lesions. - Patient opted to proceed with liquid nitrogen. - Patient should return to return to clinic for re-evaluation if lesion(s) does not resolve with this treatment. Procedure: Destruction of lesion(s) with cryotherapy. Location(s): As noted above Number: 1 Discussed procedure and expectations including risks and benefits. Verbal consent obtained. Treatedwith LN2. There were no complications. Patient tolerated the procedure well. Post-procedure expectations and wound care were reviewed. RTC: 1 year for full skin exam []Note routed to departmental secretary [x]Recall placed in scheduling system []Appointment scheduled at checkout Scribe attestation: Bulmaro Simmons [facility] has performed the documentation for this encounter in the presence of and acting as a scribe for Aden Turner MD. I performed the above scribed service and agree with the accuracy of the documentation in this encounter. Reviewed and signed by: Aden Turner MD Dermatology [facility] Patient seen and evaluated with staff service captain: Erlinda Munguia MD Department of Dermatology [facility] * Erlinda Munguia MD - 02/01/2022 10:00 AM EST I directly supervised the resident during this office visit. The resident physician presented the history and physical exam to me. I then saw and examined this patient with the resident. We reviewed the history and pertinent details and I confirmed the physical exam findings. I agree with the details of the history and physical exam as documented in the resident physician's note. Erlinda Munguia MD Staff Physician [facility] Dermatology documented in this encounter Plan of Treatment Upcoming Encounters Date Type Department Care Team (Late st Contact Info) Description 01/05/2024 10:00 AM EST Hospital Encounter [place] [address] Arrived Scheduled Referrals Name Type Priority Associated Diagnoses Order Schedule Referral to Dermatology Outpatient Referral Routine Skin lesion Ordered: 10/26/2021 documented as of this encounter Visit Diagnoses Diagnosis AK (actinic keratosis) Actinic keratosis documented in this encounter Care Teams Supervisor Plasma Relationship Specialty Start Date End Date Anna Bonds APRN [address] [place] [address] PCP - General Family Medicine 11/21/18 documented as of this encounter
--- OUTSIDE RECORDS SUMMARY | 2023-12-06 17:16 | XMS_ITS | Encounter Summary ---
Author Organization [facility] [place] [address] Care Team Providers Care Finish Patcher Name Role Phone Anna Bonds APRN Primary Care Provider [phone] Encounter Details Date Type Department Care Team (Latest Contact Info) Description 10/25/2021 1:38 PM EDT - 10/25/2021 11:59 PM EDT Hospital Encounter Mammography/[place] [address] Anna Bonds APRN [address] [place], [place] [address] Visit for screening mammogram Discharge Disposition: Home Social History Tobacco Use [...] AM EST Hospital Encounter Non[place] [address] Arrived documented as of this encounter Procedures Procedure Name Priority Date/Time Associated Diagnosis Comments MAMMO SCREENING CAD AND ROSANA BILATERAL Routine 10/25/2021 2:10 PM EDT Visit for screening mammogram documented in this encounter Results * Mammo Screening Cad and Rosana Bilateral [...] MD Anna Bonds APRN IMG MAMMO ORDERABLES documented in this encounter Visit Diagnoses Diagnosis Visit for screening mammogram Other screening mammogram documented in this encounter Care Teams Finish Patcher Relationship Specialty Start Date End Date Anna Bonds APRN [address] [place] [address] PCP - General Family Medicine 11/21/18 documented as of this encounter
--- OUTSIDE RECORDS SUMMARY | 2023-12-06 17:16 | XMS_ITS | Encounter Summary ---
Author Organization [facility] [place] [address] Care Team Providers Care Automobile Club Information Clerk Name Role Phone Najma Valladares APRN Primary Care Provider [phone] Encounter Details Date Type Department Care Team (Late st Contact Info) Description 11/10/2018 Ancillary Procedure Radiology Library at [facility] [place] [address] Anna Bonds APRN [address] [place] [address] Social History Tobacco Use Types Packs/Day Years [...] AM EST Hospital Encounter Non-Invasive Cardiology Lab [facility] [place] [address] Arrived documented as of this encounter Procedures Procedure Name Priority Date/Time Associated Diagnosis Comments FILM LIBRARY STORAGE ONLY MAMMO Routine 11/10/2018 12:00 AM EDT documented in this encounter Results * Film Library- Storage Only Mammo (11/10/2018 12:00 AM EDT) Narrative CALVIN SANDERSON - 10/18/2021 12:43 PM EDT This exam is auto-finalizing. It's purpose is for storage only. Anna Bonds APRN [facility]ivek FILM LIBRARY ORD ERABLES MARIA E [place] documented in this encounter Visit Diagnoses Not on filedocumented in this encounter Care Teams Automobile Club Information Clerk Relationship Specialty Start Date End Date Najma Valladares APRN PCP - General 05/15/10 11/20/18 documented as of this encounter
--- OUTSIDE RECORDS SUMMARY | 2023-12-06 17:16 | XMS_ITS | Encounter Summary ---
Author Organization [facility] [place] [address] Care Team Providers Care Aviation Maintenance Technician Name Role Phone Anna Bonds APRN Primary Care Provider [phone] Reason for Visit * Reason Comments Routine Foot Care Encounter Details Date Type Department Care Team (Late st Contact Info) Description 04/04/2021 9:00 AM EST [place] [address] Taylor Ponce DPM [facility] [place] [address] Pain in toes of both feet; Onychocryptosis; Onychauxis Social History Tobacco Use Types Packs/Day Years Used Date Smoking Tobacco: Every Day Smokeless Tobacco: Never Sex and Gender Information Value Date Recorded Sex Assigned at Female 06/14/2023 1:27 PM EDT Gender Identity Female 06/14/2023 1:27 PM EDT Sexual Orientation Straight 06/14/2023 1: 27 PM EDT documented as of this encounter Progress Notes * Taylor Ponce DPM - 04/04/2021 9:00 AM EST Outpatient Foot Care Clinic Note Name: Mady Medellin Age:61 y.o. MR#: [id number] Date of Service: 04/04/2021 SUBJECTIVE: Mady Medellin is a 61 y.o. female Struve diabetes who returns to clinic with chief complaint of painful both great toes. Patient relates relief with previous debridement. Ingrown nailsaffecting defers chemical matrixectomy for now. Patient has a history of recurrent onychocryptosis/discomfort. No redness, swelling, discharge, pus, or other sites of involvement. No other pedal complaints today. Allergies Allergen Reactions ??? Penicillins No past medical history on file. Social History Socioeconomic History ??? Marital status: Spouse name: Not on file ??? Number of children: Not on file ??? Years of education: Not on file ??? Highest education level: Not on file Occupational History ??? Not on file Tobacco Use ??? Smoking status: Current Every Day Smoker ??? Smokeless tobacco: Never Used Vaping Use ??? Vaping Use: Never used Substance and Sexual Activity ??? Alcohol use: Not on file ??? Drug use: Not on file ??? Sexual activity: Not on file Other Topics Concern ??? Not on file Social History Narrative ??? Not on file Social Determinants of Health Financial Resource Strain: Not on file Food Insecurity: Not on file Transportation Needs: Not on file Physical Activity: Not on file Housing Stability: Not on file No family history on file. Current Outpatient Medications on File Prior to Visit Medication Sig Dispense Refill ??? atorvastatin (Lipitor) 40 mg Tablet Take 40 mg by mouth daily. ??? SITagliptin (Januvia) 100 mg Tablet Take 100 mg by mouth daily. ??? lisinopriL (Zestril) 5 mg Tablet Take 10 mg by mouth daily. ??? albuteroL 90 mcg/actuation HFA Aerosol Inhaler Inhale 2 puffs into the lungs every 4 hours as needed for Wheezing. Use with spacer ??? metFORMIN (GLUCOPHAGE) 850 mg Tablet Take 500 mg by mouth 2 times daily. 1 No current facility-administered medications on file prior to visit. ROS: MSK: + pain in toes SKIN: + Ingrown nails + thickened nails The remainder of 10 ROS were reviewed and negative. EXAMINATION GEN: Appears well, NAD, AAOx3. DERM: Bilateral hallux nail plates severely incurvated, thickened, dystrophic with no signs of acute infection. No increased warmth. No drainage. No purulence. No erythema or streaking. Skin dry and intact bilaterally. No open lesions. VASC: Pedal pulses palpable. No pallor. No color changes. No edema. No rest pain. No calf pain. Capillary refill adequate. NEURO: Epicritic sensation intact to light touch bilaterally. Protective sensation 10 out of 10 bilaterally. MSK: Severe pain on palpation bilateral hallux bilateral margins. No other sites of palpable pain. ASSESSMENT: Onychocryptosis bilateral hallux causing severe discomfort in a diabetic-uninfected PLAN: Patient reexamined. Reiterated condition and treatment options. Patient defers chemical matrixectomy, discussed if she reconsiders to contact clinic. Advised slantback/nail debridement today. Patientin agreement. Following verbal consent and application of alcohol swab, ethyl chloride spray and topical lidocaine slant back performed bilateral hallux with nail debrided using sterile nail nippers.Ingrown nail margins removed as tolerated. No evidence of acute ingrown nail infection. Signs and symptoms of infection reiterated. If any worsening contact clinic. Answered all questions. Patient verbalized understanding of all instructions. Taylor Ponce DPM Lodge Officer, [facility] documented in this encounter Plan of Treatment Upcoming Encounters Date Type Department Care Team (Late st Contact Info) Description 01/05/2024 10:00 AM EST Hospital Encounter [place] [address] Arrived documented as of this encounter Visit Diagnoses Diagnosis Pain in toes of both feet Onychocryptosis Ingrowing nail Onychauxis Other specified disease of nail documented in this encounter Care Teams Aviation Maintenance Technician Relationship Specialty Start Date End Date Anna Bonds APRN [address] [place] [address] PCP - General Family Medicine 11/21/18 documented as of this encounter
--- OUTSIDE RECORDS SUMMARY | 2023-12-06 17:16 | XMS_ITS | Encounter Summary ---
Author Organization [facility] Address [facility] [place] [address] Care Team Providers Care Hospitality Aide Name Role Phone Anna Bonds APRN Primary Care Provider [phone] Reason for Referral * Consultation (Routine) - Closed Specialty Diagnoses / Procedures Referred By Contac t Referred To Contact Dermatology Diagnoses Skin lesion Anna Bonds APRN [address] [place] [address] [facility] [address] [address] Referral ID Status Reason Start Date Expiration Date V isits Requested Visits Authorized [id number] Closed Consult, Test & Treat PCP Updated and/or Approved 10/26/2021 10/26/2022 12 12 Encounter Details Date Type Department Care Team (Late st Contact Info) Description 10/26/2021 Transcribe Orders eDH Incoming Referrals [phone] Anna Bonds APRN [address] [place] [address] Skin lesion Social History Tobacco Use Types Packs/Day Years [...] AM EST Hospital Encounter Non-[place] [address] Arrived Scheduled Referrals Name Type Priority Associated Diagnoses Order Schedule Referral to Dermatology Outpatient Referral Routine Skin lesion Ordered: 10/26/2021 documented as of this encounter Visit Diagnoses Diagnosis Skin lesion Unspecified disorder of skin and subcutaneous tissue documented in this encounter Care Teams Hospitality Aide Relationship Specialty Start Date End Date Anna Bonds APRN [address] [place] [address] PCP - General Family Medicine 11/21/18 documented as of this encounter
--- OUTSIDE RECORDS SUMMARY | 2023-12-06 17:16 | XMS_ITS | Encounter Summary ---
Author Organization [facility] [place] [address] Care Team Providers Care Aeroplane Pilot Name Role Phone Anna Bonds APRN Primary Care Provider [phone] Encounter Details Date Type Department Care Team (Late st Contact Info) Description 10/24/2021 10:30 AM EDT Office [place] [address] Nina Quiles, RN DM type 2 with diabetic peripheral neuropathy; Onychocryptosis; Onychauxis Social History Tobacco Use Types Packs/Day Years Used Date Smoking Tobacco: Every Day Smokeless Tobacco: Never Sex and Gender Information Value Date Recorded Sex Assigned at Female 06/14/2023 1:27 PM EDT Gender Identity Female 06/14/2023 1:27 PM EDT Sexual Orientation Straight 06/14/2023 1: 27 PM EDT documented as of this encounter Progress Notes * Nina Quiles RN - 10/24/2021 10:30 AM EDT [facility] Note ?? Name: Mady Haines Age: 61 y.o.. MR#: [id number] Date last seen by PCP/Endocrinology: Date of Service: 10/24/2021 Seen by on 07/25/21 ?? Chief Complaint: difficult to trim toenails and routine DM foot care ?? HPI: Mady Haines is a 61 y.o.. year old diabetic female with peripheral neuropathy who returns today for nail care. Per 's last note: diabetic with severely symptomatic ingrown nails on both feet particularly great toes with difficulty to trim causing discomfort. ?? ROS: Denies F/C/N/V/CP/SOB/cough. ?? Patient's medications, allergies, past medical, surgical, social and family histories were reviewedand updated as appropriate. ? Physical Exam: ?? Gen: alert, oriented. NAD. Derm: Nails are thickened, dystrophic, discolored and elongated. No interdigital macerations. No erythema or ecchymosis noted. No evidence of hyperkeratotic lesions or open lesions. Skin is warm, dryand supple. Vasc: DP/PT pulses palpable. CFT < 3 seconds digits 1-5 bilateral. Hair absent to digits bilateral. Neuro: Epicritic sensation intact to light touch bilateral. Protective sensation MSK: Independent ambulatory. ?? Assessment/Plan: Mady Haines is a 61 y.o.. year old diabetic female with peripheral neuropathy and symptomatic ingrown hallux nails. Uninfected. Onychauxis of other nails. ?? Procedure: Performed trimming and debridement of 10 dystrophic nails without incident. Follow up: Every 2-3 months for routine foot care, sooner should issues arise. To be scheduled with for possible Chemical Matrixectomy. ?? documented in this encounter Plan of Treatment Upcoming Encounters Date Type Department Care Team (Late st Contact Info) Description 01/05/2024 10:00 AM EST Hospital Encounter Non-[place]vasive [place] [address] Arrived documented as of this encounter Visit Diagnoses Diagnosis DM type 2 with diabetic peripheral neuropathy Type II or unspecified type diabetes mellitus with neurological manifestations, not stated as uncontrolled Onychocryptosis Ingrowing nail Onychauxis Other specified disease of nail documented in this encounter Care Teams Aeroplane Pilot Relationship Specialty Start Date End Date Anna Bonds APRN [address] [place] [address] PCP - General Family Medicine 10/11/19 documented as of this encounter
--- OUTSIDE RECORDS SUMMARY | 2023-12-06 17:16 | XMS_ITS | Encounter Summary ---
Author Organization [facility] [place] [address] Care Team Providers Care Warp Starter Name Role Phone Anna Bonds APRN Primary Care Provider [phone] Encounter Details Date Type Department Care Team (Late st Contact Info) Description 12/01/2019 Ancillary Procedure Radiology Library at [facility] [place] [address] Anna Bonds APRN [address] [place], [place] [address] Social History Tobacco Use Types Packs/Day Years [...] AM EST Hospital Encounter Non-Invasive Cardiology Lab [facility] [place] [address] Arrived documented as of this encounter Procedures Procedure Name Priority Date/Time Associated Diagnosis Comments FILM LIBRARY STORAGE ONLY MAMMO Routine 12/01/2019 12:00 AM EDT documented in this encounter Results * Film Library- Storage Only Mammo (12/01/2019 12:00 AM EDT) Narrative MARIA E - 10/18/2021 12:43 PM EDT This exam is auto-finalizing. It's purpose is for storage only. Anna Bonds APRN [employer] FILM LIBRARY ORD ERABLES MARIA E [place], [place] documented in this encounter Visit Diagnoses Not on filedocumented in this encounter Care Teams Warp Starter Relationship Specialty Start Date End Date Anna Bonds APRN [address] [place] [address] PCP - General Family Medicine 11/21/18 documented as of this encounter
--- OUTSIDE RECORDS SUMMARY | 2023-12-06 17:16 | XMS_ITS | Encounter Summary ---
Author Organization [facility] Address [facility] [place] [address] Care Team Providers Care Referral Coordinator Name Role Phone Anna Bonds APRN Primary Care Provider [phone] Reason for Visit * Reason Comments Ingrown Toenail * Consultation (Routine) - Closed Specialty Diagnoses / Procedures Referred By Marita cabral Referred To Contact Podiatry Diagnoses Ingrowing nail Anna Bonds APRN [address] [place] [address] [facility] [place] [address] Referral ID Status Reason Start Date Expiration Date V isits Requested Visits Authorized [id number] Closed Consult, [facility] PCP Updated and/or Approved 07/19/2020 07/19/2021 12 12 Encounter Details Date Type Department Care Team (Late st Contact Info) Description 10/10/2020 9:30 AM EDT Office [place] [phone] Taylor Ponce DPM [facility] [place] [address] Onychocryptosis; Pain in toes of both feet; Type 2 diabetes mellitus without complication, unspecified whether mcfp insulin use Social History Tobacco Use Types Packs/Day Years Used Date Smoking Tobacco: Every Day Smokeless Tobacco: Never Sex and Gender Information Value Date Recorded Sex Assigned at Female 06/14/2023 1:27 PM EDT Gender Identity Female 06/14/2023 1:27 PM EDT Sexual Orientation Straight 06/14/2023 1: 27 PM EDT documented as of this encounter Patient Instructions * Patient Instructions* Taylor Ponce, TERRA - 10/10/2020 9:30 AM EDT Images from the original note were not included. Patient Education Ingrown Toenail: Care Instructions Your Care Instructions An ingrown toenail often occurs because a nail is not trimmed correctly or because shoes are too tight. An ingrown nail can cause an infection. If your toe is infected, your doctor may prescribe antibiotics. Most ingrown toenails can be treated at home. You should trim toenails straight across, so the ends of the nail grow over the skin and not into it. Good nail care can prevent ingrown toenails. Follow-up care is a pearson part of your treatment and safety. Be sure to make and go to all appointments, and call your doctor if you are having problems. It's also a good idea to know your test resultsand keep a list of the medicines you take. How can you care for yourself at home? ?? Trim the nails straight across. Leave the corners a little longer so they do not cut into the skin. To do this when you have an ingrown nail: ? Soak your foot in warm water for about 15 minutes to soften the nail. ? Wedge a small piece of wet cotton under the corner of the nail to cushion the nail and lift it slightly. This keeps it from cutting the skin. ? Repeat daily until the nail has grown out and can be trimmed. ?? Do not use manicure scissors to dig under the ingrown nail. You might stab your toe, which couldget infected. ?? Do not trim your toenails too short. ?? Check with your doctor before trimming your own toenails if you have been diagnosed with diabetes or peripheral arterial disease. These conditions increase the risk of an infection, because you may have decreased sensation in your toes and cut yourself without knowing it. ?? Wear roomy, comfortable shoes. ?? If your doctor prescribed antibiotics, take them as directed. Do not stop taking them just because you feel better. You need to take the full course of antibiotics. When should you call for help? Call your doctor now or seek immediate medical care if: ? You have signs of infection, such as: ? Increased pain, swelling, warmth, or redness. ? Red streaks leading from the toe. ? Pus draining from the toe. ? A fever. Watch closely for changes in your health, and be sure to contact your doctor if: ? You do not get better as expected. Where can you learn more? Visit our Make My plate information library at [email or web address] You can also view health information on Touch[employer], your personal patient account. Log in or sign uptoday. Enter R135 in the search box to learn more about Ingrown Toenail: Care Instructions. Current as of: April 13, 2020?Content Version: 12.9 ?? [id number] [employer]. Care instructions adapted under license by [facility]. If you have questions about a medical condition or this instruction, always ask your healthcare professional. [employer] disclaims any warranty or liability for your use of this information. documented in this encounter Progress Notes * Taylor Ponce DPM - 10/10/2020 9:30 AM EDT Outpatient Foot Care Clinic Note Name: Mady Medellin Age:60 y.o. MR#: [id number] Date of Service: 10/10/2020 SUBJECTIVE: Mady Medellin is a 60 y.o. female diabetic who presents to the clinic today with chief complaint of pain affecting both great toes. Patient relates history of ingrown nails. Relates difficulty in trimming nails herself. Relates moderate to severe pain to both sites with direct pressure. No redness, discharge, pus, odors, open wounds, or other recent changes. No other pedal complaints. No constitutional symptoms reported. Allergies Allergen Reactions ??? Penicillins No past [...] Social Determinants of Health Financial Resource Strain: ??? Difficulty of Paying Living Expenses: Not on file Food Insecurity: ??? Worried About Running Out of Food in the Last Year: Not on file ??? Ran Out of Food in the Last Year: Not on file Transportation Needs: ??? Lack of Transportation (Medical): Not on file ??? Lack of Transportation (Non-Medical): Not on file Physical Activity: ??? Days of Exercise per Week: Not on file ??? Minutes of Exercise per Session: Not on file No family history on file. Current Outpatient Medications on File Prior to Visit Medication Sig Dispense Refill ??? atorvastatin (Lipitor) 40 mg Tablet Take 40 mg by mouth daily. ??? SITagliptin (Januvia) 100 mg Tablet Take 100 mg by mouth daily. ??? lisinopriL (Zestril) 5 mg Tablet Take 5 mg by mouth daily. ??? albuteroL 90 mcg/actuation HFA Aerosol Inhaler Inhale 2 puffs into the lungs every 4 hours as needed for Wheezing. Use with spacer ??? metFORMIN (GLUCOPHAGE) 850 mg Tablet Take 850 mg by mouth every morning. 1 No current facility-administered medications on file prior to visit. ROS: MSK: + Toe pain SKIN: + Nail changes The remainder of 10 ROS were reviewed and negative. EXAMINATION GEN: Patient is in no acute distress, alert, awake DERM: Skin intact and dry with no open lesions or macerations appreciated. Bilateral hallux severely incurvated nail plate with no signs of acute infection. + Skin impingement with no open wounds. Skin to bilateral hallux fragile and at risk of breakdown. Remaining digits stable. Hair growth present. Temperature gradient within normal limits. No apparent increased warmth to the affected side. No signs of infection bilaterally. Interspaces 1-4 bilaterally dry and intact with no evidence of fungal/bacterial infection. VASC: Dorsalis pedis + 2/4 bilaterally and posterior tibial pulse + 2/4 bilaterally. Capillary refill 3 seconds to all digits. No significant edema noted. No rest pain. No color changes. NEURO: Epicritic sensation intact to light touch bilaterally. MSK: Severe tenderness on exam bilateral hallux bilateral margins. No other sites of palpable pain.Ambulatory. Active range of motion noted of lower extremities. ASSESSMENT: Onychocryptosis bilateral hallux causing severe discomfort in a diabetic-uninfected PLAN: Patient evaluated with condition and treatment options for management discussed at length. Discussed importance of monitoring for any worsening. Signs and symptoms of infection reviewed. No evidence of infection today, however explained to patient she is at risk of infection and skin breakdown. Seek prior medical care if any worsening or recurrence. Following verbal consent and application of alcohol swab, topical lidocaine and ethyl chloride spray slant back performed bilateral hallux as tolerated. Soaked site in Vashe antibacterial wound cleanser and covered with Iodosorb and Band-Aid. Patient directed to continue with antibacterial and Band-Aid for next 1 week. Consider chemical matrixectomy for long-term relief, however increased risk of complications secondary to diabetes. Advised annual podiatric diabetic foot exam. Prevention information/education added to AVS today. Answered allquestions. Patient verbalized understanding of all instructions. FOLLOW UP: As needed Taylor Ponce DPM Tool Or Die Drawing Checker, [facility] documented in this encounter Plan of Treatment Upcoming Encounters Date Type Department Care Team (Late st Contact Info) Description 01/05/2024 10:00 AM EST Hospital Encounter Non-[place] [address] Arrived documented as of this encounter Visit Diagnoses Diagnosis Onychocryptosis Ingrowing nail Pain in toes of both feet Type 2 diabetes mellitus without complication, unspecified whether mcfp insulin use documented in this encounter Care Teams Referral Coordinator Relationship Specialty Start Date End Date Anna Bonds APRN [address] [place] [address] PCP - General Family Medicine 11/21/18 documented as of this encounter
--- OUTSIDE RECORDS SUMMARY | 2023-12-06 17:16 | XMS_ITS | Encounter Summary ---
Author Organization [facility] Address [facility] [place] [address] Care Team Providers Care Electrical Prospecting Observer Name Role Phone Najma Valladares APRN Primary Care Provider [phone] Encounter Details Date Type Department Care Team (Late st Contact Info) Description 09/19/2013 Telephone ZLEB [address] [place] [address] Leonardo Beauchamp MD [facility] [place] [address] Social History Tobacco Use Types Packs/Day Years Used Date Smoking Tobacco: Never Assessed Sex and Gender Information Value Date Recorded Sex Assigned at Female 06/14/2023 1:27 PM EDT Gender Identity Female 06/14/2023 1:27 PM EDT Sexual Orientation Straight 06/14/2023 1: 27 PM EDT documented as of this encounter Miscellaneous Notes * Telephone Encounter - Leonardo Beauchamp - 09/19/2013 6:30 PM EDT Initial Contact Date: 09/19/2013 Initial contact time: 0:830AM Patient Location: [facility] Past Medical History: None Presenting Symptoms per OSH: Back pain. No chest pain, dyspnea, fatigue. No lyme-like symptoms Pertinent Diagnostic Findings: ECG reviewed. Sinus rhythm with 2:1 block, CT interval 250ms. QRS narrow, no IVCD or bundle branch block. Plan: They will admit her for telemetry, exercise stress test, lyme titer. They will admit her and if necessary, will put pacemaker in there. documented in this encounter Plan of Treatment Upcoming Encounters Date Type Department Care Team (Late st Contact Info) Description 01/05/2024 10:00 AM [facility] Hospital Encounter Non-[place]vasive [place] [address] Arrived documented as of this encounter Visit Diagnoses Not on filedocumented in this encounter Care Teams Electrical Prospecting Observer Relationship Specialty Start Date End Date Najma Valladares APRN PCP - General 05/15/10 11/20/18 documented as of this encounter
--- OUTSIDE RECORDS SUMMARY | 2023-12-06 17:16 | XMS_ITS | Encounter Summary ---
Author Organization [facility] [place] [address] Care Team Providers Care Electronic Semiconductor Processor Name Role Phone Unavailable Primary Care Provider Unavailabl e Encounter Details Date Type Department Care Team (Late st Contact Info) Description 05/06/2009 Ancillary Procedure Radiology Library at [facility] [place] [phone] Anna Bonds APRN [address] [place] [address] Social History Tobacco Use Types Packs/Day Years [...] AM EST Hospital Encounter Non-Invasive Cardiology Lab [facility] [place] [address] Arrived documented as of this encounter Procedures Procedure Name Priority Date/Time Associated Diagnosis Comments FILM LIBRARY STORAGE ONLY MAMMO Routine 05/06/2009 12:00 AM EDT documented in this encounter Results * Film Library- Storage Only Mammo (05/06/2009 12:00 AM EDT) Narrative [facility] - 10/18/2021 12:44 PM EDT This exam is auto-finalizing. It's purpose is for storage only. Anna Bonds APRN Vivek FILM LIBRARY ORD ERABLES Performing Organization Address City/State/[facility] Co de Phone Number [place], [place] documented in this encounter Visit Diagnoses Not on filedocumented in this encounter
--- OUTSIDE RECORDS SUMMARY | 2023-12-06 17:16 | XMS_ITS | Encounter Summary ---
Author Organization [facility] [place] [address] Care Team Providers Care Wax Ball Knock Out Worker Name Role Phone Carol Garvey MD Primary Care Provider [phone] Encounter Details Date Type Department Care Team (Late st Contact Info) Description 05/08/2010 Ancillary Procedure Radiology Library at [facility] [place] [address] Anna Bonds APRN [address] [place] [address] Social History Tobacco Use Types Packs/Day Years [...] AM EST Hospital Encounter Non-Invasive Cardiology Lab [facility] [place] [address] Arrived documented as of this encounter Procedures Procedure Name Priority Date/Time Associated Diagnosis Comments FILM LIBRARY STORAGE ONLY MAMMO Routine 05/08/2010 12:00 AM EDT documented in this encounter Results * Film Library- Storage Only Mammo (05/08/2010 12:00 AM EDT) Narrative [facility] - 10/18/2021 12:43 PM EDT This exam is auto-finalizing. It's purpose is for storage only. Anna Bonds APRN IMG FILM LIBRARY ORD ERABLES MARIA E [place], [place] documented in this encounter Visit Diagnoses Not on filedocumented in this encounter Care Teams Wax Ball Knock Out Worker Relationship Specialty Start Date End Date Carol Garvey MD [address] [place] [address] PCP - General 01/03/10 05/14/10 documented as of this encounter
--- OUTSIDE RECORDS SUMMARY | 2023-12-06 17:16 | XMS_ITS | Encounter Summary ---
Author Organization [facility] Address [facility] [place] [address] Care Team Providers Care Agency Sales Director Name Role Phone Najma Valladares APRN Primary Care Provider [phone] Reason for Visit * Reason Comments Psoriasis Encounter Details Date Type Department Care Team (Late st Contact Info) Description 05/15/2010 11:00 AM EDT Office Visit Dermatology [address] [place] [address] [address] [place] [address] Michael Ding MD [address], [place] [address] Psoriasis vulgaris (Primary Dx) Social History Tobacco Use Types Packs/Day Years Used Date Smoking Tobacco: Never Assessed Sex and Gender Information Value Date Recorded Sex Assigned at Female 06/14/2023 1:27 PM EDT Gender Identity Female 06/14/2023 1:27 PM EDT Sexual Orientation Straight 06/14/2023 1: 27 PM EDT documented as of this encounter Progress Notes * Michael Ding MD - 05/15/2010 11:39 AM EDT CLARIFICATION, BLANK Problem: Followup psoriasis. Mady is a 50-year-old woman whom I last saw in 1998 and treated for what appeared to be a single patch of lichen simplex chronicus on her right medial lower leg/upper ankle. I gave her some cortisone ointment for this. She states that about a year ago she developed a new rash on her elbows, knees, right gutiérrez, and on her heels, but concerning to her also on her fingertips. 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 She has been [place] on several occasions [place] Eddie Isabel [place] [facility] [place] has tried using clobetasol ointment and then tried betamethasone ointment and Vectical. However, these were not effective. In January 2009 she was given a prescription for acitretin. However, she would have had a $200 co-pay for this and could not afford it. In the meantime she has just been using topicals, various creams and ointments without real benefit. There is a positive family history of psoriasis in her mother and her sister. The patient has no personal history of hepatitis, jaundice, nephrolithiasis. Physical examination today reveals a pleasant 50-year-old who has fairly classic psoriatic plaques, one on the left knee and one on the right anterior gutiérrez. She has hyperkeratosis of the heels of her feet. She has psoriasiform changes over the distal fingertips with hyperkeratosis and fissuring. There is minimal erythema and no bleeding currently. She has no involvement of the scalp. She has no pitting of the nails. She denies any arthritic symptoms. Assessment and Plan: Psoriasis. 1. I believe a systemic agent will be necessary. 2. Discussed the option of methotrexate. We will recommend that we will begin 2.5 mg, taking six of these p.o. every week for 15 mg weekly dose, taking Saturday after dinner on a full stomach. Twenty-four dispensed with one refill. 3. Check methotrexate labs 24 to 48 hours after the first dose and then repeat again in one month. 4. Return to clinic here in one month for repeat check. We will determine the possible need for trial of cyclosporin. Could consider biologics as well and she could be expected to have help with her co-pay from those particular manufacturers. Return to clinic here in one month for repeat check. documented in this encounter Plan of Treatment Upcoming Encounters Date Type Department Care Team (Late st Contact Info) Description 01/05/2024 10:00 AM EST Hospital Encounter Non[place] [address] Arrived documented as of this encounter Visit Diagnoses Diagnosis Psoriasis vulgaris- Primary Other psoriasis documented in this encounter Care Teams Agency Sales Director Relationship Specialty Start Date End Date Najma Valladares APRN PCP - General 05/15/10 11/20/18 documented as of this encounter
--- OUTSIDE RECORDS SUMMARY | 2023-12-06 17:16 | XMS_ITS | Encounter Summary ---
Author Organization [facility] [place] [address] Care Team Providers Care Credit Support Specialist Name Role Phone Anna oBnds APRN Primary Care Provider [phone] Encounter Details Date Type Department Care Team (Late st Contact Info) Description 11/28/2018 Telephone Cardiology at [address] [address] Diane Romero LNA Social History Tobacco Use Types Packs/Day Years Used Date Smoking Tobacco: Never Assessed Sex and Gender Information Value Date Recorded Sex Assigned at Female 06/14/2023 1:27 PM EDT Gender Identity Female 06/14/2023 1:27 PM EDT Sexual Orientation Straight 06/14/2023 1: 27 PM EDT documented as of this encounter Miscellaneous Notes * Telephone Encounter - Diane Salazar LNA - 11/28/2018 2:49 PM EDT Medication list updated form [place] list - Visit Date 10/14/2018 documented in this encounter Plan of Treatment Upcoming Encounters Date Type Department Care Team (Late st Contact Info) Description 01/05/2024 10:00 AM EST Hospital Encounter Non[place] [address] Arrived documented as of this encounter Visit Diagnoses Not on filedocumented in this encounter Care Teams Credit Support Specialist Relationship Specialty Start Date End Date Anna Bonds APRN [address] [place] [address] PCP - General Family Medicine 11/21/18 documented as of this encounter
--- OUTSIDE RECORDS SUMMARY | 2023-12-06 17:16 | XMS_ITS | Encounter Summary ---
Author Organization [facility] [place] [address] Care Team Providers Care Slide Fastener Repairer Name Role Phone Anna Bonds APRN Primary Care Provider [phone] Encounter Details Date Type Department Care Team (Late st Contact Info) Description 12/26/2020 9:00 AM EST Office [place] [phone] Taylor Ponce DPM [facility] [place] [address] Onychocryptosis; Pain in toes of both feet; Type 2 diabetes mellitus without complication, unspecified whether regional intermodal truck driver insulin use Social History Tobacco Use Types Packs/Day Years Used Date Smoking Tobacco: Every Day Smokeless Tobacco: Never Sex and Gender Information Value Date Recorded Sex Assigned at Female 06/14/2023 1:27 PM EDT Gender Identity Female 06/14/2023 1:27 PM EDT Sexual Orientation Straight 06/14/2023 1: 27 PM EDT documented as of this encounter Progress Notes * Taylor Ponce DPM - 12/26/2020 9:00 AM EST Outpatient Foot Care Clinic Note Name: Mady Medellin Age:60 y.o. MR#: [id number] Date of Service: 12/26/2020 SUBJECTIVE: Mady Medellin is a 60 y.o. female with a history of diabetes returns to clinic todaywith chief complaint of severely painful ingrown nails on both feet particularly great toes causingdiscomfort. No redness, swelling, pus, odors, or other changes. Patient seen previously with slant back performed. Would like to hold off on chemical matrixectomy for now. No other pedal complaints today. Family history: + Onychocryptosis Allergies Allergen Reactions ??? Penicillins No past [...] file prior to visit. ROS: MSK: + Pain in toes SKIN: + Ingrown nails The remainder of 10 ROS were reviewed and negative. EXAMINATION GEN: NAD, AAOx3. DERM: Bilateral hallux medial lateral margin severely incurvated with skin impingement and no signsof acute infection. Nail plate thickened, dystrophic, elongated. Remaining digits stable. No erythema. No drainage. No malodor. VASC: No resting. No edema. Dorsalis pedis + 2/4 bilaterally and posterior tibial pulse + 2/4 bilaterally. NEURO: Sensation intact to light touch bilaterally. MSK: Independent. Severe tenderness on exam distal aspect affected digits particularly bilateral hallux bilateral margins. ASSESSMENT: Onychocryptosis bilateral hallux causing severe discomfort in a diabetic-uninfected PLAN: Patient reexamined in clinic today. Discussed with patient ingrown nail changes and treatment options. Discussed chemical matrixectomy. Patient opts to hold off for now. Advised her to contact clinicif she reconsiders. Discussed risks and benefits. Patient in agreement for slant back today. Following verbal consent and application of topical lidocaine and ethyl chloride spray slant back performed bilateral hallux with nails x10 trimmed without incident using sterile nail nippers. Covered bilateral hallux with bacitracin Band-Aid. Remove after 24 hours. Discussed risk of ingrown nail infection in future. Signs and symptoms of infection reviewed. If any worsening seek prompt medical care. Patient verbalized understanding. Follow-up as needed. Taylor Ponce DPM Rotary Driller Helper, [facility] documented in this encounter Plan of Treatment Upcoming Encounters Date Type Department Care Team (Late st Contact Info) Description 01/05/2024 10:00 AM EST Hospital Encounter [place] [address] Arrived documented as of this encounter Visit Diagnoses Diagnosis Onychocryptosis Ingrowing nail Pain in toes of both feet Type 2 diabetes mellitus without complication, unspecified whether regional intermodal truck driver insulin use documented in this encounter Care Teams Slide Fastener Repairer Relationship Specialty Start Date End Date Anna Bonds APRN [address] [place] [address] PCP - General Family Medicine 11/21/18 documented as of this encounter
--- OUTSIDE RECORDS SUMMARY | 2023-12-06 17:16 | XMS_ITS | Encounter Summary ---
Author Organization [facility] [place] [address] Care Team Providers Care Viscosity Inspector Name Role Phone Anna Bonds APRN Primary Care Provider Encounter Details Date Type Department Care Team (Late st Contact Info) Description 07/25/2021 10:15 AM EDT Office [place] [id number] Taylor Ponce DPM [facility] [place] [address] Pain in toes of both feet (Primary Dx); Onychocryptosis; Onychauxis; Type 2 diabetes mellitus without complication, unspecified whether long term acute care registered nurse insulin use Social History Tobacco Use Types Packs/Day Years Used Date Smoking Tobacco: Every Day Smokeless Tobacco: Never Sex and Gender Information Value Date Recorded Sex Assigned at Female 06/14/2023 1:27 PM EDT Gender Identity Female 06/14/2023 1:27 PM EDT Sexual Orientation Straight 06/14/2023 1: 27 PM EDT documented as of this encounter Progress Notes * Taylor Ponce DPM - 07/25/2021 10:15 AM EDT Outpatient Podiatry Clinic Note Name: Mady Medellin Age:61 y.o. MR#: [id number] Date of Service: 07/25/2021 SUBJECTIVE: Mady Medellin is a 61 y.o. female diabetic who returns to clinic today with chief complaint of severely symptomatic ingrown nails on both feet particularly great toes with difficulty to trim causing discomfort. No redness, swelling, discharge, pus, or open wounds. No other pedal complaints. Family history: + Onychocryptosis Allergies Allergen Reactions [...] to Visit Medication Sig Dispense Refill ??? fluticasone propionate (Flovent HFA) 110 mcg/actuation HFA Aerosol Inhaler Inhale 1 puff into the lungs 2 times daily. ??? atorvastatin (Lipitor) 40 mg Tablet Take [...] ROS were reviewed and negative. EXAMINATION GEN: Alert, awake, NAD LE: Skin dry and intact with nails x10 particularly bilateral hallux incurvated, thickened, dystrophic and elongated with no signs of acute infection. Neurovascular status intact. Protective sensation intact. Ambulatory. Severe tenderness on exam distal aspect affected digits particularly bilateralhallux bilateral margins. 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 Foot exam performed. Discussed condition and treatment options. Following verbal consent and application of alcohol swab and topical lidocaine as well as ethyl chloride spray trimmed nails x10 without incident with slant back performed bilateral hallux bilateral nail margins. Covered bilateral hallux with bacitracin Band-Aid. Remove in 24 hours. Discussed nail changes will recur and risk of worsening. No evidence of infection today. Signs and symptoms infection reviewed. Seek prompt medical care if any worsening. Continue glucose management. Consider elective chemical matrixectomy for long- term management, deferred for now. All questions answered. Patient verbalized understanding. Taylor Ponce DPM Commutator Assembler, [facility] documented in this encounter Plan of Treatment Upcoming Encounters Date Type Department Care Team (Late st Contact Info) Description 01/05/2024 10:00 AM EST Hospital Encounter Non-[place]vasive [place] [address] Arrived documented as of this encounter Visit Diagnoses Diagnosis Pain in toes of both feet- Primary Onychocryptosis Ingrowing nail Onychauxis Other specified disease of nail Type 2 diabetes mellitus without complication, unspecified whether long term acute care registered nurse insulin use documented in this encounter Care Teams Viscosity Inspector Relationship Specialty Start Date End Date Anna Bonds APRN [address] [place] [address] PCP - General Family Medicine 11/21/18 documented as of this encounter
[2023-12-06 21:26] LABS: Abs Immature Grans 0.03 10^3/uL (0.0-0.06); Absolute Basophil Count 0.06 10^3/uL (0.0-0.2); Absolute Eosinophil Count 0.23 10^3/uL (0.0-0.7); Absolute Lymphocyte Count 2.78 10^3/uL (1.2-3.4); Absolute Monocyte Count 0.57 10^3/uL (0.1-0.8); Absolute Neutrophil Count 6.18 10^3/uL (1.2-6.7); Basophils % 0.6 %; Eosinophils % 2.3 %; HCT 41.3 % (36.0-46.0); HGB 13.6 g/dL (11.2-15.7); Immature Grans % 0.3 %; Lymphocytes % 28.2 %; MCH 28.8 pg (27.0-33.0); MCHC 32.9 % (32.0-36.0); MCV 88 fL (80-95); MPV 10.2 fL (8.0-11.0); Monocytes % 5.8 %; Neutrophils % 62.8 %; Platelet Count 176 10^3/uL (130-400); RBC 4.72 10^6/uL (3.93-5.22); RDW 12.8 % (11.7-14.6); RDW-SD 41.2 fL; WBC 9.85 10^3/uL (4.4-10.8)
[2023-12-06 21:36] LABS: ALT 44 U/L (14-59); AST 34 U/L (15-37); Alkaline Phosphatase 90 U/L (46-116); Anion Gap 7.5 mmol/L (3-11); BUN 14 mg/dL (7-18); Bilirubin, Total 0.49 mg/dL (0.2-1.0); CO2 27.5 mmol/L (21.0-32.0); CREATININE 0.7 mg/dL (0.55-1.02); Calcium 9.8 mg/dL (8.5-10.1); Calculated LDL 47 mg/dL (<100); Chloride 106 mmol/L (98-107); Cholesterol 136 mg/dL (<200); Estimated GFR 97.12 (mL/min/1.73m2); Glucose 86 mg/dL (74-106); HDL Cholesterol 69 mg/dL (40-60); Potassium 4.5 mmol/L (3.5-5.1); Sodium 141 mmol/L (136-145); Total Protein 7.6 g/dL (6.4-8.2); Triglyceride 103 mg/dL (<150)
[2023-12-06 21:40] LABS: Prothrombin Time 9.9 sec (9.1-11.1)
== END 2023-12-06 17:13 | disposition home or self-care (01) ==
LOC: NCHCN 17:12
PROVIDERS: PCP Nurse Practitioner Family; Visit Provider Nurse Practitioner Family
DX: K76.0 Fatty (change of) liver, not elsewhere classified (principal); K74.60 Unspecified cirrhosis of liver; E11.9 Type 2 diabetes mellitus without complications
CPT/HCPCS: 80053; 80061; 85025; 85610

== ENCOUNTER 2024-03-13 20:31 | Outpatient (REF) | payer MEDICAID, SELFPAY ==
--- OUTSIDE RECORDS SUMMARY | 2024-03-13 20:37 | XMS_ITS | Clinical Summary ---
Author Organization [facility] Address [address] [place] [address] Care Team Providers Care Date Night Caregiver Name Role Phone Unavailable Primary Care Provider Unavailabl e Social History Tobacco Use Types Packs/Day Years Used Date Smoking Tobacco: Never Assessed Comments Unknown Sex and Gender Information Value Date Recorded Sex Assigned at Not on file Legal Sex Female 18:37 EST Gender Identity Not on file Sexual Orientation Not on file Plan of Treatment Health Maintenance Due Date Last Done Comments COVID-19 Vaccine ( season) 2023 RSV Immunization ( o r 60+ Years) (1 - 1-dose 75+ series) 2035 Hepatitis C Screen Completed 06/22/2020 Procedures Procedure Name Priority Date/Time Associated Diagnosis Comments HEPATITIS C AB W REFLEX TO HCV RNA BY PCR Routine 06/22/2020 13:05 EDT from Last 3 Months or Most Recently Relevant to Health Maintenance Results * HEPATITIS C AB W REFLEX TO HCV RNA BY PCR (06/22/2020 13:05 EDT) Hep C Antibody Negative Negative 06/24/2020 10:05 EDT [facility] Blood VENOUS BLOOD / Unknown 06/22/2020 13:05 EDT 06/23/2020 15:54 EDT us Provider Outr Resulting Lab CHEMISTRY & BLOOD GA S ORDERABLES Final Result [facility] [address] [place] [address] from Last 3 Months or Most Recently Relevant to Health Maintenance
--- OUTSIDE RECORDS SUMMARY | 2024-03-13 20:38 | XMS_ITS | Encounter Summary ---
[place] [address] Care Team Providers Care Spiral Machine Operator Name Role Phone August Bonds APRN Primary Care Provider [phone] Reason for Referral * Diagnostic Test (Routine) - Closed Specialty Diagnoses / Procedures Referred By Contac Referred To Contact Radiology Diagnoses Nonspecific abnormal results of liver function study Steatosis of liver Hepatomegaly Procedures US Abdomen Limited August Bonds APRN [address] [place] [address] [facility] [place] [address] Referral ID Status Reason Start Date Expiration Date V isits Requested Visits Authorized [id number] Closed Specialty Service Requested 12/17/2022 06/16/2024 1 1 Reason for Visit * Diagnostic Test (Routine) - Closed Specialty Diagnoses / Procedures Referred By Contac Referred To Contact Radiology Diagnoses Nonspecific abnormal results of liver function study Steatosis of liver Hepatomegaly Procedures US Abdomen Limited August Bonds APRN [address] [place] [address] [facility] [place] [address] Referral ID Status Reason Start Date Expiration Date V isits Requested Visits Authorized [id number] Closed Specialty Service Requested 12/17/2022 06/16/2024 1 1 Encounter Details Date Type Department Care Team (Latest Contact Info) Description 01/02/2023 10:12 AM EST - 01/02/2023 11:59 PM EST Hospital Encounter [place] [address] August Bonds APRN [address] [place] [address] Nonspecific abnormal results of liver function study; [...] Care Team (Late st Contact Info) Description 04/04/2024 10:00 AM EST Hospital Encounter Non-[place] [address] Arrived documented as of this encounter Procedures [...] Pam Oro MD at 01/02/2023 1:19 PM Electronically signed by: Pam Oro MD, [facility] ([phone]), at 01/02/2023 1:19 PM Thank you for letting us participate in the care of this patient. If you are a health care provider and have any questions regarding this report, please contact the number above. For patients who have questions, please contact the health care advocate that requested your imaging first. ?Pam Oro, Staff Physician Electronically Signed Final Report ?? 01/02/2023 01:25 pm Narrative 01/02/2023 1:26 PM EST Abdominal ? (Signed Final 01/02/2023 01:25 pm) PATIENT INFO: ID #: ? [id number] ?: ??60 (62 yrs)(F) Name: ? SISI MARTINES ? Visit Date: 01/02/2023 10:14 am PERFORMED BY: Attending: ?Shorty NICHOLS, [facility] Resident: ? Farshad NICHOLS, Jerel Performed By: ? Ora Palma RDMS Referred By: ?AUGUST BONDS Location: ? [facility] SERVICE(S) PROVIDED: UABDLIM - Abdominal Limited Survey Single ? [id number] Organ or Quadrant - [id number] INDICATIONS: ELEVATED LIVER FUNCTION TESTS; LIVER STEATOSIS; [...] 01/02/2023 01:25 pm) PATIENT INFO: ID #: [id number] : 60 (62 yrs)(F) Name: SISI MARTINES Visit Date: 01/02/2023 10:14 am PERFORMED BY: Attending: Pam Oro MD Resident: Jerel Yen MD Performed By: Ora Palma RDMS Referred By: AUGUST BONDS Location: [facility] SERVICE(S) PROVIDED: UABDLIM - Abdominal Limited Survey Single [id number] Organ or Quadrant - [id number] INDICATIONS: ELEVATED LIVER FUNCTION TESTS; LIVER STEATOSIS; [...] Pam Oro MD at 01/02/2023 1:19 PM Electronically signed by: Pam Oro MD, [facility] ([phone]), at 01/02/2023 1:19 PM Thank you for letting us participate in the care of this patient. If you are a health care provider and have any questions regarding this report, please contact the number above. For patients who have questions, please contact the health care advocate that requested your imaging first. Pam Oro, Staff Physician Electronically Signed Final Report 01/02/2023 01:25 pm August Bonds APRN IMG US GEN ORDERABLE S documented in this encounter Visit Diagnoses Diagnosis Nonspecific abnormal results of liver function study Steatosis of liver Other chronic nonalcoholic liver disease Hepatomegaly documented in this encounter Care Teams Spiral Machine Operator Relationship Specialty Start Date End Date August Bonds APRN [address] [place] [address] PCP - General Family Medicine 11/21/18 documented as of this encounter
--- OUTSIDE RECORDS SUMMARY | 2024-03-13 20:38 | XMS_ITS | Encounter Summary ---
Author Organization [facility] Address [address] [place] [address] Care Team Providers Care Applications Processor Name Role Phone Unavailable Primary Care Provider Unavailabl e Encounter Details Date Type Department Care Team (Late st Contact Info) Description 06/22/2010 Results Only [facility] Non-Invasive Cardiology - [facility] [address] [place], [place] [address] Najma Valladares, DEVIN [address] [place] [address] Social History Tobacco Use Types Packs/Day Years [...] ? SISI MARTINES ? Accession #: ? [id number] ? : ? 1960 (Age: 50) ??F [...] Report ? [facility] DEL[facility]UZ 06/22/2010 06/27/2010 us Najma BELTRAN PATHOLOGY ORDERABLES Final Res ult [facility] [address] [place] [address] documented in this encounter Visit Diagnoses Not on filedocumented in this encounter
--- OUTSIDE RECORDS SUMMARY | 2024-03-13 20:38 | XMS_ITS | Encounter Summary ---
Author Organization [facility] [place] [address] Care Team Providers Care Fiber Optics Technician Name Role Phone Anna Bonds APRN Primary Care Provider [phone] Encounter Details Date Type Department Care Team (Latest Contact Info) Description 01/24/2024 Travel Social History Tobacco Use Types Packs/Day [...] AM EST Hospital Encounter Non-In[place] [address] Arrived documented as of this encounter Visit Diagnoses Not on filedocumented in this encounter Care Teams Fiber Optics Technician Relationship Specialty Start Date End Date Anna Bonds APRN [address] [place] [address] PCP - General Family Medicine 11/21/18 documented as of this encounter
--- OUTSIDE RECORDS SUMMARY | 2024-03-13 20:38 | XMS_ITS | Encounter Summary ---
Author Organization [facility] [place] [address] Care Team Providers Care Clip Baker Name Role Phone Anna Bonds APRN Primary Care Provider [phone] Encounter Details Date Type Department Care Team (Latest Contact Info) Description 04/10/2023 10:00 AM EST - 04/10/2023 11:59 PM [facility] Hospital Encounter Non-Invasive [place] [phone] Discharge Disposition: Home Social History Tobacco Use [...] st Contact Info) Description 04/04/2024 10:00 AM [facility] Hospital Encounter Non-[place]vasive [place] [address] Arrived documented as of this encounter Visit Diagnoses Not on filedocumented in this encounter Care Teams Clip Baker Relationship Specialty Start Date End Date Anna Bonds APRN [address] [place] [address] PCP - General Family Medicine 11/21/18 documented as of this encounter
--- OUTSIDE RECORDS SUMMARY | 2024-03-13 20:38 | XMS_ITS | Encounter Summary ---
Author Organization [facility] Address [address] [place] [address] Care Team Providers Care Lead Developer Name Role Phone Unavailable Primary Care Provider Unavailabl e Encounter Details Date Type Department Care Team (Late st Contact Info) Description 09/12/2007 Before PRISM Converted Visit (Maple) [facility] - Maple conversion [address] [place] [address] Aydee Leon, JONY S ESAU [place], [place] [address] Social History Tobacco Use Types Packs/Day Years [...] ? SISI MARTINES ? Accession #: ? [id number] ? : ? 1960 (Age: 47) ??F ?Collect Date: ? 09/12/2007 ? Location: ? [facility] ? Receive Date: ? 09/16/2007 ? Provider: ?MOLLIE D CHAMBERLAIN EXECUTIVE SALES ASSISTANT ? Copy to: ? Specimen/Source: ?ThinPrep Pap [...] reviewed and electronically signed by: ? Lacey Santoslogg, CT(ASCP) ? Report Date: ??09/17/2007 13:35 ? End of Report ? [facility]JA DELA CRUZ 09/12/2007 09/16/2007 us Aydee Leon NP PATHOLOGY ORDERABLES Fin al Result [facility] [address] [place] [address] documented in this encounter Visit Diagnoses Not on filedocumented in this encounter
--- OUTSIDE RECORDS SUMMARY | 2024-03-13 20:38 | XMS_ITS | Encounter Summary ---
Author Organization [facility] Address [address] [place] [address] Care Team Providers Care Passenger Agent Name Role Phone Unavailable Primary Care Provider Unavailabl e Encounter Details Date Type Department Care Team (Late st Contact Info) Description 06/22/2010 8:24 EDT - 06/22/2010 8:25 EDT Hospital Encounter [address] [address] Najma Valladares, DEVIN [address] [place] [address] Discharge Disposition: Home or Self Care Social [...]
--- OUTSIDE RECORDS SUMMARY | 2024-03-13 20:38 | XMS_ITS | Encounter Summary ---
Author Organization [facility] [place] [address] Care Team Providers Care Area Development Consultant Name Role Phone Anna Bonds APRN Primary Care Provider [phone] Encounter Details Date Type Department Care Team (Latest Contact Info) Description 03/14/2023 12:58 AM EST - 03/14/2023 6:13 PM [facility] Hospital Encounter Ambulance Service at [address] [phone] Jailene Lawrence MD [facility] [place] [address] Discharge Disposition: Home Social History Tobacco Use [...] st Contact Info) Description 04/04/2024 10:00 AM [facility] Hospital Encounter Non-Invasive [place] [address] Arrived documented as of this encounter Visit Diagnoses Not on filedocumented in this encounter Care Teams Area Development Consultant Relationship Specialty Start Date End Date Anna Bonds APRN [address] [place] [address] PCP - General Family Medicine 11/21/18 documented as of this encounter
--- OUTSIDE RECORDS SUMMARY | 2024-03-13 20:38 | XMS_ITS | Encounter Summary ---
Author Organization [facility] [place] [address] Care Team Providers Care Grain Unloader Machine Name Role Phone Anna Bonds APRN Primary Care Provider [phone] Encounter Details Date Type Department Care Team [...] AM EST Hospital Encounter [place] [address] Arrived documented as of this encounter Visit Diagnoses Not on filedocumented in this encounter Care Teams Grain Unloader Machine Relationship Specialty Start Date End Date Anna Bonds APRN [address] [place] [address] PCP - General Family Medicine 11/21/18 documented as of this encounter
--- OUTSIDE RECORDS SUMMARY | 2024-03-13 20:38 | XMS_ITS | Encounter Summary ---
[place] [address] Care Team Providers Care Rn Urgent Care Name Role Phone Anna Bonds APRN Primary Care Provider [phone] Reason for Referral * Diagnostic Test (Routine) - Closed Specialty Diagnoses / Procedures Referred By Marita cabral Referred To Contact Radiology Diagnoses Tobacco use disorder Procedures CT Chest Screening Lung Cancer Anna Bonds APRN [address] [place] [address] [facility] [place] [address] Referral ID Status Reason Start Date Expiration Date V isits Requested Visits Authorized [id number] Closed Specialty Service Requested 12/10/2023 06/09/2025 1 1 Reason for Visit * Diagnostic Test (Routine) - Closed Specialty Diagnoses / Procedures Referred By Contac misha Referred To Contact Radiology Diagnoses Tobacco use disorder Procedures CT Chest Screening Lung Cancer Anna Bonds APRN [address] [place] [address] [facility] [place] [address] Referral ID Status Reason Start Date Expiration Date V isits Requested Visits Authorized [id number] Closed Specialty Service Requested 12/10/2023 06/09/2025 1 1 Encounter Details Date Type Department Care Team (Latest Contact Info) Description 01/24/2024 2:55 PM EST - 01/24/2024 11:59 PM EST Hospital [place] [address] Anna Bonds APRN [address] [place] [address] Tobacco use disorder Discharge Disposition: Home Social History Tobacco Use Types Packs/Day Years Used Date Smoking Tobacco: Every Day Cigarettes 0.3 21 Smokeless Tobacco: Never Comments:A couple packs a we ek. Alcohol Use Standard Drinks/Week Comments Never 0 (1 standard drink = 0.6 oz pur e alcohol) [facility] Inpatient Questions Answer Date Recorded Does Anyone [...] AM EST Hospital Encounter Non-Invasive [place] [address] Arrived documented as of this encounter Procedures Procedure Name Priority Date/Time Associated Diagnosis Comments CT CHEST SCREENING LUNG CANCER Routine 01/24/2024 3:24 PM EST Tobacco use disorder documented in this encounter Results * CT Chest Screening Lung Cancer (01/24/2024 3:24 PM EST) WORKSTATION ID [id number] RAD Anatomical Region Laterality Modality Computed Tomogra phy Impressions 02/09/2024 3:03 PM EST Lung-RADS 1 (Negative) S: None RECOMMENDATION: Return to CT screening in one year Thank you for letting us participate in the care of this patient. ??If you are a health care provider and have any questions regarding this report, please contact the number below. ??For patients who have questions please contact the health direct care provider that requested your imaging first. ? Narrative 02/09/2024 3:03 PM EST EXAMINATION: CT CHEST SCREENING LUNG CANCER CLINICAL HISTORY: Asymptomatic but at high risk for lung cancer F17.200, Nicotine dependence, unspecified, uncomplicated TECHNIQUE: Noncontrast, low-dose chest CT (LDCT) [place] [facility] [place]. COMPARISON: 12/25/2021. FINDINGS: Lung-RADS Lung screening specific: None Potentially significant incidental findings: None Other incidental findings: Left-sided pulse generator with 2 leads. Mild calcification at the aortic valve. Moderate coronary artery atherosclerotic calcification. Accessory rib at the right apex as before. Procedure Note Rosana Davis MD - 02/09/2024 EXAMINATION: CT CHEST SCREENING LUNG CANCER CLINICAL HISTORY: Asymptomatic but at high risk for lung cancer F17.200, Nicotine dependence, unspecified, uncomplicated TECHNIQUE: Noncontrast, low-dose chest CT (LDCT) [place] [facility] [place]. COMPARISON: 12/25/2021. FINDINGS: Lung-RADS Lung screening specific: None Potentially significant incidental findings: None Other incidental findings: Left-sided pulse generator with 2 leads. Mild calcification at the aortic valve. Moderate coronary artery atherosclerotic calcification. Accessory rib at the right apex as before. IMPRESSION Lung-RADS 1 (Negative) S: None RECOMMENDATION: Return to CT screening in one year Thank you for letting us participate in the care of this patient. If youare a health care provider and have any questions regarding this report,please contact the number below. For patients who have questions please contactthe health direct care provider that requested your imaging first. Electronically signed by: Rsoana Martinez MD, [facility] ([phone]), at 02/09/2024 3:03 PM Anna Bonds APRN IMG CT ORDERABLES documented in this encounter Visit Diagnoses Diagnosis Tobacco use disorder documented in this encounter Care Teams Rn Urgent Care Relationship Specialty Start Date End Date Anna Bonds APRN [address] [place] [address] PCP - General Family Medicine 11/21/18 documented as of this encounter
--- OUTSIDE RECORDS SUMMARY | 2024-03-13 20:38 | XMS_ITS | Encounter Summary ---
Author Organization [facility] [place] [address] Care Team Providers Care Nut Cracker Name Role Phone Anna Bonds APRN Primary Care Provider Encounter Details Date Type Department Care Team (Late st Contact Info) Description 06/18/2023 [facility] Center at [facility] [place] [address] Shu Ching, [facility] Social History Tobacco Use Types Packs/Day Years [...] AM EST Hospital Encounter Non[place] [address] Arrived documented as of this encounter Visit Diagnoses Not on filedocumented in this encounter Care Teams Nut Cracker Relationship Specialty Start Date End Date Anna Bonds APRN [address] [place] [address] PCP - General Family Medicine 11/21/18 documented as of this encounter
--- OUTSIDE RECORDS SUMMARY | 2024-03-13 20:38 | XMS_ITS | Encounter Summary ---
Author Organization [facility] [place] [address] Care Team Providers Care Critical Care Cns Name Role Phone Anna Bonds APRN Primary Care Provider [phone] Encounter Details Date Type Department Care Team [...] st Contact Info) Description 04/04/2024 10:00 AM [facility] Hospital Encounter Non[place] [address] Arrived documented as of this encounter Visit Diagnoses Not on filedocumented in this encounter Care Teams Critical Care Cns Relationship Specialty Start Date End Date Anna Bodns APRN [address] [place] [address] PCP - General Family Medicine 11/21/18 documented as of this encounter
--- OUTSIDE RECORDS SUMMARY | 2024-03-13 20:38 | XMS_ITS | Encounter Summary ---
Author Organization [facility] [place] [address] Care Team Providers Care Pest Management Supervisor Name Role Phone Anna Bonds APRN Primary Care Provider [phone] Encounter Details Date Type Department Care Team [...] AM EST Hospital Encounter Non-[place] [address] Arrived documented as of this encounter Visit Diagnoses Not on filedocumented in this encounter Care Teams Pest Management Supervisor Relationship Specialty Start Date End Date Anna Bonds APRN [address] [place] [address] PCP - General Family Medicine 11/21/18 documented as of this encounter
--- OUTSIDE RECORDS SUMMARY | 2024-03-13 20:38 | XMS_ITS | Encounter Summary ---
Author [facility] [place] [address] Care Team Providers Care Restaurant Hourly Team Member Name Role Phone Anna Bonds APRN Primary Care Provider [phone] Encounter Details Date Type Department Care Team (Latest Contact Info) Description 07/09/2023 10:00 AM EDT - 07/09/2023 11:59 PM EDT Hospital Encounter [place] [address] Discharge Disposition: Home Social History Tobacco Use [...] st Contact Info) Description 04/04/2024 10:00 AM [facility] Hospital Encounter Non-[place] [address] Arrived documented as of this [...] on filedocumented in this encounter Care Teams Restaurant Hourly Team Member Relationship Specialty Start Date End Date Anna Bonds APRN [address] [place] [address] PCP - General Family Medicine 11/21/18 documented as of this encounter
--- OUTSIDE RECORDS SUMMARY | 2024-03-13 20:38 | XMS_ITS | Encounter Summary ---
[facility] Organization [facility] [place] [address] Care Team Providers Care Letter Sorting Machine Operator Name Role Phone Anna Bonds APRN Primary Care Provider [phone] Encounter Details Date Type Department Care Team (Latest Contact Info) Description 01/05/2024 10:00 AM EST - 01/05/2024 11:59 PM [facility] Hospital Encounter [place] [phone] Discharge Disposition: Home Social History Tobacco Use [...] st Contact Info) Description 04/04/2024 10:00 AM [facility] Hospital Encounter Non-[place] [address] Arrived documented as of this encounter Procedures Procedure Name Priority Date/Time Associated Diagnosis Comments PRO PM INTERROGATION REMOTE UP TO 90 DAYS Routine 11/09/2023 4:28 AM EDT documented in this encounter Results * Cardiac Device Check - Remote (11/09/2023 4:28 AM EDT) Anatomical Region Laterality Modality Other 11/09/2023 4:28 AM EDT aKthy Avelar MD IMPLANTABLE CARDIAC DEVICE documented in this encounter Visit Diagnoses Not on filedocumented in this encounter Care Teams Letter Sorting Machine Operator Relationship Specialty Start Date End Date Anna Bonds APRN [address] [place] [address] PCP - General Family Medicine 11/21/18 documented as of this encounter
--- OUTSIDE RECORDS SUMMARY | 2024-03-13 20:38 | XMS_ITS | Encounter Summary ---
Author Organization [facility] [place] [address] Care Team Providers Care Newspaper Press Operator Apprentice Name Role Phone Anna Bonds APRN Primary Care Provider [phone] Encounter Details Date Type Department Care Team [...] AM EST Hospital Encounter Non-Invasive [place] [address] Arrived documented as of this encounter Visit Diagnoses Not on filedocumented in this encounter Care Teams Newspaper Press Operator Apprentice Relationship Specialty Start Date End Date Anna Bonds APRN [address] [place] [address] PCP - General Family Medicine 11/21/18 documented as of this encounter
--- OUTSIDE RECORDS SUMMARY | 2024-03-13 20:38 | XMS_ITS | Encounter Summary ---
Author Organization [facility] [place] [address] Care Team Providers Care Journeyman Meat Cutter Name Role Phone Anna Bonds APRN Primary Care Provider [phone] Encounter Details Date Type Department Care Team [...] AM EST Hospital Encounter Non-[place] [address] Arrived documented as of this encounter Visit Diagnoses Not on filedocumented in this encounter Additional Health Concerns Infection Onset Date Last Indicated Resolved Time Rule Out COVID-19 02/24/2023 02/24/2023 02/24/2023 8:32 PM EST INFLUENZA 02/24/2023 02/24/2023 03/06/2023 8:10 PM EST documented as of this encounter Care Teams Journeyman Meat Cutter Relationship Specialty Start Date End Date Anna Bonds APRN [address] [place] [address] PCP - General Family Medicine 11/21/18 documented as of this encounter
--- OUTSIDE RECORDS SUMMARY | 2024-03-13 20:38 | XMS_ITS | Encounter Summary ---
Author Organization [facility] [place] [address] Care Team Providers Care Pediatric Social Worker Name Role Phone Anna Bonds APRN Primary Care Provider [phone] Encounter Details Date Type Department Care Team [...] AM EST Hospital Encounter Non-Invasive [place] [address] Arrived documented as of this encounter Visit Diagnoses Not on filedocumented in this encounter Care Teams Pediatric Social Worker Relationship Specialty Start Date End Date Anna Bonds APRN [address] [place] [address] PCP - General Family Medicine 11/21/18 documented as of this encounter
--- OUTSIDE RECORDS SUMMARY | 2024-03-13 20:38 | XMS_ITS | Encounter Summary ---
Author Organization [facility] Address [facility] [place] [address] Care Team Providers Care Director Global Strategic Publisher Sales Name Role Phone Vamshi Anna ELISE Primary Care Provider [phone] Reason for Visit * Reason Comments Abdominal Pain Encounter Details Date Type Department Care Team (Late st Contact Info) Description 03/14/2023 6:14 PM EST - 03/14/2023 11:57 PM EST Emergency Emergency Services at [address] [phone] Rory Whyte MD [facility] DR EMERGENCY [place] [address] Appendicitis, unspecified appendicitis type Discharge Disposition: Another [...] 03/14/2023 11:56 PM EST Patient transported to [facility] via [facility]. Patient in stable condition at time of departure. Report given to BABAR Goncalves at [facility] prior to transfer. * Tammie Gaston RN - 03/14/2023 10:08 PM EST Pt up to bathroom. * Tammie Gaston RN - 03/14/2023 8:59 PM EST Report [...] case with the general surgery service at [facility] who accepted patient in transfer for further [...] AM EST Hospital Encounter Non-[place] [phone] Arrived documented as of this encounter Procedures [...] who have questions please contact the health primary care provider that requested your imaging first. ? Electronically signed by: Lyndsay Mg MD, [facility] ([phone]), at 03/14/2023 9:17 PM Narrative 03/14/2023 9:17 PM EST EXAMINATION: CT [...] discussed with Dr. Whyte by Dr. Mg [id number] hrs on 03/14/2023. I have personally reviewed the image(s) and the resident's interpretationand agree with the findings, Lyndsay Mg MD at 03/14/2023 9:17 PM Thank you for letting us participate in the care of this patient. If youare a health care provider and have any questions regarding this report,please contact the number below. For patients who have questions please contactthe health primary care provider that requested your imaging first. Rory Whyte MD IMG CT ORDERABLES * Gold Tube HOLD (03/14/2023 6:40 PM EST) Gold Hold Sample in lab. [facility] Blood Venous Draw / Unknown 03/14/2023 6:40 PM EST 03/14/2023 6:54 PM EST Rory Whyte MD CHEMISTRY ORDERABLE S Performing Organization Address [facility]/ZIP Co de Phone Number [facility] [address] [phone] * Blue Tube HOLD (03/14/2023 6:40 PM EST) Blue Hold Sample in lab. [facility] Blood Venous Draw / Unknown 03/14/2023 6:40 PM EST 03/14/2023 6:55 PM EST Rory Whyte MD HEMATOLOGY ORDERABL ES Performing Organization Address [facility]/ZIP Co de Phone Number [facility] [address] [place] [address] * (ABNORMAL) Differential, Automated (03/14/2023 6:40 PM EST) Neutrophil % 76.7 % [facility] Neutrophil Absolute 10.86(H) 1.70 - 6.10 x10(3)/mc L [facility] Lymph % 16.2 % [facility] [...] Absolute 0.0 0.0 - 0.1 x10(3)/mc L [facility] Immature Gran % 0.20 % [facility] Comment: Immature granulocytes(IG's)percentage and absolute count will include metamyelocytes, myelocytes, and promyelocytes. Blood smears from CBCs yielding IG's will be scanned manually for concordance. If this scan disagrees with the automated IG or if promyelocytes are noted, a manual differential will be performed. Immature Gran Absolute 0.03 0.00 - 0.04 x10(3)/mc L [facility] Blood 03/14/2023 6:40 PM EST 03/14/2023 6:45 PM EST Narrative Resulting Agency Comment Spec In Lab Rory Whyte MD HEMATOLOGY ORDERABL ES [facility] [address] [place] [address] * (ABNORMAL) Hemogram (03/14/2023 6:40 PM EST) White Blood Cell 14.2(H) 4.0 - 9.5 x10(3)/mc L [facility] Red Blood Cell 4.99 4.00 - 5.21 x10(6)/mc L [facility] Hemoglobin 13.9 11.7 - 15.5 g/dL [facility] Hematocrit 42.5 35.7 - 45.8 % [facility] Mean Cell Volume 85.2 82.6 - 94.4 fL [facility] Mean Cell Hemoglobin 27.9 27.1 - 32.0 pg [facility] Mean Cell Hemoglobin Concentration 32.7 31.7 - 35.0 g/dL [facility] Platelet 172 145 - 357 x10(3)/mc L [facility] RDW Standard Deviation 39.0 37.0 - 46.0 fL [facility] RDW coefficient of variation 12.5 11.5 - 14.1 % [facility] Mean Platelet Volume 9.3 7.6 - 12.9 fL [facility] Blood 03/14/2023 6:40 PM EST 03/14/2023 6:45 PM EST Narrative Resulting Agency Comment Spec In Lab Rory Whyte MD HEMATOLOGY ORDERABL ES Performing Organization Address [facility] Co de Phone Number [facility] [address] [place] [address] * Basic Metabolic Panel (non-fasting) (03/14/2023 6:40 PM EST) Glucose 146 65 - 199 mg/dL [facility] Comment:Diabetes: >=200 mg/d L plus symptoms Blood Urea Nitrogen 11 8 - 18 mg/dL [facility] Creatinine 0.70 0.70 - 1.20 mg/dL [facility] Sodium 138 135 - 145 mmol/L [facility] Potassium 4.0 3.5 - 5.0 mmol/L [facility] Comment: Please note: ??Patients with WBC >100,000 may have falsely elevated Potassium levels. ??For accurate Potassium quantification in these patients send serum separator tube (gold top) for subsequent determinations. ??Contact the Clinical Chemistry Laboratory if there are any questions. Chloride 101 98 - 107 mmol/L [facility] Carbon Dioxide 23 22 - 31 mmol/L [facility] Anion Gap 14 5 - 15 mmol/L [facility] Calcium 9.4 8.5 - 10.5 mg/dL [facility] Est Glomerular Filtration Rate 97 >=60 mL/min/1.7 3 m?? [facility] Comment: This patient's estimated [...] MD CHEMISTRY ORDERABLE S Performing Organization Address [facility] Co de Phone Number [facility] [address] [place] [address] * (ABNORMAL) Urine culture (03/14/2023 6:32 PM EST) Urine Culture Greater than 100,000 cfu/ml Escherichia coli(A) [facility] Organism Escherichia coli(A) [facility] Clean Catch Urine 03/14/2023 6:32 [...] METHOD Sensitive Rory Whyte MD MICROBIOLOGY - [facility] ORDERABLES [facility] [place] [address] * (ABNORMAL) Urinalysis Microscopic Exam (03/14/2023 6:32 PM EST) RBC, Urine 20(H) 0 - 4 /HPF [facility] WBC, Urine >182(H) 0 - 5 /HPF [facility] WBC Clumps, Urine Few(A) None /HPF [facility] Bacteria, Urine Moderate( A) None /HPF [facility] Squamous Epithelial Cells Raw Data, Urine 4 <=4 /HPF [facility] Transitional Epithelial Cells, Urine 1 <=1 /HPF [facility] Clean Catch Urine 03/14/2023 6:32 PM EST 03/14/2023 6:38 PM EST Narrative Resulting Agency Comment Spec In Lab Rory Whyte MD URINE ORDERABLES Performing Organization Address [facility] de Phone Number [facility] [address] [place] [address] * (ABNORMAL) Urinalysis with reflex Culture (03/14/2023 6:32 PM EST) Glucose, Urine Dipstick Negative Negative mg/dL [facility] Protein, Urine Dipstick 100(A) Negative mg/dL [facility] Bilirubin, Urine Dipstick Negative Negative mg/dL [facility] Comment: Clinical correlation required for positive Urine Bilirubin results as false positive may occur with some drugs and drug related products. If a false positive is suspected a serum total bilirubin should be considered if clinically indicated. Urobilinogen, Urine Dipstick Normal Normal mg/dL [facility] pH, Urn (dipstick) 8.5(H) 5.0 - 8.0 [facility] Blood, Urine Dipstick Large(A) Negative mg/dL [facility] Ketone, Urine Dipstick 15(A) Negative mg/dL [facility] Nitrite, Urine Dipstick Positive(A) Negative [facility] Leukocytes, Urine Dipstick Moderate(A) Negative [facility] Appearance, Urine Dipstick Clear Clear [facility] Specific [place] Urine Automated 1.020 1.006 - 1.030 [facility] Color, Urine Dipstick Yellow [facility] Reflex to Culture Yes [facility] Clean Catch Urine 03/14/2023 6:32 PM EST 03/14/2023 6:38 PM EST Narrative Resulting Agency Comment Spec In Lab Rory Whyte MD URINE ORDERABLES Performing Organization Address [facility] Co de Phone Number [facility] [address] [place] [address] documented in this encounter Visit Diagnoses Diagnosis [...] Valero) documented in this encounter Care Teams Director Global Strategic Publisher Sales Relationship Specialty Start Date End Date Anna Bonds APRN [address] [place] [address] PCP - General Family Medicine 11/21/18 documented as of this encounter
--- OUTSIDE RECORDS SUMMARY | 2024-03-13 20:38 | XMS_ITS | Encounter Summary ---
Author Organization [facility] [place] [address] Care Team Providers Care Addiction Therapist Name Role Phone Anna Bonds APRN Primary Care Provider [phone] Encounter Details Date Type Department Care Team (Latest Contact Info) Description 05/24/2023 9:25 AM EDT Laboratory Appointment Laboratory at [facility] [place] [phone] Pelvic pain syndrome Social History Tobacco Use [...] AM EST Hospital Encounter Non[place] [phone] Arrived documented as of this encounter Procedures Procedure Name Priority Date/Time Associated Diagnosis Comments CREATININE Routine 05/24/2023 8:06 AM EDT Pelvic pain syndrome documented in this encounter Results * (ABNORMAL) Creatinine (05/24/2023 8:06 AM EDT) Creatinine 0.61(L) 0.70 - 1.20 mg/dL [facility] Est Glomerular Filtration Rate 100 >=60 mL/min/1. 73 m?? [facility] Comment: This patient's estimated [...] In Lab Anna Bonds APRN CHEMISTRY ORDERABLES [facility] [address] [place] [address] documented in this encounter Visit Diagnoses Diagnosis Pelvic pain syndrome Pelvic congestion syndrome documented in this encounter Care Teams Addiction Therapist Relationship Specialty Start Date End Date Anna Bonds APRN [address] [place] [address] PCP - General Family Medicine 11/21/18 documented as of this encounter
--- OUTSIDE RECORDS SUMMARY | 2024-03-13 20:38 | XMS_ITS | Encounter Summary ---
Author Organization [facility] [place] [address] Care Team Providers Care Technician Name Role Phone Anna Bonds APRN Primary Care Provider [phone] Encounter Details Date Type Department Care Team (Latest Contact Info) Description 01/10/2023 10:00 AM EST - 01/10/2023 11:59 PM [facility] Hospital Encounter Non[place] [phone] Discharge Disposition: Home Social History Tobacco Use [...] st Contact Info) Description 04/04/2024 10:00 AM [facility] Hospital Encounter Non[place] [address] Arrived documented as of this encounter Procedures Procedure Name Priority Date/Time Associated Diagnosis Comments PRO PM INTERROGATION REMOTE UP TO 90 DAYS Routine 11/13/2022 4:09 AM EDT documented in this encounter Results * Cardiac Device Check - Remote (11/13/2022 4:09 AM EDT) Anatomical Region Laterality Modality Other 11/13/2022 4:09 AM EDT Tyrese Rivsa MD IMPLANTABLE CARDIAC DEVICE documented in this encounter Visit Diagnoses Not on filedocumented in this encounter Care Teams Technician Relationship Specialty Start Date End Date Anna Bonds APRN [address] [place] [address] PCP - General Family Medicine 11/21/18 documented as of this encounter
--- OUTSIDE RECORDS SUMMARY | 2024-03-13 20:38 | XMS_ITS | Encounter Summary ---
Author Organization [facility] [place] [address] Care Team Providers Care Manager Of Selection And Assessment Name Role Phone Anna Bonds APRN Primary Care Provider [phone] Encounter Details Date Type Department Care Team (Late st Contact Info) Description 05/15/2023 [facility] at [address] [place] [address] Shu Ching, [facility] Social History Tobacco Use Types Packs/Day Years [...] AM EST Hospital Encounter Non-Invasive [place] [address] Arrived documented as of this encounter Visit Diagnoses Not on filedocumented in this encounter Care Teams Manager Of Selection And Assessment Relationship Specialty Start Date End Date Anna Bonds APRN [address] [place] [address] PCP - General Family Medicine 11/21/18 documented as of this encounter
--- OUTSIDE RECORDS SUMMARY | 2024-03-13 20:38 | XMS_ITS | Encounter Summary ---
Author Organization [facility] Address [address] [place] [address] Care Team Providers Care Materials Scientist Name Role Phone Unavailable Primary Care Provider Unavailabl e Encounter Details Date Type Department Care Team (Late st Contact Info) Description 04/30/2008 Before PRISM Converted Visit (Maple) [facility] - Maple conversion [address] [place] [address] Karen Mejia MD [address] [place] [address] [place] [address] Social History Tobacco Use Types Packs/Day Years [...] unformatted reports. ? Name: ? CONRAD, SISI Oro ? Accession #: ? [id number] ? : ? 1960 (Age: 48) ??F ? Collect Date: ? 04/30/2008 ? Location: ? [facility] ? Receive Date: ? 05/01/2008 ? Provider: KAREN MEJIA MD ? Copy to: MOLLIE D CHAMBERLAIN DIRECTOR OF BUSINESS SYSTEMS ? Final Pathologic Diagnosis: ? Endometrium, biopsy: [...] DELA CRUZ 04/30/2008 05/01/2008 8:4 9 EDT us Karen Mejia MD PATHOLOGY ORDERABLES Final Resu lt DEJA DELA CRUZ [address] [place] [address] documented in this encounter Visit Diagnoses Not on filedocumented in this encounter
--- OUTSIDE RECORDS SUMMARY | 2024-03-13 20:38 | XMS_ITS | Encounter Summary ---
Author Organization [facility] Address [address] [place] [address] Care Team Providers Care Audit Manager Name Role Phone Unavailable Primary Care Provider Unavailabl e Encounter Details Date Type Department Care Team (Late st Contact Info) Description 01/21/2017 Results Only [facility] [phone] Carol Phillips MD [address] [place] [address] Social History Tobacco Use Types [...] ? SISI MARTINES ? Accession #: ? [id number] ? : ? 1960 (Age: 56) ??F [...] and electronically signed by: ? Linh Glaser, [facility](ASCP) ? Report ??Date: 02/01/2017 08:19 HPV with Pap Test ? Date Ordered: ? 02/01/2017 ? Status: ?? Signed Out ?Date Complete: ? 02/05/2017 ? By: ??System Interface ? Date Reported: ? 02/05/2017 ? Interpretation RESULT: Negative for HPV. No E6 or E7 mRNA is detected from HPV types 16,18,31,33,35, 39,45,51,52,56,58, 59,66, and 68 by coal conveyor operator mediated amplification. Comments Document reviewed and electronically signed by: ? System Interface ? Report date: 02/05/2017 By the signature above, the attending physician certifies that he/she has personally conducted a gross and/or microscopic examination of the described specimens and rendered or confirmed the above diagnosis. End of Report [facility] 01/21/2017 01/22/2017 us Carol Phillips MD PATHOLOGY ORDERABLES Fi nal Result [facility] [address] [place] [address] documented in this encounter Visit Diagnoses Not on filedocumented in this encounter
--- OUTSIDE RECORDS SUMMARY | 2024-03-13 20:38 | XMS_ITS | Encounter Summary ---
Author Organization [facility] Address [facility] [place] [address] Care Team Providers Care Chemistry Laboratory Technician Name Role Phone Vamshi Anna ELISE Primary Care Provider [phone] Reason for Visit * Reason Comments Cough Encounter Details Date Type Department Care Team ([facility] Contact Info) Description 02/24/2023 7:44 PM EST - 02/24/2023 8:44 PM EST Emergency Emergency Services at [address] [phone] Miguelina Barrera MD [address] [place] [address] [place] [address] Influenza A Discharge Disposition: Home Social History [...] 5 days. I sent a prescription to [facility] pharmacy. For cough, you should use your [...] 5 days. I sent a prescription to [facility] pharmacy. For cough, you should use your [...] encounter Miscellaneous Notes * ED Triage - Jaielne Butts RN - 02/24/2023 7:53 PM EST [...] AM EST Hospital Encounter [place] [address] Arrived documented as of this [...] LAB SARS-CoV-2 PCR Not Detected Not Detected [facility] Comment: Testing for SARS-CoV-2 (Severe acute respiratory syndrome coronavirus 2) to aid in the diagnosis of COVID-19 is performed using the Robin SARS-CoV-2 and Influenza A/B assay on the Hannah test system ([employer]) as authorized by the FDA-issued Emergency Use Authorization (EUA). ??This assay is intended for in vitro Diagnostic (IVD) use with nasopharyngeal swabs collected from individuals with clinical signs and symptoms of respiratory viral infection. The assay is performed based on the instructions for use and additional guidance provided by the FDA. Testing is performed in laboratories within the [facility], certified under the Clinical Laboratory Improvement Amendments [...] fact sheets at the following FDA website: https://www.fda.gov/medical-devices/tfqvoptppgh-isxkbrv-3454-guyyv-64-hdtetjhpv- use-a lznmzeejhzyzq-nwuwfnx-ytkqolx/spcea-gvwfsrfrcvx-ibpi Resp PCR Source BRAZER CONTROLLED ATMOSPHERIC FURNACE Swab [facility] Nasopharyngeal Swab 02/24/19 7:58 PM EST 02/24/2023 8:09 PM EST Comment:Symptoms->Fever / Re spiratory Symptoms Narrative Resulting Agency Comment Spec In Lab Miguelina Barrera MD MICROBIOLOGY - GENER AL ORDERABLES [facility] [address] [place] [address] documented in this encounter Visit Diagnoses Diagnosis [...] documented as of this encounter Care Teams Chemistry Laboratory Technician Relationship Specialty Start Date End Date Anna Bonds APRN [address] [place] [address] PCP - General Family Medicine 11/21/18 documented as of this encounter
--- OUTSIDE RECORDS SUMMARY | 2024-03-13 20:38 | XMS_ITS | Encounter Summary ---
Author [facility] [place] [place] [address] Care Team Providers Care Peripatologist Name Role Phone Anna Bonds APRN Primary Care Provider [phone] Encounter Details Date Type Department Care Team (Late st Contact Info) Description 12/26/2023 [place] [address] Marlys Crook Social History Tobacco Use Types Packs/Day Years [...] encounter Miscellaneous Notes * Telephone Encounter - Marlys Crook - 12/26/2023 11:18 AM EST Called pt to sched LCS CT. LVM 1x documented in this encounter Plan of Treatment Upcoming Encounters Date Type Department Care Team (Late st Contact Info) Description 04/04/2024 10:00 AM EST Hospital Encounter Non[place] [address] Arrived documented as of this encounter Visit Diagnoses Not on filedocumented in this encounter Care Teams Peripatologist Relationship Specialty Start Date End Date Anna Bonds APRN [address] [place] [address] PCP - General Family Medicine 11/21/18 documented as of this encounter
--- OUTSIDE RECORDS SUMMARY | 2024-03-13 20:38 | XMS_ITS | Encounter Summary ---
Author Organization [facility] Address [facility] [place] [address] Care Team Providers Care Promotional Advertising Assistant Name Role Phone Anna Bodns APRN Primary Care Provider [phone] Reason for Visit * Reason Comments Pelvic Pain * Consultation (Routine) - Closed Specialty Diagnoses / Procedures Referred By Contac t Referred To Contact Obstetrics and Gynecology Diagnoses Pelvic and perineal pain Anna Bonds APRN [address] [place] [address] [facility] [address] [place] [address] Referral ID Status Reason Start Date Expiration Date V isits Requested Visits Authorized [id number] Closed Consult, Test & Treat 05/15/2023 05/14/2024 1 1 Encounter Details Date Type Department Care Team (Late st Contact Info) Description 06/14/2023 2:00 PM EDT Office Visit [facility] [address] [place] [address] Jeyson Salinas MD [facility] DR OBSTETRICS [place] [address] Acute pelvic pain, female; OAB [...] history on file. female presenting to the [facility] with the following concerns. [...] pelvis Referral of patient pelvic pain - [facility] Steatosis of liver Type 2 diabetes mellitus [...] AM EST Hospital Encounter Non-Invasive [place] [address] Arrived documented as of this encounter Visit Diagnoses Diagnosis Acute pelvic pain, female Unspecified symptom associated with female genital organs OAB (overactive bladder) Hypertonicity of bladder documented in this encounter Care Teams Promotional Advertising Assistant Relationship Specialty Start Date End Date Anna Bonds APRN [address] [place] [address] PCP - General Family Medicine 11/21/18 documented as of this encounter
--- OUTSIDE RECORDS SUMMARY | 2024-03-13 20:38 | XMS_ITS | Encounter Summary ---
Author Organization [facility] Address [facility] [place] [address] Care Team Providers Care Pasting Machine Operator Name Role Phone Vamshi Anna ARIK Primary Care Provider [phone] Encounter Details Date Type Department Care Team (Late st Contact Info) Description 05/15/2023 [place] [phone] Xiomara Joiner MD [facility] [place] [address] Social History Tobacco Use Types Packs/Day Years [...] AM EST Hospital Encounter [place] [address] Arrived documented as of this encounter Visit Diagnoses Not on filedocumented in this encounter Care Teams Pasting Machine Operator Relationship Specialty Start Date End Date Anna Bonds APRN [address] [place] [address] PCP - General Family Medicine 11/21/18 documented as of this encounter
--- OUTSIDE RECORDS SUMMARY | 2024-03-13 20:38 | XMS_ITS | Encounter Summary ---
Author Organization [facility] Address [facility] [place] [address] Care Team Providers Care Shot Hole Shooter Name Role Phone Anna Bonds APRN Primary Care Provider [phone] Reason for Referral * Diagnostic Test (Routine) - Closed Specialty Diagnoses / Procedures Referred By Contac t Referred To Contact Radiology Diagnoses Pain in pelvis Pelvic and perineal pain Procedures CT Abdomen & Pelvis w Contrast CT Abdomen & Pelvis wwo Contrast (Generic) Anna Bonds APRN [address] [place] [address] [facility] [address] [place] [address] Referral ID Status Reason Start Date Expiration Date V isits Requested Visits Authorized [id number] Closed Specialty Service Requested 05/15/2023 11/13/2024 1 1 Reason for Visit * Diagnostic Test (Routine) - Closed Specialty Diagnoses / Procedures Referred By Contac t Referred To Contact Radiology Diagnoses Pain in pelvis Pelvic and perineal pain Procedures CT Abdomen & Pelvis w Contrast CT Abdomen & Pelvis wwo Contrast (Generic) Anna Bonds APRN [address] [place] [address] [facility] [address] [place] [address] Referral ID Status Reason Start Date Expiration Date V isits Requested Visits Authorized [id number] Closed Specialty Service Requested 05/15/2023 11/13/2024 1 1 Encounter Details Date Type Department Care Team (Latest Contact Info) Description 05/24/2023 8:35 AM EDT - 05/24/2023 11:59 PM EDT Hospital Encounter Radiology Cat Scan at [place] [address] Anna Bonds APRN [address] [place] [address] Pain in pelvis; Pelvic and perineal pain [...] st Contact Info) Description 04/04/2024 10:00 AM [facility] Hospital Encounter Non-[place]vasive [place] [address] Arrived documented as of this encounter Procedures [...] who have questions please contact the health lawn caretaker that requested your imaging first. ? Narrative 05/24/2023 11:02 AM EDT EXAMINATION: CT [...] patients who have questions please contactthe health lawn caretaker that requested your imaging first. Anna Bonds APRN [facility] ORDERABLES documented in this encounter Visit [...] mLs documented in this encounter Care Teams Shot Hole Shooter Relationship Specialty Start Date End Date Anna Bonds APRN [address] [place] [address] PCP - General Family Medicine 11/21/18 documented as of this encounter
--- OUTSIDE RECORDS SUMMARY | 2024-03-13 20:38 | XMS_ITS | Referral Summary ---
Author Organization [facility] Address [address] [place] [address] Care Team Providers Care Retort Condenser Attendant Name Role Phone Unavailable Primary Care Provider [...] 10:05 EDT [facility] Blood VENOUS BLOOD / Unknown 06/22/2020 13:05 EDT 06/23/2020 15:54 EDT us Provider Outr Resulting Lab CHEMISTRY & BLOOD GA S ORDERABLES Final Result [facility] [address] [place] [address] from Last 3 Months or Most Recently Relevant to Health Maintenance
--- OUTSIDE RECORDS SUMMARY | 2024-03-13 20:38 | XMS_ITS | Encounter Summary ---
Author Organization [facility] [place] [address] Care Team Providers Care Electronics Tester Name Role Phone Anna Bonds APRN Primary Care Provider [phone] Reason for Visit * Reason Comments Hospital Transfer Abdominal Pain * Auth/Cert (Routine) Specialty Diagnoses / Procedures Referred By Contac t Referred To Contact Diagnoses UTI (urinary tract infection) ruptured appy Procedures EMERGENCY IPI TO EMERGENCY OBSVO Tj Barboza MD [facility] [place] [address] [facility] Referral ID Status Reason Start Date Expiration Date Visits Re quested Visits Authorized [id number] 1 1 Encounter Details Date Type Department Care Team (Late st Contact Info) Description 03/15/2023 12:14 AM EST - 03/15/2023 7:00 PM EST Emergency Surgical Unit Level 3 [place] [phone] Jossie Melara MD Chung, Bruce, MD [facility] [place] [address] Appendicitis, unspecified appendicitis type Discharge Disposition: Home Social History Tobacco Use Types Packs/Day Years Used Date Smoking Tobacco: Every Day Cigarettes 0.3 21 Smokeless Tobacco: Never Comments:A couple packs a we ek. Alcohol Use Standard Drinks/Week Comments Never 0 (1 standard drink = 0.6 oz pur e alcohol) [facility] Inpatient Questions Answer Date Recorded Does Anyone Try to Keep You From Having Contact with Others or Doing Things Outside Your Home? no 03/15/2023 Feels Threatened by Someone no 0 03/2023 Feels Unsafe at Home or Work/School [...] Sulfur Penicillins Operations/Procedures: HPI: Obtained from Dr. Adams HP on 03/14/23 Mady Medellin is a 63 [...] Trauma and Acute Care Surgery Team at [facility]. If you have any questions or concerns, please feel free to contact us. Provider Contact Information: General Surgery: [facility] (after business hours): Primary Care Physician: Anna Bonds APRN General Instructions None Your care was managed by the Trauma and Acute Care Surgery Team at [facility]. If you have any questions or concerns, please feel free to contact us. Provider Contact Information: General Surgery Scheduling: Nurses line for questions: [facility] (after business hours): CC: Anna Bonds APRN Daraeldon Brown Radha Balderas APRN Signed: Horace Acosta MD Department of Surgery 03/15/2023 Acute Care Surgery Pager [phone] documented in this encounter Discharge Instructions * [...] Trauma and Acute Care Surgery Team at [facility]. If you have any questions or concerns, please feel free to contact us. Provider Contact Information: General Surgery: [facility] (after business hours): Primary Care Physician: Anna [...] pt need to f-u with surgeon or [employer] (please indicate reason if attending provider): None [...] Adams MD - 03/15/2023 1:06 AM EST [facility] Department of Surgery Admission History and Physical HPI: Mady Medellin is a 63 y.o. female with medical history significant for DM2, COPD, hypertension, hyperlipidemia, and complete heart block s/p pacemaker implant in 2013 who presents with abdominal pain. She reports that she started having mild abdominal pain on the left side earlier today. 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 She states that she often has diarrhea which she attributes to metformin, and had multiple episodes of diarrhea today. She denies any nausea and has tolerated some p.o. intake. She also reports urinary symptoms including urgency and frequency. She reported to [facility] ED for evaluation of the symptoms this evening. Workup to this point has been notable for a leukocytosis of 14.2, urinalysis consistent with a UTI, and CT findings consistent with acute cystitis with concern for appendicitis on imaging. She was transferred to [facility] for further evaluation. PMH: No past medical [...] PRN Gerard Reyes MD 80 mL at 03/14/23 193 [COMPLETED] piperacillin-tazobactam (Zosyn) 4.5 g vial attach to sodium chloride 0.9% 100 mL Mini-Bag Plus 4.5 g Intravenous Once Rory Whyte MD Stopped at 03/14/23 9878 Current Outpatient Medications on File Prior to [...] 9:10 AM EST Transport via bed to [facility]. * Xiomara Dia RN - 03/15/2023 8:57 AM EST Report to Pascual ECKERT. * Xiomara Dia RN - 03/15/2023 8:46 AM EST Attempted to call report, but the phone was not answered. ED certified social workers in health care aware. * Xiomara Dia RN - 03/15/2023 [...] 15, 2023 0022 63 F transferred from [facility] for CT proven ruptured appendicitis. Zosyn at 20:51 and ceftriaxone given prior to arrival. WBC 14.2 at outside hospital. Last ate over 12 hours ago. 0023 On my independent exam, patient is resting comfortably, has a soft expiratory wheezes in all lung ackerman, has a nontender nonperitoneal abdomen. 0023 Surgery consulted 0126 Admitted to gen surg 0139 MDM: Patient presents with CT from [facility] that is concerning for ruptured appendicitis. Here, [...] Melara MD 03/15/23 0141 * Lalitha Martell Joy, DO - 03/15/2023 12:22 AM EST ED [...] - 03/14/2023 11:05 PM EST Sending Facility: [facility] ED Reason for Transfer: Report: Presented to [...] COVID test: Lab Results Component Value Date [id number] Not Detected 02/24/2023 Present on Admission: UTI (urinary tract infection) Hospitalizations Within the Past 30 Days: 03/14 and 02/24 ED admissions. Patient receiving hospital care under Inpatient status. Admission order reviewed. Health/Prescription Coverage: Primary Insurance: [place] Payor: [place] / Plan: [place] PRIMARY CARE PLUS / Product Type: *No Product type* / Secondary Insurance: N/A ; Prescription Coverage: Preferred Pharmacy: [facility] [address] [place] [id number] Advance Care Planning: Attempt Cardiopulmonary Resuscitation - Inpatient <no information> - Current Functional Ability: Functional Status Prior to Admission: Home Environment: . . Accessibility Concerns: . Current DME: [address] [place] [facility] [address] Social & Family Supports: All names listed below confirmed with patient as current and correct Extended Emergency Contact Information Primary Emergency Contact: Neel Medellin Mobile Relation: Child Secondary Emergency Contact: Alma Delia Medellin Mobile Relation: Son/Nexrssip-fj-xaw Current Care Provided by: Transportation: Transportation Anticipated: Assessment: Patient with no apparent RNCM/SW needs at this time. No housing, transportation, insurance, resources concerns identified at this time. Supports in place to achieve a safe post-hospital transition. No identified barriers to accessing necessary care and/or follow-up after discharge. Plan: Patient to d/c to home via private car when medically ready. Registered Nurse Software Configuration Manager / Nut Orchardist will continue to follow patient???s progress and remain available if situation changes for coordination of care, psychosocial support and/or discharge planning. Office of Care Management Tana Garcia RN-CM, [facility] Surgery Nurse Core Blower Operator , Pager [phone] * ED Triage - Nanda Stone RN [...] (Adult) Stated Reason for Visit: Transfer from [facility] for surgical consult for appy History Obtained From: EMS Associated Signs/Symptoms: abdominal pain, nausea, cough, vomiting, weakness documented in this encounter Plan of Treatment Upcoming Encounters Date Type Department Care Team (Late st Contact Info) Description 04/04/2024 10:00 AM EST Hospital Encounter [place] [address] Arrived documented as of this encounter Procedures [...] Glucose, POC 139 65 - 199 mg/dL [facility] Comment: Supplemental ranges: <140 mg/dL before meals <180 mg/dL all other times of the day Blood 03/15/2023 4:16 PM EST 03/15/2023 4:16 PM EST Tj Barboza MD POINT OF CARE TEST O RDSYLVIA Performing Organization Address [facility] Co de Phone Number [facility] [place] [address] * POCT Glucose (03/15/2023 12:03 PM EST) Glucose, POC 129 65 - 199 mg/dL [facility] Comment: Supplemental ranges: <140 mg/dL before meals <180 mg/dL all other times of the day Blood 03/15/2023 12:0 3 PM EST 03/15/2023 12:03 PM EST Tj Barboza MD POINT OF CARE TEST O KATIUSKA Performing Organization Address [facility] Co de Phone Number [facility] [place] [address] * POCT Glucose (03/15/2023 9:56 AM EST) Glucose, POC 123 65 - 199 mg/dL [facility] Comment: Supplemental ranges: <140 mg/dL before meals <180 mg/dL all other times of the day Blood 03/15/2023 9:56 AM EST 03/15/2023 9:56 AM EST Tj Barboza MD POINT OF CARE TEST O RDSYLVIA Performing Organization Address City/[facility] Co de Phone Number [facility] [place] [address] * Phosphorus (03/15/2023 2:40 AM EST) Phosphorus 3.2 2.5 - 4.5 mg/dL [facility] Blood 03/15/2023 2:40 AM EST 03/15/2023 2:46 AM EST Narrative Resulting Agency Comment Spec In Lab Jossie Melara MD CHEMISTRY ORDERABLE S Performing Organization Address [facility] Co de Phone Number [facility] [place] [address] * (ABNORMAL) Magnesium (03/15/2023 2:40 AM EST) Magnesium 0.61(L) 0.69 - 1.07 mmol/L [facility] Blood 03/15/2023 2:40 AM EST 03/15/2023 2:46 AM EST Narrative Resulting Agency Comment Spec In Lab Jossie Melara MD CHEMISTRY ORDERABLE S Performing Organization Address [facility] de Phone Number [facility] [place] [address] * Basic Metabolic Panel (non-fasting) (03/15/2023 2:40 AM EST) Glucose 124 65 - 199 mg/dL [facility] Comment:Diabetes: >=200 mg/d L plus symptoms Blood Urea Nitrogen 11 8 - 18 mg/dL [facility] Creatinine 0.73 0.70 - 1.20 mg/dL [facility] Sodium 141 135 - 145 mmol/L [facility] Potassium 3.8 3.5 - 5.0 mmol/L [facility] Comment: Please note: ??Patients with WBC >100,000 may have falsely elevated Potassium levels. ??For accurate Potassium quantification in these patients send serum separator tube (gold top) for subsequent determinations. ??Contact the Clinical Chemistry Laboratory if there are any questions. Chloride 105 98 - 107 mmol/L [facility] Carbon Dioxide 24 22 - 31 mmol/L [facility] Anion Gap 12 5 - 15 mmol/L [facility] Calcium 8.6 8.5 - 10.5 mg/dL [facility] Est Glomerular Filtration Rate 92 >=60 mL/min/1. 73 m?? [facility] Comment: This patient's estimated GFR was [...] MD CHEMISTRY ORDERABLE S Performing Organization Address City/State/[facility] Co de Phone Number [facility] [place] [address] * (ABNORMAL) Hemogram (03/15/2023 2:40 AM EST) White Blood Cell 10.4(H) 4.0 - 9.5 x10(3)/mc L [facility] Red Blood Cell 4.23 4.00 - 5.21 x10(6)/mc L [facility] Hemoglobin 12.3 11.7 - 15.5 g/dL [facility] Hematocrit 36.1 35.7 - 45.8 % [facility] Mean Cell Volume 85.3 82.6 - 94.4 fL [facility] Mean Cell Hemoglobin 29.1 27.1 - 32.0 pg [facility] Mean Cell Hemoglobin Concentration 34.1 31.7 - 35.0 g/dL [facility] Platelet 152 145 - 357 x10(3)/mc L [facility] RDW Standard Deviation 39.1 37.0 - 46.0 fL [facility] RDW coefficient of variation 12.6 11.5 - 14.1 % [facility] Mean Platelet Volume 9.9 7.6 - 12.9 fL [facility] NRBC% auto 0.0 % [facility] NRBC Absolute 0.000 0.000 - 0.000 x10(3)/mc L [facility] Blood 03/15/2023 2:40 AM EST 03/15/2023 2:46 AM EST Narrative Resulting Agency Comment Spec In Lab Jossie Melara MD HEMATOLOGY ORDERABL ES Performing Organization Address [facility] Co de Phone Number [facility] [place] [address] * (ABNORMAL) Hemoglobin A1c (03/15/2023 2:40 AM EST) Hemoglobin A1c 6.2(H) 4.3 - 5.6 % [facility] Comment: Reference Range: 4.3 - [...] Mellitus, Diabetes Care 2013; 36: Suppl. 1, S65-42 Estimated Average Glucose 130 mg/dL [facility] Blood 03/15/2023 2:40 AM EST 03/15/2023 2:46 AM EST Narrative Resulting Agency Comment Spec In Lab Tj Barboza MD CHEMISTRY ORDERABLES Performing Organization Address [facility] Co de Phone Number [facility] [place] [address] * POCT Glucose (03/15/2023 2:32 AM EST) Glucose, POC 121 65 - 199 mg/dL [facility] Comment: Supplemental ranges: <140 mg/dL before meals <180 mg/dL all other times of the day Blood 03/15/2023 2:32 AM EST 03/15/2023 2:32 AM EST Tj Barboza MD POINT OF CARE TEST O RDERABLES Performing Organization Address [facility] Co de Phone Number [facility] [place] [address] documented in this encounter Visit Diagnoses Diagnosis [...] 15 MIN PRN, Starting on Sat03/15/23 at 011, Until Sat03/15/23 at 2106, Low blood sugar, [...] PRN, 1 dose, Starting on Sat03/15/23 at 011, Until Sat03/15/23 at 2106, for discomfort with [...] Sat03/15/23 at 0111, Until Sat03/15/23 at 2106, Nausea, If multiple [...] Sat03/15/23 at 0111, Until Sat03/15/23 at 2106, Nausea, Vomiting, If [...] 1 MIN PRN, Starting on Sat03/15/23 at 0111, Until Sat03/15/23 at 2106, flush, Flush pertains [...] 15 MIN PRN, Starting on Sat03/15/23 at 011, Until Sat03/15/23 at 2106, Low blood sugar, [...] hours documented in this encounter Care Teams Electronics Tester Relationship Specialty Start Date End Date Anna Bonds APRN [address] [place] [address] PCP - General Family Medicine 11/21/18 documented as of this encounter
--- OUTSIDE RECORDS SUMMARY | 2024-03-13 20:38 | XMS_ITS | Encounter Summary ---
Author Organization [facility] [place] [address] Care Team Providers Care Gold Leaf Printer Name Role Phone Anna Bonds APRN Primary Care Provider [phone] Encounter Details Date Type Department Care Team (Latest Contact Info) Description 10/07/2023 10:00 AM EDT - 10/07/2023 11:59 PM EDT Hospital Encounter Non-Invasive [place] [phone] Discharge Disposition: Home Social History Tobacco Use [...] st Contact Info) Description 04/04/2024 10:00 AM [facility] Hospital Encounter Non-Invasive [place] [address] Arrived documented as of this [...] on filedocumented in this encounter Care Teams Gold Leaf Printer Relationship Specialty Start Date End Date Anna Bonds APRN [address] [place] [address] PCP - General Family Medicine 11/21/18 documented as of this encounter
--- OUTSIDE RECORDS SUMMARY | 2024-03-13 20:38 | XMS_ITS | Encounter Summary ---
Author Organization [facility] Address [facility] [place] [address] Care Team Providers Care File Drawer Finisher Name Role Phone Anna Bonds APRN Primary Care Provider [phone] Encounter Details Date Type Department Care Team (Latest Contact Info) Description 05/15/2023 Transcribe Orders Laboratory at [facility] [address] [place] [phone] Anna Bonds APRN [address] [place] [address] Pelvic pain syndrome Social History Tobacco Use [...] AM EST Hospital Encounter Non-Invasive [place] [phone] Arrived documented as of this encounter Results * (ABNORMAL) Creatinine (05/24/2023 8:06 AM EDT) Creatinine 0.61(L) 0.70 - 1.20 mg/dL [facility] Est Glomerular Filtration Rate 100 >=60 mL/min/1. 73 m?? [facility] Comment: This patient's estimated GFR [...] In Lab Anna Bonds APRN CHEMISTRY ORDERABLES [facility] [address] [place] [address] documented in this encounter Visit Diagnoses Diagnosis Pelvic pain syndrome Pelvic congestion syndrome documented in this encounter Care Teams File Drawer Finisher Relationship Specialty Start Date End Date Anna Bonds APRN [address] [place] [address] PCP - General Family Medicine 11/21/18 documented as of this encounter
--- OUTSIDE RECORDS SUMMARY | 2024-03-13 20:38 | XMS_ITS | Clinical Summary ---
Author Organization [facility] Address [facility] [place] [address] Care Team Providers Care Hand Developer Name Role Phone Anna Bonds APRN Primary Care Provider [phone] Allergies Active Allergy Reactions Criticality Noted Date [...] Encounters Date Type Department Care Team Description 01/24/2024 2:55 PM EST - 01/24/2024 11:59 PM EST Hospital [place] [phone] Anna Bonds APRN Tobacco use disorder Discharge Disposition: Home 01/24/2024 Travel 01/05/2024 10:00 AM EST - 01/05/2024 11:59 PM EST Hospital Encounter Non-[place] [phone] Discharge Disposition: Home 12/26/2023 [place] [address] Marlys Crook from Last 3 Months Family History Medical [...] AM EST Hospital Encounter Non-[place] [address] Arrived Health Maintenance Due Date Last Done Comments CT Colonography 1960 Colonoscopy 1960 Colorectal Cancer Screening 1960 FIT DNA 1960 FIT 1960 Sigmoidoscopy (10 year) with FIT yearly 1960 Sigmoidoscopy 1960 DM Opthalmology Exam 1970 DM Urine Microalbumin yearly 1970 HIV screen 1978 Hepatitis C Screening 1978 Pneumoccocal Vaccine: 50+ (1 of 2 - PCV) 1979 Tetanus/Diphtheria/Pertussis Vaccines (1 - Tdap) 1979 HPV test 1990 PAP Smear 1990 Breast Cancer Share Decision Needed 2000 Zoster vaccine (1 of 2) 2010 Advance Directive 2015 RSV Vaccine (1 - Risk 60-74 years 1-dose series) 2020 DM Hemoglobin A1c 6 month 09/13/2023 03/15/2023 Covid-19 Vaccine (1 - season) 2023 Influenza (Flu) vaccine (1 o f 1 - Influenza standard series) 10/13/2023 Breast Cancer screening 10/26/2023 10/25/2021 DM Creatinine yearly 05/23/2024 05/24/2023, 03/15/2023, 03/14/2023 Medical Devices Implanted Type Area Manager Drug Device Identifier Shelf Expiration Date Model / Serial / Lot Maged [id number] Lead- 4 Implanted:Qty : 1 on 09/22/2013 Lead Heart Medtronic - [id number] / [id number] / Description:RA Lead See Pacemaker for MR Status: Humberto Escalante RT(R)(CT)(MR)(ARRT), MRI Safety Technologist, 04/04/2021 Maged [id number] Lead- 4 Implanted:Qty : 1 on 09/22/2013 Lead Heart Medtronic - [id number] / [id number] / Description:RV Lead See Pacemaker for MR Status: Humberto Escalante RT(R)(CT)(MR)(ARRT), MRI Safety Technologist, 04/04/2021 t: [id number]: [id number]/ 18/2023 Implanted: by Kathy Avelar MD (Quantity not on file) Pacemaker Chest Wall Medtronic - [id number] / [id number] / Explanted Type Area Manager Drug Device Identifier Shelf Expiration Date Model / Serial / Lot Mdt Adapta [id number]/12/20 14 Implanted:Qty: 1 on 09/22/2013 Explanted:09/11 by Kathy Avelar MD (Quantity not on file) Pacemaker Chest Wall [employer]. ADDR01 / [id number] / Description:The above implan t (ADDR01) is considered MR UNSAFE and therefore cannot be scanned here at [facility] Humberto Escalante RT(R)(CT)(MR)(ARRT), MRI Safety Technologist, 04/04/2021 Procedures Procedure Name Priority Date/Time Associated Diagnosis Comments CARDIAC DEVICE CHECK - REMOTE Routine 02/07/2024 10:[address] CHEST SCREENING LUNG CANCER Routine 01/24/2024 3:24 PM EST Tobacco use disorder CREATININE Routine 05/24/2023 8:06 AM EDT Pelvic pain syndrome HEMOGLOBIN A1C STAT 03/15/2023 2:40 AM EST MAMMO SCREENING CAD AND FROILAN BILATERAL Routine 10/25/2021 2:10 PM EDT Visit for screening mammogram from Last 3 Months or Most Recently Relevant to Health Maintenance Results * Cardiac Device Check - Remote (02/07/2024 10:32 PM EST) Anatomical Region Laterality Modality Other 02/07/2024 10:3 2 PM EST Taz Galan MD IMPLANTABLE CARDIAC DEVICE * CT Chest Screening Lung Cancer (01/24/2024 3:24 PM EST) WORKSTATION ID [id number] RAD Anatomical Region Laterality Modality Computed Tomogra [...] who have questions please contact the health personal caregiver that requested your imaging first. ? Electronically signed by: Rosana Martinez MD, [facility] ([phone]), at 02/09/2024 3:03 PM Narrative 02/09/2024 3:03 PM EST EXAMINATION: CT CHEST SCREENING LUNG CANCER CLINICAL HISTORY: Asymptomatic but at high risk for lung cancer F17.200, Nicotine dependence, unspecified, uncomplicated TECHNIQUE: Noncontrast, low-dose chest CT (LDCT) per [facility] lung cancer screening protocol. COMPARISON: 12/25/2021. FINDINGS: [...] TECHNIQUE: Noncontrast, low-dose chest CT (LDCT) per [facility] lung cancerscreening protocol. COMPARISON: 12/25/2021. FINDINGS: Lung-RADS [...] patients who have questions please contactthe health personal caregiver that requested your imaging first. Electronically signed by: Rosana Martinez MD, [facility] ([phone]), at 02/09/2024 3:03 PM Anna Bonds APRN IMG CT ORDERABLES * (ABNORMAL) Creatinine (05/24/2023 8:06 AM EDT) Creatinine 0.61(L) 0.70 - 1.20 mg/dL [facility] Est Glomerular Filtration Rate 100 >=60 mL/min/1. 73 m?? [facility] Comment: This patient's estimated GFR [...] In Lab Anna Bonds APRN CHEMISTRY ORDERABLES [facility] [address] [place] [address] * (ABNORMAL) Hemoglobin A1c (03/15/2023 2:40 AM EST) Hemoglobin A1c 6.2(H) 4.3 - 5.6 % [facility] Comment: Reference Range: 4.3 - 5.6% [...] Mellitus, Diabetes Care 2013; 36: Suppl. 1, C81-63 Estimated Average Glucose 130 mg/dL [facility] Blood 03/15/2023 2:40 AM EST 03/15/2023 2:46 AM EST Narrative Resulting Agency Comment Spec In Lab Tj Barboza MD CHEMISTRY ORDERABLES [facility] [place] [address] * Mammo Screening Cad and Froilan Bilateral (10/25/2021 2:10 PM EDT) Anatomical Region [...] Status decision made by: Patient Care Teams Hand Developer Relationship Specialty Start Date End Date Anna Bonds APRN [address] [place] [address] PCP - General Family Medicine 11/21/18
--- OUTSIDE RECORDS SUMMARY | 2024-03-13 20:38 | XMS_ITS | Encounter Summary ---
Author Organization [facility] Address [address] [place] [address] Care Team Providers Care Shot Examiner Name Role Phone Unavailable Primary Care Provider Unavailabl e Encounter Details Date Type Department Care Team (Latest Contact Info) Description 06/15/2022 Lab Requisition [facility] Pathology & Laboratory Medicine - [facility] [address] [place] [address] Anna Bonds FNP [address] [place] [phone] Encounter for general adult medical examination without [...] types, PCR Negative Negative 06/26/2022 15:42 EDT [facility] Comment:No E6 or E7 mRNA is detected from HPV types 16,18,31,33,35,39,45,51,52,56,58,59,66, and 68 by railcar switchman mediated amplification. Papanicolaou smear specimen (specimen) CERVIX UTERI STRUCTURE / Unknown 06/13/2022 14:45 EDT 06/25/2022 13:02 EDT Anna ARCE MICROBIOLOGY - GENERAL ORDERABLE S Final Result [facility] [address] [place] [address] * PAP TEST (06/13/2022 14:45 EDT) Specimens A. Cervix and/or Endocervix , ThinPrep Imaging System with Manual Evaluation 06/26/2022 15:42 EDT [facility] Specimen Adequacy Satisfactory for Evaluation - transformation zone component present Scant due to excessive blood 06/26/2022 15:42 T [facility] General Categorization Negative for intraepithelial lesion or malignancy 06/26/2022 15:42 T [facility] Attestation . 06/26/2022 15:42 [facility] at 1542 Clinical History SEE BELOW 06/27/19 23 15:42 T [facility] HPV The result for the Human Papillomavirus (HPV) Detection-High Risk Types is Negative. No E6 or E7 mRNA is detected from HPV types 16,18,31,33,35,39 ,45,51,52,56,58,5 9,66, and 68 by railcar switchman mediated amplification.Gisele ting was performed on specimen [id number] and was resulted on 06/26/2022 1542 EDT by REYES, LAB INSTRUMENT RESULTS IN 06/26/2022 15:42 EDT [facility] Performing Lab [facility] 06/26/2022 15:42 EDT [facility] Scanned Images 06/26/2022 15:42 EDT [facility] Papanicolaou smear specimen (specimen) CERVIX UTERI STRUCTURE / Unknown 06/13/2022 14:45 EDT 06/15/2022 14:17 EDT Anna Bonds ELECTRONIC NEWS GATHERING CAMERA PERSON PATHOLOGY ORDERABLES Final Resul t [facility] [address] [place] [address] documented in this encounter Visit Diagnoses Diagnosis Encounter for general adult medical examination without abnormal findings Unspecified general medical examination Encounter for gynecological examination (general) (routine) without abnormal findings Encounter for screening for malignant neoplasm of cervix Screening for malignant neoplasm of the cervix documented in this encounter
--- OUTSIDE RECORDS SUMMARY | 2024-03-13 20:38 | XMS_ITS | Encounter Summary ---
Author Organization [facility] [place] [address] Care Team Providers Care Tele Tech Name Role Phone Anna Bonds APRN Primary Care Provider [phone] Encounter Details Date Type Department Care Team (Latest Contact Info) Description 05/24/2023 7:00 AM EDT - 05/24/2023 8:34 AM EDT Hospital Encounter Radiology Cat Scan at [facility] [place] [address] Anna Bonds APRN [address] [place], [place] [address] Discharge Disposition: Home Social History Tobacco Use [...] st Contact Info) Description 04/04/2024 10:00 AM [facility] Hospital Encounter Non-Invasive [place] [address] Arrived documented as of this encounter Visit Diagnoses Not on filedocumented in this encounter Care Teams Tele Tech Relationship Specialty Start Date End Date Anna Bonds APRN [address] [place] [address] PCP - General Family Medicine 11/21/18 documented as of this encounter
--- OUTSIDE RECORDS SUMMARY | 2024-03-13 20:38 | XMS_ITS | Encounter Summary ---
Author Organization [facility] Address [address] [place] [address] Care Team Providers Care Flag Car Driver Name Role Phone Unavailable Primary Care Provider Unavailabl e Encounter Details Date Type Department Care Team (Late st Contact Info) Description 06/23/2020 Lab Requisition [facility] Pathology & Laboratory Medicine - [facility] [address] [place] [address] Outr Resulting Lab, Provider Social History Tobacco [...] <3.1 See Note mIU/mL 06/24/2020 9:31 EDT [facility] Comment: Reference Range for Hep B Surface Ab, Quant: Positive: >= 10.0 mIU/mL Negative: ??< 10.0 mIU/mL Patient is presumed to not be immune to infection with Hepatitis B Virus. Hep B Surface Ab, Qualitative Negative See Note 06/24/2020 9:31 EDT [facility] Comment: Reference Range for Hep B Surface Ab, Qual: Unvaccinated: ??Negative Vaccinated: ??Positive Blood VENOUS BLOOD / Unknown 06/22/2020 13:05 EDT 06/23/2020 15:54 EDT us Provider Outr Resulting Lab CHEMISTRY & BLOOD GA S ORDERABLES Final Result [facility] [address] [place] [address] * HEPATITIS C AB W REFLEX TO HCV RNA BY PCR (06/22/2020 13:05 EDT) Hep C Antibody Negative Negative 06/24/2020 10:05 EDT [facility] Blood VENOUS BLOOD / Unknown 06/22/2020 13:05 EDT 06/23/2020 15:54 EDT us Provider Outr Resulting Lab CHEMISTRY & BLOOD GA S ORDERABLES Final Result [facility] [address] [place] [address] documented in this encounter Visit Diagnoses Not on filedocumented in this encounter
--- OUTSIDE RECORDS SUMMARY | 2024-03-13 20:38 | XMS_ITS | Encounter Summary ---
Author Organization [facility] Address [address] [place] [address] Care Team Providers Care Warper Tender Name Role Phone Unavailable Primary Care Provider Unavailabl e Encounter Details Date Type Department Care Team (Late st Contact Info) Description 04/20/2005 Results Only [facility] [address] [place] [address] Karen Mejia MD [address] [place] [address] [place] [address] Social History Tobacco Use Types Packs/Day Years [...] reading/interpreti ng unformatted reports. Name: ? SISI AMRTINES ? Accession #: ? [id number] ? : ? 1960 (Age: 45) ??F [...] submitted in one cassette following filtration. ??(Salo Sheehan)/[facility] End of Report DEJA DELA CRUZ 04/20/2005 04/21/2005 8:3 2 EST us Karen Mejia MD PATHOLOGY ORDERABLES Final Resu lt DEJA DELA CRUZ [address] [place] [address] documented in this encounter Visit Diagnoses Not on filedocumented in this encounter
--- OUTSIDE RECORDS SUMMARY | 2024-03-13 20:39 | XMS_ITS | Encounter Summary ---
Author Organization [facility] Address [facility] [place] [address] Care Team Providers Care Assembly Mechanic Name Role Phone Anna Bonds APRN Primary Care Provider [phone] Reason for Visit * Auth/Cert (Routine) Specialty Diagnoses / Procedures Referred By Contac t Referred To Contact Diagnoses CHB (complete heart block) [I44.2]Pacemaker [Z95.0]Pacemaker generator end of life [Z45.010] Procedures PRO REMOVAL PACER PLSE GEN W RPLMT PACER PLSE GEN DUAL LEAD ELECTROPHYSIOLOGY PROCEDURE REMOVAL PPM GENERATOR W REPL PPM GEN; DUAL LEAD (WRVU 5.52) Kathy Avelar MD [facility] [place] [address] [facility] Referral ID Status Reason Start Date Expiration Date Visits Re quested Visits Authorized [id number] 1 1 Encounter Details Date Type Department Care Team (Late st Contact Info) Description 09/28/2022 8:36 AM EDT Anesthesia Event [place] [address] Elisa Saldana MD [facility] [place] [address] Anesthesia Record Procedure Summary Procedure Name Responsible [...] EDT Department of Anesthesiology Post-procedure Note Patient: Mady Medellin Procedure Summary Date: 09/28/22 Room / Location: EP B-LAB ROOM 4 / [facility] Anesthesia Start: 836 Anesthesia Stop: [...] All Anesthesia Providers: Anesthesiologist: Elisa Saldana MD TOWER OPERATOR: Adonis Campbell CRNA; Jovani Jimenez CRNA Vitals Value Taken Time BP 123/66 09/28/22 0946 Temp Pulse 67 09/28/22 0949 Resp 16 09/28/22 0949 SpO2 96 % 09/28/22 0949 Pain Level 0 09/28/22 0942 Vitals shown include unvalidated device data. Patient Location: PACU/[facility] Level of Consciousness: Awake and Alert Pain [...] AM EST Hospital Encounter Non-Invasive [place]iology [place] [address] Arrived documented as of this encounter Visit [...] mg documented in this encounter Care Teams Assembly Mechanic Relationship Specialty Start Date End Date Anna Bonds APRN [address] [place] [address] PCP - General Family Medicine 11/21/18 documented as of this encounter
--- OUTSIDE RECORDS SUMMARY | 2024-03-13 20:39 | XMS_ITS | Encounter Summary ---
[place] [address] Care Team Providers Care Roll Examiner Name Role Phone Anna Bonds APRN Primary Care Provider [phone] Reason for Referral * Diagnostic Test (Routine) - Closed Specialty Diagnoses / Procedures Referred By Contac t Referred To Contact Radiology Diagnoses Nicotine dependence with nicotine-induced disorder, unspecified nicotine product type Procedures CT Chest Screening Lung Cancer Anna Bonds APRN [address] [place] [address] [facility] [place] [address] Referral ID Status Reason Start Date Expiration Date V isits Requested Visits Authorized [id number] Closed Specialty Service Requested 10/20/2021 04/20/2023 1 1 Reason for Visit * Diagnostic Test (Routine) - Closed Specialty Diagnoses / Procedures Referred By Contac t Referred To Contact Radiology Diagnoses Nicotine dependence with nicotine-induced disorder, unspecified nicotine product type Procedures CT Chest Screening Lung Cancer Anna Bonds APRN [address] [place] [address] [facility] [place] [address] Referral ID Status Reason Start Date Expiration Date V isits Requested Visits Authorized [id number] Closed Specialty Service Requested 10/20/2021 04/20/2023 1 1 Encounter Details Date Type Department Care Team (Latest Contact Info) Description 12/25/2021 3:45 PM EST - 12/25/2021 11:59 PM EST Hospital Encounter [place] [phone] Anna Bonds APRN [address] [place] [address] Nicotine dependence with nicotine-induced disorder, unspecified nicotine [...] AM EST Hospital Encounter Non[place] [address] Arrived documented as of this encounter Procedures [...] who have questions please contact the health rn intensive care unit that requested your imaging first. ? Electronically signed by: Rosana Martinez MD, [facility] ([phone]), at 12/31/2021 2:59 PM Narrative 12/31/2021 2:59 PM EST EXAMINATION: CT CHEST SCREENING LUNG CANCER CLINICAL HISTORY: Asymptomatic but at high risk for lung cancer TECHNIQUE: Noncontrast, low-dose chest CT (LDCT) per [facility] lung cancer screening protocol. [...] TECHNIQUE: Noncontrast, low-dose chest CT (LDCT) per [facility] lung cancerscreening protocol. COMPARISON: [...] patients who have questions please contactthe health rn intensive care unit that requested your imaging first. Anna Bonds APRN IMVivek CT ORDERABLES documented in this encounter Visit Diagnoses Diagnosis Nicotine dependence with nicotine-induced disorder, unspecified nicotine product type documented in this encounter Care Teams Roll Examiner Relationship Specialty Start Date End Date Anna Bonds APR[address] [place] [address] PCP - General Family Medicine 11/21/18 documented as of this encounter
--- OUTSIDE RECORDS SUMMARY | 2024-03-13 20:39 | XMS_ITS | Encounter Summary ---
Author Organization [facility] [place] [address] Care Team Providers Care Esthetician Makeup Artist Name Role Phone Unavailable Primary Care Provider Unavailabl e Encounter Details Date Type Department Care Team (Late st Contact Info) Description 05/06/2009 Ancillary Procedure [facility] [place] [address] Anna Bonds APRN [address] [place] [address] Social History Tobacco Use Types Packs/Day Years [...] AM EST Hospital Encounter Non-Invasive Cardiology Lab [facility] [place] [address] Arrived documented as of this encounter Procedures Procedure Name Priority Date/Time Associated Diagnosis Comments FILM LIBRARY STORAGE ONLY MAMMO Routine 05/06/2009 12:00 AM EDT documented in this encounter Results * Film Library- Storage Only Mammo (05/06/2009 12:00 AM EDT) Narrative [facility] - 10/18/2021 12:44 PM EDT This exam is auto-finalizing. It's purpose is for storage only. Anna Bonds APRN Vivek FILM LIBRARY ORD ERABLES Performing Organization Address City/State/[facility] Co de Phone Number [place], [place] documented in this encounter Visit Diagnoses Not on filedocumented in this encounter
--- OUTSIDE RECORDS SUMMARY | 2024-03-13 20:39 | XMS_ITS | Encounter Summary ---
Author Organization [facility] Address [facility] [place] [address] Care Team Providers Care Sharemilker Name Role Phone Anna Bonds APRN Primary Care Provider [phone] Reason for Visit * Reason Comments Ingrown Toenail * Consultation (Routine) - Closed Specialty Diagnoses / Procedures Referred By Marita cabral Referred To Contact Podiatry Diagnoses Ingrowing nail Anna Bonds APRN [address] [place] [address] [facility] [place] [address] Referral ID Status Reason Start Date Expiration Date V isits Requested Visits Authorized [id number] Closed Consult, [facility] PCP Updated and/or Approved 07/19/2020 07/19/2021 12 12 Encounter Details Date Type Department Care Team (Late st Contact Info) Description 10/10/2020 9:30 AM EDT [place] [address] Taylor Ponce DPM [facility] [place] [address] Onychocryptosis; Pain in toes of both feet; Type 2 diabetes mellitus without complication, unspecified whether assisted insulin use Social History Tobacco Use Types [...] Where can you learn more? Visit our Placester information library at [email or web address] You can also view health information on [employer], your personal patient account. Log in or sign uptoday. Enter R135 in the search box to learn more about Ingrown Toenail: Care Instructions. Current as of: April 13, 2020?Content Version: 12.9 ?? [id number] [employer]. Care instructions adapted under license by [facility]. If you have questions about a medical condition or this instruction, always ask your healthcare professional. [employer] disclaims any warranty or liability for your use of this information. documented in this encounter Progress Notes * Taylor Ponce DPM - 10/10/2020 9:30 AM EDT Out[facility] Note Name: Mady Medellin Age:60 y.o. MR#: [id number] Date of Service: 10/10/2020 SUBJECTIVE: Mady Medellin [...] FOLLOW UP: As needed Taylor Ponce DPM Flask Carrier, [facility] documented in this encounter Plan of Treatment Upcoming Encounters Date Type Department Care Team (Late st Contact Info) Description 04/04/2024 10:00 AM EST Hospital Encounter Non-[place] [address] Arrived documented as of this encounter Visit Diagnoses Diagnosis Onychocryptosis Ingrowing nail Pain in toes of both feet Type 2 diabetes mellitus without complication, unspecified whether assisted insulin use documented in this encounter Care Teams Sharemilker Relationship Specialty Start Date End Date Anna Bonds APRN [address] [place] [address] PCP - General Family Medicine 11/21/18 documented as of this encounter
--- OUTSIDE RECORDS SUMMARY | 2024-03-13 20:39 | XMS_ITS | Encounter Summary ---
[place] [address] Care Team Providers Care Ingredient Handler Name Role Phone Anna Bonds APRN Primary Care Provider [phone] Reason for Visit * Reason Onset Date Comments Pre Procedure Call 09/24/2022 Encounter Details Date Type Department Care Team (Late st Contact Info) Description 09/24/2022 Telephone Cardiology at [address] [phone] Giuliana Ramos, RN Pre Procedure Call Social [...] EDTSummary: Pre Procedure Call: Generator replacement EP STATION CAPTAIN COORDINATION CHECKLIST Patient Name: Mady Medellin Patient Performing Foam Charger: Kathy Avelar Referring Provider: Deniz Woods Date of Procedure: 09/28/22 Arrival Time/ Case Time: 7:00 am / 8:30 am Check In Location: Glue Spreading Machine Operator Desk 4W Date Patient was Called: 09/24/22 [...] day , understands that they will need pick up driver on day of discharge documented in this encounter Plan of Treatment Upcoming Encounters Date Type Department Care Team (Late st Contact Info) Description 04/04/2024 10:00 AM [facility] Hospital Encounter [place] [address] Arrived documented as of this encounter Visit Diagnoses Not on filedocumented in this encounter Care Teams Ingredient Handler Relationship Specialty Start Date End Date Anna Bonds APRN [address] [place] [address] PCP - General Family Medicine 11/21/18 documented as of this encounter
--- OUTSIDE RECORDS SUMMARY | 2024-03-13 20:39 | XMS_ITS | Encounter Summary ---
Author Organization [facility] [place] [address] Care Team Providers Care Church Communications Administrator Name Role Phone Najma Valladares APRN Primary Care Provider [phone] Encounter Details Date Type Department Care Team (Late st Contact Info) Description 11/10/2018 Ancillary Procedure Radiology Library at [facility] [place] [address] Anna Bonds APRN [address] [place] [address] Social History Tobacco Use Types Packs/Day Years [...] AM EST Hospital Encounter Non-Invasive Cardiology Lab [facility] [place] [address] Arrived documented as of this [...] IMVivek FILM LIBRARY ORD ERABLES MARIA E [place], [place] documented in this encounter Visit Diagnoses Not on filedocumented in this encounter Care Teams Church Communications Administrator Relationship Specialty Start Date End Date Najma Valladares APRN PCP - General 05/15/10 11/20/18 documented as of this encounter
--- OUTSIDE RECORDS SUMMARY | 2024-03-13 20:39 | XMS_ITS | Encounter Summary ---
Author Organization [facility] Address [facility] [place] [address] Care Team Providers Care Duplicating Machine Mechanic Name Role Phone Anna Bonds APRN Primary Care Provider [phone] Reason for Referral * Consultation (Routine) - Closed Specialty Diagnoses / Procedures Referred By Contac t Referred To Contact Dermatology Diagnoses Skin lesion Anna Bonds APRN [address] [place] [address] [facility] Dermat[facility] [address] [place] [address] Referral ID Status Reason Start Date Expiration Date V isits Requested Visits Authorized [id number] Closed Consult, Test & Treat PCP Updated and/or Approved 10/26/2021 10/26/2022 12 12 Encounter Details Date Type Department Care Team (Late st Contact Info) Description 10/26/2021 Transcribe Orders eDH Incoming Referrals [phone] Anna Bonds APRN [address] [place] [address] Skin lesion Social History Tobacco [...] AM EST Hospital Encounter Non-[place] [address] Arrived Scheduled Referrals Name Type Priority Associated Diagnoses Order Schedule Referral to Dermatology Outpatient Referral Routine Skin lesion Ordered: 10/26/2021 documented as of this encounter Visit Diagnoses Diagnosis Skin lesion Unspecified disorder of skin and subcutaneous tissue documented in this encounter Care Teams Duplicating Machine Mechanic Relationship Specialty Start Date End Date Anna Bonds APRN [address] [place] [address] PCP - General Family Medicine 11/21/18 documented as of this encounter
--- OUTSIDE RECORDS SUMMARY | 2024-03-13 20:39 | XMS_ITS | Encounter Summary ---
Author Organization [facility] [place] [address] Care Team Providers Care Marble Coper Name Role Phone Najma Valladares APRN Primary Care Provider [phone] Reason for Visit * Reason Comments Psoriasis Encounter Details Date Type Department Care Team (Late st Contact Info) Description 05/15/2010 11:00 AM EDT Office Visit Dermatology [address] [place] [address] [address] [place] [address] Michael Ding MD [address], [place] [address] Psoriasis vulgaris (Primary Dx) Social History Tobacco [...] also on her fingertips. 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 She has been seen on several occasions by Eddie Isabel M.D. at [facility] who has tried using clobetasol ointment and [...] AM EST Hospital Encounter Non-[place] [address] Arrived documented as of this encounter Visit Diagnoses Diagnosis Psoriasis vulgaris- Primary Other psoriasis documented in this encounter Care Teams Marble Coper Relationship Specialty Start Date End Date Najma Valladares APRN PCP - General 05/15/10 11/20/18 documented as of this encounter
--- OUTSIDE RECORDS SUMMARY | 2024-03-13 20:39 | XMS_ITS | Encounter Summary ---
Author Organization [facility] Address [facility] [place] [address] Care Team Providers Care Crusher Loader Equipment Operator Name Role Phone Najma Valladares APRN Primary Care Provider [phone] Encounter Details Date Type Department Care Team (Late st Contact Info) Description 09/19/2013 Telephone [place] [address] [address] Leonardo Beauchamp MD [facility] [place] [address] Social History Tobacco Use Types Packs/Day Years [...] 09/19/2013 Initial contact time: 0:830AM Patient Location: [facility] Past Medical History: None Presenting Symptoms per OSH: Back pain. No chest pain, dyspnea, fatigue. No lyme-like symptoms Pertinent Diagnostic Findings: ECG reviewed. Sinus rhythm with 2:1 block, ME interval 250ms. QRS narrow, no IVCD or bundle branch block. Plan: They will admit her for telemetry, exercise stress test, lyme titer. They will admit her and if necessary, will put pacemaker in there. documented in this encounter Plan of Treatment Upcoming Encounters Date Type Department Care Team (Late st Contact Info) Description 04/04/2024 10:00 AM [facility] Hospital Encounter Non[place] [address] Arrived documented as of this encounter Visit Diagnoses Not on filedocumented in this encounter Care Teams Crusher Loader Equipment Operator Relationship Specialty Start Date End Date Najma Valladares APRN PCP - General 05/15/10 11/20/18 documented as of this encounter
--- OUTSIDE RECORDS SUMMARY | 2024-03-13 20:39 | XMS_ITS | Encounter Summary ---
Author Organization [facility] [place] [address] Care Team Providers Care Air Bag Buffer Name Role Phone Anna Bonds APRN Primary Care Provider [phone] Encounter Details Date Type Department Care Team [...] AM EST Hospital Encounter Non[place] [phone] Arrived documented as of this encounter Visit Diagnoses Not on filedocumented in this encounter Care Teams Air Bag Buffer Relationship Specialty Start Date End Date Anna Bonds APRN [address] [place] [address] PCP - General Family Medicine 11/21/18 documented as of this encounter
--- OUTSIDE RECORDS SUMMARY | 2024-03-13 20:39 | XMS_ITS | Encounter Summary ---
Author Organization [facility] Address [facility] Armando [facility] [place] [address] Care Team Providers Care Switching Operator Name Role Phone Anna Bonds APRN Primary Care Provider [phone] Reason for Referral * Diagnostic Test (Routine) - Closed Specialty Diagnoses / Procedures Referred By Contac t Referred To Contact Cardiology Diagnoses Pacemaker CHB (complete heart block) Procedures Echocardiogram Transthoracic Deniz Woods PA [facility] [place] [address] [facility] [place] [address] Referral ID Status Reason Start Date Expiration Date V isits Requested Visits Authorized [id number] Closed Specialty Service Requested 09/21/2022 09/21/2023 1 1 Reason for Visit * Diagnostic Test (Routine) - Closed Specialty Diagnoses / Procedures Referred By Contac t Referred To Contact Cardiology Diagnoses Pacemaker CHB (complete heart block) Procedures Echocardiogram Transthoracic Deniz Woods PA [facility] [place] [address] [facility] [place] [address] Referral ID Status Reason Start Date Expiration Date V isits Requested Visits Authorized [id number] Closed Specialty Service Requested 09/21/2022 09/21/2023 1 1 Encounter Details Date Type Department Care Team (Latest Contact Info) Description 09/26/2022 10:44 AM EDT - 09/26/2022 11:59 PM EDT Hospital Encounter Non-Invasive Cardiology Lab [facility] [place] [address] Kathy Aevlar MD [facility] [place] [address] Pacemaker; CHB (complete heart block) Discharge Disposition: [...] AM EST Hospital Encounter Non[place] [address] Arrived documented as of this encounter Procedures Procedure Name Priority Date/Time Associated Diagnosis Comments ECHO COMPLETE Routine 09/26/2022 2:53 PM EDT Pacemaker CHB (complete heart block) documented in this encounter Results * ECHO COMPLETE (09/26/2022 2:53 PM EDT) EF 60 [employer] Anatomical Region Laterality Modality Cardiac Other 09/26/2022 11:1 3 AM EDT Narrative 09/26/2022 3:28 PM EDT ? Echocardiogram Report Name: SISI MARTINES ? Study Date: 09/26/2022 11:13 AMBP: 136/107 mmHg ? Patient Location: 4A : 1960 ? Height: 152 cm ? Account: [id number] Age: 62 yrs ? Weight: 71 kg Gender: Female ?BSA: 1.7 m2 Ordering Physician: KATHY AVELAR Referring Physician: DENIZ WOODS Performed By: DAVIDE Hewitt RCS Reason For Study: Pacemaker; Complete heart block Exam Location: [facility]. Interpretation Summary 1. The left ventricle [...] body of report for complete findings. Procedure Complete-[id number]. Satisfactory quality. There is a pacemaker rhythm. [...] Location: : 1960 Height: 152 cm Account: [id number] Age: 62 yrs Weight: 71 kg Gender: Female BSA: 1.7 m2 Ordering Physician: KATHY AVELAR Referring Physician: DENIZ WOODS Performed By: DAVIDE Hewitt RCS Reason For Study: Pacemaker; Complete heart block Exam Location: [facility]. Interpretation Summary 1. The left ventricle is normal in size and function. The LVEF is 60% byvisual estimation. There is abnormal septal motion due to ventricular pacing. 2. The right ventricle appears normal in size with mildly reducedappearing function. 3. There is no hemodynamically significant valve disease. 4. No prior study available for comparison. See body of report forcomplete findings. Procedure Complete-[id number]. Satisfactory quality. There is a pacemaker rhythm. [...] complete documented in this encounter Care Teams Switching Operator Relationship Specialty Start Date End Date Anna Bonds APRN [address] [place] [address] PCP - General Family Medicine 11/21/18 documented as of this encounter
--- OUTSIDE RECORDS SUMMARY | 2024-03-13 20:39 | XMS_ITS | Encounter Summary ---
Author Organization [facility] [place] [address] Care Team Providers Care Vat Operator Name Role Phone Carlo Garvey MD Primary Care Provider [phone] Encounter Details Date Type Department Care Team (Late st Contact Info) Description 05/08/2010 Ancillary Procedure Radiology Library at [facility] [place] [address] Anna Bonds APRN [address] [place] [address] Social History Tobacco Use Types Packs/Day Years [...] EST Hospital Encounter Non-Invasive Cardiology Lab [facility] [place] [address] Arrived documented as of this encounter Procedures [...] IMG FILM LIBRARY ORD ERABLES MARIA E [place], [place] documented in this encounter Visit Diagnoses Not on filedocumented in this encounter Care Teams Vat Operator Relationship Specialty Start Date End Date Carol Garvey MD [address] [place] [address] PCP - General 01/03/10 05/14/10 documented as of this encounter
--- OUTSIDE RECORDS SUMMARY | 2024-03-13 20:39 | XMS_ITS | Encounter Summary ---
Author Organization [facility] [place] [address] Care Team Providers Care Flat Polisher Name Role Phone Anna Bonds APRN Primary Care Provider [phone] Encounter Details Date Type Department Care Team (Late st Contact Info) Description 10/24/2021 10:30 AM EDT Office [place] [address] Nina Quiles, RN DM type 2 with [...] Name: Mady Haines Age: 61 y.o.. MR#: [id number] Date last seen by PCP/Endocrinology: Date of [...] AM EST Hospital Encounter Non-[place] [address] Arrived documented as of this encounter Visit Diagnoses Diagnosis DM type 2 with diabetic peripheral neuropathy Type II or unspecified type diabetes mellitus with neurological manifestations, not stated as uncontrolled Onychocryptosis Ingrowing nail Onychauxis Other specified disease of nail documented in this encounter Care Teams Flat Polisher Relationship Specialty Start Date End Date Anna Bonds APRN [address] [place] [address] PCP - General Family Medicine 10/11/19 documented as of this encounter
--- OUTSIDE RECORDS SUMMARY | 2024-03-13 20:39 | XMS_ITS | Encounter Summary ---
Author Organization [facility] Address [place] [address] Care Team Providers Care E Commerce Strategist Name Role Phone Anna Bonds APRN Primary Care Provider [phone] Reason for Referral * Diagnostic Test (Routine) - Closed Specialty Diagnoses / Procedures Referred By Contac t Referred To Contact Cardiology Diagnoses Pacemaker CHB (complete heart block) Procedures Echocardiogram Transthoracic Deniz Woods PA [facility] [place] [address] [facility] [place] [address] Referral ID Status Reason Start Date Expiration Date V isits Requested Visits Authorized [id number] Closed Specialty Service Requested 09/21/2022 09/21/2023 1 1 Encounter Details Date Type Department Care Team (Late st Contact Info) Description 09/21/2022 2:00 PM EDT Office Visit Cardiology at [address] [address] Bindu Vang RN Pacemaker; CHB [...] in at the Same Day Program at [facility] (park in parking garage and enter [...] or you become ill, please call schedulingat [phone]. documented in this encounter Progress Notes * Bindu Vang RN - 09/21/2022 2:00 PM EDT Images from the original note were not included. Clinical Electrophysiology Device Change Evaluation Sisi Oro Lacie [id number] 09/21/2022 History: 62 yr old female with hx of CHB s/p Medtronic dual lead pacemaker implant 09/22/2013 by at [facility]. She is pacemaker dependent. RV pacing threshold is historically elevated at 2.25V @ 0.4ms. MD Galan followed pt at [facility]. Moved to [facility] in 2021 and currently being followed by [facility] Device clinic. Difficulty setting up remote monitoring. [...] Device Interrogation: Data Pacemaker Model: Adapta [id number] Implanted: 09/22/13 4:23 PM Atrial Lead: Medtronic [id number] Implanted: 09/22/13 Ventricular Lead: Medtronic [id number] Implanted: 09/22/13 Alerts ALY 05/14/22 Diagnostics Pacing [...] pacemaker implant 09/22/[address] Dinero at [facility]. She is pacemaker dependent. RV pacing [...] in at the Same Day Program at [facility] (park in parking garage and enter [...] or you become ill, please call schedulingat [phone]. BABAR Bagley PA-C Attending MD: Rosio 09/21/2022 documented in this encounter Plan of Treatment Upcoming Encounters Date Type Department Care Team (Late st Contact Info) Description 04/04/2024 10:00 AM EST Hospital Encounter [place] [address] Arrived documented as of this encounter Results * ECHO COMPLETE (09/26/2022 2:53 PM EDT) EF 60 [employer] SYSTEM Anatomical Region Laterality Modality Cardiac Other 09/26/2022 11:1 3 AM EDT Narrative 09/26/2022 3:28 PM EDT ? Echocardiogram Report Name: SISI MEDELLIN ? Study Date: 09/26/2022 11:13 AMBP: 136/107 mmHg ? Patient Location: 4A : 1960 ? Height: 152 cm ? Account: [id number] Age: 62 yrs ? Weight: 71 kg Gender: Female ?BSA: 1.7 m2 Ordering Physician: KATHY AVELAR Referring Physician: DENIZ WOODS Performed By: DAVIDE Hewitt RCS Reason For Study: Pacemaker; Complete heart block Exam Location: [facility]. Interpretation Summary 1. The left ventricle is [...] body of report for complete findings. Procedure Complete-[id number]. Satisfactory quality. There is a pacemaker rhythm. [...] Location: : 1960 Height: 152 cm Account: [id number] Age: 62 yrs Weight: 71 kg Gender: Female BSA: 1.7 m2 Ordering Physician: KATHY AVELAR Referring Physician: DENIZ WOODS Performed By: Ilda Giordano [facility] Reason For Study: Pacemaker; Complete heart block Exam Location: [facility]. Interpretation Summary 1. The left ventricle is normal in size and function. The LVEF is 60% byvisual estimation. There is abnormal septal motion due to ventricular pacing. 2. The right ventricle appears normal in size with mildly reducedappearing function. 3. There is no hemodynamically significant valve disease. 4. No prior study available for comparison. See body of report forcomplete findings. Procedure Complete-[id number]. Satisfactory quality. There is a pacemaker rhythm. [...] complete documented in this encounter Care Teams E Commerce Strategist Relationship Specialty Start Date End Date Anna Bonds APRN [address] [place] [address] PCP - General Family Medicine 11/21/18 documented as of this encounter
--- OUTSIDE RECORDS SUMMARY | 2024-03-13 20:39 | XMS_ITS | Encounter Summary ---
Author Organization [facility] [place] [address] Care Team Providers Care Sampler Pickup Name Role Phone Anna Bonds APRN Primary Care Provider [phone] Encounter Details Date Type Department Care Team (Late st Contact Info) Description 10/09/2022 10:00 AM EDT Office Visit Cardiology at [address] [address] Bindu Vang RN Pacemaker Social [...] Clinical Electrophysiology Device Service Note Mady Medellin [id number] 10/09/2022 HISTORY: 62 yr old female with hx of CHB s/p Medtronic dual lead pacemaker implant 09/22/2013 by at [facility]. She is pacemaker dependent. Found to have hit ALY 05/14/2022. Generator change 09/28/22. Presents today with no issues post gen change. Device Interrogation: Data Device MedPlivo Nina XT DR CEDEÑO [id number] Implanted: 28-Sep-2022 Atrial Medtronic 5076 CapsureFix Novus MRI [id number] Implanted: 22-Sep-2013 RV Medtronic 4074 CapSure Sense MRI [id number] Implanted: 22-Sep-2013 Alerts None Diagnostics Pacing Mode: [...] - Follow up: remote monitoring teaching completed, wave solder offbearer given for old monitor. Return to clinic in 12 months Bindu Vang RN Attending MD Galan 10/09/2022 documented in this encounter Plan of Treatment Upcoming Encounters Date Type Department Care Team (Holger Contact Info) Description 04/04/2024 10:00 AM EST Hospital Encounter Non-[place] [address] Arrived documented as of this encounter Visit Diagnoses Diagnosis Pacemaker Cardiac pacemaker in situ documented in this encounter Care Teams Sampler Pickup Relationship Specialty Start Date End Date Anna Bonds APRN [address] [place] [address] PCP - General Family Medicine 11/21/18 documented as of this encounter
--- OUTSIDE RECORDS SUMMARY | 2024-03-13 20:39 | XMS_ITS | Encounter Summary ---
Author Organization [facility] [place] [address] Care Team Providers Care Admission Nurse Name Role Phone Anna Bonds APRN Primary Care Provider [phone] Encounter Details Date Type Department Care Team [...] AM EST Hospital Encounter Non[place] [address] Arrived documented as of this encounter Visit Diagnoses Not on filedocumented in this encounter Care Teams Admission Nurse Relationship Specialty Start Date End Date Anna Bonds APRN [address] [place] [address] PCP - General Family Medicine 11/21/18 documented as of this encounter
--- OUTSIDE RECORDS SUMMARY | 2024-03-13 20:39 | XMS_ITS | Encounter Summary ---
Author Organization [facility] [place] [address] Care Team Providers Care Support Staff Name Role Phone Anna Bonds APRN Primary Care Provider [phone] Encounter Details Date Type Department Care Team [...] AM EST Hospital Encounter Non-Invasive [place] [address] Arrived documented as of this encounter Visit Diagnoses Not on filedocumented in this encounter Care Teams Support Staff Relationship Specialty Start Date End Date Anna Bonds APRN [address] [place] [address] PCP - General Family Medicine 11/21/18 documented as of this encounter
--- OUTSIDE RECORDS SUMMARY | 2024-03-13 20:39 | XMS_ITS | Encounter Summary ---
Author Organization [facility] [place] [address] Care Team Providers Care Director Of Operations For Therapy Name Role Phone Anna Bonds APRN Primary Care Provider [phone] Encounter Details Date Type Department Care Team (Late st Contact Info) Description 11/28/2018 Telephone Cardiology at [address] [address] Diane Romero LNA Social History [...] AM EST Hospital Encounter [place] [address] Arrived documented as of this encounter Visit Diagnoses Not on filedocumented in this encounter Care Teams Director Of Operations For Therapy Relationship Specialty Start Date End Date Anna Bonds APRN [address] [place] [address] PCP - General Family Medicine 11/21/18 documented as of this encounter
--- OUTSIDE RECORDS SUMMARY | 2024-03-13 20:39 | XMS_ITS | Encounter Summary ---
Author Organization [facility] Address [facility] [place] [address] Care Team Providers Care Lab Support Service Tech Name Role Phone Anna Bonds APRN Primary Care Provider [phone] Reason for Visit * Reason Onset Date Comments Post Procedure Call 10/03/2022 Encounter Details Date Type Department Care Team (Late st Contact Info) Description 10/03/2022 Notes Only Cardiology at [address] [address] Giuliana Ramos, RN Post Procedure Call Social [...] st Contact Info) Description 04/04/2024 10:00 AM [facility] Hospital Encounter Non[place] [address] Arrived documented as of this encounter Visit Diagnoses Not on filedocumented in this encounter Care Teams Lab Support Service Tech Relationship Specialty Start Date End Date Anna Bonds APRN [address] [place] [address] PCP - General Family Medicine 11/21/18 documented as of this encounter
--- OUTSIDE RECORDS SUMMARY | 2024-03-13 20:39 | XMS_ITS | Encounter Summary ---
Author Organization [facility] [place] [address] Care Team Providers Care Franchise Specialist Name Role Phone Anna Bonds APRN Primary Care Provider [phone] Encounter Details Date Type Department Care Team [...] AM EST Hospital Encounter Non-[place] [phone] Arrived documented as of this encounter Visit Diagnoses Not on filedocumented in this encounter Care Teams Franchise Specialist Relationship Specialty Start Date End Date Anna Bonds APRN [address] [place] [address] PCP - General Family Medicine 11/21/18 documented as of this encounter
--- OUTSIDE RECORDS SUMMARY | 2024-03-13 20:39 | XMS_ITS | Encounter Summary ---
Author Organization [facility] [place] [address] Care Team Providers Care Riveting Machine Operator Name Role Phone Anna Bonds APRN Primary Care Provider [phone] Reason for Visit * Reason Comments Routine Foot Care Encounter Details Date Type Department Care Team (Late st Contact Info) Description 04/04/2021 9:00 AM EST [place] [address] Taylor Ponce DPM [facility] [place] [address] Pain in toes of both feet; Onychocryptosis; [...] Note Name: Mady Medellin Age:61 y.o. MR#: [id number] Date of Service: 04/04/2021 SUBJECTIVE: Mady Medellin [...] understanding of all instructions. Taylor Ponce DPM Acquisitions Librarian, [facility] documented in this encounter Plan of Treatment Upcoming Encounters Date Type Department Care Team (Late st Contact Info) Description 04/04/2024 10:00 AM EST Hospital Encounter Non[place] [address] Arrived documented as of this encounter Visit Diagnoses Diagnosis Pain in toes of both feet Onychocryptosis Ingrowing nail Onychauxis Other specified disease of nail documented in this encounter Care Teams Riveting Machine Operator Relationship Specialty Start Date End Date Anna Bonds APRN [address] [place] [address] PCP - General Family Medicine 11/21/18 documented as of this encounter
--- OUTSIDE RECORDS SUMMARY | 2024-03-13 20:39 | XMS_ITS | Encounter Summary ---
Author Organization [facility] Address [facility] [place] [address] Care Team Providers Care Youth Care Professional Name Role Phone Anna Bonds APRN Primary Care Provider [phone] Reason for Visit * Auth/Cert (Routine) Specialty Diagnoses / Procedures Referred By Contac t Referred To Contact Diagnoses CHB (complete heart block) [I44.2]Pacemaker [Z95.0]Pacemaker generator end of life [Z45.010] Procedures PRO REMOVAL PACER PLSE GEN W RPLMT PACER PLSE GEN DUAL LEAD ELECTROPHYSIOLOGY PROCEDURE REMOVAL PPM GENERATOR W REPL PPM GEN; DUAL LEAD (WRVU 5.52) Kathy Avelar MD [facility] [place] [address] [facility] Referral ID Status Reason Start Date Expiration Date Visits Re quested Visits Authorized [id number] 1 1 Encounter Details Date Type Department Care Team (Latest Contact Info) Description 09/28/2022 7:13 AM EDT - 09/28/2022 11:11 AM EDT Hospital En[place] [phone] Kathy Avelar MD [facility] [place] [address] CHB (complete heart block); Pacemaker; [...] Mady Medellin Patient Age: 62 y.o. Language: Montserratian Race: White Ethnicity: Not nor Admit date: 09/28/2022 Discharge date and time: 09/28/22 Attending Physician: Kathy Avelar MD Discharge Physician: Kathy Avelar MD Follow-up Recommendations for Providers: - s/p uneventful pacemaker generator exchange - No changes to medications - See provider instructions for wound care management Inpatient Provider Contact Information: Cardiac Electrophysiology - Weekends and holidays call [phone]; ask for screw driver operator manager operational. Discharge Diagnoses (Hospital Problems) and Secondary Diagnoses [...] pacemaker implant 09/22/[address] Dinero at [facility]. Her device reached [facility] in May and she presents today for [...] incision. Make sure to use a cloth mender (such as a towel) in between the [...] F. The office scheduling phone number is [phone]. General Instructions None Discharge References/Attachments None documented in this encounter Discharge Instructions * Patient Instructions* Aubrey Correa MD - 09/28/2022 10:38 AM EDT FINAL ICD/PACEMAKER RECOMMENDATIONS: 1. Standard post implant discharge instructions (see below): 2. Medications as listed above. You may use ice packs over the incision. Make sure to use a cloth mender (such as a towel) in between the [...] F. The office scheduling phone number is [phone]. documented in this encounter Medications at Time [...] pacemaker implant 09/22/[address] Dinero at [facility]. Her device reached [facility] in [...] Device interrogation: Data Pacemaker Model: Adapta [id number] Implanted: 09/22/13 4:23 PM Atrial Lead: Medtronic [id number] Implanted: 09/22/13 Ventricular Lead: Medtronic [id number] Implanted: 09/22/13 Alerts ALY 05/14/22 Diagnostics Pacing [...] AM EST Hospital Encounter [place] [address] Arrived Scheduled Orders Name Type [...] implanted pulse generator: NORIS PAT DR MRI #[id number] Retained and used hardware (09/22/13): RA: Medtronic 5076-52 cm Serial #[id number] 2.8 / 398 / 0.75V@0.4ms RV: Medtronic 4074-58 cm Serial #[id number] -- / 627 / 1.5V@1.0ms Hardware removed (09/22/13): Medtronic Adapta [id number] Final device settings: Mode: DDDR Lower rate limit: 60 Upper tracking rate: 130 Antibiotic: Vancomycin, sedation period 8:33-9:35 am, no sedation medicines administered Fluoroscopy time: 0 I, Kathy Avelar MD, was present throughout the procedure as the hot die press operator. Kathy Avelar MD EP PROCEDURE ORDERAB LES * (ABNORMAL) Differential, Automated (09/28/2022 8:20 AM EDT) Neutrophil % 56.4 % [facility] Neutrophil Absolute 5.37 1.70 - 6.10 x10(3)/mc L [facility] Lymph % 34.7 % [facility] Lymphocytes Abs 3.3(H) 0.9 - 3.2 x10(3)/[facility] Monocyte % 6.8 % [facility] Monocyte Abs 0.6 0.3 - 0.9 x10(3)/[facility] Eos % 1.5 % [facility] Eosinophils Abs 0.1 0.0 - 0.4 x10(3)/[facility] Basophil % 0.5 % [facility] Baso Absolute 0.0 0.0 - 0.1 x10(3)/[facility] Immature Gran % 0.10 % [facility] Comment: Immature granulocytes(IG's)percentage and absolute count will include metamyelocytes, myelocytes, and promyelocytes. Blood smears from CBCs yielding IG's will be scanned manually for concordance. If this scan disagrees with the automated IG or if promyelocytes are noted, a manual differential will be performed. Immature Gran Absolute 0.01 0.00 - 0.04 x10(3)/[facility] Blood 09/28/2022 8:20 AM EDT 09/28/2022 8:26 AM EDT Narrative Resulting Agency Comment Spec In Lab Deniz SAUNDERS HEMATOLOGY ORDERABLE S [facility] [place] [address] * Hemogram (09/28/2022 8:20 AM EDT) White Blood Cell 9.5 4.0 - 9.5 x10(3)/[facility] Red Blood Cell 4.54 4.00 - 5.21 x10(6)/[facility] Hemoglobin 13.3 11.7 - 15.5 g/dL [facility] Hematocrit 39.2 35.7 - 45.8 % [facility] Mean Cell Volume 86.3 82.6 - 94.4 fL [facility] Mean Cell Hemoglobin 29.3 27.1 - 32.0 pg [facility] Mean Cell Hemoglobin Concentration 33.9 31.7 - 35.0 g/dL [facility] Platelet 153 145 - 357 x10(3)/[facility] RDW Standard Deviation 40.1 37.0 - 46.0 fL [facility] RDW coefficient of variation 12.8 11.5 - 14.1 % [facility] Mean Platelet Volume 10.0 7.6 - 12.9 fL [facility] NRBC% auto 0.0 % [facility] NRBC Absolute 0.000 0.000 - 0.000 x10(3)/[facility] Blood 09/28/2022 8:20 AM EDT 09/28/2022 8:26 AM EDT Narrative Resulting Agency Comment Spec In Lab Deniz SAUNDERS HEMATOLOGY ORDERABLE S Performing Organization Address City/[facility]/ZIP Co de Phone Number [facility] [place] [address] * POCT Glucose (09/28/2022 7:40 AM EDT) Glucose, POC 145 65 - 199 mg/dL [facility] Comment: Supplemental ranges: <140 mg/dL before meals <180 mg/dL all other times of the day Blood 09/28/2022 7:40 AM EDT 09/28/2022 7:40 AM EDT Kathy Avelar MD POINT OF CARE TEST O RDERABLES Performing Organization Address City/[facility]/ZIP Co de Phone Number [facility] [place] [address] documented in this encounter Visit Diagnoses Diagnosis [...] (Due) documented in this encounter Care Teams Youth Care Professional Relationship Specialty Start Date End Date Anna Bonds APRN [address] [place] [address] PCP - General Family Medicine 11/21/18 documented as of this encounter
--- OUTSIDE RECORDS SUMMARY | 2024-03-13 20:39 | XMS_ITS | Encounter Summary ---
Author Organization [facility] [place] [address] Care Team Providers Care Refinery Operator Helper Crude Unit Name Role Phone Anna Bonds APRN Primary Care Provider Encounter Details Date Type Department Care Team (Late st Contact Info) Description 12/01/2019 Ancillary Procedure Radiology Library at [facility] [place] [phone] Anna Bonds APRN [address] [place], [place] [address] Social History Tobacco Use Types Packs/Day Years [...] AM EST Hospital Encounter Non-Invasive Cardiology Lab [place] [address] Arrived documented as of this encounter Procedures [...] IMVivek FILM LIBRARY ORD ERABLES MARIA E [place], [place] documented in this encounter Visit Diagnoses Not on filedocumented in this encounter Care Teams Refinery Operator Helper Crude Unit Relationship Specialty Start Date End Date Anna Bonds APRN [address] [place] [address] PCP - General Family Medicine 11/21/18 documented as of this encounter
--- OUTSIDE RECORDS SUMMARY | 2024-03-13 20:39 | XMS_ITS | Encounter Summary ---
Author Organization [facility] [place] [address] Care Team Providers Care Passenger Train Braker Name Role Phone Anna Bonds APRN Primary Care Provider [phone] Encounter Details Date Type Department Care Team (Late st Contact Info) Description 12/26/2020 9:00 AM EST Office [place] [phone] Taylor Ponce DPM [facility] [place] [address] Onychocryptosis; Pain in toes of both feet; Type 2 diabetes mellitus without complication, unspecified whether termite exterminator helper insulin use Social History Tobacco Use Types [...] Note Name: Mady Medellin Age:60 y.o. MR#: [id number] Date of Service: 12/26/2020 SUBJECTIVE: Mady Medellin [...] understanding. Follow-up as needed. Taylor Ponce DPM Nurses Supervisor, [facility] documented in this encounter Plan of Treatment Upcoming Encounters Date Type Department Care Team (Late st Contact Info) Description 04/04/2024 10:00 AM EST Hospital Encounter Non[place] [address] Arrived documented as of this encounter Visit Diagnoses Diagnosis Onychocryptosis Ingrowing nail Pain in toes of both feet Type 2 diabetes mellitus without complication, unspecified whether termite exterminator helper insulin use documented in this encounter Care Teams Passenger Train Braker Relationship Specialty Start Date End Date Anna Bonds APRN [address] [place] [address] PCP - General Family Medicine 11/21/18 documented as of this encounter
--- OUTSIDE RECORDS SUMMARY | 2024-03-13 20:39 | XMS_ITS | Encounter Summary ---
Author Organization [facility] [place] [address] Care Team Providers Care Nutrition Helper Name Role Phone Anna Bonds APRN Primary Care Provider [phone] Encounter Details Date Type Department Care Team (Late st Contact Info) Description 07/25/2021 10:15 AM EDT Office [place] [phone] Taylor Ponce DPM [facility] [place] [address] Pain in toes of both feet (Primary Dx); Onychocryptosis; Onychauxis; Type 2 diabetes mellitus without complication, unspecified whether extermination supervisor insulin use Social History Tobacco Use Types [...] Note Name: Mady Medellin Age:61 y.o. MR#: [id number] Date of Service: 07/25/2021 SUBJECTIVE: Mady Medellin [...] answered. Patient verbalized understanding. Taylor Ponce DPM Space Studies Faculty Member, [facility] documented in this encounter Plan of Treatment Upcoming Encounters Date Type Department Care Team (Late st Contact Info) Description 04/04/2024 10:00 AM EST Hospital Encounter [place] [address] Arrived documented as of this encounter Visit Diagnoses Diagnosis Pain in toes of both feet- Primary Onychocryptosis Ingrowing nail Onychauxis Other specified disease of nail Type 2 diabetes mellitus without complication, unspecified whether extermination supervisor insulin use documented in this encounter Care Teams Nutrition Helper Relationship Specialty Start Date End Date Anna Bonds APRN [address] [place] [address] PCP - General Family Medicine 11/21/18 documented as of this encounter
--- OUTSIDE RECORDS SUMMARY | 2024-03-13 20:39 | XMS_ITS | Encounter Summary ---
Author Organization [facility] Address [facility] [place] [address] Care Team Providers Care Intellectual Property Legal Assistant Name Role Phone Anna Bonds APRN Primary Care Provider [phone] Reason for Visit * Consultation (Routine) - Closed Specialty Diagnoses / Procedures Referred By Contac t Referred To Contact Dermatology Diagnoses Skin lesion Anna Bonds APRN [address] [place] [address] [facility] Dermatology [address] [place] [address] Referral ID Status Reason Start Date Expiration Date V isits Requested Visits Authorized [id number] Closed Consult, Test & Treat PCP Updated and/or Approved 10/26/2021 10/26/2022 12 12 Encounter Details Date Type Department Care Team (Late st Contact Info) Description 02/01/2022 10:00 AM EST Office Visit Dermatology at [facility] [address] [place] [address] Aden Turner MD [address] [place] [address] [place] (actinic keratosis) Social History Tobacco Use [...] relevant family history N Social History Occupation: [employer] Pre-Procedure Questions Details Allergy to lidocaine, epinephrine, [...] for full skin exam []Note routed to bath design sales consultant [x]Recall placed in scheduling system []Appointment scheduled at checkout Scribe attestation: Bulmaro Simmons [facility] has performed the documentation for this encounter in the presence of and acting as a scribe for Aden Turner MD. I performed the above scribed service and agree with the accuracy of the documentation in this encounter. Reviewed and signed by: Aden Turner MD Dermatology [facility] Patient seen and evaluated with staff sprinkler fitter helper: Erlinda Munguia MD Department of Dermatology [facility] * Erlinda Munguia MD - 02/01/2022 10:00 [...] physician's note. Erlinda Munguia MD Staff Physician [facility] Dermatology documented in this encounter Plan of Treatment Upcoming Encounters Date Type Department Care Team (Late st Contact Info) Description 04/04/2024 10:00 AM EST Hospital Encounter [place] [address] Arrived Scheduled Referrals Name Type Priority Associated Diagnoses Order Schedule Referral to Dermatology Outpatient Referral Routine Skin lesion Ordered: 10/26/2021 documented as of this encounter Visit Diagnoses Diagnosis AK (actinic keratosis) Actinic keratosis documented in this encounter Care Teams Intellectual Property Legal Assistant Relationship Specialty Start Date End Date Anna Bonds APRN [address] [place] [address] PCP - General Family Medicine 11/21/18 documented as of this encounter
--- OUTSIDE RECORDS SUMMARY | 2024-03-13 20:39 | XMS_ITS | Encounter Summary ---
Author Organization [facility] [address] Care Team Providers Care Electrical Products Engineer Name Role Phone Anna Bonds APRN Primary Care Provider [phone] Encounter Details Date Type Department Care Team (Late st Contact Info) Description 01/29/2022 9:30 AM EST Office Visit Cardiology at [address] [phone] Katerin Yo RN Pacemaker Social History Tobacco [...] a pacemaker programming evaluation, sheis transferring from [employer] after moving to [place], [place]. She has beeen [employer], but is willing to do remote monitoring. She will be enrolled in [employer] and mailed a [phone]. PCP: Anna Bonds APRN Final Parameters at implant: Settings: Underlying rhythm: SR with high grade AV block and V escape in 30's Presenting: /GARAGE DOOR SERVICE TECHNICIAN Atrial Lead: P wave: 4-5.6 mV Impedance: 501 ohms Threshold: 1.0V@0.4 ms Ventricular Lead: R wave: 8-11.20 mV Impedance: 814 ohms Threshold: 1.75V@0.4 ms Since 06/14/21 Heart rate histograms: reasonable distribution Pacing percentages: AP 0.3 %; GARAGE DOOR SERVICE TECHNICIAN 100 % Mode switch episodes: 2 >>for [...] AM EST Hospital Encounter Non-Invasive [place] [address] Arrived documented as of this encounter Visit Diagnoses Diagnosis Pacemaker Cardiac pacemaker in situ documented in this encounter Care Teams Electrical Products Engineer Relationship Specialty Start Date End Date Anna Bonds APRN [address] [place] [address] PCP - General Family Medicine 11/21/18 documented as of this encounter
--- OUTSIDE RECORDS SUMMARY | 2024-03-13 20:39 | XMS_ITS | Encounter Summary ---
Author Organization [facility] [place] [address] Care Team Providers Care Nursing Service Administrator Name Role Phone Anna Bonds APRN Primary [...] st Contact Info) Description 04/04/2024 10:00 AM [facility] Hospital Encounter Non-[place]vasive [place] [address] Arrived documented as of this encounter Visit Diagnoses Not on filedocumented in this encounter Care Teams Nursing Service Administrator Relationship Specialty Start Date End Date Anna Bonds APRN [address] [place] [address] PCP - General Family Medicine 11/21/18 documented as of this encounter
--- OUTSIDE RECORDS SUMMARY | 2024-03-13 20:39 | XMS_ITS | Encounter Summary ---
Author Organization [facility] Address [facility] [place] [address] Care Team Providers Care Top Frame Maker Name Role Phone Anna Bonds APRN Primary Care Provider [phone] Encounter Details Date Type Department Care Team (Late st Contact Info) Description 09/24/2022 [place] [address] Deniz Woods PA [facility] [place] [address] Pacemaker generator end of life (Primary Dx); [...] AM EST Hospital Encounter Non-[place] [address] Arrived documented as of this encounter Visit Diagnoses Diagnosis Pacemaker generator end of life- Primary Fitting and adjustment of cardiac pacemaker CHB (complete heart block) Atrioventricular block, complete Pacemaker Cardiac pacemaker in situ documented in this encounter Care Teams Top Frame Maker Relationship Specialty Start Date End Date Anna Bonds APRN [address] [place] [address] PCP - General Family Medicine 11/21/18 documented as of this encounter
--- OUTSIDE RECORDS SUMMARY | 2024-03-13 20:39 | XMS_ITS | Encounter Summary ---
Author Organization [facility] [place] [address] Care Team Providers Care Graphic Arts Technician Name Role Phone Anna Bonds APRN Primary Care Provider [phone] Encounter Details Date Type Department Care Team (Latest Contact Info) Description 10/25/2021 1:38 PM EDT - 10/25/2021 11:59 PM EDT Hospital Encounter Mammography/[place] [address] Anna Bonds APRN [address] [place], [place] [address] Visit for screening mammogram Discharge Disposition: Home [...] AM EST Hospital Encounter Non[place] [address] Arrived documented as of this [...] mammogram documented in this encounter Care Teams Graphic Arts Technician Relationship Specialty Start Date End Date Anna Bonds APRN [address] [place] [address] PCP - General Family Medicine 11/21/18 documented as of this encounter
--- OUTSIDE RECORDS SUMMARY | 2024-03-13 20:39 | XMS_ITS | Encounter Summary ---
Author Organization [facility] [place] [address] Care Team Providers Care Cognos Lead Name Role Phone Anna Bonds APRN Primary Care Provider [phone] Encounter Details Date Type Department Care Team [...] AM EST Hospital Encounter Non-Invasive [place] [address] Arrived documented as of this encounter Visit Diagnoses Not on filedocumented in this encounter Care Teams Cognos Lead Relationship Specialty Start Date End Date Anna Bonds APRN [address] [place] [address] PCP - General Family Medicine 11/21/18 documented as of this encounter
--- OUTSIDE RECORDS SUMMARY | 2024-03-13 20:39 | XMS_ITS | Encounter Summary ---
Author Organization [facility] [place] [address] Care Team Providers Care Warpman Name Role Phone Anna Bonds APRN Primary Care Provider [phone] Reason for Visit * Auth/Cert (Routine) Specialty Diagnoses / Procedures Referred By Contac t Referred To Contact Diagnoses CHB (complete heart block) [I44.2]Pacemaker [Z95.0]Pacemaker generator end of life [Z45.010] Procedures PRO REMOVAL PACER PLSE GEN W RPLMT PACER PLSE GEN DUAL LEAD ELECTROPHYSIOLOGY PROCEDURE REMOVAL PPM GENERATOR W REPL PPM GEN; DUAL LEAD (WRVU 5.52) Kathy Avelar MD [facility] [place] [address] [facility] Referral ID Status Reason Start Date Expiration Date Visits Re quested Visits Authorized [id number] 1 1 Encounter Details Date Type Department Care Team (Late st Contact Info) Description 09/28/2022 8:30 AM EDT - 09/28/2022 10:00 AM EDT Surgery [place] [id number] Kathy Avelar MD [facility] [place] [address] ELECTROPHYSIOLOGY PROCEDURE Social History Tobacco Use Types [...] Mady Med[place]in Patient Age: 62 y.o. Language: Telugu Race: White Ethnicity: Not nor Admit date: 09/28/2022 Discharge date and time: 09/28/22 Attending Physician: Kathy Avelar MD Discharge Physician: Kathy Avelar MD Follow-up Recommendations for Providers: - s/p uneventful pacemaker generator exchange - No changes to medications - See provider instructions for wound care management Inpatient Provider Contact Information: Cardiac Electrophysiology - Weekends and holidays call [phone]; ask for battery recharger publicity consultant. Discharge Diagnoses (Hospital Problems) and Secondary Diagnoses [...] pacemaker implant 09/22/[address] Dinero at [facility]. Her device reached ALY [...] the incision. Make sure to use a printing grey cloth tender (such as a towel) in between the [...] F. The office scheduling phone number is [phone]. General Instructions None Discharge References/Attachments None documented in this encounter Discharge Instructions * Patient Instructions* Aubrey Correa MD - 09/28/2022 10:38 AM EDT FINAL ICD/PACEMAKER RECOMMENDATIONS: 1. Standard post implant discharge instructions (see below): 2. Medications as listed above. You may use ice packs over the incision. Make sure to use a printing grey cloth tender (such as a towel) in between the [...] F. The office scheduling phone number is [phone]. documented in this encounter Medications at Time [...] pacemaker implant 09/22/[address] Dinero at [facility]. Her device reached ALY [...] Device interrogation: Data Pacemaker Model: Adapta [id number] Implanted: 09/22/13 4:23 PM Atrial Lead: Medtronic [id number] Implanted: 09/22/13 Ventricular Lead: Medtronic [id number] Implanted: 09/22/13 Alerts ALY 05/14/22 Diagnostics Pacing [...] AM EST Hospital Encounter [place] [address] Arrived Scheduled Orders Name Type [...] implanted pulse generator: NORIS PAT DR MRI #[id number] Retained and used hardware (09/22/13): RA: Medtronic 5076-52 cm Serial #[id number] 2.8 / 398 / 0.75V@0.4ms RV: Medtronic 4074-58 cm Serial #[id number] -- / 627 / 1.5V@1.0ms Hardware removed (09/22/13): Medtronic Adapta [id number] Final device settings: Mode: DDDR Lower rate limit: 60 Upper tracking rate: 130 Antibiotic: Vancomycin, sedation period 8:33-9:35 am, no sedation medicines administered Fluoroscopy time: 0 I, Kathy Avelar MD, was present throughout the procedure as the welding machine operator electroslag. Kathy Avelar MD EP PROCEDURE ORDERAB LES * (ABNORMAL) Differential, Automated (09/28/2022 8:20 AM EDT) Neutrophil % 56.4 % [facility] Neutrophil Absolute 5.37 1.70 - 6.10 x10(3)/mc L [facility] Lymph % 34.7 % [facility] Lymphocytes Abs 3.3(H) 0.9 - 3.2 x10(3)/mc L [facility] Monocyte % 6.8 % [facility] Monocyte Abs 0.6 0.3 - 0.9 x10(3)/[facility] Eos % 1.5 % [facility] Eosinophils Abs 0.1 0.0 - 0.4 x10(3)/[facility] Basophil % 0.5 % [facility] Baso Absolute 0.0 0.0 - 0.1 x10(3)/[facility] Immature Gran % 0.10 % [facility] Comment: Immature granulocytes(IG's)percentage and absolute count will include metamyelocytes, myelocytes, and promyelocytes. Blood smears from CBCs yielding IG's will be scanned manually for concordance. If this scan disagrees with the automated IG or if promyelocytes are noted, a manual differential will be performed. Immature Gran Absolute 0.01 0.00 - 0.04 x10(3)/[facility] Blood 09/28/2022 8:20 AM EDT 09/28/2022 8:26 AM EDT Narrative Resulting Agency Comment Spec In Lab Deniz SAUNDERS HEMATOLOGY ORDERABLE S Performing Organization Address City/State/[facility] Co de Phone Number [facility] [place] [address] * Hemogram (09/28/2022 8:20 AM EDT) White Blood Cell 9.5 4.0 - 9.5 x10(3)/[facility] Red Blood Cell 4.54 4.00 - 5.21 x10(6)/[facility] Hemoglobin 13.3 11.7 - 15.5 g/dL [facility] Hematocrit 39.2 35.7 - 45.8 % [facility] Mean Cell Volume 86.3 82.6 - 94.4 fL [facility] Mean Cell Hemoglobin 29.3 27.1 - 32.0 pg [facility] Mean Cell Hemoglobin Concentration 33.9 31.7 - 35.0 g/dL [facility] Platelet 153 145 - 357 x10(3)/[facility] RDW Standard Deviation 40.1 37.0 - 46.0 fL [facility] RDW coefficient of variation 12.8 11.5 - 14.1 % [facility] Mean Platelet Volume 10.0 7.6 - 12.9 fL [facility] NRBC% auto 0.0 % [facility] NRBC Absolute 0.000 0.000 - 0.000 x10(3)/mcL [facility] Blood 09/28/2022 8:20 AM EDT 09/28/2022 8:26 AM EDT Narrative Resulting Agency Comment Spec In Lab Deniz SAUNDERS HEMATOLOGY ORDERABLE S Performing Organization Address City/[facility]/ZIP Co de Phone Number [facility] [place] [address] * POCT Glucose (09/28/2022 7:40 AM EDT) Glucose, POC 145 65 - 199 mg/dL [facility] Comment: Supplemental ranges: <140 mg/dL before meals <180 mg/dL all other times of the day Blood 09/28/2022 7:40 AM EDT 09/28/2022 7:40 AM EDT Kathy Avelar MD POINT OF CARE TEST O RDERABLES Performing Organization Address [facility] Co de Phone Number [facility] [place] [address] documented in this encounter Visit Diagnoses Diagnosis [...] 0824, Until Sat09/28/22 at 1311, MIESHA KAPLAN (TEAM CDL DRIVER): cabinet override 0830 (Due) documented in this encounter Care Teams Warpman Relationship Specialty Start Date End Date Anna Bonds APRN [address] [place] [address] PCP - General Family Medicine 11/21/18 documented as of this encounter
[2024-03-13 21:26] LABS: COMMENT (LAB VIEW ONLY) 124.22 mg/dL; Microalb ug/mg Crea 11.4 ug/mg Cr
== END 2024-03-13 20:32 | disposition home or self-care (01) ==
LOC: NCHCN 20:31
PROVIDERS: PCP Nurse Practitioner Family; Visit Provider Nurse Practitioner Family
DX: E11.9 Type 2 diabetes mellitus without complications (principal)
CPT/HCPCS: 82043; 82570

== ENCOUNTER 2024-10-16 15:43 | Outpatient (REF) | payer MEDICAID, SELFPAY ==
[2024-10-16 14:50] LABS: Abs Immature Grans 0.02 10^3/uL (0.0-0.06); HCT 40.8 % (36.0-46.0); HGB 13.5 g/dL (11.2-15.7); Immature Grans % 0.2 %; MCH 28.1 pg (27.0-33.0); MCHC 33.1 % (32.0-36.0); MCV 85 fL (80-95); MPV 10.0 fL (8.0-11.0); Platelet Count 186 10^3/uL (130-400); RBC 4.81 10^6/uL (3.93-5.22); RDW 13.0 % (11.7-14.6); RDW-SD 40.1 fL; WBC 8.25 10^3/uL (4.4-10.8)
[2024-10-16 15:26] LABS: ALT 39 U/L (14-59); AST 28 U/L (15-37); Albumin 3.8 g/dL (3.4-5.0); Alkaline Phosphatase 79 U/L (46-116); Anion Gap 12.0 mmol/L (3-11); BUN 13 mg/dL (7-18); Bilirubin, Total 0.4 mg/dL (0.2-1.0); CO2 27.0 mmol/L (21.0-32.0); Calcium 9.7 mg/dL (8.5-10.1); Calculated LDL 37 mg/dL (<100); Chloride 104 mmol/L (98-107); Cholesterol 115 mg/dL (<200); Estimated GFR 96.52 (mL/min/1.73m2); Glucose 108 mg/dL (74-106); HDL Cholesterol 52 mg/dL (>or=50); Potassium 4.4 mmol/L (3.5-5.1); Sodium 143 mmol/L (136-145); Total Protein 7.1 g/dL (6.4-8.2); Triglyceride 132 mg/dL (<150); Vitamin B12 386 pg/mL (193-986)
== END 2024-10-16 15:44 | disposition home or self-care (01) ==
LOC: NCHCN 15:43
PROVIDERS: PCP Nurse Practitioner Family; Visit Provider Nurse Practitioner Family
DX: E11.9 Type 2 diabetes mellitus without complications (principal); G62.9 Polyneuropathy, unspecified; K74.60 Unspecified cirrhosis of liver
CPT/HCPCS: 80053; 80061; 82607; 85025